=== PATIENT | female | born 1950 | race Caucasian/White ===

== ENCOUNTER 2018-05-10 16:58 | Emergency (ER) | payer BC ==
[~2018-05-10] VITALS: Ht 165.1 cm; Wt 85.2 kg
[~2018-05-10 16:58] MED LIST: AMB5 PO; BUPR75TA20 PO; [UNRECOGNIZED DRUG - CODE] PO
[2018-05-10 17:01] VITALS: TEMP 37.6; Ht 165.1 cm; Wt 85.2 kg
--- NOTE | 2018-05-10 17:29 | EMERGENCY ROOM VISIT NOTE ---
History Report prepared by Marcos: Wyatt Yanez Under the Supervision of: Dr. Peter Maravilla M.D. First contact with patient: 17:11 Chief Complaint: ABDOMINAL PAIN Stated Complaint: SEVERE STOMACH ACH, FEVER History of Present Illness The patient is a 67 year old female who presents to the Emergency Room with complaints of 6/10 epigastric/RUQ abdominal pain x3 days. The patient states today she saw her PCP Dr. Freitas for this pain and he was concerned about her gallbladder so he sent her here. The patient does note she developed a fever today. She does mention she has had nausea but denies vomiting/diarrhea. The patient states she has had increased urinary frequency and chills as well as malaise. The patient denies pain in her back. She does state she does have a history of bladder cancer which she had surgery and radiation done for this at [facility]. Pt denies LOC, headache,diaphoresis, visual changes, neck pain, chest pain, breathing difficulties, vomiting, melena, hematochezia, numbness, lymphadenopathy, rash, or other complaints. Source of History: patient Onset: x3 days Position: abdomen (RUQ) Symptom Intensity: moderate Quality: ache Timing: constant, worsening Review of Systems See HPI for pertinent positives and negatives. A total of ten systems were reviewed and were otherwise negative. Constitutional: + fever, + chills Respiratory: No cough Abdomen: + pain, + nausea, No vomiting, No diarrhea Genitourinary - Female: + urinary frequency Endocrine: + fatigue Integumentary: No rash Past Medical & Surgical Medical Problems: (1) History of bladder cancer Social History Smoking Status: Former Smoker Marital Status: Housing Status: lives with significant other Current/Historical Medications Scheduled Ciprofloxacin Hcl (Cipro), 500 MG PO BID Fish Oil ([place]-3), 1 CAP PO DAILY Zolpidem Tartrate (Zolpidem Tartrate), 10 MG PO HS Allergies Coded Allergies: Amoxicillin (Verified Allergy, Intermediate, Hives, 05/10/18) Penicillamine (Unverified Allergy, Mild, 10/24/09) Physical Exam Vital Signs Date Time Temp Pulse Resp B/P (MAP) Pulse Ox O2 Delivery O2 Flow Rate FiO2 05/10/18 19:02 74 21 116/63 93 Room Air 05/10/18 18:00 80 12 108/63 94 05/10/18 17:38 81 05/10/18 17:33 78 12 114/65 94 Room Air 05/10/18 17:01 37.6 91 20 113/73 95 Room Air Physical Exam GENERAL: Uncomfortable appearing. Awake, alert, well-appearing, in no distress HENT: Normocephalic, atraumatic. Oropharynx unremarkable. EYES: Normal conjunctiva. Sclera non-icteric. NECK: Supple. No nuchal rigidity. FROM. No masses. RESPIRATORY: Clear to auscultation. No wheezes. No rales. Normal respiratory effort. CARDIAC: Normal rate. Normal rhythm. No murmurs. No rubs. Extremities warm and well perfused. Pulses equal. No JVD. GI: Tenderness RUQ with palpation. Soft, non-distended. No rebound or guarding. No masses. RECTAL: Deferred. MUSCULOSKELETAL: Atraumatic. Chest examination reveals no tenderness. The back is symmetrical on inspection without obvious abnormality. There is no CVA tenderness to palpation. No joint edema. LOWER EXTREMITIES: Calves are equal size bilaterally and non-tender. No edema. No discoloration. NEURO: Normal sensorium. No sensory or motor deficits noted. SKIN: No rash or jaundice noted. Medical Decision & Procedures ER Provider Diagnostic Interpretation: ABD/PELVIS NO IV OR ORAL CONT CLINICAL HISTORY: 67 years-old Female presenting with RUQ abd pain and fever. TECHNIQUE: Multidetector CT of the abdomen and pelvis was performed without the use of intravenous contrast. IV contrast: None. A dose lowering technique was used consistent with the principles of ALARA (as low as reasonably achievable). COMPARISON: 11/07/2008. CT DOSE (mGy.cm): The estimated cumulative dose is 946.33 mGy.cm. FINDINGS: [employer] topogram: Unremarkable. Lung bases: Minimal basilar opacities, likely atelectasis. Normal heart size. No pericardial or pleural effusion. Liver: Normal morphology. Density consistent with hepatic steatosis. Parenchymal calcification may suggest prior granulomatous infection. Biliary: No gross biliary ductal dilatation allowing for noncontrast technique. Normal gallbladder. Pancreas: Normal noncontrast appearance. Spleen: Normal noncontrast appearance. Adrenal glands: Normal noncontrast appearance. Kidneys and ureters: Normal noncontrast appearance. No nephrolithiasis. No hydronephrosis. Normal ureters. Bladder: Normal noncontrast appearance. Pelvic organs: Normal noncontrast appearance. Bowel: Diverticulosis of the proximal to mid sigmoid colon as well as the descending colon. No significant colonic wall thickening or pericolonic inflammatory change. Few additional scattered diverticula in the colon. No bowel obstruction. The appendix is not visualized. No pneumatosis. Peritoneal cavity: No free fluid or intraperitoneal gas. Lymph nodes: No gross lymphadenopathy allowing for noncontrast technique. Vasculature: Atherosclerosis of the normal caliber abdominal aorta. Abdominal wall: Small fat-containing umbilical hernia. Musculoskeletal: Degenerative changes of the spine. IMPRESSION: 1. No acute intra-abdominal pathology allowing for noncontrast technique. 2. Diverticulosis without evidence of diverticulitis. GALLBLADDER-ABD LIMITED CLINICAL HISTORY: 67 years-old Female presenting with RUQ abd pain. TECHNIQUE: Real-time grayscale and limited color Doppler ultrasound imaging of the abdomen limited to the right upper quadrant was performed. COMPARISON: CT from 05/10/2018. FINDINGS: Pancreas: Visualized portions of the pancreatic head and body normal. Liver: Normal echogenicity and echotexture. The liver measures 14.4 cm in maximal sagittal dimension. No sonographic evidence of hepatic mass. Main portal vein patent with normal directional flow. Biliary: No intrahepatic biliary ductal dilatation. Common bile duct measures up to 3 mm in diameter. Gallbladder: Trace gallbladder sludge may be present. No evidence of gallstones, gallbladder wall thickening, gallbladder distention, or pericholecystic fluid or inflammatory change. Right kidney: Normal in appearance without evidence of hydronephrosis. Ascites: None. Other: None. IMPRESSION: Trace gallbladder sludge may be present. No cholelithiasis or biliary ductal dilatation. Electronically signed by: Deshaun Garner M.D. 05/10/2018 8:25 PM Dictated Date/Time: 05/10/2018 8:24 PM Laboratory Results 05/10/18 17:30 Red Blood Count 4.71, Mean Corpuscular Volume 87.0, Mean Corpuscular Hemoglobin 30.6, Mean Corpuscular Hemoglobin Concent 35.1, Mean Platelet Volume 9.4, Neutrophils (%) (Auto) 89.1, Lymphocytes (%) (Auto) 7.3, Monocytes (%) (Auto) 2.8, Eosinophils (%) (Auto) 0.0, Basophils (%) (Auto) 0.2, Neutrophils # (Auto) 4.75, Lymphocytes # (Auto) 0.39, Monocytes # (Auto) 0.15, Eosinophils # (Auto) 0.00, Basophils # (Auto) 0.01 05/10/18 17:30 Test 05/10/18 17:30 White Blood Count 5.33 K/uL (4.8-10.8) Red Blood Count 4.71 M/uL (4.2-5.4) Hemoglobin 14.4 g/dL (12.0-16.0) Hematocrit 41.0 % (37-47) Mean Corpuscular Volume 87.0 fL (80-100) Mean Corpuscular Hemoglobin 30.6 pg (25-34) Mean Corpuscular Hemoglobin Concent 35.1 g/dl (32-36) Platelet Count 103 K/uL (130-400) Mean Platelet Volume 9.4 fL (7.4-10.4) Neutrophils (%) (Auto) 89.1 % Lymphocytes (%) (Auto) 7.3 % Monocytes (%) (Auto) 2.8 % Eosinophils (%) (Auto) 0.0 % Basophils (%) (Auto) 0.2 % Neutrophils # (Auto) 4.75 K/uL (1.4-6.5) Lymphocytes # (Auto) 0.39 K/uL (1.2-3.4) Monocytes # (Auto) 0.15 K/uL (0.11-0.59) Eosinophils # (Auto) 0.00 K/uL (0-0.5) Basophils # (Auto) 0.01 K/uL (0-0.2) RDW Standard Deviation 42.9 fL (36.4-46.3) RDW Coefficient of Variation 13.4 % (11.5-14.5) Immature Granulocyte % (Auto) 0.6 % Immature Granulocyte # (Auto) 0.03 K/uL (0.00-0.02) Urine Color DK YELLOW Urine Appearance CLOUDY (CLEAR) Urine pH 5.5 (4.5-7.5) Urine Specific [place] 1.025 (1.000-1.030) Urine Protein 2+ (NEG) Urine Glucose (UA) NEG (NEG) Urine Ketones 1+ (NEG) Urine Occult Blood 2+ (NEG) Urine Nitrite NEG (NEG) Urine Bilirubin NEG (NEG) Urine Urobilinogen NEG (NEG) Urine Leukocyte Esterase SMALL (NEG) Urine WBC (Auto) 10-30 /hpf (0-5) Urine RBC (Auto) 5-10 /hpf (0-4) Urine Hyaline Casts (Auto) 5-10 /lpf (0-5) Urine Epithelial Cells (Auto) >30 /lpf (0-5) Urine Bacteria (Auto) 2+ (NEG) Urine Renal Epithelial Cells 0-5 /lpf (0-5) Urine Pathogenic Casts /lpf (0) Urine Mucus PRESENT (NONE PRSENT) Anion Gap 12.0 mmol/L (3-11) Est Creatinine Clear Calc Drug Dose 55.2 ml/min Estimated GFR () 61.9 Estimated GFR (Non- 53.5 BUN/Creatinine Ratio 11.2 (10-20) Calcium Level 8.8 mg/dl (8.5-10.1) Total Bilirubin 0.9 mg/dl (0.2-1) Direct Bilirubin mg/dl (0-0.2) Aspartate Amino Transf (AST/SGOT) 65 U/L (15-37) Alanine Aminotransferase (ALT/SGPT) 64 U/L (12-78) Alkaline Phosphatase 95 U/L (45-117) Total Protein 7.9 gm/dl (6.4-8.2) Albumin 3.5 gm/dl (3.4-5.0) Lipase 109 U/L (73-393) Chemistry Specimen Hemolysis Medications Administered Medications (Trade) Dose Ordered Sig/Iam Route Start Time Stop Time Status Last Admin Dose Admin Hydromorphone HCl (Dilaudid Inj) 0.5 mg Q15M PRN IV 05/10/18 18:00 05/24/18 17:59 05/10/18 17:57 0.5 MG Ondansetron HCl (Zofran Inj) 4 mg NOW STAT IV 05/10/18 17:46 05/10/18 17:48 DC 05/10/18 17:57 4 MG Sodium Chloride 1,000 ml @ 999 mls/hr Q1H1M STAT IV 05/10/18 17:46 05/10/18 18:46 DC 05/10/18 17:56 999 MLS/HR Ciprofloxacin/ Dextrose (Cipro / D5W) 400 mg NOW STAT IV 05/10/18 18:52 05/10/18 18:54 DC 05/10/18 19:07 400 MG Medical Decision Prior records/ancillary studies reviewed. Triage Nursing notes reviewed and agree them. Additional history obtained from her . The patient's history was concerning for abdominal pain. Differential diagnosis: Etiologies such as appendicitis, diverticulitis, PUD, biliary pathology, UTI, pancreatitis, obstruction, mesenteric ischemia, aortic pathology, infections, inflammatory bowel disease, renal colic, as well as others were entertained. Physical examination findings: As above. ER treatment provided: IV normal saline IV Zofran IV Dilaudid On reassessment the patient felt better. IV Cipro Diagnostics interpreted by me: The labs revealed an unremarkable CBC and chemistry panel. Urinalysis concerning for infection Imaging studies: CAT scan as above. Ultrasound as above The patient presented with right upper abdominal pain. Her urinalysis was very concerning for infection. She underwent CT imaging and there is no evidence of kidney stone or obstruction. No other emergent pathology noted. Because of the right upper quadrant pain and ultrasound was performed. This was negative for biliary pathology. She was given IV Cipro while waiting for ultrasound and did very well with this. A culture was sent. She is feeling significantly better after the above treatment. I discussed conservative management at home with oral Cipro. The patient will also be treated with a Zofran pack in case she has any additional nausea. She will use Tylenol and ibuprofen. She is pending travel next week so I asked for her to follow-up with her primary physician this week. If she worsens in any way she will be back. By the evaluation outlined above other emergent etiologies such as those listed in the differential, as well as others, were deemed relatively unlikely. The patient was educated about the findings as listed above. All questions were answered and the patient was pleased with the treatment. Return instructions were outlined and the patient was discharged in stable condition. The patient was referred to her PCP for follow-up for a recheck of the current condition. Medication Reconcilliation Current Medication List: was personally reviewed by me Blood Pressure Screening Patient's blood pressure: Normal blood pressure Impression Primary Impression: Right upper quadrant abdominal pain Additional Impressions: UTI (urinary tract infection) Pyelonephritis Scribe Attestation The scribe's documentation has been prepared under my direction and personally reviewed by me in its entirety. I confirm that the note above accurately reflects all work, treatment, procedures, and medical decision making performed by me. Departure Information Dispostion Home / Self-Care Prescriptions Ciprofloxacin Hcl (CIPRO) 500 Mg Tab 500 MG PO BID, #14 TAB Prov: Peter Maravilla MD 05/10/18 Referrals No Doctor, Assigned (PCP) Forms Call Back Authorization, HOME CARE DOCUMENTATION FORM, IMPORTANT VISIT INFORMATION Patient Instructions My [facility] Additional Instructions Ciprofloxacin(Cipro) 500mg: Take one pill twice daily for 3 days for your urine infection. All antibiotics can cause diarrhea. If this occurs and you feel worse or it does not resolve in 1-2 days follow up with your doctor or return to the Emergency Department as this could be signs of serious underlying problems. If you experience any pain in your tendons or any tendon injury return to the ER for re-evaluation. Any medication can cause an allergic reaction, stop the pills immediately and return to the ER for rash, hives, breathing difficulties, or swelling. Zofran 4 mg oral dissolving tablets: take one tablet and allow it to melt in your mouth every 4 hours as needed for nausea. Ibuprofen(Motrin, Advil) may be used for fever or pain. Use 600mg every six hours as needed. Take with food. Avoid using more than 2400mg in a 24 hour period. Do not use 2400mg per day for more than three consecutive days without physician direction. Prolonged inappropriate use can lead to stomach upset or ulcers. (AND/OR) Acetaminophen(Tylenol) may be used for fever or pain. Use 1000mg every six hours as needed. Avoid using more than 4000mg in a 24 hour period. Rest and drink plenty of fluids. Continue current medications. Return to the ER immediately for worsening or persistent abdominal pain, vomiting, fevers, back or flank pain, worsening of your condition, or as needed. Follow up with your primary physician within 2-3 days for a recheck of the current condition. Problem Qualifiers
[2018-05-10] MEDS ORDERED: ONDANSETRON INJ 2 MG/ML 2 ML VIAL IV STA (17:46)
[2018-05-10] MEDS ORDERED: SODIUM CHLORIDE 0.9% 1000ML 1,000 ML IV STA (17:46)
[2018-05-10 17:49] LABS: BASO % 0.2 %; BASO ABS # 0.01 K/uL (0-0.2); HEMOGLOBIN 14.4 g/dL (12.0-16.0); IG# 0.03 K/uL (0.00-0.02); LYMPH % 7.3 %; LYMPH ABS # 0.39 K/uL (1.2-3.4); MEAN CORPUSCULAR HEMOGLOBIN 30.6 pg (25-34); MEAN CORPUSCULAR HGB CONC 35.1 g/dl (32-36); MEAN PLATELET VOLUME 9.4 fL (7.4-10.4); MONO % 2.8 %; MONO ABS # 0.15 K/uL (0.11-0.59); NEUT % 89.1 %; NEUT ABS # 4.75 K/uL (1.4-6.5); PLATELET COUNT 103 K/uL (130-400); RED CELL DISTRIBUTION WIDTH CV 13.4 % (11.5-14.5); RED CELL DISTRIBUTION WIDTH SD 42.9 fL (36.4-46.3); WHITE BLOOD COUNT 5.33 K/uL (4.8-10.8)
[2018-05-10] MEDS ORDERED: ZOLP10TA6 PO (17:57)
[2018-05-10] MEDS ORDERED: OMEG10007 PO (17:57)
[2018-05-10] MEDS ORDERED: HYDROmorphone INJ 0.5 MG/0.5 ML SYR IV PRN (18:00)
[2018-05-10 18:32] LABS: ALBUMIN 3.5 gm/dl (3.4-5.0); CALCIUM 8.8 mg/dl (8.5-10.1); CREATININE 1.08 mg/dl (0.60-1.20); POTASSIUM 3.6 mmol/L (3.5-5.1); TOTAL PROTEIN 7.9 gm/dl (6.4-8.2)
--- NOTE | 2018-05-10 18:40 | DIAGNOSTIC IMAGING REPORT ---
ABD/PELVIS NO IV OR ORAL CONT CLINICAL HISTORY: 67 years-old Female presenting with RUQ abd pain and fever. TECHNIQUE: Multidetector CT of the abdomen and pelvis was performed without the use of intravenous contrast. IV contrast: None. A dose lowering technique was used consistent with the principles of ALARA (as low as reasonably achievable). COMPARISON: 11/07/2008. CT DOSE (mGy.cm): The estimated cumulative dose is 946.33 mGy.cm. FINDINGS: [employer] topogram: Unremarkable. Lung bases: Minimal basilar opacities, likely atelectasis. Normal heart size. No pericardial or pleural effusion. Liver: Normal morphology. Density consistent with hepatic steatosis. Parenchymal calcification may suggest prior granulomatous infection. Biliary: No gross biliary ductal dilatation allowing for noncontrast technique. Normal gallbladder. Pancreas: Normal noncontrast appearance. Spleen: Normal noncontrast appearance. Adrenal glands: Normal noncontrast appearance. Kidneys and ureters: Normal noncontrast appearance. No nephrolithiasis. No hydronephrosis. Normal ureters. Bladder: Normal noncontrast appearance. Pelvic organs: Normal noncontrast appearance. Bowel: Diverticulosis of the proximal to mid sigmoid colon as well as the descending colon. No significant colonic wall thickening or pericolonic inflammatory change. Few additional scattered diverticula in the colon. No bowel obstruction. The appendix is not visualized. No pneumatosis. Peritoneal cavity: No free fluid or intraperitoneal gas. Lymph nodes: No gross lymphadenopathy allowing for noncontrast technique. Vasculature: Atherosclerosis of the normal caliber abdominal aorta. Abdominal wall: Small fat-containing umbilical hernia. Musculoskeletal: Degenerative changes of the spine. IMPRESSION: 1. No acute intra-abdominal pathology allowing for noncontrast technique. 2. Diverticulosis without evidence of diverticulitis. Electronically signed by: Deshaun Garner M.D. 05/10/2018 6:39 PM Dictated Date/Time: 05/10/2018 6:30 PM
[2018-05-10] MEDS ORDERED: CIPROFLOXACIN 400MG / 200ML D5W IV STA (18:52)
--- NOTE | 2018-05-10 20:26 | DIAGNOSTIC IMAGING REPORT ---
GALLBLADDER-ABD LIMITED CLINICAL HISTORY: 67 years-old Female presenting with RUQ abd pain. TECHNIQUE: Real-time grayscale and limited color Doppler ultrasound imaging of the abdomen limited to the right upper quadrant was performed. COMPARISON: CT from 05/10/2018. FINDINGS: Pancreas: Visualized portions of the pancreatic head and body normal. Liver: Normal echogenicity and echotexture. The liver measures 14.4 cm in maximal sagittal dimension. No sonographic evidence of hepatic mass. Main portal vein patent with normal directional flow. Biliary: No intrahepatic biliary ductal dilatation. Common bile duct measures up to 3 mm in diameter. Gallbladder: Trace gallbladder sludge may be present. No evidence of gallstones, gallbladder wall thickening, gallbladder distention, or pericholecystic fluid or inflammatory change. Right kidney: Normal in appearance without evidence of hydronephrosis. Ascites: None. Other: None. IMPRESSION: Trace gallbladder sludge may be present. No cholelithiasis or biliary ductal dilatation. Electronically signed by: Deshaun Garner M.D. 05/10/2018 8:25 PM Dictated Date/Time: 05/10/2018 8:24 PM
[2018-05-10] MEDS ORDERED: CIPROFLOXACIN 500 MG TAB PO STA (20:31)
[2018-05-10] MEDS ORDERED: CIPR-255 PO (20:36)
[2018-05-10] MEDS ORDERED: EMPTY 8 DRAM VIAL ONE (20:41)
[2018-05-10] MEDS ORDERED: ONDANSETRON HOME PACK 4MG OD TAB PO ONE (20:45)
[2018-05-10 21:08] VITALS: BP 111/58; PULSE 78; O2SAT 94
== END 2018-05-10 21:08 | disposition home or self-care (01) ==
LOC: C.EDB 16:59
DX: R10.11 Right upper quadrant pain (principal); N39.0 Urinary tract infection, site not specified; N12 Tubulo-interstitial nephritis, not specified as acute or chronic; Z85.51 Personal history of malignant neoplasm of bladder; Z87.891 Personal history of nicotine dependence; Z79.899 Other long term (current) drug therapy; Z88.1 Allergy status to other antibiotic agents; Z88.0 Allergy status to penicillin

== ENCOUNTER 2022-06-15 12:43 | Inpatient (IN) ==
--- NOTE | 2022-06-15 15:07 | Ultrasound Report ---
ULTRASOUND LEFT LOWER EXTREMITY VENOUS CLINICAL HISTORY: Left leg swelling. COMPARISON STUDY: Left lower extremity venous ultrasound dated 11/14/2019 TECHNIQUE: Real-time, grayscale, and color Doppler sonography of the deep veins of the left lower ext remity was performed from the inguinal crease to the calf. Compression and augmentation were utilized . FINDINGS: There is extensive occlusive deep venous thrombosis seen throughout the left lower extreme. This extends to the common femoral artery to the calf vessels. There are foci of flow within the ant erior and posterior tibial veins. Superficial venous thrombus is seen within the greater saphenous ve in and profunda femoris vein. IMPRESSION: Extensive occlusive deep venous thrombosis throughout the left lower extremity as above. ACT 112: Negative or not required by law. Electronically signed by: Abdulaziz Albert M.D. 06/15/2022 3:06 PM
[2022-06-15] MEDS ORDERED: SODIUM CHLORIDE 0.9% 1000ML 1,000 ML IV ONE (16:11)
--- NOTE | 2022-06-15 16:11 | Emergency Department Note ---
Impression & Plan DVT (deep venous thrombosis), Ovarian cancer, Ileostomy present, Colovaginal fistula ED Provider Note NAME: CAROL LARSEN AGE: 71 SEX: F : 1950 ARRIVES VIA: Walk-In INFORMANT: Patient ED PROVIDER(S): Aristides Celestin DO CHIEF COMPLAINT: LLE pain HPI: Patient is a 71-year-old female who presents to the ER for left lower extremity pain and swelling. She was recently admitted and discharged after 40- day stay at [facility] following multiple abdominal surgeries for ovarian cancer which has spread. She was just discharged on Tuesday. She has been h aving pain in her left calf for the past 4 to 5 days. She admits that the dull aching constant pain. The leg is feeling heavier. Denies any headache or change in vision. No chest pain or shortness of breath. No nausea vomiting or diarrhea. She does have an ostomy now as well as a G-tube. ROS: See above HPI for pertinent positives & negatives. A total of 10 systems reviewed and were otherwise negative. PAST MEDICAL HISTORY:See Below PAST SURGICAL HISTORY:See Below FAMILY HISTORY:See Below SOCIAL HISTORY:See Below HOME MEDICATIONS:See Below ALLERGIES:See Below VITALS:See Below PHYSICAL EXAMINATION: GENERAL: Sitting up in bed, alert, ill appearing, disheveled EYE EXAM: normal conjunctiva. OROPHARYNX: mucous membranes are dry NECK: supple, no nuchal rigidity, no adenopathy, non-tender LUNGS: Clear to auscultation. Normal chest wall mechanics HEART: no murmurs, S1 normal and S2 normal ABDOMEN: abdomen soft, non-tender, normo-active bowel sounds, G-tube in place as well as ostomy and wound vac UPPER EXTREMITIES: upper extremities are grossly normal. LOWER EXTREMITIES: Left calf larger than right calf. DP and PT 2 out of 4. Gross station intact NEURO EXAM: Normal sensorium, cranial nerves II-XII grossly intact, normal speech, no gross weakness of arms, no gross weakness of legs. MEDICAL DECISION MAKING: Patient is a 71-year-old female who presents the ER for left leg pain. He was referred in by her primary care doctor. IV was established blood work was obtained. Labs show no significant leukocytosis with a white count of 7. Hemoglobin 8 consistent with previous. Platelets 192. INR unremarkable. BMP with hyponatremia 132. LFTs bilirubin and troponin was negative. Lipase unremarkable. COVID-negative. CT of the chest as well as abdomen pelvis shows no PEs and a questionable small abscess of 20 x 9 mm versus colovaginal fistula. This was discussed with her surgery team at [facility]. He recommended holding on antibiotics and case can be discussed with the primary surgeon tomorrow. Patient was initially given heparin drip and bolus as I was concerned that she may need surgery but they recommended that she could be held here overnight and follow up as an outpt with them. Discussed with Dr. Korey Means for further observation. Triage Nursing notes reviewed. Limited review of prior medical records performed Vital Signs: reviewed and remarkable for tachy Differential diagnosis: DVT, musculoskeletal, infection, joint effusion, trauma, lymphedema, idiopathic, CHF, as well as other pathologies. ER treatment provided: See below Diagnostics interpreted by me: ECG: Sinus rhythm rate 94 Left axis Right bundle branch block QTC 472 Cardiac Monitoring: An order was placed for continuous cardiac monitoring. The monitor shows a rate of 98 with sinus rhythm. Laboratory studies: As stated above and show below. Imaging studies: CT of the abdomen pelvis and chest as described above Venous Doppler shows extensive thrombosis in left lower extremity Consultation(s): Korey Means for further evaluation Discussed with [facility] Store Detective Jenna as described above Procedures: none Critical Care: None Past Med/Surg History Medical History Bladder cancer TREATED BY [facility] Blood clotting disorder ? 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) Insomnia Surgical History H/O hand surgery LEFT HAND MIDDLE FINGER GROWTH REMOVED (DONE MULTIPLE TIMES) History of colonoscopy History of cystoscopy BLADDER TUMORS REMOVED (MULTIPLE TIMES) HAS HAD NO PROBLEMS FOR 3 YEARS History of tonsillectomy History of tooth extraction Hx of bilateral breast reduction surgery Family History Other No significant family history Social History Smoking Status: Never smoker Second Hand Exposure: No; Hx Alcohol Use: Yes Alcohol type: wine Hx Substance Use: No Preferred Language: [place] Communication Ability: Effective Reconciler Required: No Beliefs That Will Affect Care: None Current Living Situation: Spouse Feels Safe at Home: Yes Assistive Devices: Glasses Allergies Allergies Allergy/AdvReac Type Severity Reaction Status Date / Time amoxicillin Allergy Unknown Hives Verified 06/15/22 15:55 Home Meds Home Medications Medication Instructions Recorded Confirmed omega [id number]-bfa-[id number]-fish oil 1,000 mg 1 cap PO DAILY 07/04/19 06/15/22 (120 mg-180 mg) capsule (Fish Oil) ergocalciferol (vitamin D2) 1,250 1,250 mcg PO 2XWK 06/13/22 06/15/22 mcg (50,000 unit) capsule (Vitamin D2) ibuprofen 800 mg tablet 800 mg PO UD PRN Pain 06/13/22 06/15/22 pantoprazole 40 mg tablet,delayed 40 mg PO DAILY 06/13/22 06/15/22 release prochlorperazine maleate 10 mg 10 mg PO Q6 PRN Nausea And Vomiting 06/13/22 06/15/22 tablet zolpidem 10 mg tablet 10 mg PO HS 10 mg 06/13/22 06/15/22 Results & Data (ED) Vital Signs Vital Signs - 24 hr 06/15/22 13:02 06/15/22 17:21 06/15/22 16:43 Temperature 36.9 C Temperature Source Oral Pulse Rate 100 H Pulse Rate [Apical] 90 Pulse Rate from SpO2 Sensor Respiratory Rate 20 16 Respiratory Effort / Characteristics Non-Labored Spontaneous Non-Labored Spontaneous Respiratory Depth Normal Normal Respiratory Pattern Regular Blood Pressure 125/73 Blood Pressure [Right Arm] 105/69 Blood Pressure Mean 90 Blood Pressure Mean [Right Arm] 81 Blood Pressure Position Sitting Pulse Oximetry 97 98 98 Oxygen Delivery Method Room Air Room Air Room Air Sepsis Recent Fever Within 48 Hours No Sepsis New/Unexplained Change in Mental Status No Sepsis Action Taken by Nursing No Action Required 06/15/22 16:27 06/15/22 16:30 06/15/22 16:40 Temperature Temperature Source Pulse Rate 95 H 92 H 92 H Pulse Rate [Apical] Pulse Rate from SpO2 Sensor Respiratory Rate 19 19 19 Respiratory Effort / Characteristics Respiratory Depth Respiratory Pattern Blood Pressure Blood Pressure [Right Arm] Blood Pressure Mean Blood Pressure Mean [Right Arm] Blood Pressure Position Pulse Oximetry Oxygen Delivery Method Sepsis Recent Fever Within 48 Hours Sepsis New/Unexplained Change in Mental Status Sepsis Action Taken by Nursing 06/15/22 16:46 06/15/22 16:46 06/15/22 16:50 Temperature Temperature Source Pulse Rate 92 H 90 Pulse Rate [Apical] Pulse Rate from SpO2 Sensor 89 Respiratory Rate 19 16 Respiratory Effort / Characteristics Respiratory Depth Respiratory Pattern Blood Pressure 105/69 Blood Pressure [Right Arm] Blood Pressure Mean 81 Blood Pressure Mean [Right Arm] Blood Pressure Position Pulse Oximetry 97 Oxygen Delivery Method Sepsis Recent Fever Within 48 Hours Sepsis New/Unexplained Change in Mental Status Sepsis Action Taken by Nursing 06/15/22 17:22 06/15/22 17:30 06/15/22 17:40 Temperature Temperature Source Pulse Rate 91 H 90 89 Pulse Rate [Apical] Pulse Rate from SpO2 Sensor Respiratory Rate 18 17 17 Respiratory Effort / Characteristics Respiratory Depth Respiratory Pattern Blood Pressure Blood Pressure [Right Arm] Blood Pressure Mean Blood Pressure Mean [Right Arm] Blood Pressure Position Pulse Oximetry Oxygen Delivery Method Sepsis Recent Fever Within 48 Hours Sepsis New/Unexplained Change in Mental Status Sepsis Action Taken by Nursing 06/15/22 17:50 06/15/22 18:00 06/15/22 18:00 Temperature Temperature Source Pulse Rate 90 87 Pulse Rate [Apical] Pulse Rate from SpO2 Sensor Respiratory Rate 19 19 Respiratory Effort / Characteristics Respiratory Depth Respiratory Pattern Blood Pressure 103/58 L Blood Pressure [Right Arm] Blood Pressure Mean 73 Blood Pressure Mean [Right Arm] Blood Pressure Position Pulse Oximetry Oxygen Delivery Method Sepsis Recent Fever Within 48 Hours Sepsis New/Unexplained Change in Mental Status Sepsis Action Taken by Nursing 06/15/22 18:10 06/15/22 18:20 06/15/22 18:30 Temperature Temperature Source Pulse Rate 88 92 H 86 Pulse Rate [Apical] Pulse Rate from SpO2 Sensor Respiratory Rate 19 20 23 Respiratory Effort / Characteristics Respiratory Depth Respiratory Pattern Blood Pressure Blood Pressure [Right Arm] Blood Pressure Mean Blood Pressure Mean [Right Arm] Blood Pressure Position Pulse Oximetry Oxygen Delivery Method Sepsis Recent Fever Within 48 Hours Sepsis New/Unexplained Change in Mental Status Sepsis Action Taken by Nursing 06/15/22 18:40 06/15/22 18:50 06/15/22 19:00 Temperature Temperature Source Pulse Rate 86 102 H Pulse Rate [Apical] Pulse Rate from SpO2 Sensor Respiratory Rate 22 21 Respiratory Effort / Characteristics Respiratory Depth Respiratory Pattern Blood Pressure 98/59 L Blood Pressure [Right Arm] Blood Pressure Mean 72 Blood Pressure Mean [Right Arm] Blood Pressure Position Pulse Oximetry Oxygen Delivery Method Sepsis Recent Fever Within 48 Hours Sepsis New/Unexplained Change in Mental Status Sepsis Action Taken by Nursing 06/15/22 19:00 06/15/22 19:10 06/15/22 19:20 Temperature Temperature Source Pulse Rate 99 H 104 H Pulse Rate [Apical] Pulse Rate from SpO2 Sensor Respiratory Rate 24 12 Respiratory Effort / Characteristics Respiratory Depth Respiratory Pattern Blood Pressure 107/59 L Blood Pressure [Right Arm] Blood Pressure Mean 75 Blood Pressure Mean [Right Arm] Blood Pressure Position Pulse Oximetry Oxygen Delivery Method Sepsis Recent Fever Within 48 Hours Sepsis New/Unexplained Change in Mental Status Sepsis Action Taken by Nursing 06/15/22 19:20 Temperature Temperature Source Pulse Rate 99 H Pulse Rate [Apical] Pulse Rate from SpO2 Sensor Respiratory Rate 23 Respiratory Effort / Characteristics Respiratory Depth Respiratory Pattern Blood Pressure Blood Pressure [Right Arm] Blood Pressure Mean Blood Pressure Mean [Right Arm] Blood Pressure Position Pulse Oximetry Oxygen Delivery Method Sepsis Recent Fever Within 48 Hours Sepsis New/Unexplained Change in Mental Status Sepsis Action Taken by Nursing Laboratory Data Result diagrams: 06/15/22 16:30 06/15/22 16:30 Lab Results 06/15/22 06/15/22 06/15/22 Range/Units 16:30 16:30 16:30 WBC 7.83 (4.8-10.8) K/ul RBC 2.67 L (3.93-5.22) M/uL Hgb 8.3 L (12.0-16.0) g/dl POC Hgb (12.0-16.0) g/dl Hct 25.3 L (34.1-44.9) % POC Hct (37-47) % MCV 94.8 (80.0-100.0) fL MCH 31.1 (25.0-34.0) pg MCHC 32.8 (32.0-36.0) g/dL RDW Std Deviation 57.1 H (36.4-46.3) fL RDW Coeff of Rolo 16.4 H (11.5-14.5) % Plt Count 192 (130-400) K/uL MPV 9.3 L (9.4-12.3) fL Immature Gran % (Auto) 0.5 % Neut % (Auto) 64.9 % Lymph % (Auto) 23.6 % [place] % (Auto) 9.8 % Eos % (Auto) 0.8 % Baso % (Auto) 0.4 % Neut # (Auto) 5.08 (1.4-6.5) K/uL Lymph # (Auto) 1.85 (1.2-3.4) K/uL [place] # (Auto) 0.77 (0.24-0.82) K/uL Eos # (Auto) 0.06 (0-0.50) K/uL Baso # (Auto) 0.03 (0-0.2) K/uL Immature Gran # (Auto) 0.04 H (0.00-0.02) K/uL PT (9.0-12.0) Seconds INR (0.9-1.1) APTT (21.0-31.0) Seconds PTT Ratio POC Sodium (135-144) mmol/L Sodium 132 L (136-145) mmol/L POC Potassium (3.3-5.0) mmol/L Potassium 3.6 (3.5-5.1) mmol/L POC Chloride (101-112) mmol/L Chloride 99 (98-107) mmol/L Carbon Dioxide 27 (21-32) mmol/L POC Total CO2 (24-31) mmol/L Anion Gap 6 (3-11) POC Anion Gap (16-25) mmol/L POC BUN (7-18) mg/dl BUN 19 (6-23) mg/dl Creatinine 0.58 L (0.6-1.2) mg/dl POC Creatinine (0.6-1.3) mg/dl Est Cr Clr Drug Dosing Not Reportable Est GFR ( Amer) 108.2 ml/min Est GFR (Non-Af Amer) 93.4 ml/min BUN/Creatinine Ratio 32.8 H (10-20) Glucose 93 (70-99(Fasting)) mg/dl POC Glucose (other) (70-99) mg/dl Calcium 8.5 (8.5-10.1) mg/dl POC Ioniz Calcium Annelise (1.12-1.32) mmol/l Total Bilirubin 0.7 (0.2-1.0) mg/dl AST 20 (13-39) U/L ALT 20 (7-52) U/L Alkaline Phosphatase 160 H (34-104) U/L Troponin I High Sens 4.4 D (0-14) pg/ml Total Protein 7.1 (6.0-8.3) gm/dl Albumin 3.1 L (3.4-5.0) gm/dl Globulin 4.0 (2.5-4.0) gm/dl Albumin/Globulin Ratio 0.8 L (0.9-2) Lipase 32 (11-82) U/L SARS-CoV-2, RNA, NAAT NEGATIVE (NEGATIVE) 06/15/22 06/15/22 Range/Units 16:30 16:38 WBC (4.8-10.8) K/ul RBC (3.93-5.22) M/uL Hgb (12.0-16.0) g/dl POC Hgb 8.2 L (12.0-16.0) g/dl Hct (34.1-44.9) % POC Hct 24 L (37-47) % MCV (80.0-100.0) fL MCH (25.0-34.0) pg MCHC (32.0-36.0) g/dL RDW Std Deviation (36.4-46.3) fL RDW Coeff of Rolo (11.5-14.5) % Plt Count (130-400) K/uL MPV (9.4-12.3) fL Immature Gran % (Auto) % Neut % (Auto) % Lymph % (Auto) % [place] % (Auto) % Eos % (Auto) % Baso % (Auto) % Neut # (Auto) (1.4-6.5) K/uL Lymph # (Auto) (1.2-3.4) K/uL [place] # (Auto) (0.24-0.82) K/uL Eos # (Auto) (0-0.50) K/uL Baso # (Auto) (0-0.2) K/uL Immature Gran # (Auto) (0.00-0.02) K/uL PT 11.5 (9.0-12.0) Seconds INR 1.1 (0.9-1.1) APTT 25.6 (21.0-31.0) Seconds PTT Ratio 0.9 POC Sodium 134 L (135-144) mmol/L Sodium (136-145) mmol/L POC Potassium 3.6 (3.3-5.0) mmol/L Potassium (3.5-5.1) mmol/L POC Chloride 99 L (101-112) mmol/L Chloride (98-107) mmol/L Carbon Dioxide (21-32) mmol/L POC Total CO2 24 (24-31) mmol/L Anion Gap (3-11) POC Anion Gap 15.0 L (16-25) mmol/L POC BUN 17 (7-18) mg/dl BUN (6-23) mg/dl Creatinine (0.6-1.2) mg/dl POC Creatinine 0.6 (0.6-1.3) mg/dl Est Cr Clr Drug Dosing Est GFR ( Amer) ml/min Est GFR (Non-Af Amer) ml/min BUN/Creatinine Ratio (10-20) Glucose (70-99(Fasting)) mg/dl POC Glucose (other) 101 H (70-99) mg/dl Calcium (8.5-10.1) mg/dl POC Ioniz Calcium Annelise 1.17 (1.12-1.32) mmol/l Total Bilirubin (0.2-1.0) mg/dl AST (13-39) U/L ALT (7-52) U/L Alkaline Phosphatase (34-104) U/L Troponin I High Sens (0-14) pg/ml Total Protein (6.0-8.3) gm/dl Albumin (3.4-5.0) gm/dl Globulin (2.5-4.0) gm/dl Albumin/Globulin Ratio (0.9-2) Lipase (11-82) U/L SARS-CoV-2, RNA, NAAT (NEGATIVE) Administered Medications Heparin Sodium/Dextrose (Heparin Sodium/Dextrose) 25,000 units in 500 mls @ 23 mls/hr IV .[id number] [facility]; Protocol Stop: 07/15/22 18:29 Last Titration: 06/15/22 20:49 Dose: 1,150 units/hr, 23 mls/hr Documented By: SB Co-signed By: BYRON Admin: 06/15/22 19:33 Dose: 1,150 units/hr, 23 mls/hr Documented By: APPLE Co-signed By: AW Discontinued Medications Heparin Sodium (Porcine) (Heparin Sod (Porcine) 1000 Unit/Ml) 1 units IV NOW ONE Stop: 06/15/22 18:25 Last Admin: 06/15/22 19:34 Dose: 5,000 units Documented By: APPLE Co-signed By: XANDER Sodium Chloride (Nss 1000ml) 1,000 mls @ 999 mls/hr IV .[id number] ONE Stop: 06/15/22 17:11 Last Infusion: 06/15/22 17:41 Dose: 0 mls/hr Documented By: Admin: 06/15/22 16:40 Dose: 999 mls/hr Documented By: GILSON Ioversol (Optiray 300 500ml) 117 ml IV ONCE ONE Stop: 06/15/22 17:16 Last Admin: 06/15/22 17:16 Dose: 117 ml Documented By: SHELIA Imaging Data Radiologist's Impression: Venous Doppler Study 06/15/22 13:05 ULTRASOUND LEFT LOWER EXTREMITY VENOUS CLINICAL HISTORY: Left leg swelling. COMPARISON STUDY: Left lower extremity venous ultrasound dated 11/14/2019 TECHNIQUE: Real-time, grayscale, and color Doppler sonography of the deep veins of the left lower extremity was performed from the inguinal crease to the calf. Compression and augmentation were utilized. FINDINGS: There is extensive occlusive deep venous thrombosis seen throughout the left lower extreme. This extends to the common femoral artery to the calf vessels. There are foci of flow within the anterior and posterior tibial veins. Superficial venous thrombus is seen within the greater saphenous vein and profunda femoris vein. IMPRESSION: Extensive occlusive deep venous thrombosis throughout the left lower extremity as above. ACT 112: Negative or not required by law. Electronically signed by: Abdulaziz Albert M.D. 06/15/2022 3:06 PM Chest CTA 06/15/22 15:51 CT angio chest PE protocol CLINICAL HISTORY: PE TECHNIQUE: Multidetector row helical CT of the chest was performed with angiographic protocol. Coronal and sagittal reformations were obtained. Coronal and sagittal MIPS were obtained from the axial data set and were submitted for review. Automated dose lowering techniques and/or adjustment according to patie nt size were utilized for this exam. Comparison: Comparison is made to CTA chest 05/09/2022 FINDINGS: Lungs and pleura: There is a small left pleural effusion with underlying atelectasis. Heart and pericardium: Heart size is normal. No pericardial effusion. Vessels: No evidence of pulmonary embolism. Mediastinum and yusuf: Unremarkable. Chest wall and lower neck: A right port catheter is seen. Abdomen: Calcified pericardial lymph nodes are again seen, unchanged. For findings below the diaphragm, please refer to CT of the abdomen dated the same. Bones: There are degenerative changes are seen. There is a bone hemangioma in the T12 vertebral body. IMPRESSION: 1. No evidence of pulmonary embolism. Previously noted lingular subsegmental emboli or not well seen. 2. Small left pleural effusion with underlying atelectasis. This represents an increase from the prior exam. 3. Partially calcified pericardial lymph nodes are again seen. ACT 112: Negative or not required by law. Electronically signed by: Jaxson Anderson M.D. 06/15/2022 5:47 PM Abdomen/Pelvis CT 06/15/22 16:04 CT abd pelvis IV con only CLINICAL HISTORY: recent surgery w/ extensive dvt lle. Metastatic ovarian cancer, status post surgery with ileostomy. TECHNIQUE: Helical axial images of the abdomen and pelvis were obtained and displayed. Automated dose lowering techniques and/or adjustment according to patient size were utilized for this exam. This exam was performed with intravenous contrast. CT DOSE: 673.42 mGy.cm COMPARISON: Comparison is made to CT abdomen pelvis 05/09/2022 FINDINGS: Lower chest: For findings above the diaphragm, please see CT chest performed same day. Liver: Unremarkable. No focal lesions are seen. Gallbladder and biliary tree: No calcified gallstones. Normal caliber wall. No intra- or extrahepatic biliary ductal dilation. Pancreas: Unremarkable, no focal lesions. Spleen: Unremarkable. Adrenals: Unremarkable. Kidneys and ureters: Subcentimeter hypodensities are too small to characterize. Bladder: Limited evaluation due to underdistention. There is surrounding fat stranding. Reproductive organs: Unremarkable. Bowel: Patient is status post large bowel resection. There is continuity of the right lower quadrant anastomosis site with a rim-enhancing fluid collection measuring 9 x 20 mm, which appears to extend also to the vaginal cuff. Ileostomy is seen. Satisfactory position of gastrostomy tube. Lymph nodes Retroperitoneal: Retroperitoneal lymph nodes measure up to 11 mm in diameter. These are similar in appearance to prior exam. Pelvic: Unremarkable. Mesenteric: Unremarkable. Peritoneum: Peritoneal stranding is seen and a small amount of free fluid is noted in the pelvis. Otherwise, the previously noted gas fluid collection in the pelvis has resolved. Vessels: There is a large filling defect in the left external iliac and femoral veins. Atherosclerotic disease is seen. Additionally, there is suggestion of a distended right lower quadrant pain with a filling defect which emerges with the IVC. Abdominal wall: Unremarkable. Bones: Degenerative changes in the visualized spine. IMPRESSION: 1. Deep venous thrombus in the left external iliac and femoral arteries. 2. Postsurgical changes are seen in the bowel. There is apparent continuity of the resection site with a rim-enhancing 9 x 20 mm fluid collection which demonstrates continuity with the vaginal cuff. This may represent an abscess and/or developing colovaginal fistula. 3. Wall thickening and fat stranding surrounding the bladder may be reactive or represent cystitis, correlation with urinalysis is recommended. 4. Previously noted large gas and fluid collection in the abdomen and pelvis has resolved. No evidence of perforation/anastomotic leak is now seen. ACT 112: Negative or not required by law. Electronically signed by: Jasxon Anderson M.D. 06/15/2022 5:39 PM Discharge Plan Visit Data Chief Complaint: Referred by Doctor Stated Complaint: DVT, sent from Dr. Mcelroy ED Provider: Aristides Celestin Discharge Problem: DVT (deep venous thrombosis), Ovarian cancer, Ileostomy present, Colovaginal fistula
[2022-06-15 16:46] LABS: Basophils # (auto) 0.03 K/uL (0-0.2); Basophils % (auto) 0.4 %; Eosinophils # (auto) 0.06 K/uL (0-0.50); Eosinophils % (auto) 0.8 %; Hematocrit (blood only) 25.3 % (34.1-44.9); Hemoglobin 8.3 g/dl (12.0-16.0); Immature Granulocytes # (auto) 0.04 K/uL (0.00-0.02); Immature Granulocytes % (auto) 0.5 %; Lymphocytes # (auto) 1.85 K/uL (1.2-3.4); Lymphocytes % (auto) 23.6 %; Mean Corpuscular Hemoglobin 31.1 pg (25.0-34.0); Mean Corpuscular Hgb Conc 32.8 g/dL (32.0-36.0); Mean Corpuscular Volume 94.8 fL (80.0-100.0); Mean Platelet Volume 9.3 fL (9.4-12.3); Monocytes # (auto) 0.77 K/uL (0.24-0.82); Monocytes % (auto) 9.8 %; Neutrophils # (auto) 5.08 K/uL (1.4-6.5); Neutrophils % (auto) 64.9 %; Platelet Count 192 K/uL (130-400); RDW Coefficient of Variation 16.4 % (11.5-14.5); RDW Standard Deviation 57.1 fL (36.4-46.3); Red Blood Count 2.67 M/uL (3.93-5.22); White Blood Count 7.83 K/ul (4.8-10.8)
[2022-06-15 16:57] LABS: INR 1.1 (0.9-1.1); Partial Thromboplastin Ratio 0.9; Partial Thromboplastin Time 25.6 Seconds (21.0-31.0); Prothrombin Time 11.5 Seconds (9.0-12.0)
[2022-06-15 17:00] LABS: iSTAT Creatinine 0.6 mg/dl (0.6-1.3); iSTAT Hemoglobin 8.2 g/dl (12.0-16.0); iSTAT Ionized Calcium 1.17 mmol/l (1.12-1.32); iSTAT Potassium 3.6 mmol/L (3.3-5.0)
[2022-06-15 17:11] LABS: Troponin I High Sensitivity 4.4 pg/ml (0-14)
[2022-06-15] MEDS ORDERED: OPTIRAY 300 500mL IV ONE (17:15)
[2022-06-15 17:16] LABS: Alanine Aminotransferase 20 U/L (7-52); Albumin Globulin Ratio 0.8 (0.9-2); Albumin Level 3.1 gm/dl (3.4-5.0); Alkaline Phosphatase 160 U/L (34-104); Anion Gap 6 (3-11); Aspartate Aminotransferase 20 U/L (13-39); BUN Creatinine Ratio 32.8 (10-20); Bilirubin,Total 0.7 mg/dl (0.2-1.0); Blood Urea Nitrogen 19 mg/dl (6-23); Calcium 8.5 mg/dl (8.5-10.1); Carbon Dioxide 27 mmol/L (21-32); Chloride 99 mmol/L (98-107); Est GFR (African American) 108.2 ml/min; Est GFR (Non-African American) 93.4 ml/min; Glucose 93 mg/dl (70-99(Fasting)); Lipase 32 U/L (11-82); Potassium 3.6 mmol/L (3.5-5.1); Sodium 132 mmol/L (136-145); Total Protein 7.1 gm/dl (6.0-8.3)
--- NOTE | 2022-06-15 17:41 | CT Scan Report ---
CT abd pelvis IV con only CLINICAL HISTORY: recent surgery w/ extensive dvt lle. Metastatic ovarian cancer, status post surgery with ileostomy. TECHNIQUE: Helical axial images of the abdomen and pelvis were obtained and displayed. Automated dose lowering techniques and/or adjustment according to patient size were utilized for this exam. This e xam was performed with intravenous contrast. CT DOSE: 673.42 mGy.cm COMPARISON: Comparison is made to CT abdomen pelvis 05/09/2022 FINDINGS: Lower chest: For findings above the diaphragm, please see CT chest performed same day. Liver: Unremarkable. No focal lesions are seen. Gallbladder and biliary tree: No calcified gallstones. Normal caliber wall. No intra- or extrahepatic biliary ductal dilation. Pancreas: Unremarkable, no focal lesions. Spleen: Unremarkable. Adrenals: Unremarkable. Kidneys and ureters: Subcentimeter hypodensities are too small to characterize. Bladder: Limited evaluation due to underdistention. There is surrounding fat stranding. Reproductive organs: Unremarkable. Bowel: Patient is status post large bowel resection. There is continuity of the right lower quadrant anastomosis site with a rim-enhancing fluid collection measuring 9 x 20 mm, which appears to extend a lso to the vaginal cuff. Ileostomy is seen. Satisfactory position of gastrostomy tube. Lymph nodes Retroperitoneal: Retroperitoneal lymph nodes measure up to 11 mm in diameter. These are similar in ap pearance to prior exam. Pelvic: Unremarkable. Mesenteric: Unremarkable. Peritoneum: Peritoneal stranding is seen and a small amount of free fluid is noted in the pelvis. Oth erwise, the previously noted gas fluid collection in the pelvis has resolved. Vessels: There is a large filling defect in the left external iliac and femoral veins. Atheroscleroti c disease is seen. Additionally, there is suggestion of a distended right lower quadrant pain with a filling defect which emerges with the IVC. Abdominal wall: Unremarkable. Bones: Degenerative changes in the visualized spine. IMPRESSION: 1. Deep venous thrombus in the left external iliac and femoral arteries. 2. Postsurgical changes are seen in the bowel. There is apparent continuity of the resection site wi th a rim-enhancing 9 x 20 mm fluid collection which demonstrates continuity with the vaginal cuff. Th is may represent an abscess and/or developing colovaginal fistula. 3. Wall thickening and fat stranding surrounding the bladder may be reactive or represent cystitis, correlation with urinalysis is recommended. 4. Previously noted large gas and fluid collection in the abdomen and pelvis has resolved. No eviden ce of perforation/anastomotic leak is now seen. ACT 112: Negative or not required by law. Electronically signed by: Jaxson Anderson M.D. 06/15/2022 5:39 PM
--- NOTE | 2022-06-15 17:49 | CT Scan Report ---
CT angio chest PE protocol CLINICAL HISTORY: PE TECHNIQUE: Multidetector row helical CT of the chest was performed with angiographic protocol. Chatman l and sagittal reformations were obtained. Coronal and sagittal MIPS were obtained from the axial yon a set and were submitted for review. Automated dose lowering techniques and/or adjustment according to patient size were utilized for this exam. Comparison: Comparison is made to CTA chest 05/09/2022 FINDINGS: Lungs and pleura: There is a small left pleural effusion with underlying atelectasis. Heart and pericardium: Heart size is normal. No pericardial effusion. Vessels: No evidence of pulmonary embolism. Mediastinum and yusuf: Unremarkable. Chest wall and lower neck: A right port catheter is seen. Abdomen: Calcified pericardial lymph nodes are again seen, unchanged. For findings below the diaphrag m, please refer to CT of the abdomen dated the same. Bones: There are degenerative changes are seen. There is a bone hemangioma in the T12 vertebral body. IMPRESSION: 1. No evidence of pulmonary embolism. Previously noted lingular subsegmental emboli or not well seen . 2. Small left pleural effusion with underlying atelectasis. This represents an increase from the sheila or exam. 3. Partially calcified pericardial lymph nodes are again seen. ACT 112: Negative or not required by law. Electronically signed by: Jaxson Anderson M.D. 06/15/2022 5:47 PM
[2022-06-15] MEDS ORDERED: Heparin IV Adult Wt-Based Standard WITH Bolus Protocol IV STA (18:09)
[2022-06-15] MEDS ORDERED: HEPARIN SOD (PORCINE) 1000 UNIT/ML IV ONE (18:24)
--- NOTE | 2022-06-15 18:32 | History & Physical Report ---
Date of Service June 15, 2022 Assessment & Plan (1) DVT (deep venous thrombosis): Plan: - Patient with LLE swelling and pain x 1 day. Was discharged from [facility] last week, was on Lovenox, last Lovenox injection was 7-8 days ago. - Multiple risk factors: cancer, recent surgery and prolonged hospital stay of 40 days, and apparent, unspecified clotting disorder. - There is a large filling defect in the left external iliac and femoral veins. Atherosclerotic disease is seen. Additionally, there is suggestion of a distended right lower quadrant pain with a filling defect which emerges with the IVC. - CTA: No evidence of pulmonary embolism. Previously noted lingular subsegmental emboli or not well seen. - Although first line treatment in this patient with cancer would normally be Lovenox, we will treat with heparin gtt w/ bolus for now given abscess vs colovaginal fistula seen near resection site on CT A/P due to possible intervention. Likely would require transfer to [facility] to be done under IR. - If no intervention is planned, can switch to Lovenox. (2) Colovaginal fistula: Plan: - CT A/P with rim-enhancing 9 x 20 mm fluid collection demonstrating continuity with the vaginal cuff representing possibly an abscess versus colovaginal fistula. - ED provider spoke with [facility] who feels patient is stable to be admitted here with IV antibiotics for now. - Vancomycin and Zosyn started in ED--renal function acceptable. BMP daily. - General surgery consulted. - NPO for now until it is determined whether this is an abscess vs fistula. (3) Ileostomy present: Plan: - No evidence of infection at site, without erythema or purulent drainage. Adequate output. - Bag switched on M-W-F. - Abdominal wound vac in place; wound care consulted for management. - G tube with 30 cc NS flushes daily ordered. (4) Ovarian cancer: Plan: - Metastatic, with multiple abdominal surgeries and a 40-day stay at [facility]. Currently with ileostomy, G-tube, PICC line. - Patient receives TPN 11 PM7 AM; pharmacy consulted to start. (5) Insomnia: Plan: - Continue zolpidem. Plan - Admit to med/tele. - Heparin gtt for VTE. - Full Code. History of Present Illness Chief Complaint: LLE swelling Primary Care Provider: Shahzad Mcelroy MD Erica Edmond is a 71-year-old female past medical history significant for metastatic ovarian cancer s/p debulking surgery, large bowel resection with ostomy in place and abdominal wound VAC in place, G tube and PICC line in place. She is presenting today at the referral of her doctor for left lower extremity pain and swelling. Patient was recently hospitalized for 40 days at [facility] for a 30 x 25 x 10 cm abscess. She was receiving Lovenox injections, was discharged from the facility last week and last Lovenox injection was about 7 or 8 days ago. Over the last day or so, she has noticed her left leg has become more swollen and painful than the right. Her PCP sent her to ED for further evaluation.-Previously stated, patient has not had any other symptoms fever chills, chest pain, palpitations, shortness of breath nausea, vomiting, or abdominal pain. Venous Doppler of the left lower extremity showed extensive occlusive DVT throughout the left lower extremity. Chest CTA does not show any evidence of pulmonary embolism, previously noted lingular subsegmental emboli are not seen CT A/P shows large filling defect in the left external iliac and femoral veins. CTAP shows a rim-enhancing 9 x 20 mm fluid collection demonstrating continuity with the vaginal cuff, representing an abscess or colovaginal fistula. There is also wall thickening and fat stranding surrounding the bladder, thought to be reactive or software sales representative of cystitis. Previously noted large abscess seen on CT from last month is no longer noted, there is no evidence of perforation or anastomotic leak. In ED, her vital signs are within normal limits and stable. Labs largely unremarkable her sodium is mildly low but her baseline per review of recent labs. Renal function is stable and adequate. Trop wnl. Allergies Allergy/AdvReac Type Severity Reaction Status Date / Time amoxicillin Allergy Unknown Hives Verified 06/15/22 15:55 Home Medications Medication Instructions Recorded Confirmed Type omega 9-tug-jrj-fish oil 1,000 mg 1 cap PO DAILY 07/04/19 06/15/22 History (120 mg-180 mg) capsule (Fish Oil) ergocalciferol (vitamin D2) 1,250 1,250 mcg PO 2XWK 06/13/22 06/15/22 History mcg (50,000 unit) capsule (Vitamin D2) ibuprofen 800 mg tablet 800 mg PO UD PRN Pain 06/13/22 06/15/22 History pantoprazole 40 mg tablet,delayed 40 mg PO DAILY 06/13/22 06/15/22 History release prochlorperazine maleate 10 mg 10 mg PO Q6 PRN Nausea And Vomiting 06/13/22 06/15/22 History tablet zolpidem 10 mg tablet 10 mg PO HS 10 mg 06/13/22 06/15/22 History Past Med/Surg History Medical History Bladder cancer TREATED BY [facility] Blood clotting disorder ? 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) Insomnia Surgical History H/O hand surgery LEFT HAND MIDDLE FINGER GROWTH REMOVED (DONE MULTIPLE TIMES) History of colonoscopy History of cystoscopy BLADDER TUMORS REMOVED (MULTIPLE TIMES) HAS HAD NO PROBLEMS FOR 3 YEARS History of tonsillectomy History of tooth extraction Hx of bilateral breast reduction surgery Family History Other No significant family history Social History Smoking Status: Former smoker Second Hand Exposure: No; Hx Alcohol Use: Yes Alcohol type: wine Hx Substance Use: No Preferred Language: Czech Communication Ability: Effective Tape Sewer Required: No Beliefs That Will Affect Care: None marital status: Current Living Situation: Spouse Feels Safe at Home: Yes Assistive Devices: Walker Review of Systems Review of Systems: Constitutional: No fever/chills, weakness, fatigue, myalgias, anorexia, night sweats Eyes: No diplopia, no worsening or blurred vision ENT: normal hearing, no trouble swallowing Respiratory: No cough, sputum, dyspnea at rest or on exertion Cardiovascular: No chest pain, tightness or palpitations Abdomen: No pain, nausea, vomiting, diarrhea or constipation : Denies dysuria, hematuria, increased urgency/frequency, urinary retention Musculoskeletal: LLE swelling and constant, dull pain x 1-2 days; no other extremity pain or swelling Neurologic: No weakness, numbness/tingling, or balance problems Psychiatric: No anxiety or depression Skin: No rash or itch Physical Exam Physical Exam: General: awake, alert, no apparent distress Head: Normocephalic, atraumatic ENT: PERRL, EOMI, no pharyngeal exudate, mucous membranes moist Chest: Clear to auscultation, on room air, no adventitious breath sounds Cardiac: Regular rate and rhythm, no murmur, no JVD, normal peripheral pulses, good capillary refill Abdominal: RLQ ostomy intact without erythema or drainage; wound vac in place without erythema or drainage; NABS x 4 quadrants, soft, nontender to palpation, no rebound, guarding or tenderness Extremities: LLE > RLE with LLE erythema and mild pain in calf Psych: Normal mood and affect Neuro: AAO x 3, strength intact bilaterally and rated 5/5, no motor deficits, speech is clear, no peripheral sensory deficits Skin: no rash or erythema Results & Data Results & Data ([facility]) Vital Signs (Past 12 Hours) Vital Signs Temp Pulse Pulse Resp BP BP Pulse Ox 06/15/22 16:43 90 16 105/69 98 06/15/22 17:21 98 06/15/22 13:02 36.9 C 100 H 20 125/73 97 O2 Del Method 06/15/22 16:43 Room Air 06/15/22 17:21 Room Air 06/15/22 13:02 Room Air Laboratory Results Abnormal lab results 06/15/22 06/15/22 06/15/22 Range/Units 16:30 16:30 16:38 RBC 2.67 L (3.93-5.22) M/uL Hgb 8.3 L (12.0-16.0) g/dl POC Hgb 8.2 L (12.0-16.0) g/dl Hct 25.3 L (34.1-44.9) % POC Hct 24 L (37-47) % RDW Std Deviation 57.1 H (36.4-46.3) fL RDW Coeff of Rolo 16.4 H (11.5-14.5) % MPV 9.3 L (9.4-12.3) fL Immature Gran # (Auto) 0.04 H (0.00-0.02) K/uL POC Sodium 134 L (135-144) mmol/L Sodium 132 L (136-145) mmol/L POC Chloride 99 L (101-112) mmol/L POC Anion Gap 15.0 L (16-25) mmol/L Creatinine 0.58 L (0.6-1.2) mg/dl BUN/Creatinine Ratio 32.8 H (10-20) POC Glucose (other) 101 H (70-99) mg/dl Alkaline Phosphatase 160 H (34-104) U/L Albumin 3.1 L (3.4-5.0) gm/dl Albumin/Globulin Ratio 0.8 L (0.9-2) Diagnostic Findings Venous Doppler Study 06/15/22 13:05 ULTRASOUND LEFT LOWER EXTREMITY VENOUS CLINICAL HISTORY: Left leg swelling. COMPARISON STUDY: Left lower extremity venous ultrasound dated 11/14/2019 TECHNIQUE: Real-time, grayscale, and color Doppler sonography of the deep veins of the left lower extremity was performed from the inguinal crease to the calf. Compression and augmentation were utilized. FINDINGS: There is extensive occlusive deep venous thrombosis seen throughout the left lower extreme. This extends to the common femoral artery to the calf vessels. There are foci of flow within the anterior and posterior tibial veins. Superficial venous thrombus is seen within the greater saphenous vein and profunda femoris vein. IMPRESSION: Extensive occlusive deep venous thrombosis throughout the left lower extremity as above. ACT 112: Negative or not required by law. Electronically signed by: Abdulaziz Albert M.D. 06/15/2022 3:06 PM Chest CTA 06/15/22 15:51 CT angio chest PE protocol CLINICAL HISTORY: PE TECHNIQUE: Multidetector row helical CT of the chest was performed with angiographic protocol. Coronal and sagittal reformations were obtained. Coronal and sagittal MIPS were obtained from the axial data set and were submitted for review. Automated dose lowering techniques and/or adjustment according to patient size were utilized for this exam. Comparison: Comparison is made to CTA chest 05/09/2022 FINDINGS: Lungs and pleura: There is a small left pleural effusion with underlying atelectasis. Heart and pericardium: Heart size is normal. No pericardial effusion. Vessels: No evidence of pulmonary embolism. Mediastinum and yusuf: Unremarkable. Chest wall and lower neck: A right port catheter is seen. Abdomen: Calcified pericardial lymph nodes are again seen, unchanged. For findings below the diaphragm, please refer to CT of the abdomen dated the same. Bones: There are degenerative changes are seen. There is a bone hemangioma in the T12 vertebral body. IMPRESSION: 1. No evidence of pulmonary embolism. Previously noted lingular subsegmental emboli or not well seen. 2. Small left pleural effusion with underlying atelectasis. This represents an increase from the prior exam. 3. Partially calcified pericardial lymph nodes are again seen. ACT 112: Negative or not required by law. Electronically signed by: Jaxson Anderson M.D. 06/15/2022 5:47 PM Abdomen/Pelvis CT 06/15/22 16:04 CT abd pelvis IV con only CLINICAL HISTORY: recent surgery w/ extensive dvt lle. Metastatic ovarian cancer, status post surgery with ileostomy. TECHNIQUE: Helical axial images of the abdomen and pelvis were obtained and displayed. Automated dose lowering techniques and/or adjustment according to patient size were utilized for this exam. This exam was performed with intravenous contrast. CT DOSE: 673.42 mGy.cm COMPARISON: Comparison is made to CT abdomen pelvis 05/09/2022 FINDINGS: Lower chest: For findings above the diaphragm, please see CT chest performed same day. Liver: Unremarkable. No focal lesions are seen. Gallbladder and biliary tree: No calcified gallstones. Normal caliber wall. No intra- or extrahepatic biliary ductal dilation. Pancreas: Unremarkable, no focal lesions. Spleen: Unremarkable. Adrenals: Unremarkable. Kidneys and ureters: Subcentimeter hypodensities are too small to characterize. Bladder: Limited evaluation due to underdistention. There is surrounding fat stranding. Reproductive organs: Unremarkable. Bowel: Patient is status post large bowel resection. There is continuity of the right lower quadrant anastomosis site with a rim-enhancing fluid collection measuring 9 x 20 mm, which appears to extend also to the vaginal cuff. Ileostomy is seen. Satisfactory position of gastrostomy tube. Lymph nodes Retroperitoneal: Retroperitoneal lymph nodes measure up to 11 mm in diameter. These are similar in appearance to prior exam. Pelvic: Unremarkable. Mesenteric: Unremarkable. Peritoneum: Peritoneal stranding is seen and a small amount of free fluid is noted in the pelvis. Otherwise, the previously noted gas fluid collection in the pelvis has resolved. Vessels: There is a large filling defect in the left external iliac and femoral veins. Atherosclerotic disease is seen. Additionally, there is suggestion of a distended right lower quadrant pain with a filling defect which emerges with the IVC. Abdominal wall: Unremarkable. Bones: Degenerative changes in the visualized spine. IMPRESSION: 1. Deep venous thrombus in the left external iliac and femoral arteries. 2. Postsurgical changes are seen in the bowel. There is apparent continuity of the resection site with a rim-enhancing 9 x 20 mm fluid collection which demonstrates continuity with the vaginal cuff. This may represent an abscess and/or developing colovaginal fistula. 3. Wall thickening and fat stranding surrounding the bladder may be reactive or represent cystitis, correlation with urinalysis is recommended. 4. Previously noted large gas and fluid collection in the abdomen and pelvis has resolved. No evidence of perforation/anastomotic leak is now seen. ACT 112: Negative or not required by law. Electronically signed by: Jaxson Anderson M.D. 06/15/2022 5:39 PM ECG Additional Comments: Normal sinus rhythm Left axis deviation Incomplete right bundle branch block Nonspecific T wave abnormality Abnormal ECG When compared with ECG of 2 20-APR-2022 07:35, Incomplete right bundle branch block is now Present Borderline criteria for Anterior infarct are no longer Present Borderline criteria for Anterolateral infarct are no longer Present. Code Status & VTE Plan Code Status Full Code. Supervising Physician Co-Signing Physician Notes Attending addendum: I have physically seen this patient, have supervised the VENITA's activities, and agree with the H&P unless as otherwise noted. Assessment and Plan: DVT left lower extremity- CTA no evidence of PE Heparin drip overnight as noted, until assessment of colovaginal fistula versus abscess completed, then would plan to switch back to Lovenox Colovaginal fistula versus abscess- Rim-enhancing 9 x 20 mm fluid collection as noted Vancomycin IV and Zosyn IV, continued antibiotics begun in the ED NPO Surgical consult Ovarian cancer- History of multiple abdominal surgeries Following with [facility] Coordinate care in the a.m. Remaining orders and notations as noted PG Care Time/CCT Total # of Minutes Spent Total Time Spent with Patient: Total time spent is greater than 50% in coordination of care (as documented) at patient's floor/unit and/or counseling patient: Coding Level of Care Code 27353 Initial Inpt Care Lvl 3 Diagnoses DVT (deep venous thrombosis) I82.409 Colovaginal fistula N82.4 Ileostomy present Z93.2 Ovarian cancer C56.9 Insomnia G47.00
[2022-06-15] MEDS ORDERED: PIPERACILLIN/TAZOBACTAM 3.375 GM in DEXTROSE 5% 100 ML IV ONE (19:22)
[2022-06-15] MEDS ORDERED: VANCOMYCIN CONSULT ACTIVE PRN ×2 (19:31→20:48)
[2022-06-15] MEDS ORDERED: VANCOMYCIN HCL 1,500 MG in SODIUM CHLORIDE 0.9% 500 ML IV ONE (19:31)
[2022-06-15] MEDS: HEPARIN SODIUM/DEXTROSE 25,000 UNITS/500 ML BAG IV SCH (19:33)
[2022-06-15] MEDS ORDERED: ACETAMINOPHEN 325 MG TAB PO PRN (20:48)
[2022-06-15] MEDS ORDERED: ONDANSETRON INJ 2 MG/ML 2 ML VIAL IV PRN (20:48)
[2022-06-15] MEDS ORDERED: VANCOMYCIN HCL 1,000 MG in SODIUM CHLORIDE 0.9% 500 ML IV SCH (20:48)
[2022-06-15] MEDS ORDERED: PROCHLORPERAZINE MALEATE 10 MG TAB PO PRN (20:48)
[2022-06-15] MEDS ORDERED: TPN/PPN CONSULT PHARMACY PRN (21:00)
[2022-06-15] MEDS ORDERED: D5W AND NSS 1,000 ML IV SCH (21:00)
--- NOTE | 2022-06-15 21:59 | Surgery Consultation ---
Date of Consultation June 15, 2022 Assessment & Plan (1) Colovaginal fistula: pt is a 71 year-old with ovary cancer with partial colectomy, ileostomy, she presents to Er with 2 days history swelling left leg, IMP: intra-abdominal abscess, colovaginal fistula, Plan, no emergent surgery indication now, conservative treatment, IV antibiotic, and treat DVT, repeat labs in morning, will F/U, pt agrees with the plan, i answered all questions, (2) Intra-abdominal abscess: see above History of Present Illness Reason for Consultation: intra-abdominal abscess, colovaginal fistula Requesting Physician: Korey means MD Attending Physician: Korey Means MD History of Present Illness Chief Complaint: LLE swelling Primary Care Provider: Shahzad Mcelroy MD Erica Edmond is a 71-year-old female past medical history significant for metas tatic ovarian cancer s/p debulking surgery, large bowel resection with ostomy in place and abdominal wound VAC in place, G tube and PICC line in place. She is presenting today at the referral of her doctor for left lower extremity pain and swelling. Patient was recently hospitalized for 40 days at [facility] for a 30 x 25 x 10 cm abscess. She was receiving Lovenox injections, was discharged from the facility last week and last Lovenox injection was about 7 or 8 days ago. Over the last day or so, she has noticed her left leg has become more swollen and painful than the right. Her PCP sent her to ED for further evaluation.-Previously stated, patient has not had any other symptoms fever chills, chest pain, palpitations, shortness of breath nausea, vomiting, or abdominal pain. Venous Doppler of the left lower extremity showed extensive occlusive DVT throughout the left lower extremity. Chest CTA does not show any evidence of pulmonary embolism, previously noted lingular subsegmental emboli are not seen CT A/P shows large filling defect in the left external iliac and femoral veins. CTAP shows a rim-enhancing 9 x 20 mm fluid collection demonstrating continuity with the vaginal cuff, representing an abscess or colovaginal fistula. There is also wall thickening and fat stranding surrounding the bladder, thought to be reactive or civil rights representative of cystitis. Previously noted large abscess seen on CT from last month is no longer noted, there is no evidence of perforation or anastomotic leak. In ED, her vital signs are within normal limits and stable. Labs largely unremarkable her sodium is mildly low but her baseline per review of recent labs. Renal function is stable and adequate. Trop wnl. I ( Florence Chauhan MD ) got a call for consult intra-abdominal abscess and c olovaginal fistula, I reviewed pt's H/P, labs, CT scan with pt, pt has no abdominal pain, Allergies Allergy/AdvReac Type Severity Reaction Status Date / Time amoxicillin Allergy Unknown Hives Verified 06/15/22 15:55 Home Medications Medication Instructions Recorded Confirmed Type omega 8-ncx-mxu-fish oil 1,000 mg 1 cap PO DAILY 07/04/19 History (120 mg-180 mg) capsule (Fish Oil) ergocalciferol (vitamin D2) 1,250 1,250 mcg PO 2XWK 06/13/22 History mcg (50,000 unit) capsule (Vitamin D2) ibuprofen 800 mg tablet 800 mg PO UD PRN Pain 06/13/22 06/15/22 Histo ry pantoprazole 40 mg tablet,delayed 40 mg PO DAILY 06/13/22 History release F prochlorperazine maleate 10 mg 10 mg PO Q6 PRN Nausea And Vomiting 06/13/22 06/15/22 History tablet zolpidem 10 mg tablet 10 mg PO HS 10 mg 06/13/22 06/15/22 History Past Med/Surg History Medical History Bladder cancer TREATED BY [facility] clotting disorder ? 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)Insomnia Surgical History H/O hand surgery LEFT HAND MIDDLE FINGER GROWTH REMOVED (DONE MULTIPLE TIMES)History of colonoscopy History of cystoscopy BLADDER TUMORS REMOVED (MULTIPLE TIMES) HAS HAD NO PROBLEMS FOR 3 YEARSHistory of tonsillectomy History of tooth extraction Hx of bilateral breast reduction surgery Family History Other No significant family history Social History Smoking Status: Never smoker Second Hand Exposure: No; Hx Alcohol Use: Yes Alcohol type: wine Hx Substance Use: No Preferred Language: Congolese Communication Ability: Effective Picker Machine Operator Required: No Beliefs That Will Affect Care: None Current Living Situation: Spouse Feels Safe at Home: Yes Assistive Devices: Glasses Review of Systems Review of Systems: Constitutional: No fever/chills, weakness, fatigue, myalgias, anorexia, night sweats Eyes: No diplopia, no worsening or blurred vision ENT: normal hearing, no trouble swallowing Respiratory: No cough, sputum, dyspnea at rest or on exertion Cardiovascular: No chest pain, tightness or palpitations Abdomen: No pain, nausea, vomiting, diarrhea or constipation : Denies dysuria, hematuria, increased urgency/frequency, urinary retention Musculoskeletal: LLE swelling and constant, dull pain x 1-2 days; no other extremity pain or swelling Neurologic: No weakness, numbness/tingling, or balance problems Psychiatric: No anxiety or depression Skin: No rash or itch Physical Exam Physical Exam: General: awake, alert, no apparent distress Head: Normocephalic, atraumatic ENT: PERRL, EOMI, no pharyngeal exudate, mucous membranes moist Chest: Clear to auscultation, on room air, no adventitious breath sounds Cardiac: Regular rate and rhythm, no murmur, no JVD, normal peripheral pulses, good capillary refill Abdominal: RLQ ostomy intact without erythema or drainage; wound vac in place without erythema or drainage; NABS x 4 quadrants, soft, nontender to palpation, no rebound, guarding or tenderness Extremities: LLE > RLE with LLE erythema and mild pain in calf Psych: Normal mood and affect Neuro: AAO x 3, strength intact bilaterally and rated 5/5, no motor deficits, s peech is clear, no peripheral sensory deficits Skin: no rash or erythema Results & Data Results & Data ([facility]) Vital Signs (Past 12 Hours) Vital Signs Temp Pulse Pulse Resp BP BP Pulse Ox 06/15/22 16:43 90 16 105/69 98 06/15/22 17:21 98 06/15/22 13:02 36.9 C 100 H 20 125/73 97 O2 Del Method 06/15/22 16:43 Room Air 06/15/22 17:21 Room Air 06/15/22 13:02 Room Air Laboratory Results Abnormal lab results 06/15/22 06/15/22 06/15/22 Range/Units 16:30 16:30 16:38 RBC 2.67 L (3.93-5.22) M/uL Hgb 8.3 L (12.0-16.0) g/dl POC Hgb 8.2 L (12.0-16.0) g/dl Hct 25.3 L B (34.1-44.9) % POC Hct 24 L (37-47) % RDW Std Deviation 57.1 H (36.4-46.3) fL RDW Coeff of Rolo 16.4 H (11.5-14.5) % MPV 9.3 L (9.4-12.3) fL Immature Gran # (Auto) 0.04 H (0.00-0.02) K/uL POC Sodium 134 L (135-144) mmol/L Sodium 132 L (136-145) mmol/L POC Chloride 99 L (101-112) mmol/L POC Anion Gap 15.0 L (16-25) mmol/L Creatinine 0.58 L (0.6-1.2) mg/dl BUN/Creatinine Ratio 32.8 H (10-20) POC Glucose (other) B 101 H (70-99) mg/dl Alkaline Phosphatase 160 H (34-104) U/L Albumin 3.1 L (3.4-5.0) gm/dl Albumin/Globulin Ratio 0.8 L (0.9-2) Diagnostic Findings Venous Doppler Study 06/15/22 13:05 ULTRASOUND LEFT LOWER EXTREMITY VENOUS CLINICAL HISTORY: Left leg swelling. COMPARISON STUDY: Left lower extremity venous ultrasound dated 11/14/2019 TECHNIQUE: Real-time, grayscale, and color Doppler sonography of the deep veins of the left lower extremity was performed from the inguinal crease to the calf. Compression and augmentation were utilized. FINDINGS: There is extensive occlusive deep venous thrombosis seen throughout the left lower extreme. This extends to the common femoral artery to the calf vessels. There are foci of flow within the anterior and posterior tibial veins. Superficial venous thrombus is seen within the greater saphenous vein and profunda femoris vein. IMPRESSION: Extensive occlusive deep venous thrombosis throughout the left lower extremity as above. ACT 112: Negative or not required by law. Electronically signed by: Abdulaziz Albert M.D. 06/15/2022 3:06 PM Chest CTA 06/15/22 15:51 CT angio chest PE protocol CLINICAL HISTORY: PE TECHNIQUE: Multidetector row helical CT of the chest was performed with angiographic protocol. Coronal and sagittal reformations were obtained. Coronal and sagittal MIPS were obtained from the axial data set and were submitted for review. Automated dose lowering techniques and/or adjustment according to patient size were utilized for this exam. Comparison: Comparison is made to CTA chest 05/09/2022 FINDINGS: Lungs and pleura: There is a small left pleural effusion with underlying atelectasis. Heart and pericardium: Heart size is normal. No pericardial effusion. Vessels: No evidence of pulmonary embolism. Mediastinum and yusuf: Unremarkable. Chest wall and lower neck: A right port catheter is seen. Abdomen: Calcified pericardial lymph nodes are again seen, unchanged. For findings below the diaphragm, please refer to CT of the abdomen dated the same. Bones: There are degenerative changes are seen. There is a bone hemangioma in the T12 vertebral body. IMPRESSION: 1. No evidence of pulmonary embolism. Previously noted lingular subsegmental emboli or not well seen. 2. Small left pleural effusion with underlying atelectasis. This represents an increase from the prior exam. 3. Partially calcified pericardial lymph nodes are again seen. Allergies Allergy/AdvReac Type Severity Reaction Status Date / Time amoxicillin Allergy Unknown Hives Verified 06/15/22 15:55 Home Medications Medication Instructions Recorded Confirmed Type omega 4-aic-wre-fish oil 1,000 mg 1 cap PO DAILY 07/04/19 06/15/22 History (120 mg-180 mg) capsule (Fish Oil) ergocalciferol (vitamin D2) 1,250 1,250 mcg PO 2XWK 06/13/22 06/15/22 History mcg (50,000 unit) capsule (Vitamin D2) ibuprofen 800 mg tablet 800 mg PO UD PRN Pain 06/13/22 06/15/22 History pantoprazole 40 mg tablet,delayed 40 mg PO DAILY 06/13/22 06/15/22 History release prochlorperazine maleate 10 mg 10 mg PO Q6 PRN Nausea And Vomiting 06/13/22 06/15/22 History tablet zolpidem 10 mg tablet 10 mg PO HS 10 mg 06/13/22 06/15/22 History Patient History Medical History Bladder cancer TREATED BY [facility] Blood clotting disorder ? 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) Insomnia Surgical History H/O hand surgery LEFT HAND MIDDLE FINGER GROWTH REMOVED (DONE MULTIPLE TIMES) History of colonoscopy History of cystoscopy BLADDER TUMORS REMOVED (MULTIPLE TIMES) HAS HAD NO PROBLEMS FOR 3 YEARS History of tonsillectomy History of tooth extraction Hx of bilateral breast reduction surgery Family History Other No significant family history Social History Smoking Status: Former smoker Second Hand Exposure: No; Hx Alcohol Use: Yes Alcohol type: wine Hx Substance Use: No Preferred Language: Congolese Communication Ability: Effective Picker Machine Operator Required: No Beliefs That Will Affect Care: None Current Living Situation: Spouse Feels Safe at Home: Yes Assistive Devices: Glasses Physical Exam Constitutional: WD/WN, vitals as above no distress Eyes: PERRL, conjunctivae normal, anicteric sclerae Neck: trachea midline, no thyromegaly Respiratory: normal respiratory effort, lungs clear to auscultation Cardiovascular: RRR, no murmur, no edema Gastrointestinal (Abdomen): WVC at middle line, ileostomy, working well, no tenderness at abdomen, no distend, BS+ Musculoskeletal: swelling on left upper and lower leg, mild tenderness, no redness, Neurologic: patellar DTR's 2+ bilat, sensation intact Psychiatric: A+Ox3, euthymic affect Results & Data ([facility]) Vital Signs (Past 12 Hours) Vital Signs Temp Pulse Pulse Pulse Resp BP BP 06/15/22 20:59 37.2 C 99 H 20 100/57 L 06/15/22 20:20 93 H 20 06/15/22 20:10 94 H 25 H 06/15/22 20:00 95 H 19 06/15/22 20:00 86/45 L 06/15/22 19:50 99 H 21 06/15/22 19:40 102 H 24 06/15/22 19:30 97 H 18 06/15/22 19:20 99 H 23 06/15/22 19:20 107/59 L 06/15/22 19:10 104 H 12 06/15/22 19:00 99 H 24 06/15/22 19:00 98/59 L 06/15/22 18:50 102 H 21 06/15/22 18:40 86 22 06/15/22 18:30 86 23 06/15/22 18:20 92 H 20 06/15/22 18:10 88 19 06/15/22 18:00 87 19 06/15/22 18:00 103/58 L 06/15/22 17:50 90 19 06/15/22 17:40 89 17 06/15/22 17:30 90 17 06/15/22 17:22 91 H 18 06/15/22 16:50 90 16 06/15/22 16:46 105/69 06/15/22 16:46 92 H 19 06/15/22 16:40 92 H 19 06/15/22 16:30 92 H 19 06/15/22 16:27 95 H 19 06/15/22 16:43 90 16 105/69 06/15/22 17:21 06/15/22 13:02 36.9 C 100 H 20 125/73 Pulse Ox O2 Del Method 06/15/22 20:59 96 Room Air 06/15/22 20:20 06/15/22 20:10 06/15/22 20:00 06/15/22 20:00 06/15/22 19:50 06/15/22 19:40 06/15/22 19:30 06/15/22 19:20 06/15/22 19:20 06/15/22 19:10 06/15/22 19:00 06/15/22 19:00 06/15/22 18:50 06/15/22 18:40 06/15/22 18:30 06/15/22 18:20 06/15/22 18:10 06/15/22 18:00 06/15/22 18:00 06/15/22 17:50 06/15/22 17:40 06/15/22 17:30 06/15/22 17:22 06/15/22 16:50 97 06/15/22 16:46 06/15/22 16:46 06/15/22 16:40 06/15/22 16:30 06/15/22 16:27 06/15/22 16:43 98 Room Air 06/15/22 17:21 98 Room Air 06/15/22 13:02 97 Room Air Laboratory Results Abnormal lab results 06/15/22 06/15/22 06/15/22 Range/Units 16:30 16:30 16:38 RBC 2.67 L (3.93-5.22) M/uL Hgb 8.3 L (12.0-16.0) g/dl POC Hgb 8.2 L (12.0-16.0) g/dl Hct 25.3 L (34.1-44.9) % POC Hct 24 L (37-47) % RDW Std Deviation 57.1 H (36.4-46.3) fL RDW Coeff of Rolo 16.4 H (11.5-14.5) % MPV 9.3 L (9.4-12.3) fL Immature Gran # (Auto) 0.04 H (0.00-0.02) K/uL POC Sodium 134 L (135-144) mmol/L Sodium 132 L (136-145) mmol/L POC Chloride 99 L (101-112) mmol/L POC Anion Gap 15.0 L (16-25) mmol/L Creatinine 0.58 L (0.6-1.2) mg/dl BUN/Creatinine Ratio 32.8 H (10-20) POC Glucose (other) 101 H (70-99) mg/dl Alkaline Phosphatase 160 H (34-104) U/L Albumin 3.1 L (3.4-5.0) gm/dl Albumin/Globulin Ratio 0.8 L (0.9-2) Diagnostic Findings CT abd pelvis IV con only CLINICAL HISTORY: recent surgery w/ extensive dvt lle. Metastatic ovarian cancer, status post surgery with ileostomy. TECHNIQUE: Helical axial images of the abdomen and pelvis were obtained and displayed. Automated dose lowering techniques and/or adjustment according to patient size were utilized for this exam. This exam was performed with intravenous contrast. CT DOSE: 673.42 mGy.cm COMPARISON: Comparison is made to CT abdomen pelvis 05/09/2022 FINDINGS: Lower chest: For findings above the diaphragm, please see CT chest performed same day. Liver: Unremarkable. No focal lesions are seen. Gallbladder and biliary tree: No calcified gallstones. Normal caliber wall. No intra- or extrahepatic biliary ductal dilation. Pancreas: Unremarkable, no focal lesions. Spleen: Unremarkable. Adrenals: Unremarkable. Kidneys and ureters: Subcentimeter hypodensities are too small to characterize. Bladder: Limited evaluation due to underdistention. There is surrounding fat stranding. Reproductive organs: Unremarkable. Bowel: Patient is status post large bowel resection. There is continuity of the right lower quadrant anastomosis site with a rim-enhancing fluid collection measuring 9 x 20 mm, which appears to extend also to the vaginal cuff. Ileostomy is seen. Satisfactory position of gastrostomy tube. Lymph nodes Retroperitoneal: Retroperitoneal lymph nodes measure up to 11 mm in diameter. These are similar in appearance to prior exam. Pelvic: Unremarkable. Mesenteric: Unremarkable. Peritoneum: Peritoneal stranding is seen and a small amount of free fluid is noted in the pelvis. Otherwise, the previously noted gas fluid collection in the pelvis has resolved. Vessels: There is a large filling defect in the left external iliac and femoral veins. Atherosclerotic disease is seen. Additionally, there is suggestion of a distended right lower quadrant pain with a filling defect which emerges with the IVC. Abdominal wall: Unremarkable. Bones: Degenerative changes in the visualized spine. IMPRESSION: 1. Deep venous thrombus in the left external iliac and femoral arteries. 2. Postsurgical changes are seen in the bowel. There is apparent continuity of the resection site with a rim-enhancing 9 x 20 mm fluid collection which demonstrates continuity with the vaginal cuff. This may represent an abscess and/or developing colovaginal fistula. 3. Wall thickening and fat stranding surrounding the bladder may be reactive or represent cystitis, correlation with urinalysis is recommended. 4. Previously noted large gas and fluid collection in the abdomen and pelvis has resolved. No evidence of perforation/anastomotic leak is now seen.
[2022-06-15] MEDS: ZOLPIDEM TARTRATE 10 MG TAB PO SCH (23:13)
[2022-06-16] MEDS: PIPERACILLIN/TAZOBACTAM 3.375 GM in DEXTROSE 5% 100 ML IV SCH ×3 (02:11→17:55)
[2022-06-16 03:05] LABS: Partial Thromboplastin Time 54.7 Seconds (21.0-31.0)
[2022-06-16 06:37] LABS: Basophils # (auto) 0.03 K/uL (0-0.2); Basophils % (auto) 0.5 %; Eosinophils # (auto) 0.09 K/uL (0-0.50); Eosinophils % (auto) 1.5 %; Hematocrit (blood only) 22.1 % (34.1-44.9); Hemoglobin 7.2 g/dl (12.0-16.0); Immature Granulocytes # (auto) 0.04 K/uL (0.00-0.02); Immature Granulocytes % (auto) 0.7 %; Lymphocytes # (auto) 1.04 K/uL (1.2-3.4); Lymphocytes % (auto) 17.2 %; Mean Corpuscular Hemoglobin 31.2 pg (25.0-34.0); Mean Corpuscular Hgb Conc 32.6 g/dL (32.0-36.0); Mean Corpuscular Volume 95.7 fL (80.0-100.0); Mean Platelet Volume 9.5 fL (9.4-12.3); Monocytes # (auto) 0.51 K/uL (0.24-0.82); Monocytes % (auto) 8.4 %; Neutrophils # (auto) 4.34 K/uL (1.4-6.5); Neutrophils % (auto) 71.7 %; Platelet Count 184 K/uL (130-400); RDW Coefficient of Variation 16.6 % (11.5-14.5); RDW Standard Deviation 58.6 fL (36.4-46.3); Red Blood Count 2.31 M/uL (3.93-5.22); White Blood Count 6.05 K/ul (4.8-10.8)
[2022-06-16 06:58] LABS: Partial Thromboplastin Ratio 1.8
[2022-06-16 07:14] LABS: Hypochromasia Present; Partial Thromboplastin Time 49.7 Seconds (21.0-31.0)
[2022-06-16] MEDS ORDERED: TPN/PPN CONSULT PHARMACY STA (07:21)
--- NOTE | 2022-06-16 07:40 | Pharmacy Report ---
Pharmacy PK ABX Note - Date of Service June 16, 2022 - Assessment and Plan Assessment 71 year old F receiving IV vancomycin and Zosyn for treatment of intra-abdominal infection (colovaginal fistula vs. abscess). Recent lengthy hospitalization at [facility]. No cultures pending. Renal function stable. Day # 1 of antimicrobial therapy. Plan Vancomycin * Loading dose: 1500 mg IV x 1 * Maintenance dose: 1000 mg IV every 12 hours * Regimen is predicted to achieve target AUC/SNEHA of 400-600 mg/L.hr * Random level 06/17 with AM labs Zosyn * 3.375gm IV q8h extended infusion (for CrCL >20mL/min) Pharmacy will continue to follow and will adjust dose/frequency as necessary. Thank you. Pharmacy has transitioned to AUC monitoring for vancomycin. AUC/SNEHA is the preferred PK/PD target and is associated with decreased risk of nephrotoxicity compared to traditional trough targets.
[2022-06-16 07:44] LABS: BUN Creatinine Ratio 18.5 (10-20); Bilirubin,Total 0.7 mg/dl (0.2-1.0); Calcium 7.9 mg/dl (8.5-10.1); Creatinine Clr Calc Pharmacy 81.9 ml/min; Est GFR (African American) 104.3 ml/min; Magnesium 1.7 mg/dl (1.7-2.4); Phosphorus 4.2 mg/dl (2.5-4.9); Potassium 3.6 mmol/L (3.5-5.1)
[2022-06-16] MEDS ORDERED: VANCOMYCIN HCL 1,000 MG in SODIUM CHLORIDE 0.9% 250 ML IV SCH (08:00)
[2022-06-16] MEDS: OMEGA-3 (PURIFIED FISH OIL) 1 GM CAP PO SCH (09:23)
[2022-06-16] MEDS: PANTOprazole 40 MG TAB PO SCH (09:23)
[2022-06-16] MEDS: metroNIDAZOLE 500 MG/100 ML BAG IV SCH ×2 (09:51→16:48)
--- NOTE | 2022-06-16 11:11 | Surgery Progress Note ---
Date of Service June 16, 2022 Assessment & Plan (1) Colovaginal fistula: Plan: pt is a 71 year-old with ovary cancer with partial colectomy, ileostomy, she presents to Er with 2 days history swelling left leg, IMP: intra-abdominal abscess, colovaginal fistula, Plan, no emergent surgery indication now, conservative treatment, IV antibiotic, and treat DVT, repeat labs in morning, will F/U, pt agrees with the plan, i answered all questions, 06/16/2022 11:10AM doing fine, no fever, no abdominal pain, continue treatment, (2) Intra-abdominal abscess: Plan: see above Admission and Anticipated Discharge Date Admission Date: June 15, 2022 Subjective F/U intra- abdominal abscess, and colovaginal fistula, pt is doing fine, no abdominal pain, no fever, Physical Exam Constitutional: WD/WN, vitals as above Eyes: PERRL, conjunctivae normal, anicteric sclerae Neck: trachea midline, no thyromegaly Respiratory: normal respiratory effort, lungs clear to auscultation Cardiovascular: RRR, no murmur, no edema Gastrointestinal (Abdomen): soft, NT, Nd, middle WVC, intact, ileostomy working well, Neurologic: patellar DTR's 2+ bilat, sensation intact Psychiatric: A+Ox3, euthymic affect Results & Data ([facility]) Vital Signs (Past 12 Hours) Vital Signs Temp Pulse Pulse Resp BP Pulse Ox O2 Del Method 06/16/22 07:10 37.6 C H 104 H 60 20 96/58 L 97 Room Air 06/16/22 04:00 37.2 C 96 H 18 97/63 L 95 Room Air Laboratory Results Abnormal lab results 06/15/22 06/15/22 06/15/22 Range/Units 16:30 16:30 16:38 RBC 2.67 L (3.93-5.22) M/uL Hgb 8.3 L (12.0-16.0) g/dl POC Hgb 8.2 L (12.0-16.0) g/dl Hct 25.3 L (34.1-44.9) % POC Hct 24 L (37-47) % RDW Std Deviation 57.1 H (36.4-46.3) fL RDW Coeff of Rolo 16.4 H (11.5-14.5) % MPV 9.3 L (9.4-12.3) fL Lymph # (Auto) (1.2-3.4) K/uL Immature Gran # (Auto) 0.04 H (0.00-0.02) K/uL APTT (21.0-31.0) Seconds POC Sodium 134 L (135-144) mmol/L Sodium 132 L (136-145) mmol/L POC Chloride 99 L (101-112) mmol/L POC Anion Gap 15.0 L (16-25) mmol/L Creatinine 0.58 L (0.6-1.2) mg/dl BUN/Creatinine Ratio 32.8 H (10-20) Glucose (70-99(Fasting)) mg/dl POC Glucose (other) 101 H (70-99) mg/dl Calcium (8.5-10.1) mg/dl Alkaline Phosphatase 160 H (34-104) U/L Albumin 3.1 L (3.4-5.0) gm/dl Albumin/Globulin Ratio 0.8 L (0.9-2) 06/16/22 06/16/22 06/16/22 Range/Units 01:58 05:30 05:30 RBC 2.31 L (3.93-5.22) M/uL Hgb 7.2 L (12.0-16.0) g/dl POC Hgb (12.0-16.0) g/dl Hct 22.1 L (34.1-44.9) % POC Hct (37-47) % RDW Std Deviation 58.6 H (36.4-46.3) fL RDW Coeff of Rolo 16.6 H (11.5-14.5) % MPV (9.4-12.3) fL Lymph # (Auto) 1.04 L (1.2-3.4) K/uL Immature Gran # (Auto) 0.04 H (0.00-0.02) K/uL APTT 54.7 H* 49.7 H* (21.0-31.0) Seconds POC Sodium (135-144) mmol/L Sodium (136-145) mmol/L POC Chloride (101-112) mmol/L POC Anion Gap (16-25) mmol/L Creatinine (0.6-1.2) mg/dl BUN/Creatinine Ratio (10-20) Glucose (70-99(Fasting)) mg/dl POC Glucose (other) (70-99) mg/dl Calcium (8.5-10.1) mg/dl Alkaline Phosphatase (34-104) U/L Albumin (3.4-5.0) gm/dl Albumin/Globulin Ratio (0.9-2) 06/16/22 Range/Units 05:30 RBC (3.93-5.22) M/uL Hgb (12.0-16.0) g/dl POC Hgb (12.0-16.0) g/dl Hct (34.1-44.9) % POC Hct (37-47) % RDW Std Deviation (36.4-46.3) fL RDW Coeff of Rolo (11.5-14.5) % MPV (9.4-12.3) fL Lymph # (Auto) (1.2-3.4) K/uL Immature Gran # (Auto) (0.00-0.02) K/uL APTT (21.0-31.0) Seconds POC Sodium (135-144) mmol/L Sodium 134 L (136-145) mmol/L POC Chloride (101-112) mmol/L POC Anion Gap (16-25) mmol/L Creatinine (0.6-1.2) mg/dl BUN/Creatinine Ratio (10-20) Glucose 117 H (70-99(Fasting)) mg/dl POC Glucose (other) (70-99) mg/dl Calcium 7.9 L (8.5-10.1) mg/dl Alkaline Phosphatase 130 H (34-104) U/L Albumin (3.4-5.0) gm/dl Albumin/Globulin Ratio (0.9-2)
[2022-06-16] MEDS ORDERED: DEXTROSE 10% 1,000 ML IV PRN (11:57)
--- NOTE | 2022-06-16 12:31 | Medical Student Progress Note ---
Date of Service June 16, 2022 Assessment & Plan (1) DVT (deep venous thrombosis): Plan Pt is a 71 yo with a pmh of ovarian cancer s/p debulking surgery at [facility] and ileostomy female who was admitted for LLE DVT. There was a concern for an intra abdominal abscess based on findings from a CT A/P. However, there were no signs of systemic infection or abdominal findings. Therefore, we have concluded that this CT A/P finding was composed of fluid, and stopped the IV abx and heparin and then started Lovenox. We want to watch the patient overnight to ensure that this is not an abscess. (1) DVT (deep venous thrombosis): Plan: - Patient with LLE swelling and pain x 1 day. Was discharged from [facility] last week, was on Lovenox, last Lovenox injection was 8-9 days ago. - Multiple risk factors: cancer, recent surgery and prolonged hospital stay of 40 days, and apparent, unspecified clotting disorder. - There is a large filling defect in the left external iliac and femoral veins. Atherosclerotic disease is seen. Additionally, there is suggestion of a diste nded right lower quadrant pain with a filling defect which emerges with the IVC. - CTA: No evidence of pulmonary embolism. Previously noted lingular subsegmental emboli or not well seen. - Start Lovenox 75mg BID subq; Stop Heparin (2) Colovaginal fistula: Plan: - History (05/09/2022) of b. fragilis in the blood - CT A/P with rim-enhancing 9 x 20 mm fluid collection demonstrating continuity with the vaginal cuff representing possibly an abscess versus colovaginal fistula - ED provider spoke with Peter Huang who feels patient is stable to be admitted here with IV antibiotics for now. - Vancomycin and Zosyn started in ED--renal function acceptable. BMP daily. - General surgery consult: They recommended conservative treatment - 06/16/22 Metronidazole was started - Discontinued IV abx (06/16) as the patient appeared well and had no positive findings for infection despite CT A/P findings. - Observe in the AM to ensure pts condition does not worsen (3) Ileostomy present: Plan: - No evidence of infection at site, without erythema or purulent drainage. Adequate output. - Bag switched on -W-F. - Abdominal wound vac in place; wound care consulted for management. - G tube with 30 cc NS flushes daily ordered. - Continue as above (4) Ovarian cancer: Plan: - Metastatic, with multiple abdominal surgeries and a 40-day stay at [facility]. Currently with ileostomy, G-tube, PICC line. - Patient receives TPN 11 PM7 AM; pharmacy consulted to start. - Follow up with Nutritionist/Onc at [facility] Jun 22. Dr. Lele Nassar. Pt has TPN during sleeping hours for supplemental nutrition, however, she is able to eat food during the day. Switched to Regular Diet. 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 Plan - F/E/N: Regular Diet - Admit to med/tele. - Lovenox for VTE. - Full Code. Admission and Anticipated Discharge Date Admission Date: June 15, 2022 Supervising Attestation I personally examined the patient and verified all shea points of history and exam, discussed case, and agree with decision making with A Elizabeth MS3 Patient overall feeling very well. Notes that she only came to the hospital because of leg pain and swelling. She has not had any abdominal pain. No fevers chills or sweats. Her bowels are working appropriately for her. She generally has absolutely no new/different/worse GI symptoms. Further she notes that her prolonged hospital stay at [facility] was extensively related to her abdominal abscess, which was operated on. She believes this is a resolving problem. Leg pain feels much better. Vitals noted, in general she is awake and alert pleasant no distress. HEENT normocephalic atraumatic mucous membranes moist. Breathing unlabored no accessory muscle use good effort. Abdomen is soft nondistended she has a wound VAC and multiple tubes but absolutely no tenderness fullness guarding rebound or rigidity in spite of fairly deep palpation. Skin shows no rashes pallor or icterus. Intra-abdominal fluid collectionshe has no fever or white count or abdominal pain, she did have leukocytosis and thrombocytosis fitting with inflammatory state whenever she was here over a month ago with the abscess and bacteremiashe and I both strongly suspect the CT findings are just a resolving seroma (certainly a fistula is also possible, but she shows no signs of active inf ection). For now we will hold antibiotics, serial exams, CBC in the morning. Will want to coordinate with [place] to ensure they are in the loop for the plan, but I strongly suspect this is all resolving findings from what was a massive process a month ago. DVTno PEdoing quite well on heparin driptransition to Lovenox and big per cake subcu every 12 starting tonight. If all goes well, hopefully home tomorrow. Subjective Pt feeling better, no pain in left leg. No rodríguez, fever, cp, sob, abdominal pain, pain with urination, leg pain, or redness Review of Systems Review of Systems: All systems reviewed & are unremarkable except as noted in HPI & below Physical Exam Physical Exam: GA: chair; well appearing Lungs: b/l clear to auscultation Cardio: S1, S2 present; RRR no MRG Abdominal: midline surgical wound covered no pain; ostomy not red; not TTP; no rebound Ext: Left leg increased diameter compared to right; not red, tender, or warm when compared to right Results & Data ([facility]) Vital Signs (Past 12 Hours) Vital Signs Temp Pulse Pulse Pulse Resp BP Pulse Ox 06/16/22 06:16 96 H 06/16/22 11:21 37.3 C 95 H 98 H 24 100/56 L 96 06/16/22 07:10 37.6 C H 104 H 60 20 96/58 L 97 06/16/22 04:00 37.2 C 96 H 18 97/63 L 95 O2 Del Method 06/16/22 06:16 06/16/22 11:21 Room Air 06/16/22 07:10 Room Air 06/16/22 04:00 Room Air
--- NOTE | 2022-06-16 14:49 | Pharmacy Report ---
Pharmacy PN Initial Consult - Date of Service June 16, 2022 - Scope Pharmacy has been consulted to manage parenteral nutrition orders and order appropriate labs. As part of the Nutrition Support Team guidelines, pharmacy will work in conjunction with dietary when determining the patients caloric needs. - Subjective The patient is a 71 year old F admitted on 06/15/22 19:22 for DVT, INTRABDOMINAL ABCESS VS COLO-VAGINAL FISTULA . Patient is to receive parenteral nutrition for bowel resection. Pertinent PMH: metastatic ovarian cancer with multiple abdominal surgeries, ileostomy, and PICC - Objective Height: 5 ft 5 in Weight: 75.6 kg Vascular Access:: PICC Intake & Output (Last 24Hrs): Intake & Output 06/14/22 06/15/22 06/16/22 06/17/22 06:59 06:59 06:59 06:59 Intake Total 1789.133 / 3.350 1623.000 / 1623.000 Output Total Balance 1789.133 / 3.350 1622.000 / 1622.000 Weight 75.6 kg 75.6 kg Laboratory Data (Last 24 Hrs):: 06/15/22 06/16/22 16:30 05:30 Sodium 132 L 134 L Potassium 3.6 3.6 Chloride 99 104 Carbon Dioxide 27 24 BUN 19 12 Creatinine 0.58 L 0.65 Glucose 93 117 H Calcium 8.5 7.9 L Phosphorus 4.2 Magnesium 1.7 Total Bilirubin 0.7 0.7 AST 20 16 ALT 20 17 Alkaline Phosphatase 160 H 130 H Albumin 3.1 L Triglycerides 137 Nutrition Assessment:: Please refer to the Notes section of the EMR for 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 - Plan For day 1 of PN administration, patient's home TPN to be utilized on hospital supplied pump over 12 hours (instead of usual 8hr to minimize rapid rate changes running off of home [place] pump) Macronutrients Amino acids 43 grams/day Dextrose 115 grams/day Lipids 22 grams/day Micronutrients Sodium chloride 97 mEq Sodium acetate 50 mEq Potassium phosphate 20 mMol Potassium acetate 20 mEq Magnesium sulfate 16 mEq Multivitamins 10 mL Trace Elements 1 mL Additional additives: Folic acid 1mg Total volume 1000 mL to be infused over 12 hrs will provide 787 kcal/day Final osmolarity [] mOsm/L (maximum for PPN is 900 mOsm/L) Labs to be ordered per PN order protocol Pharmacy will follow and adjust parenteral nutrition orders on a daily basis. Thank you.
[2022-06-16] MEDS: HEPARIN SODIUM/DEXTROSE 25,000 UNITS/500 ML BAG IV SCH (15:30)
[2022-06-16] MEDS ORDERED: CENTRAL PN IV SCH ×2 (16:00)
--- NOTE | 2022-06-16 18:42 | Billing Data ---
Date of Service June 16, 2022 Coding Level of Care Code 71007 Subseq Hosp Care Lvl 3
[2022-06-16] MEDS: ZOLPIDEM TARTRATE 10 MG TAB PO SCH (20:52)
[2022-06-16] MEDS: ENOXAPARIN 80 MG/0.8 ML SYR SQ SCH (20:53)
[2022-06-16] MEDS ORDERED: ENOXAPARIN 1 MG/KG SC SCH (21:00)
--- NOTE | 2022-06-16 22:26 | Electrocardiogram Report ---
Test Reason : Blood Pressure : / mmHG Vent. Rate : 094 BPM Atrial Rate : 094 BPM P-R Int : 168 ms QRS Dur : 092 ms QT Int : 378 ms P-R-T Axes : 076 -43 009 degrees QTc Int : 472 ms Poor data quality, interpretation may be adversely affected Normal sinus rhythm Left axis deviation Incomplete right bundle branch block Nonspecific T wave abnormality Abnormal ECG When compared with ECG of 10-MAY-2022 07:35, Incomplete right bundle branch block is now Present Confirmed by Brandon Coats ([id number]) on 06/16/2022 10:26:35 PM Referred By: Shahzad Mcelroy Confirmed By:Brandon Coats
[2022-06-17] MEDS ORDERED: [UNRECOGNIZED DRUG - REMARK] SCH ×2 (04:00)
[2022-06-17 07:14] LABS: Basophils # (auto) 0.02 K/uL (0-0.2); Basophils % (auto) 0.3 %; Eosinophils # (auto) 0.08 K/uL (0-0.50); Eosinophils % (auto) 1.1 %; Hematocrit (blood only) 22.1 % (34.1-44.9); Hemoglobin 7.2 g/dl (12.0-16.0); Immature Granulocytes # (auto) 0.05 K/uL (0.00-0.02); Immature Granulocytes % (auto) 0.7 %; Lymphocytes # (auto) 1.58 K/uL (1.2-3.4); Lymphocytes % (auto) 22.1 %; Mean Corpuscular Hemoglobin 30.9 pg (25.0-34.0); Mean Corpuscular Hgb Conc 32.6 g/dL (32.0-36.0); Mean Corpuscular Volume 94.8 fL (80.0-100.0); Mean Platelet Volume 9.6 fL (9.4-12.3); Monocytes # (auto) 0.59 K/uL (0.24-0.82); Monocytes % (auto) 8.3 %; Neutrophils # (auto) 4.82 K/uL (1.4-6.5); Neutrophils % (auto) 67.5 %; Platelet Count 225 K/uL (130-400); RDW Coefficient of Variation 15.9 % (11.5-14.5); RDW Standard Deviation 55.1 fL (36.4-46.3); Red Blood Count 2.33 M/uL (3.93-5.22); White Blood Count 7.14 K/ul (4.8-10.8)
[2022-06-17] MEDS ORDERED: VANCOMYCIN LEVEL ONE (07:30)
[2022-06-17] MEDS: ENOXAPARIN 80 MG/0.8 ML SYR SQ SCH (07:36)
[2022-06-17] MEDS: OMEGA-3 (PURIFIED FISH OIL) 1 GM CAP PO SCH (07:37)
[2022-06-17] MEDS: PANTOprazole 40 MG TAB PO SCH (07:37)
[2022-06-17 07:44] LABS: BUN Creatinine Ratio 17.6 (10-20); Calcium 7.9 mg/dl (8.5-10.1); Creatinine Clr Calc Pharmacy 73.2 ml/min; Est GFR (African American) 95.1 ml/min; Est GFR (Non-African American) 82.1 ml/min; Magnesium 2.1 mg/dl (1.7-2.4); Phosphorus 4.2 mg/dl (2.5-4.9); Potassium 3.4 mmol/L (3.5-5.1)
[2022-06-17 07:50] LABS: Polychromasia 1+
--- NOTE | 2022-06-17 09:00 | Surgery Progress Note ---
Date of Service June 17, 2022 Assessment & Plan (1) Colovaginal fistula: Plan: pt is a 71 year-old with ovary cancer with partial colectomy, ileostomy, she presents to [facility] with 2 days history swelling left leg, IMP: intra-abdominal abscess, colovaginal fistula, Plan, no emergent surgery indication now, conservative treatment, IV antibiotic, and treat DVT, repeat labs in morning, will F/U, pt agrees with the plan, i answered all questions, 06/16/2022 11:10AM doing fine, no fever, no abdominal pain, continue treatment, 06/17/2022 9:01AM doing fine, no fever, no abdominal pain, pt can be discharged home today, Pt agrees with discharge, I answered all questions, PO cipro+ flagyl 5 days, F/U me 2 weeks, , Thanks, sign off today, (2) Intra-abdominal abscess: Plan: see above Admission and Anticipated Discharge Date Admission Date: June 15, 2022 Supervising Physician Co-Signing Physician Notes Attending addendum: I have physically seen this patient, have supervised the VENITA's activities, and agree with the H&P unless as otherwise noted. Assessment and Plan: DVT left lower extremity- CTA no evidence of PE Heparin drip overnight as noted, until assessment of colovaginal fistula versus abscess completed, then would plan to switch back to Lovenox Colovaginal fistula versus abscess- Rim-enhancing 9 x 20 mm fluid collection as noted Vancomycin IV and Zosyn IV, continued antibiotics begun in the ED NPO Surgical consult Ovarian cancer- History of multiple abdominal surgeries Following with [facility] Coordinate care in the a.m. Remaining orders and notations as noted Subjective Pt feeling better, no pain in left leg. No rodríguez, fever, cp, sob, abdominal pain, pain with urination, leg pain, or redness 06/17/2022 8:57AM Dr. Chauhan F/U intra abdominal abscess and colovaginal fistula, pt is doing fine, no abdominal pain, no fever, Physical Exam Constitutional: WD/WN, vitals as above Eyes: PERRL, conjunctivae normal, anicteric sclerae Neck: trachea midline, no thyromegaly Respiratory: normal respiratory effort, lungs clear to auscultation Cardiovascular: RRR, no murmur, no edema Gastrointestinal (Abdomen): soft, WVC at middle line, ileostomy working well, NT, ND BS +, Neurologic: patellar DTR's 2+ bilat, sensation intact Psychiatric: A+Ox3, euthymic affect Results & Data ([facility]) Vital Signs (Past 12 Hours) Vital Signs Temp Pulse Pulse Pulse Resp BP Pulse Ox 06/17/22 07:28 122 H 06/17/22 07:12 06/17/22 06:29 37.3 C 105 H 18 95/57 L 93 06/17/22 03:39 37.1 C 109 H 18 99/56 L 93 06/16/22 23:14 37.6 C H 113 H 16 94/55 L 93 06/16/22 22:11 110 H 06/16/22 21:49 O2 Del Method 06/17/22 07:28 06/17/22 07:12 Room Air 06/17/22 06:29 Room Air 06/17/22 03:39 Room Air 06/16/22 23:14 Room Air 06/16/22 22:11 06/16/22 21:49 Room Air Laboratory Results Abnormal lab results 06/16/22 06/16/22 06/17/22 Range/Units 15:12 23:58 05:59 RBC (3.93-5.22) M/uL Hgb (12.0-16.0) g/dl Hct (34.1-44.9) % RDW Std Deviation (36.4-46.3) fL RDW Coeff of Rolo (11.5-14.5) % Immature Gran # (Auto) (0.00-0.02) K/uL Sodium (136-145) mmol/L Potassium (3.5-5.1) mmol/L POC Glucose 110 H 126 H 114 H (70-99) mg/dl Calcium (8.5-10.1) mg/dl 06/17/22 06/17/22 Range/Units 06:00 06:00 RBC 2.33 L (3.93-5.22) M/uL Hgb 7.2 L (12.0-16.0) g/dl Hct 22.1 L (34.1-44.9) % RDW Std Deviation 55.1 H (36.4-46.3) fL RDW Coeff of Rolo 15.9 H (11.5-14.5) % Immature Gran # (Auto) 0.05 H (0.00-0.02) K/uL Sodium 134 L (136-145) mmol/L Potassium 3.4 L (3.5-5.1) mmol/L POC Glucose (70-99) mg/dl Calcium 7.9 L (8.5-10.1) mg/dl
--- NOTE | 2022-06-17 16:21 | Discharge Summary ---
Discharge Summary Date of Service June 17, 2022 Notes For Next Care Provider Medication Changes From Visit . Admission HPI Per Admitting Provider Erica Edmond is a 71-year-old female past medical history significant for metastatic ovarian cancer s/p debulking surgery, large bowel resection with ostomy in place and abdominal wound VAC in place, G tube and PICC line in place. She is presenting today at the referral of her doctor for left lower extremity pain and swelling. Patient was recently hospitalized for 40 days at [facility] for a 30 x 25 x 10 cm abscess. She was receiving Lovenox injections, was discharged from the facility last week and last Lovenox injection was about 7 or 8 days ago. Over the last day or so, she has noticed her left leg has become more swollen and painful than the right. Her PCP sent her to ED for further evaluation.-Previously stated, patient has not had any other symptoms fever chills, chest pain, palpitations, shortness of breath nausea, vomiting, or abdominal pain. Venous Doppler of the left lower extremity showed extensive occlusive DVT throughout the left lower extremity. Chest CTA does not show any evidence of pulmonary embolism, previously noted lingular subsegmental emboli are not seen CT A/P shows large filling defect in the left external iliac and femoral veins. CTAP shows a rim-enhancing 9 x 20 mm fluid collection demonstrating continuity with the vaginal cuff, representing an abscess or colovaginal fistula. There is also wall thickening and fat stranding surrounding the bladder, thought to be reactive or associate financial representative of cystitis. Previously noted large abscess seen on CT from last month is no longer noted, there is no evidence of perforation or anastomotic leak. In ED, her vital signs are within normal limits and stable. Labs largely unremarkable her sodium is mildly low but her baseline per review of recent labs. Renal function is stable and adequate. Trop wnl. Admission Exam Per Admitting Provider General: awake, alert, no apparent distress Head: Normocephalic, atraumatic ENT: PERRL, EOMI, no pharyngeal exudate, mucous membranes moist Chest: Clear to auscultation, on room air, no adventitious breath sounds Cardiac: Regular rate and rhythm, no murmur, no JVD, normal peripheral pulses, good capillary refill Abdominal: RLQ ostomy intact without erythema or drainage; wound vac in place without erythema or drainage; NABS x 4 quadrants, soft, nontender to palpation, no rebound, guarding or tenderness Extremities: LLE > RLE with LLE erythema and mild pain in calf Psych: Normal mood and affect Neuro: AAO x 3, strength intact bilaterally and rated 5/5, no motor deficits, speech is clear, no peripheral sensory deficits Skin: no rash or erythema Principal Dx & Hospital Course #1 = Principal Diagnosis (1) DVT (deep venous thrombosis): Pt is a 71 yo with a pmh of ovarian cancer s/p debulking surgery at [facility] and ileostomy female who was admitted for LLE DVT and concern for intra- abdominal abscess who is now being discharged. (1) DVT (deep venous thrombosis): - Patient presented with LLE swelling and pain x 1 day. Was discharged from [facility] last week. - Multiple risk factors: cancer, recent surgery and prolonged hospital stay of 40 days, and apparent, unspecified clotting disorder. - Large filling defect in the left external iliac and femoral veins. Atherosclerotic disease is seen. Additionally, there is suggestion of a distended right lower quadrant pain with a filling defect which emerges with the IVC. Pt started on heparin. - CTA: No evidence of pulmonary embolism. Previously noted lingular subsegmental emboli or not well seen. - Started Lovenox 80mg BID subq; Stopped Heparin (06/16/2022) - Recommend follow up with primary care doctor (Dr. Mcelroy) to reevaluate reducing vs discontinuing Lovenox given pt's hypercoagulable state vs risk of DVT. (2) Colovaginal fistula: - History (05/09/2022) of b. fragilis in the blood - CT A/P with rim-enhancing 9 x 20 mm fluid collection demonstrating continuity with the vaginal cuff representing possibly an abscess versus colovaginal fistula - ED provider spoke with Peter Huang who feels patient is stable to be admitted here with IV antibiotics for now. - Vancomycin and Zosyn started in ED--renal function acceptable. BMP daily. - General surgery consult: They recommended conservative treatment - 06/16/22 Metronidazole was started - Discontinued IV abx (06/16) as the patient appeared well and had no positive findings for infection. Based on prior CTs with the current CT suggests this is likely seroma. [facility] confirmed there was no bacteremia upon discharge from their hospital. - Observed in the AM to ensure pts condition does not worsen; Discharged 06/17/2022 (3) Ileostomy present: - No evidence of infection at site, without erythema or purulent drainage. Adequate output. - Bag switched on --. - Abdominal wound vac in place; wound care consulted for management. - G tube with 30 cc NS flushes daily ordered. - Continue home regimen (4) Ovarian cancer: - Metastatic, with multiple abdominal surgeries and a 40-day stay at [facility]. Currently with ileostomy, G-tube, PICC line. - Patient receives TPN 11 PM7 AM; pharmacy consulted to start. - Follow up with [facility]/Onc at [facility] Jun 22. Dr. Lele Nassar. Pt has TPN during sleeping hours for supplemental nutrition, however, she is able to eat food during the day. Switched to Regular Diet. 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 Discharge Exam GA: well appearing Lungs: b/l clear to auscultation Cardio: S1, S2 present; RRR no MRG Abdominal: midline surgical wound covered no pain; ostomy not red; no TTP; no rebound Ext: Left leg increased diameter compared to right; no pain to palpation not red, tender, or warm when compared to right Updated Medication List Medication Instructions Recorded Confirmed Type omega 3-[id number]-[id number]-fish oil 1,000 mg 1 cap PO DAILY 07/04/19 06/15/22 History (120 mg-180 mg) capsule (Fish Oil) ergocalciferol (vitamin D2) 1,250 1,250 mcg PO 2XWK 06/13/22 06/15/22 History mcg (50,000 unit) capsule (Vitamin D2) ibuprofen 800 mg tablet 800 mg PO UD PRN Pain 06/13/22 06/15/22 History pantoprazole 40 mg tablet,delayed 40 mg PO DAILY 06/13/22 06/15/22 History release prochlorperazine maleate 10 mg 10 mg PO Q6 PRN Nausea And Vomiting 06/13/22 06/15/22 History tablet zolpidem 10 mg tablet 10 mg PO HS 10 mg 06/13/22 06/15/22 History enoxaparin 80 mg/0.8 mL 80 mg (0.8 mL) subcut Q12H 1 month 06/17/22 Rx subcutaneous syringe (Lovenox) #48 mL Hospital Stay Data Consultations 06/15/22 20:48 Consult General Surgery Routine Diagnostic Imagining Performed 06/15/22 13:05 US venous doppler LE LT Stat 06/15/22 15:51 CT angio chest PE protocol Stat 06/15/22 16:04 CT Abd and Pelvis [CT abd pelvis IV con only] Stat Discharge Instructions Given to Patient (Per Discharging Provider) Dear Erica, You were sent to the hospital from your primary care physician with a complaint of acute left lower extremity pain and swelling. Your legs were scanned via ultrasound that showed you had a clot in your left leg veins, a condition known as deep vein thrombosis or DVT. You were then admitted to the hospital for further management and evaluation. We ordered additional images to ensure that you did not have any other clots. These, however, showed clots diffusely throughout your left lower extremity and abdomen. Your lungs were also scanned but that was negative for blood clot there, a condition known as a pulmonary embolism or PE. We started you on IV heparin, then switched to subcutaneous heparin shots, otherwise known as Lovenox, and your condition subsequently improved. We now feel that you are ready to be safely discharged home. The scans of your abdomen also showed a collection of fluid that was initially thought to be the start of an intra-abdominal abscess. Consequently, we started you on empiric or broad antibiotic coverage to treat the presumed infection. However, after comparing previous abdominal scans, consulting with our general surgeon, as well as your oncologist from [facility], Dr. Nassar, it was determined that this fluid collection most likely represented an improving, noninfectious fluid collection, or a seroma. We stopped your antibiotics and monitored you for the next 24 hours. You tolerated this quite well without fever or other signs of continuing infection. Therefore, we are satisfied with this diagnosis and feel that you can be safely discharged home without further antibiotic therapy. However, as we discussed with you earlier, you should be on the look out for concerning symptoms such as a new fever (temperature greater than 101.4), or worsening abdominal pain. If you experience the symptoms, or other signs of infection, do not hesitate to come back to the hospital. We made the following additions to your medication list. Continue to take all other medications as before, unless otherwise instructed by your primary care physician or oncologist. * We started you on an injectable drug called Lovenox. Please inject Lovenox 80 mg subcutaneously every 12 hours, unless otherwise adjusted or stopped by your oncologist or primary care physician. Follow-up appointments * You have an appointment with your oncologist, Dr. Poe, on June 22, 2022. * You should schedule an appointment with your primary care physician, within 3 to 14 days of your discharge. Please make all of your appointments as scheduled. It is important that you see your doctors for follow-up care. If you are unable to make your scheduled appointment, please call your doctor's office to let them know and reschedule if possible. It has been our pleasure to care for you here at [facility]. We wish you all the best in your continued recovery. If you have any questions or concerns about your stay here, please call us at [phone]. Total Time Total Time Spent Total Time Spent (In Minutes): . Supervising Physician Co-Signing Physician Notes I personally examined the patient and verified all shea points of history and exam, discussed case, and agree with decision making with [facility] MS3 feels really good. bowels moving at her normal. walking around. no weak or lightheaded. leg still swollen but no real pain. doing well w lovenox. set up for [facility] in a few days; resident physician (dr dumont) d/w dr poe who agreed w current plan (per dr dumont they discussed the case in depth and dr poe agreed unlikely to be current infection, ok for home off abx) Vitals noted, in general she is awake and alert pleasant no distress. HEENT normocephalic atraumatic mucous membranes moist. Breathing unlabored no accessory muscle use good effort. Abdomen is soft nondistended she has a wound VAC and multiple tubes but absolutely no tenderness fullness guarding rebound or rigidity in spite of fairly deep palpation. Skin shows no rashes pallor or icterus. LLE edematous but nontender. slow but steady gait. Intra-abdominal fluid collectionshe has no fever or white count or abdominal pain, she did have leukocytosis and thrombocytosis fitting with inflammatory state whenever she was here over a month ago with the abscess and bacteremiashe and I both strongly suspect the CT findings are just a resolving seroma (certainly a fistula is also possible, but she shows no signs of active infection). Off antibiotics since yesterday, and continues to look well, labs reassuring. In relationship to her blood pressureshe notes that she does tend to run low, and is totally asymptomatic with her predominantly 90/60 range pressures, which she notes is not very different from her normal. Discussed the consideration for home with p.o. antibiotics versus assuming this is a seroma given her lack of fever white count etc.she agreed that she would prefer to not be on antibiotics at this time given that she does not believe there is an infection going on either. Has follow-up early next week at [place]. Obviously should come to the ER [facility] with fever or abdominal pain. DVTno PElovenox 1mg/kg q12 ongoing. stable for home
--- NOTE | 2022-06-17 17:43 | Billing Data ---
Date of Service June 17, 2022 Coding Level of Care Code D/C DAY MANAGEMENT <30 MINS
== END 2022-06-17 17:19 | disposition home health service (06) | DRG 299 ==
LOC: ED 12:43 → SUATTDRO 19:22 → 2W 19:22

== ENCOUNTER 2025-05-10 13:53 | Inpatient (IN) ==
--- NOTE | 2025-05-10 14:46 | Emergency Department Note ---
Impression & Plan Bilateral edema of lower extremity, Cellulitis, Ovarian cancer, Failure of outpatient treatment ED Provider Note ED Provider Note NAME: CAROL Krueger BLOOD AGE:74 SEX: Female : 1950 ARRIVES VIA: private vehicle INFORMANT: Patient ED PROVIDER(s): Bryanna Rios DO CHIEF COMPLAINT: referred by cancer care center and wound care clinic HPI: This is a 74-year-old female who presents to the emergency department after being instructed to come here at the cancer care center as well as the wound care clinic family also called. Patient has had ongoing issues with lower extremity swelling over the last several weeks. Her diuretics were changed and there was some consideration that it could be a side effect of one of her newly hemotherapy drugs. Patient is still being treated for ovarian cancer and has had a total of 12 cycles of chemotherapy and her report. She follows with Dr. Leach for oncology. She did recently have an outpatient echo with Dr. Pedroza who felt her cardiac function was improved compared to prior. Patient does take Eliquis daily due to a prior history of a DVT. Patient states she also had an outpatient ultrasound recently that was negative. She states she was started on cephalexin on Tuesday however feels that the patchy areas of redness are worsening and she is now having wheezing with certain areas also. She states the swelling extends all the way up to her hips but does not come onto her abdomen or back. She states her last chemo was on Tuesday. PAST MEDICAL HISTORY:See Below PAST SURGICAL HISTORY:See Below FAMILY HISTORY:See Below SOCIAL HISTORY:See Below HOME MEDICATIONS:See Below ALLERGIES:See Below VITALS:See Below PHYSICAL EXAMINATION: GENERAL: alert, unwell appearing, cachetic appearing, no distress, non-toxic EYE EXAM: normal conjunctiva, PERRL and EOM's grossly intact OROPHARYNX: no exudate, no erythema, lips, buccal mucosa, and tongue normal and mucous membranes are moist NECK: supple, no nuchal rigidity, no adenopathy, non-tender LUNGS: Clear to auscultation. Normal chest wall mechanics, no w/r/r HEART: no murmurs, S1 normal and S2 normal ABDOMEN: abdomen soft, non-tender, normo-active bowel sounds, no masses, no rebound or guarding. Ileostomy present. BACK: Back is symmetrical on inspection and there is no deformity, no midline tenderness, no CVA tenderness. SKIN: no rashes, petechiae, orbruising UPPER EXTREMITIES: upper extremities are grossly normal. FROM, nml pulses b/l. LOWER EXTREMITIES: 3+ b/l pitting edema. FROM, nml pulses b/l. Patchy areas of erythema noted b/l LE, worse on the left than the right, no obvious weeping/discharge NEURO EXAM: Normal sensorium, cranial nerves II-XII grossly intact, normal speech, no facial droop,nogross weakness of arms, no gross weakness of legs. Gross sensation intact. No ataxia. Vital Signs: reviewed and remarkable Differential Diagnosis: cellulitis, abscess, MRSA infection, DVT, necrotizing fasciitis, dermatitis, drug eruption, as well as others were entertained. MEDICAL DECISION MAKING: This is a 74-year-old female with past history of ovarian cancer, still receiving active treatment who presents after being referred here by the cancer care center and by the wound care clinic due to concern for increased erythema and edema of bilateral lower extremities. Patient was afebrile and hemodynamically stable. Patient's blood pressure did appear borderline however patient is very petite. After discussion at bedside labs including blood cultures were drawn and sent, IV established, patient was monitored on telemetry. Patient was covered with IV antibiotics after discussion with ED pharmacist, December. I did reach out to on-call heme-onc, Dr. Rivera, who was eventually able to come and evaluate the patient at bedside in the emergency department. Patient in agreement with plan as discussed by Dr. Rivera. Will admit the patient due to failed outpatient treatment and difficulty finding appropriate oral medications due to patient's GI history. Dr. Rivera also feels symptoms may be in part related to her current cancer treatment. Case discussed with the hospitalist team for additional evaluation and management. Consultation(s): 1834: Patient seen in the Er by Dr. Rivera, dorita/onc. 1934: Discussed with JENNIFER Miller hospitalist team. ER Treatment Provided: See below Diagnostics Interpreted By Me: -Cardiac Monitoring: An order was placed for continuous cardiac monitoring. The monitor shows a rate of 66 with normal sinus rhythm. -Laboratory studies: As stated above and show below. Triage Nursing Note Reviewed Prior/Outside Records Reviewed -prior heme-onc note reviewed Past Med/Surg History Problem List (Updated 05/11/25 @ 00:05 by Bryanna Rios DO) Failure of outpatient treatment (Acute) Chemotherapy adverse reaction Metastatic neoplastic disease Adult failure to thrive Cellulitis (Acute) Bilateral edema of lower extremity (Acute) Malnutrition Decubitus ulcer of sacral region, stage 1 Peripheral edema Cardiomyopathy Exertional dyspnea Sinusitis Urinary incontinence Sinusitis Pain Anemia Malignant pleural effusion Metastatic adenocarcinoma Ileostomy care (Chronic) Dehydration Otitis externa Chest pain Peritonitis (acute) generalized Cholecystitis Small bowel obstruction Diarrhea Ileocolic anastomotic leak Weakness acquired in intensive care unit Left anterior accessory atrioventricular conduction Colostomy in place History of compression fracture of vertebral column (~09/10/22) Closed wedge compression fracture of L1 vertebra, Hypomagnesemia (Acute) Ovarian cancer (Chronic) Pulmonary embolism Sleep disorder 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) Surgical History H/O abdominal surgery Hx of bilateral breast reduction surgery H/O hand surgery LEFT HAND MIDDLE FINGER GROWTH REMOVED (DONE MULTIPLE TIMES) History of colonoscopy History of cystoscopy BLADDER TUMORS REMOVED (MULTIPLE TIMES) HAS HAD NO PROBLEMS FOR 3 YEARS History of tooth extraction History of tonsillectomy Family History Father Cholangitis Mother Dementia Osteoporosis Obesity Brother Dyslipidemia Social History Smoking Status: Never smoker Tobacco Type: Cigarettes Age Started Using Tobacco: 22; Age Quit Using Tobacco: 27; packs per day: 0.5; Second Hand Exposure: No; Do You Dip or Chew Tobacco: No; Hx Alcohol Use: Yes Alcohol type: wine Alcohol Intake Frequency: Monthly or Less Hx Substance Use: No Preferred Language: Tanzanian Communication Ability: Effective Visual Impairment: No Limitations Hearing Ability: Normal 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 Beliefs That Will Affect Care: None marital status: Current Living Situation: Spouse current occupational status: retired How many Children do You have: 2 Other Information That Helps Us Care for You: No Feels Safe at Home: Yes Safety Concerns: Feels Safe At This Time Childhood Exposure to Second-Hand Smoke: Yes Diet: other Diet Comment: TPN via PICC, PEG tube (not currently in use) caffeine: Yes Dental Care, Regularly: Yes Physical Activity Frequency: 3-4 Times per Week Seatbelt Use: always Sunscreen Use: Yes Do you think of yourself as: straight/heterosexual Gender Identity: Female Assistive Devices: None Allergies Allergies Allergy/AdvReac Type Severity Reaction Status Date / Time No Known Allergies Allergy Verified 05/10/25 16:47 Home Meds Home Medications Medication Instructions Recorded Confirmed nystatin 100,000 unit/gram topical 1 applic topical BID 08/07/24 05/10/25 powder (Klayesta) cholestyramine 4 gram oral powder 4 g PO DAILY PRN Acne 03/05/25 05/10/25 mirvetuximab soravtansine-gynx 5 0 mg IV Q21D 03/27/25 05/10/25 mg/mL intravenous solution (Elahere) loratadine 10 mg tablet (Claritin) 10 mg PO DAILY 04/11/25 05/10/25 prednisolone sodium phosphate 1 % 1 drp ophthalmic (eye) 6XD 04/11/25 05/10/25 eye drops Levomefolate/ Vit B12/ Vit B6/ Vit 1 tab PO DAILY 05/10/25 05/10/25 B2 6/1/50/5 apixaban 2.5 mg tablet (Eliquis) 2.5 mg PO BID 05/10/25 05/10/25 bumetanide 1 mg tablet 1 mg PO DAILY 05/10/25 05/10/25 cephalexin 500 mg capsule 500 mg PO QID 05/10/25 05/10/25 loperamide 2 mg capsule 2 mg PO HS 05/10/25 05/10/25 loperamide 2 mg tablet 4 mg PO QAM 05/10/25 05/10/25 olanzapine 2.5 mg tablet 2.5 mg PO DIRECTED 05/10/25 05/10/25 Previous Rx's Medication Instructions Recorded pantoprazole 40 mg tablet,delayed 40 mg PO DAILY #90 tabs 08/03/24 release ondansetron HCl 4 mg tablet 4 mg PO Q6H PRN nausea and 09/13/24 vomiting #30 tabs tramadol 50 mg tablet 50 mg PO Q8H PRN pain #30 tabs 09/13/24 nystatin-triamcinolone 100,000 1 applic topical BID #60 grams 10/15/24 unit/g-0.1 % topical cream ergocalciferol (vitamin D2) 1,250 1,250 mcg PO 2XWK #20 caps 12/31/24 mcg (50,000 unit) capsule (Vitamin D2) mupirocin 2 % topical ointment 1 applic topical BID #15 grams 04/11/25 spironolactone 25 mg tablet 25 mg PO DAILY #30 tabs 04/11/25 diphenoxylate-atropine 2.5 1 tab PO TID #270 tabs 04/16/25 mg-0.025 mg tablet (Lomotil) Results & Data (ED) Vital Signs Vital Signs - 24 hr 05/10/25 13:55 05/10/25 13:58 05/10/25 15:06 Temperature 36.2 C L Temperature Source Temporal Artery Scan Pulse Rate 68 57 L Pulse Rate [Apical] 63 Pulse Rate from SpO2 Sensor 57 L Respiratory Rate 18 18 15 Respiratory Effort / Characteristics Non-Labored Spontaneous Respiratory Depth Normal Respiratory Pattern Regular Blood Pressure 95/66 L Blood Pressure [Left Arm] 100/67 Blood Pressure Mean 75 Blood Pressure Mean [Left Arm] 78 Pulse Oximetry 100 100 100 Oxygen Delivery Method Room Air Room Air Sepsis Recent Fever Within 48 Hours No Sepsis New/Unexplained Change in Mental Status N/A Sepsis Action Taken by Nursing No Action Required 05/10/25 15:25 05/10/25 15:30 05/10/25 16:00 Temperature Temperature Source Pulse Rate 58 L 52 L 54 L Pulse Rate [Apical] Pulse Rate from SpO2 Sensor 54 L Respiratory Rate 19 16 Respiratory Effort / Characteristics Respiratory Depth Respiratory Pattern Blood Pressure 96/64 L 103/66 Blood Pressure [Left Arm] Blood Pressure Mean 74 78 Blood Pressure Mean [Left Arm] Pulse Oximetry 100 99 Oxygen Delivery Method Room Air Room Air Sepsis Recent Fever Within 48 Hours Sepsis New/Unexplained Change in Mental Status Sepsis Action Taken by Nursing 05/10/25 17:00 05/10/25 17:30 05/10/25 18:00 Temperature Temperature Source Pulse Rate 61 57 L 56 L Pulse Rate [Apical] Pulse Rate from SpO2 Sensor Respiratory Rate 14 14 12 Respiratory Effort / Characteristics Respiratory Depth Respiratory Pattern Blood Pressure 103/68 95/64 L 98/58 L Blood Pressure [Left Arm] Blood Pressure Mean 76 76 75 Blood Pressure Mean [Left Arm] Pulse Oximetry 98 100 99 Oxygen Delivery Method Room Air Room Air Room Air Sepsis Recent Fever Within 48 Hours Sepsis New/Unexplained Change in Mental Status Sepsis Action Taken by Nursing 05/10/25 18:30 05/10/25 19:00 05/10/25 19:06 Temperature Temperature Source Pulse Rate 62 66 58 L Pulse Rate [Apical] Pulse Rate from SpO2 Sensor Respiratory Rate 14 13 Respiratory Effort / Characteristics Respiratory Depth Respiratory Pattern Blood Pressure 108/67 107/57 L Blood Pressure [Left Arm] Blood Pressure Mean 73 73 Blood Pressure Mean [Left Arm] Pulse Oximetry 100 Oxygen Delivery Method Room Air Sepsis Recent Fever Within 48 Hours Sepsis New/Unexplained Change in Mental Status Sepsis Action Taken by Nursing Laboratory Data 05/10/25 Unknown 05/10/25 Unknown Lab Results 05/10/25 Range/Units 15:29 B-Natriuretic Peptide 146 H (0-100) pg/ml Administered Medications Apixaban (Apixaban 2.5 Mg Tab) 2.5 mg PO BID [facility] Stop: 06/09/25 22:25 Last Admin: 05/10/25 23:00 Dose: 2.5 mg Documented By: SUZY Diphenoxylate HCl/Atropine (Diphenoxylate/Atropine 2.5/0.025mg Tab) 1 tab PO TID [facility] Stop: 06/09/25 22:25 Last Admin: 05/10/25 22:59 Dose: 1 tab Documented By: SUZY Metronidazole (Flagyl) 500 mg in 100 mls @ 100 mls/hr IV Q8H [facility]; Protocol Stop: 05/18/25 00:00 Last Admin: 05/10/25 23:13 Dose: 100 mls/hr Documented By: SUZY Loperamide HCl (Loperamide Hcl 2 Mg Cap) 2 mg PO HS [facility] Stop: 06/09/25 22:25 Last Admin: 05/10/25 22:59 Dose: 2 mg Documented By: SUZY Mupirocin (Mupirocin 2% Oint 22 Gm Tube) 1 appln TOP BID [facility] Stop: 06/09/25 22:25 Last Admin: 05/10/25 23:00 Dose: 1 appln Documented By: SUZY Nystatin (Nystatin Powder 15gm Btl) 1 appln EXT BID [facility] Stop: 06/09/25 22:25 Last Admin: 05/10/25 22:44 Dose: Not Given Documented By: KSMateusz Nystatin/Triamcinolone Acetonide (Nystatin/Triamcin Cr 15 Gm Tube) 1 appln EXT BID LUCY Stop: 06/09/25 22:25 Last Admin: 05/10/25 22:45 Dose: Not Given Documented By: KSMateusz Prednisolone Sodium Phosphate (Prednisolone Sod Phos 1% 10 Ml Btl) 1 drops OP 6XD LUCY Stop: 06/09/25 22:25 Last Admin: 05/10/25 22:44 Dose: Not Given Documented By: SUZY Discontinued Medications Sodium Chloride (Nss) 500 mls @ 999 mls/hr IV .Q31M ONE Stop: 05/10/25 16:28 Last Infusion: 05/10/25 17:56 Dose: Infused Documented By: Admin: 05/10/25 16:07 Dose: 999 mls/hr Documented By: ANDREW Cefepime HCl (Maxipime 2000mg) 2,000 mg in 20 mls @ 5 mls/min IV NOW STA; Protocol Stop: 05/10/25 16:06 Last Admin: 05/10/25 16:14 Dose: 5 mls/min Documented By: ANDREW Metronidazole (Flagyl) 500 mg in 100 mls @ 100 mls/hr IV NOW STA; Protocol Stop: 05/10/25 17:02 Last Infusion: 05/10/25 17:27 Dose: Infused Documented By: Admin: 05/10/25 16:19 Dose: 100 mls/hr Documented By: ANDREW Sodium Chloride (Nss) 500 mls @ 999 mls/hr IV .Q31M ONE Stop: 05/10/25 18:02 Last Infusion: 05/10/25 20:09 Dose: Infused Documented By: Admin: 05/10/25 18:03 Dose: 999 mls/hr Documented By: DIEGO Lactated Ringer's (Lr) 1,000 mls @ 80 mls/hr IV .[id number] LUCY Stop: 05/10/25 23:53 Last Admin: 05/10/25 23:00 Dose: 80 mls/hr Documented By: [facility] [place] Discharge Plan Visit Data Chief Complaint: Infection, Wound Stated Complaint: INFECTION CELLULITIS IN LEGS ED Provider: Bryanna Rios Discharge Problem: Bilateral edema of lower extremity, Cellulitis, Ovarian cancer, Failure of outpatient treatment Patient Disposition: Admitted As Inpatient Condition: Fair Discharge Instructions Interventions: ED Discharge Assessment Last Done: 05/10/25 22:01
[2025-05-10 14:56] LABS: Hematocrit (blood only) 26.7 % (37.0-47.0); Hemoglobin 8.8 g/dl (12.0-16.0); Immature Granulocytes # (auto) 0.01 K/uL (0.01-0.20); Immature Granulocytes % (auto) 0.3 %; Mean Corpuscular Hemoglobin 36.7 pg (25.0-34.0); Mean Corpuscular Volume 111.3 fL (80.0-100.0); Platelet Count 77 K/uL (130-400); RDW Standard Deviation 80.4 fL (36.4-46.3); Red Blood Count 2.40 M/uL (4.20-5.40); White Blood Count 3.98 K/ul (4.8-10.8)
[2025-05-10 15:15] LABS: Alanine Aminotransferase 26.0 U/L (7-52); Albumin Globulin Ratio 0.8 (0.9-2); Alkaline Phosphatase 226.0 U/L (34-104); Anion Gap 4.0 (3-11); Bilirubin,Total 2.0 mg/dl (0.2-1.0); Blood Urea Nitrogen 27.0 mg/dl (6-23); Calcium 8.7 mg/dl (8.6-10.3); Carbon Dioxide 33.0 mmol/L (21-32); Chloride 99.0 mmol/L (98-107); Creatinine Clr Calc Pharmacy 21.9 ml/min; Globulin 3.7 gm/dl (2.5-4.0); Glucose 94.0 mg/dl (70-99(Fasting)); Lipase 19.0 U/L (11-82); Magnesium 1.8 mg/dl (1.7-2.4); Potassium 3.8 mmol/L (3.5-5.1); Sodium 136.0 mmol/L (136-145); Total Protein 6.8 gm/dl (6.0-8.3)
[2025-05-10 15:18] LABS: Anisocytosis Present; Macrocytosis Present; Toxic Granulation 1+
[2025-05-10 15:28] LABS: INR 1.1 (0.9-1.1); Prothrombin Time 11.7 Seconds (9.0-12.0)
[2025-05-10] MEDS: SODIUM CHLORIDE 0.9% 500 ML IV ONE ×2 (16:07→18:03)
[2025-05-10] MEDS: CEFEPIME 2000MG 2,000 MG/20 ML SYR IV STA (16:14)
[2025-05-10] MEDS: metroNIDAZOLE 500 MG/100 ML BAG IV STA (16:19)
--- NOTE | 2025-05-10 19:36 | Oncology Consultation ---
Date of Consultation May 10, 2025 Assessment & Plan (1) Adult failure to thrive: (2) Metastatic neoplastic disease: (3) Chemotherapy adverse reaction: (4) Ileostomy care: (5) Anemia: (6) Bilateral edema of lower extremity: (7) Cellulitis: Plan 74 year old female with history of advanced metastatic high- grade serous carcinoma, consistent with tubal/ovarian/peritoneal origin Patient currently receiving receiving Mirvetuximab soravtansine-gynx (Elahere) - first dose was March 27, 2025, second dose was April 17, 2025 and most recently on 05/07/2025. At that time, she was seen in the infusion clinic at [facility] on 05/07/2025 by Tasha Christianson PA-C. She was directed to the ER by the NOODLE PRESS OPERATOR in the clinic to receive IV antibiotics and also by her wound care team. adverse event related to neoplastic therapy cellulitis adult failure to thrive macrocytic anemia renal insufficiency hyperbilirubinemia renal insufficiency PLAN: * Pt has a Castellon's pouch and colostomy pouch - she has adult failure to thrive * The patient was given oral antibiotics in the [facility] on 05/07/2025 - but due to the fact that she doesn't always absorb her intake of food and medicine, the bioavailability of the medication was likely decreased. * Therefore, I recommended to the ER for the patient to be admitted to continue on IV antibiotics. * She received a dose of flagyl and cefepime IV in the ER * Zapien cultures - patient has had blood cultures drawn in the ER. I recommend UA and urine culture. * Pt may be having adverse effects of the anti-neoplastic therapy. I would recommend dose delay * Recommend to obtain imaging studies while she is hospitalized - CT chest abd and pelvis * Recommend consideration for TPN while she is hospitalized as well. * anemia work up - replete as necessary * patient needs ileostomy care - there appears to be a leak - which is also why I recommend imaging studies. * ECOG 3 Thank you for allowing us to participate in the care of this patient. History of Present Illness Reason for Consultation: 74 year old female with history of advanced metastatic high- grade serous carcinoma, consistent with tubal/ovarian/peritoneal origin, involving f ibrovascular and adipose tissue. Requesting Physician: Dr. Rios Attending Physician: Dr. Pheasant History of Present Illness 74 year old female with history of advanced metastatic high- grade serous carcinoma, consistent with tubal/ovarian/peritoneal origin, involving fibrovascular and adipose tissue. She most recently has been receiving Mirvetuximab soravtansine-gynx (Elahere) - first dose was March 27, 2025, second dose was April 17, 2025 and most recently 05/07/2025. At that time, she was seen in the infusion clinic at [facility] on 05/07/2025 by Tasha Christianson PA-C. At that time, the patient was noted to have bilateral lower extremity swelling with redness, weeping with new skin breakdown and purulence. The patient was placed on oral cephalexin and sent home. She called wound care clinic and was directed to the ER. She also spoke with our NOODLE PRESS OPERATOR, Annalee and the patient was directed to the ER for further evaluation. Since in the ER, she had blood cultures and received IV Flagyl and cefepime. Recent Doppler lower extremities in April 03, 2025 bilaterally were negative. She is taking steroids in the eyes to prevent corneal toxicity which is a known side effect of the Mirvetuximab. The patient has a Castellon's pouch and left lower quadrant ostomy. Since her last CT scans in February 26, 2025, she is noted to have mild wall thickening and inflammation at the Castellon's pouch. Allergies Allergy/AdvReac Type Severity Reaction Status Date / Time No Known Allergies Allergy Verified 05/10/25 16:47 Home Medications Medication Instructions Recorded Confirmed Type pantoprazole 40 mg tablet,delayed 40 mg PO DAILY #90 tabs 08/03/24 05/10/25 Rx release nystatin 100,000 unit/gram topical 1 applic topical BID 08/07/24 05/10/25 History powder (Klayesta) ondansetron HCl 4 mg tablet 4 mg PO Q6H PRN nausea and 09/13/24 05/10/25 Rx vomiting #30 tabs tramadol 50 mg tablet 50 mg PO Q8H PRN pain #30 tabs 09/13/24 05/10/25 Rx nystatin-triamcinolone 100,000 1 applic topical BID #60 grams 10/15/24 05/10/25 Rx unit/g-0.1 % topical cream ergocalciferol (vitamin D2) 1,250 1,250 mcg PO 2XWK #20 caps 12/31/24 05/10/25 Rx mcg (50,000 unit) capsule (Vitamin D2) cholestyramine 4 gram oral powder 4 g PO DAILY PRN Acne 03/05/25 05/10/25 History mirvetuximab soravtansine-gynx 5 0 mg IV Q21D 03/27/25 05/10/25 History mg/mL intravenous solution (Elahere) loratadine 10 mg tablet (Claritin) 10 mg PO DAILY 04/11/25 05/10/25 History mupirocin 2 % topical ointment 1 applic topical BID #15 grams 04/11/25 05/10/25 Rx prednisolone sodium phosphate 1 % 1 drp ophthalmic (eye) 6XD 04/11/25 05/10/25 History eye drops spironolactone 25 mg tablet 25 mg PO DAILY #30 tabs 04/11/25 05/10/25 Rx diphenoxylate-atropine 2.5 1 tab PO TID #270 tabs 04/16/25 05/10/25 Rx mg-0.025 mg tablet (Lomotil) Levomefolate/ Vit B12/ Vit B6/ Vit 1 tab PO DAILY 05/10/25 05/10/25 History B2 6///5 apixaban 2.5 mg tablet (Eliquis) 2.5 mg PO BID 05/10/25 05/10/25 History bumetanide 1 mg tablet 1 mg PO DAILY 05/10/25 05/10/25 History cephalexin 500 mg capsule 500 mg PO QID 05/10/25 05/10/25 History loperamide 2 mg capsule 2 mg PO HS 05/10/25 05/10/25 History loperamide 2 mg tablet 4 mg PO QAM 05/10/25 05/10/25 History olanzapine 2.5 mg tablet 2.5 mg PO DIRECTED 05/10/25 05/10/25 History Patient History Medical History Ileostomy present Elevated homocysteine Non-healing surgical wound Colovaginal fistula Bladder cancer Blood clotting disorder Insomnia Deep vein thrombosis Surgical History H/O abdominal surgery Hx of bilateral breast reduction surgery H/O hand surgery History of colonoscopy History of cystoscopy History of tooth extraction History of tonsillectomy Family History Father Cholangitis Mother Dementia Osteoporosis Obesity Brother Dyslipidemia Social History Smoking Status: Never smoker Tobacco Type: Cigarettes Age Started Using Tobacco: 22; Age Quit Using Tobacco: 27; packs per day: 0.5; Second Hand Exposure: No; Do You Dip or Chew Tobacco: No; Hx Alcohol Use: Yes Alcohol type: beer Alcohol Intake Frequency: Monthly or Less Hx Substance Use: No Preferred Language: Latvian Communication Ability: Effective Visual Impairment: No Limitations Hearing Ability: Normal Risk Manager Required: No Beliefs That Will Affect Care: None marital status: Current Living Situation: Spouse current occupational status: retired How many Children do You have: 2 Feels Safe at Home: Yes Childhood Exposure to Second-Hand Smoke: Yes Diet: other Diet Comment: TPN via PICC, PEG tube (not currently in use) caffeine: Yes Dental Care, Regularly: Yes Physical Activity Frequency: 3-4 Times per Week Seatbelt Use: always Sunscreen Use: Yes Do you think of yourself as: straight/heterosexual Gender Identity: Female Assistive Devices: None Review of Systems Review of Systems: Constitutional: cachectic appearing, No Fever, No Chills, No Night Sweats, she does haveFatigue, No Malaise ENT/Mouth: No Hearing Changes, No Ear Pain, No Nasal Congestion, No Sinus Pain, No Hoarseness, No sore throat, No Rhinorrhea, No Swallowing Difficulty Eyes: No Eye Pain, No Swelling, No Redness, No Foreign Body, No Discharge, No Vision Changes Cardiovascular: No Chest Pain, No SOB, No PND, No Dyspnea on Exertion, No Orthopnea, No Claudication, No Edema, No Palpitations Respiratory: No Cough, No Sputum, No Wheezing, No Smoke Exposure, No Dyspnea Gastrointestinal: No Nausea, No Vomiting, No Diarrhea, No Constipation, mild abdominal Pain, No Heartburn, No Anorexia, No Dysphagia, No Hematochezia, No Melena, No Flatulence, No Jaundice Genitourinary: No Dysmenorrhea, No DUB, No Dyspareunia, No Dysuria, No Urinary Frequency, No Hematuria, No Urinary Incontinence, No Urgency, No Flank Pain, No Urinary Flow Changes, No Hesitancy Musculoskeletal: No Arthralgias, No Myalgias, No Joint Swelling, No Joint Stiffness, No Back Pain, No Neck Pain, No Injury History Skin: bilateral erythematous Skin Lesions on her legs with swelling, No Pruritis, No Hair Changes, No Breast/Skin Changes, No Nipple Discharge Neuro: No Weakness, No Numbness, No Paresthesias, No Loss of Consciousness, No Syncope, No Dizziness, No Headache, No Coordination Changes, No Recent Falls Psych: No Anxiety/Panic, No Depression, No Insomnia, No Personality Changes, No Delusions, No Rumination, No SI/HI/AH/VH, No Social Issues, No Memory Changes, No Violence/Abuse Hx., No Eating Concerns Heme/Lymph: No Bruising, No Bleeding, No Transfusions History, No Lymphadenopathy Endocrine: No Polyuria, No Polydipsia, No Temperature Intolerance Physical Exam Physical Exam: VITALS: Reviewed. WEIGHT/BMI reviewed. GEN: cachectic, NAD. PSYCH: Good Judgment. AOx3. Normal memory, mood, and affect. HEENT -Head: NC/AT; -Eyes: PERRL, EOMI. No discharge or redn ess; -Ears: External ears are normal. Normal TMs. -Nose: Normal nares. -Mouth and throat: MMM. Normal gums, muc shahzad, palate,. Good dentition. NECK: Supple, with no masses. CV: RRR, no m/r/g. LUNGS: CTAB, no w/r/c. ABD: Castellon's pouch, full , Soft, mild tenderness/ND, NBS, she has palpable masses or organomegaly. : N/A SKIN: Warm, well perfused. bilateral erythematous skin lesions and swelling and mild desquamation of the skin of her legs bilaterally, weeping, purulent and +2 edema bilaterally MSK: No deformities, Normal gait. EXT: No clubbing, cyanosis, or edema. NEURO: Ambulating with limitations. Normal muscle strength and tone. No focal deficits. Results & Data Vital Signs (Past 12 Hours) Vital Signs Temp Pulse Pulse Resp BP BP Pulse Ox 05/10/25 19:06 58 L 13 107/57 L 05/10/25 19:00 66 05/10/25 18:30 62 14 108/67 100 05/10/25 18:00 56 L 12 98/58 L 99 05/10/25 17:30 57 L 14 95/64 L 100 05/10/25 17:00 61 14 103/68 98 05/10/25 16:00 54 L 16 103/66 99 05/10/25 15:30 52 L 19 96/64 L 100 05/10/25 15:25 58 L 05/10/25 15:06 57 L 15 100 05/10/25 13:58 36.2 C L 68 18 95/66 L 100 05/10/25 13:55 63 18 100/67 100 O2 Del Method 05/10/25 19:06 05/10/25 19:00 05/10/25 18:30 Room Air 05/10/25 18:00 Room Air 05/10/25 17:30 Room Air 05/10/25 17:00 Room Air 05/10/25 16:00 Room Air 05/10/25 15:30 Room Air 05/10/25 15:25 05/10/25 15:06 Room Air 05/10/25 13:58 Room Air 05/10/25 13:55 Laboratory Results 05/10/25 15:15 Aerobic Blood Culture - Pending Blood Anaerobic Blood Culture - Pending 05/10/25 Unknown Aerobic Blood Culture - Pending Blood Anaerobic Blood Culture - Pending 05/10/25 05/10/25 Unknown 15:29 WBC 3.98 L RBC 2.40 L Hgb 8.8 L Hct 26.7 L MCV 111.3 H MCH 36.7 H MCHC 33.0 RDW Std Deviation 80.4 H RDW Coeff of Rolo 19.5 H Plt Count 77 L MPV 10.7 Immature Gran % (Auto) 0.3 Neut % (Auto) 79.1 Lymph % (Auto) 10.8 Wright % (Auto) 8.3 Eos % (Auto) 1.0 Baso % (Auto) 0.5 Neut # (Auto) 3.15 Lymph # (Auto) 0.43 L Wright # (Auto) 0.33 Eos # (Auto) 0.04 Baso # (Auto) 0.02 Immature Gran # (Auto) 0.01 Toxic Granulation 1+ Anisocytosis Present Macrocytosis Present PT 11.7 INR 1.1 Sodium 136 Potassium 3.8 Chloride 99 Carbon Dioxide 33 H Anion Gap 4 BUN 27 H Creatinine 1.95 H Est Cr Clr Drug Dosing 21.9 eGFR 26.69 BUN/Creatinine Ratio 13.8 Glucose 94 Lactate 1.4 Calcium 8.7 Magnesium 1.8 Total Bilirubin 2.0 H AST 53 H ALT 26 Alkaline Phosphatase 226 H B-Natriuretic Peptide 146 H Total Protein 6.8 Albumin 3.1 L Globulin 3.7 Albumin/Globulin Ratio 0.8 L Lipase 19 Procalcitonin 0.33 Diagnostic Findings [facility] [place], [place] Myocardial Perfusion Study Signed Patient: CAROL LARSEN cc: Rommel Pedroza MD~ DICTATED BY: Rommel Pedroza MD Date of Service March 20, 2025 Myocardial Perfusion Study Blk Myocardial Perfusion Study Report [place] Act 112: Negative ONE DAY NUCLEAR MEDICINE LEXISCAN TECHNETIUM 99M MYOCARDIAL PERFUSION SCAN Indication: Cardiomyopathy. Baseline ECG: Normal sinus rhythm, with LAFB and nonspecific ST abnormality. Ventricular rate 70. Stress ECG: No Lexiscan induced ST changes. No arrhythmias. HR thomas from 70 to 107 representing 72% MPHR. Peak BP 95/62 with Lexiscan blood pressure dropped into the 70s (asymptomatic) before returning to systolics of 80s. No Lexiscan induced symptoms. Technique: For the stress portion of the study 31.8 mCi of Technetium 99m Cardiolite IV was injected at 0915 on 03/20/2025. 30 minutes following the injection, imaging of the heart was performed in multiple projections. For the rest portion of the study, 10.1 mCi of Technetium 99m Cardiolite was injected IV at 0740. One hour following the injection, imaging of the heart was performed in the same projections. Findings: Rotating raw images were reviewed in detail. Potential sources of attenuation include gut/liver uptake impacting the inferior imaging border of the heart. Questionable extracardiac uptake in mediastinum. Short axis, vertical long axis and horizontal long axis images were reviewed in detail. No visual TID. Mild, moderate size mid to apical inferior mostly fixed perfusion defect (SDS <3). Small LV cavity. EDV 60 ml. Calculated EF 55%. Abnormal septal motion but no other regional wall motion abnormalities. SUMMARY: 1. Negative myocardial perfusion study for significant Lexiscan induced ischemia. 2. Mild mostly fixed inferior perfusion defect with normal wall motion likely artifact in the setting of gut/liver uptake impacting imaging border. Less likely single-vessel infarct with minimal jens-infarct ischemia. 3. Small LV cavity with normal function. LVEF 55% with abnormal septal motion. 4. Non-diagnostic stress ECG due to inability to reach target HR with Lexiscan. Medications Administered IV Flagyl IV Cefepime
--- NOTE | 2025-05-10 20:15 | History & Physical Report ---
Date of Service May 10, 2025 Assessment & Plan (1) Metastatic neoplastic disease: (2) Cellulitis: (3) Bilateral edema of lower extremity: (4) Dyslipidemia: Plan 74yo female with history of metastatic malignancy ovarian origin presenting with progressive bilateral LE edema, redness. Symptoms began in mid-March after patient was started on Mirvetuximab for management of her ovarian cancer. #Bilateral LE edema - patient has had a bilateral LE doppler NEGATIVE for acute DVT. Echo with mildly reduced systolic function. Possible medication reaction? LE edema is not a very common side effect of Mirvetuximab after review of medication prescribing guide. -Admit to medical -Check CT chest/abdomen/pelvis - ?compression, bulky LAD or other causing bilateral LE edema -Elevated extremities -Continue home diuretics - Bumex and Spironolactone -If no improvement would consider possible vascular imaging - consideration to vascular thrombus contributing to edema - although patient is on Apixaban anticoagulation which makes this less likely #Cellulitis - patient afebrile, HD stable. Non-toxic in appearance -Follow cultures sent from ER -Continue antibiotics - Cefepime and Flagyl -Monitor for improvement in redness #Malignancy - patient initially diagnosed in 2021 - she had a diaphragm/peritoneal resection with resection of the right transverse and sigmoid colon with ileocolic and colorectal anastomosis. S/p chemotherapy with carboplatin paclitaxel. Recently started on Mirvetuximab. 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 Patient was seen by her PCP for this complaint. She had bilateral lower extremity venous Doppler performed on 04/03/2025 which was negative for DVT. She also had an echocardiogram on 05/09/2025 which revealed normal LV size and wall thickness. Mildly reduced systolic ejection fraction of 45 to 50%. Patient was started on Keflex 2 days ago for worsening redness of her bilateral lower extremities. She has had some drainage of clear-yellow fluid from her legs bilaterally and has had some redness as well. She denies fevers, chills, chest pain, cough, shortness of breath, abdominal pain, nausea, vomiting, diarrhea. Patient follows with Dr. Leach - Oncology. In the ER she is afebrile, hemodynamically stable ER course: Cefepime Flagyl Normal saline Allergies Allergy/AdvReac Type Severity Reaction Status Date / Time No Known Allergies Allergy Verified 05/10/25 16:47 Home Medications Medication Instructions Recorded Confirmed Type pantoprazole 40 mg tablet,delayed 40 mg PO DAILY #90 tabs 08/03/24 05/10/25 Rx release nystatin 100,000 unit/gram topical 1 applic topical BID 08/07/24 05/10/25 History powder (Klayesta) ondansetron HCl 4 mg tablet 4 mg PO Q6H PRN nausea and 09/13/24 05/10/25 Rx vomiting #30 tabs tramadol 50 mg tablet 50 mg PO Q8H PRN pain #30 tabs 09/13/24 05/10/25 Rx nystatin-triamcinolone 100,000 1 applic topical BID #60 grams 10/15/24 05/10/25 Rx unit/g-0.1 % topical cream ergocalciferol (vitamin D2) 1,250 1,250 mcg PO 2XWK #20 caps 12/31/24 05/10/25 Rx mcg (50,000 unit) capsule (Vitamin D2) cholestyramine 4 gram oral powder 4 g PO DAILY PRN Acne 03/05/25 05/10/25 History mirvetuximab soravtansine-gynx 5 0 mg IV Q21D 03/27/25 05/10/25 History mg/mL intravenous solution (Elahere) loratadine 10 mg tablet (Claritin) 10 mg PO DAILY 04/11/25 05/10/25 History mupirocin 2 % topical ointment 1 applic topical BID #15 grams 04/11/25 05/10/25 Rx prednisolone sodium phosphate 1 % 1 drp ophthalmic (eye) 6XD 04/11/25 05/10/25 History eye drops spironolactone 25 mg tablet 25 mg PO DAILY #30 tabs 04/11/25 05/10/25 Rx diphenoxylate-atropine 2.5 1 tab PO TID #270 tabs 04/16/25 05/10/25 Rx mg-0.025 mg tablet (Lomotil) Levomefolate/ Vit B12/ Vit B6/ Vit 1 tab PO DAILY 05/10/25 05/10/25 History B2 6//50/5 apixaban 2.5 mg tablet (Eliquis) 2.5 mg PO BID 05/10/25 05/10/25 History bumetanide 1 mg tablet 1 mg PO DAILY 05/10/25 05/10/25 History cephalexin 500 mg capsule 500 mg PO QID 05/10/25 05/10/25 History loperamide 2 mg capsule 2 mg PO HS 05/10/25 05/10/25 History loperamide 2 mg tablet 4 mg PO QAM 05/10/25 05/10/25 History olanzapine 2.5 mg tablet 2.5 mg PO DIRECTED 05/10/25 05/10/25 History Past Med/Surg History Problem List (Updated 05/11/25 @ 00:05 by Bryanna Rios DO) Failure of outpatient treatment (Acute) Chemotherapy adverse reaction Metastatic neoplastic disease Adult failure to thrive Cellulitis (Acute) Bilateral edema of lower extremity (Acute) Malnutrition Decubitus ulcer of sacral region, stage 1 Peripheral edema Cardiomyopathy Exertional dyspnea Sinusitis Urinary incontinence Sinusitis Pain Anemia Malignant pleural effusion Metastatic adenocarcinoma Ileostomy care (Chronic) Dehydration Otitis externa Chest pain Peritonitis (acute) generalized Cholecystitis Small bowel obstruction Diarrhea Ileocolic anastomotic leak Weakness acquired in intensive care unit Left anterior accessory atrioventricular conduction Colostomy in place History of compression fracture of vertebral column (~09/10/22) Closed wedge compression fracture of L1 vertebra, Hypomagnesemia (Acute) Ovarian cancer (Chronic) Pulmonary embolism Sleep disorder 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) Surgical History H/O abdominal surgery Hx of bilateral breast reduction surgery H/O hand surgery LEFT HAND MIDDLE FINGER GROWTH REMOVED (DONE MULTIPLE TIMES) History of colonoscopy History of cystoscopy BLADDER TUMORS REMOVED (MULTIPLE TIMES) HAS HAD NO PROBLEMS FOR 3 YEARS History of tooth extraction History of tonsillectomy Family History Father Cholangitis Mother Dementia Osteoporosis Obesity Brother Dyslipidemia Social History Smoking Status: Never smoker Tobacco Type: Cigarettes Age Started Using Tobacco: 22; Age Quit Using Tobacco: 27; packs per day: 0.5; Second Hand Exposure: No; Do You Dip or Chew Tobacco: No; Hx Alcohol Use: Yes Alcohol type: wine Alcohol Intake Frequency: Monthly or Less Hx Substance Use: No Preferred Language: Macedonian Communication Ability: Effective Visual Impairment: No Limitations Hearing Ability: Normal Tuber Machine Operator Required: No Beliefs That Will Affect Care: None marital status: Current Living Situation: Spouse current occupational status: retired How many Children do You have: 2 Other Information That Helps Us Care for You: No Feels Safe at Home: Yes Safety Concerns: Feels Safe At This Time Childhood Exposure to Second-Hand Smoke: Yes Diet: other Diet Comment: TPN via PICC, PEG tube (not currently in use) caffeine: Yes Dental Care, Regularly: Yes Physical Activity Frequency: 3-4 Times per Week Seatbelt Use: always Sunscreen Use: Yes Do you think of yourself as: straight/heterosexual Gender Identity: Female Assistive Devices: None Review of Systems Review of Systems: All systems reviewed & are unremarkable except as noted in HPI & below Physical Exam Physical Exam: General: patient resting comfortably, NAD, Frail and cachectic, awake alert and oriented x 4 Skin: round, erythematous lesion on left anterior chest wall, several scattered bruises, some redness of bilateral lower extremities with some serous drainage from the legs HEENT: NC/AT, PERRL, EOMI, anicteric sclera, conjunctiva without injection, external ear normal to inspection and nontender, nares patent, dry mucus membranes, dentition intact, no oropharyngeal lesions, neck supple, trachea midline, no LAD, no thyromegaly, no JVD Heart: +S1/S2, regular, no m/r/g, port in right anterior chest wall, no erythema/drainage or tenderness to palpation Lungs: equal air entry bilaterally, no rales/rhonchi/wheezes Abd: +BS, soft, NT/ND, no masses/organomegaly/ascites, colostomy in place Ext: warm, 2+ pulses in UE/LE bilaterally, 3+ edema of bilateral lower extremities scattered areas of redness Neuro: nonfocal, patient AA&O x 4, speech intact, no facial droop, moving all extremities on command with equal strength 5/5 Results & Data Results & Data Vital Signs (Past 12 Hours) Vital Signs Temp Pulse Pulse Resp BP BP Pulse Ox 05/10/25 19:06 58 L 13 107/57 L 05/10/25 19:00 66 05/10/25 18:30 62 14 108/67 100 05/10/25 18:00 56 L 12 98/58 L 99 05/10/25 17:30 57 L 14 95/64 L 100 05/10/25 17:00 61 14 103/68 98 05/10/25 16:00 54 L 16 103/66 99 05/10/25 15:30 52 L 19 96/64 L 100 05/10/25 15:25 58 L 05/10/25 15:06 57 L 15 100 05/10/25 13:58 36.2 C L 68 18 95/66 L 100 05/10/25 13:55 63 18 100/67 100 O2 Del Method 05/10/25 19:06 05/10/25 19:00 05/10/25 18:30 Room Air 05/10/25 18:00 Room Air 05/10/25 17:30 Room Air 05/10/25 17:00 Room Air 05/10/25 16:00 Room Air 05/10/25 15:30 Room Air 05/10/25 15:25 05/10/25 15:06 Room Air 05/10/25 13:58 Room Air 05/10/25 13:55 Laboratory Results Laboratory Results WBC 3.98 K/ul (4.8-10.8) L 05/10/25 Unknown RBC 2.40 M/uL (4.20-5.40) L 05/10/25 Unknown Hgb 8.8 g/dl (12.0-16.0) L 05/10/25 Unknown Hct 26.7 % (37.0-47.0) L 05/10/25 Unknown MCV 111.3 fL (80.0-100.0) H 05/10/25 Unknown MCH 36.7 pg (25.0-34.0) H 05/10/25 Unknown MCHC 33.0 g/dL (32.0-36.0) 05/10/25 Unknown RDW Std Deviation 80.4 fL (36.4-46.3) H 05/10/25 Unknown RDW Coeff of Rolo 19.5 % (11.5-14.5) H 05/10/25 Unknown Plt Count 77 K/uL (130-400) L 05/10/25 Unknown MPV 10.7 fL (9.4-12.4) 05/10/25 Unknown Immature Gran % (Auto) 0.3 % 05/10/25 Unknown Neut % (Auto) 79.1 % 05/10/25 Unknown Lymph % (Auto) 10.8 % 05/10/25 Unknown [place] % (Auto) 8.3 % 05/10/25 Unknown Eos % (Auto) 1.0 % 05/10/25 Unknown Baso % (Auto) 0.5 % 05/10/25 Unknown Neut # (Auto) 3.15 K/uL (1.40-6.50) 05/10/25 Unknown Lymph # (Auto) 0.43 K/uL (1.20-3.40) L 05/10/25 Unknown [place] # (Auto) 0.33 K/uL (0.11-0.59) 05/10/25 Unknown Eos # (Auto) 0.04 K/uL (0.00-0.50) 05/10/25 Unknown Baso # (Auto) 0.02 K/uL (0.00-0.20) 05/10/25 Unknown Immature Gran # (Auto) 0.01 K/uL (0.01-0.20) 05/10/25 Unknown Toxic Granulation 1+ 05/10/25 Unknown Anisocytosis Present 05/10/25 Unknown Macrocytosis Present 05/10/25 Unknown PT 11.7 Seconds (9.0-12.0) 05/10/25 Unknown INR 1.1 (0.9-1.1) 05/10/25 Unknown Sodium 136 mmol/L (136-145) 05/10/25 Unknown Potassium 3.8 mmol/L (3.5-5.1) 05/10/25 Unknown Chloride 99 mmol/L (98-107) 05/10/25 Unknown Carbon Dioxide 33 mmol/L (21-32) H 05/10/25 Unknown Anion Gap 4 (3-11) 05/10/25 Unknown BUN 27 mg/dl (6-23) H 05/10/25 Unknown Creatinine 1.95 mg/dl (0.6-1.2) H 05/10/25 Unknown Est Cr Clr Drug Dosing 21.9 ml/min 05/10/25 Unknown eGFR 26.69 05/10/25 Unknown BUN/Creatinine Ratio 13.8 (10-20) 05/10/25 Unknown Glucose 94 mg/dl (70-99(Fasting)) 05/10/25 Unknown Lactate 1.4 mmol/L (0.4-2.0) 05/10/25 Unknown Calcium 8.7 mg/dl (8.6-10.3) 05/10/25 Unknown Magnesium 1.8 mg/dl (1.7-2.4) 05/10/25 Unknown Total Bilirubin 2.0 mg/dl (0.2-1.0) H 05/10/25 Unknown AST 53 U/L (13-39) H 05/10/25 Unknown ALT 26 U/L (7-52) 05/10/25 Unknown Alkaline Phosphatase 226 U/L (34-104) H 05/10/25 Unknown B-Natriuretic Peptide 146 pg/ml (0-100) H 05/10/25 15:29 Total Protein 6.8 gm/dl (6.0-8.3) 05/10/25 Unknown Albumin 3.1 gm/dl (3.4-5.0) L 05/10/25 Unknown Globulin 3.7 gm/dl (2.5-4.0) 05/10/25 Unknown Albumin/Globulin Ratio 0.8 (0.9-2) L 05/10/25 Unknown Lipase 19 U/L (11-82) 05/10/25 Unknown Procalcitonin 0.33 ng/ml (0-0.5) 05/10/25 Unknown Code Status & VTE Plan VTE Prophylaxis Plan VTE Prophylaxis will be ordered: Yes PG Care Time/CCT Total # of Minutes Spent Total Time Spent with Patient: Total time spent is greater than 50% in coordination of care (as documented) at patient's floor/unit and/or counseling patient: Coding Level of Care Code 40758 INT INP/OBS CARE 3/75MIN Diagnoses Metastatic neoplastic disease C79.9 Cellulitis L03.90 Bilateral edema of lower extremity R60.0 Dyslipidemia E78.5
[2025-05-10] MEDS ORDERED: OLANZAPINE 2.5 MG TAB PO SCH (22:26)
[2025-05-10] MEDS: NYSTATIN POWDER 15GM BTL EXT SCH (22:44)
[2025-05-10] MEDS: NYSTATIN/TRIAMCIN CR 15 GM TUBE EXT SCH (22:45)
[2025-05-10] MEDS: LOPERAMIDE HCL 2 MG CAP PO SCH (22:59)
[2025-05-10] MEDS: DIPHENOXYLATE/ATROPINE 2.5/0.025MG TAB PO SCH (22:59)
[2025-05-10] MEDS: LACTATED RINGER'S 1,000 ML IV SCH (23:00)
[2025-05-10] MEDS: MUPIROCIN 2% OINT 22 GM TUBE TOP SCH (23:00)
[2025-05-10] MEDS: APIXABAN 2.5 MG TAB PO SCH (23:00)
[2025-05-10] MEDS: metroNIDAZOLE 500 MG/100 ML BAG IV SCH (23:13)
[2025-05-11] MEDS: ACETAMINOPHEN 325 MG TAB PO PRN (04:00)
[2025-05-11] MEDS: CEFEPIME 1000MG 1,000 MG/10 ML SYR IV SCH (04:02)
[2025-05-11 06:34] LABS: Hematocrit (blood only) 24.4 % (37.0-47.0); Hemoglobin 8.2 g/dl (12.0-16.0); Immature Granulocytes # (auto) 0.01 K/uL (0.01-0.20); Immature Granulocytes % (auto) 0.3 %; Mean Corpuscular Hemoglobin 37.1 pg (25.0-34.0); Mean Corpuscular Volume 110.4 fL (80.0-100.0); Platelet Count 64 K/uL (130-400); RDW Standard Deviation 73.9 fL (36.4-46.3); Red Blood Count 2.21 M/uL (4.20-5.40); White Blood Count 3.50 K/ul (4.8-10.8)
[2025-05-11 07:02] LABS: Anion Gap 5.0 (3-11); Blood Urea Nitrogen 28.0 mg/dl (6-23); Calcium 8.4 mg/dl (8.6-10.3); Carbon Dioxide 31.0 mmol/L (21-32); Chloride 104.0 mmol/L (98-107); Creatinine Clr Calc Pharmacy 24.6 ml/min; Glucose 76.0 mg/dl (70-99(Fasting)); Potassium 4.1 mmol/L (3.5-5.1); Sodium 140.0 mmol/L (136-145)
[2025-05-11 07:33] LABS: Macrocytosis Present
[2025-05-11] MEDS: BUMETANIDE 1 MG TAB PO SCH (08:01)
[2025-05-11] MEDS: LORATADINE 10 MG TAB PO SCH (08:01)
[2025-05-11] MEDS: SPIRONOLACTONE 25 MG TAB PO SCH (08:01)
--- NOTE | 2025-05-11 09:25 | Hospitalist Progress Note ---
Date of Service May 11, 2025 Assessment & Plan (1) Metastatic neoplastic disease: (2) Cellulitis: (3) Bilateral edema of lower extremity: (4) Dyslipidemia: Plan 74yo female with history of metastatic malignancy ovarian origin presenting with progressive bilateral LE edema, redness. Symptoms began in mid-March after patient was started on Mirvetuximab for management of her ovarian cancer. #Bilateral LE edema - patient has had a bilateral LE doppler NEGATIVE for acute DVT. Echo with mildly reduced systolic function. Possible medication reaction? LE edema is not a very common side effect of Mirvetuximab after review of medication prescribing guide. -Admit to medical -Check CT chest/abdomen/pelvis without evidence of compression of LE veins with bulky lymphadenopathy or malignancy -Elevated extremities -Continue home diuretics - Bumex and Spironolactone -LE edema improving with antibiotics regimen #Cellulitis - patient afebrile, HD stable. Non-toxic in appearance -Follow cultures sent from ER -Continue antibiotics - Cefepime and Flagyl -Monitor for improvement in redness #Malignancy - patient initially diagnosed in 2021 - she had a diaphragm/peritoneal resection with resection of the right transverse and sigmoid colon with ileocolic and colorectal anastomosis. This was reversed and now has permanent ileostomy. S/p chemotherapy with carboplatin paclitaxel. Recently started on Mirvetuximab. -Appreciate Oncology recs , there is concern for nutritional absorption. will request Dietary eval for need for TPN -Continue Tramadol PRN pain -Continue Lomotil and Imodium TID diarrhea -Continue Apixaban 2.5mg po BID for history of VTE #GERD -Continue Protonix 40mg po daily 05/11: pt's and their son Abdulaziz are at bedside Admission and Anticipated Discharge Date Admission Date: May 10, 2025 Subjective No acute events overnight Currently she states that her legs are improving, swelling is getting better. Review of Systems Review of Systems: Comprehensive ROS completed and is otherwise negative. Physical Exam Physical Exam: Gen: cachectic, chronically ill appearing, no acute distress, lying in bed comfortable HEENT: NC/AT, bitemporal wasting, MMM Lungs: nonlabored breathing, diminished breath sounds at the right base CVS: s1s2nl, RRR Abd: nl bowel sounds, soft, NT / ND, ileostomy present : no sellers Ext: b/l LE redness and edema (improving) Neuro: AAOx3 Psych: pleasant, calm, cooperative Results & Data Results & Data Vital Signs (Past 12 Hours) Vital Signs Temp Pulse Pulse Resp BP Pulse Ox O2 Del Method 05/11/25 08:28 37.1 C 78 15 93/53 L 96 Room Air 05/10/25 22:05 36.5 C 62 16 96/60 L 97 Room Air PG Care Time/CCT Total # of Minutes Spent Total Time Spent with Patient: Total time spent is greater than 50% in coordination of care (as documented) at patient's floor/unit and/or counseling patient: Coding Level of Care Code 45112 SUB INP/OBS CARE 2/35MIN Diagnoses Metastatic neoplastic disease C79.9 Cellulitis L03.90 Bilateral edema of lower extremity R60.0 Dyslipidemia E78.5
--- NOTE | 2025-05-11 09:42 | CT Scan Report ---
CT SCAN OF THE CHEST, ABDOMEN, AND PELVIS WITHOUT IV CONTRAST CLINICAL HISTORY: Lower extremity edema. Metastatic ovarian cancer. COMPARISON STUDY: Prior CT scans of the chest, abdomen, and pelvis most recently dated 02/26/2025 TECHNIQUE: Unenhanced CT scan of the chest, abdomen, and pelvis was performed from the thoracic inlet to the proximal femora. Images are reviewed in the axial, sagittal, and coronal planes. IV contrast was not administered as per the referring clinician. Note that the examinations are significantly sub optimal without oral and IV contrast. A dose lowering technique was utilized adhering to the princip les of ALA. CT DOSE: 516.57 mGy.cm FINDINGS: CHEST: Thyroid: Imaged portions of the thyroid gland are normal in size and attenuation. Thoracic aorta: There is mild atherosclerotic calcification of the thoracic aorta, which is normal in caliber and demonstrates standard (variant arch anatomy. Heart: A left PICC line is in place. The tip terminates in the right atrium. A right internal jugular central venous infusion port is unchanged in position. The heart is mildly enlarged and without jens cardial effusion. There is coronary artery atherosclerosis. There is degenerative attenuation of the cardiac blood pool as compared to the myocardium suggesting anemia. The main pulmonary arteries are d ilated suggesting pulmonary artery hypertension. Lungs and pleural spaces: There are small pleural effusions with dependent atelectasis. No airspace c onsolidation is seen typical for pneumonia. The trachea and central airways are clear. Tiny calcified granulomas are incidentally noted. Lower neck: There are calcified left supraclavicular lymph nodes which are consistent with metastatic disease. The largest node is seen on image #33 and measures 2.2 x 1.5 cm. Mediastinum: Calcified lymph nodes are seen at the hiatus. No mediastinal lymphadenopathy is seen. Ceci: Not well assessed without IV contrast. Axillae: There is no axillary lymphadenopathy. Bony thorax: The skeletal structures are osteopenic. Degenerative change and mild kyphoscoliosis is n oted in the thoracic spine. There is a large hemangioma in the body of T11. No lytic or blastic lesi ons are identified. Soft tissues: The patient is cachectic. ABDOMEN AND PELVIS: Liver: The unenhanced liver is normal in size, contour, and attenuation. There is no intrahepatic donald iary ductal dilatation. Small low-attenuation hepatic lesions were better assessed on the prior contr ast-enhanced examination. There are calcific lesions scalloping the anterior hepatic capsule on image #67. Gallbladder: There are calcific gallstones with no CT evidence of acute cholecystitis. Spleen: Normal in size and attenuation. Capsular calcifications are similar to previous. Pancreas: The unenhanced pancreas is mildly atrophic and grossly unremarkable. Adrenal glands: The left adrenal gland is grossly unremarkable but not well visualized. A large metas tasis is again seen in the expected location of the right adrenal gland. Kidneys: The right kidney is displaced inferiorly by a right upper quadrant lesion. The unenhanced ki dneys demonstrate mild cortical atrophy and are without hydronephrosis. No renal calculi are identifi ed. A 12 mm cyst is noted on the right. There are at least 2 subcentimeter hyperdense left renal cyst s. Abdominal vasculature: The abdominal aorta is normal in course and caliber noting mild to moderate at herosclerotic calcification. Bowel: There is postsurgical change subtotal colectomy with left lower quadrant ileostomy and Castellon n pouch formation. Wall thickening is noted in the rectal stump. No bowel obstruction is seen. Wall t hickening suggested within small bowel loops in the pelvis. Peritoneum: No intraperitoneal free air is identified. There is diffuse mesenteric edema and a small volume of abdominopelvic ascites. A large complex cystic metastasis is again seen in the right upper abdomen/retroperitoneum below the diaphragm in the expected location of the right adrenal gland. This measures approximately 17 x 12 x 10 cm and displaces the adjacent viscera. Lymphadenopathy: There are calcified metastatic right cardiophrenic, retroperitoneal, iliac chain, an d mesenteric lymph nodes. A community service representative aortocaval node on image #123 measures 1.5 x 1.2 cm, and t he left external iliac chain node on image #235 measures 2.2 x 1.1 cm. Pelvic viscera: The bladder is decompressed and appears thick walled. The uterus is surgically absent . No adnexal lesion is clearly seen. Skeletal structures: The skeletal structures are osteopenic. There is a mild chronic compression defo rmity of L1. There is mild lumbosacral spondylosis and scoliosis. No lytic or blastic lesions are see n. Soft tissues: There is anasarca of the body wall. CAT scan is noted. IMPRESSION: 1. Significantly suboptimal examinations without oral and IV contrast. 2. Cardiomegaly and small pleural effusions. 3. There is anasarca of the body wall, diffuse mesenteric edema, and a small volume of abdominopelvic ascites. 4. Calcified metastatic lymphadenopathy in the left supraclavicular region as well as within the abdo men and pelvis is similar to previous. 5. A large complex cystic metastasis in the right upper abdomen/adrenal gland is again noted. This rodríguez s modestly increased in size from the 02/26/2025 examination. 6. Metastatic implants along the anterior hepatic capsule are similar to previous. Subtle hepatic les ions were better assessed on the prior contrast-enhanced study. 7. Again seen is postsurgical change from subtotal colectomy with left lower quadrant ileostomy and H artmann pouch formation. Wall thickening of the rectal stump is nonspecific and similar to previous. 8. The bladder is decompressed and appears thick-walled. Correlate with clinical findings and urinaly sis. 9. There is nonspecific wall thickening suggested involving small bowel loops in the pelvis. This cou ld be related to fluid overload/hypoproteinemia. Correlate clinically for evidence of a nonspecific e nteritis. 10. Cholelithiasis. 11. Additional findings as above. ACT 112: Negative or not required by law. Electronically signed by: Abdulaziz Albert M.D. 05/11/2025 9:40 AM
[2025-05-11] MEDS: TPN/PPN CONSULT PHARMACY STA (11:33)
[2025-05-11] MEDS: CEREFOLIN PO SCH (11:41)
[2025-05-11] MEDS: LOPERAMIDE HCL 2 MG CAP PO SCH (13:10)
[2025-05-12 07:01] LABS: Hematocrit (blood only) 22.3 % (37.0-47.0); Hemoglobin 7.5 g/dl (12.0-16.0); Mean Corpuscular Hemoglobin 36.9 pg (25.0-34.0); Mean Corpuscular Volume 109.9 fL (80.0-100.0); Platelet Count 57 K/uL (130-400); RDW Standard Deviation 76.6 fL (36.4-46.3); Red Blood Count 2.03 M/uL (4.20-5.40); White Blood Count 3.68 K/ul (4.8-10.8)
[2025-05-12 07:26] LABS: Anion Gap 5.0 (3-11); Blood Urea Nitrogen 32.0 mg/dl (6-23); Calcium 8.4 mg/dl (8.6-10.3); Carbon Dioxide 32.0 mmol/L (21-32); Chloride 99.0 mmol/L (98-107); Creatinine Clr Calc Pharmacy 24.0 ml/min; Glucose 78.0 mg/dl (70-99(Fasting)); Magnesium 1.5 mg/dl (1.7-2.4); Potassium 4.1 mmol/L (3.5-5.1); Sodium 136.0 mmol/L (136-145)
[2025-05-12] MEDS: ALBUMIN 25% 25 GM/100 ML VIAL IV SCH (09:53)
--- NOTE | 2025-05-12 10:30 | Hospitalist Progress Note ---
Date of Service May 12, 2025 Assessment & Plan (1) Metastatic neoplastic disease: (2) Cellulitis: (3) Bilateral edema of lower extremity: (4) Dyslipidemia: Plan 74 yo female with history of metastatic malignancy ovarian origin presenting with progressive bilateral LE edema, redness. Symptoms began in mid-March after patient was started on Mirvetuximab for management of her ovarian cancer. #Bilateral LE edema - patient has had a bilateral LE doppler NEGATIVE for acute DVT. Echo with mildly reduced systolic function (EF: 45-50%). Possible medication reaction? LE edema is not a very common side effect of Mirvetuximab after review of medication prescribing guide. - CT chest/abdomen/pelvis without evidence of compression of LE veins with bulky lymphadenopathy or malignancy -Elevated extremities -Continue home diuretics - Bumex and Spironolactone, will give 2 doses of 25g of 25%albumin -LE edema improving with antibiotics regimen #Cellulitis - patient afebrile, HD stable. Non-toxic in appearance -Follow cultures sent from ER -Continue antibiotics - Cefepime and Flagyl (05/11 - 05/18) -Monitor for improvement in redness #Malignancy - patient initially diagnosed in 2021 - she had a di aphragm/peritoneal resection with resection of the right transverse and sigmoid colon with ileocolic and colorectal anastomosis. This was reversed and now has permanent ileostomy. S/p chemotherapy with carboplatin paclitaxel. Recently started on Mirvetuximab. -Appreciate Oncology recs , there is concern for nutritional absorption -Dietary evaluated patient and is recommending discontinuing nightly 1L fluid infusion at home and change to 1-2x / week at cancer center and remove PICC. Pt and family agreeable. In the meantime, goal is to increase protein intake to increase intravascular oncotic pressure. 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 Her BP was borderline this morning (SBP in the high 90s). She states she feels good. We discussed discontinuing home nightly IV fluids and removing PICC line. Pt and are very ecstatic about this. They are in agreement for IV fluids 1-2x per week at [facility]. She does have a port. Review of Systems Review of Systems: Comprehensive ROS completed and is otherwise negative. Physical Exam Physical Exam: Gen: cachectic, chronically ill appearing, no acute distress, lying in bed comfortable HEENT: NC/AT, bitemporal wasting, MMM Lungs: nonlabored breathing, diminished breath sounds at the right base CVS: s1s2nl, RRR Abd: nl bowel sounds, soft, NT / ND, ileostomy present : no sellers Ext: b/l LE redness and edema (continuing to improve) Neuro: AAOx3 Psych: pleasant, calm, cooperative Results & Data Results & Data Vital Signs (Past 12 Hours) Vital Signs Temp Pulse Resp BP Pulse Ox O2 Del Method 05/12/25 07:02 36.5 C 71 17 95/54 L 95 Room Air 05/11/25 23:06 36.7 C 71 16 90/54 L 95 Room Air PG Care Time/CCT Total # of Minutes Spent Total Time Spent with Patient: Total time spent is greater than 50% in coordination of care (as documented) at patient's floor/unit and/or counseling patient: Coding Level of Care Code 58987 SUB INP/OBS CARE 2/35MIN Diagnoses Metastatic neoplastic disease C79.9 Cellulitis L03.90 Bilateral edema of lower extremity R60.0 Dyslipidemia E78.5
--- NOTE | 2025-05-12 11:14 | Hematology/Oncology Prog Note ---
Date of Service May 12, 2025 Assessment & Plan (1) Adult failure to thrive: (2) Metastatic neoplastic disease: (3) Chemotherapy adverse reaction: (4) Ileostomy care: (5) Anemia: (6) Bilateral edema of lower extremity: (7) Cellulitis: Plan 74 year old female with history of advanced metastatic high- grade serous carcinoma, consistent with tubal/ovarian/peritoneal origin Patient currently receiving receiving Mirvetuximab soravtansine-gynx (Elahere) - first dose was March 27, 2025, second dose was April 17, 2025 and most recently on 05/07/2025. At that time, she was seen in the infusion clinic at [facility] on 05/07/2025 by Tasha Christianson PA-C. She was directed to the ER by the HIGH REACH OPERATOR in the clinic to receive IV antibiotics and also by her wound care team. adverse event related to neoplastic therapy cellulitis adult failure to thrive macrocytic anemia renal insufficiency hyperbilirubinemia renal insufficiency PLAN: * Pt has a Castellon's pouch and colostomy pouch - she has adult failure to thrive. She is receiving albumin at this time. I urged her to make a virtual appt with her staff development educator/onc at [facility] who placed the pouch and to review the recent non contrast CT scans c/a/p which were done during this hospitalization * We discussed the findings of the images - there is modest progression of disease since February 26, 2025. * continue on IV antibiotics. better bioavailability this way. * Zapien cultures - follow results. * Pt may be having adverse effects of the anti-neoplastic therapy. I would recommend dose delay and or modification if at all possible. * Pt to follow up with Dr. Leach and then will decide about removal of PICC line. * anemia work up - replete as necessary. Transfuse 1 unit PRBC now. consider IV iron in future. * ileostomy care * ECOG 2 Thank you for allowing us to participate in the care of this patient. Patient and amenable with plan. Admission and Anticipated Discharge Date Admission Date: May 10, 2025 Subjective No acute events overnight. No new complaints. She states she feels good. She is able to ambulate without difficulty. The swelling and redness in her legs has decreased. She and her wouldl like to speak with Dr. Leach before removing PICC line. They are in agreement for IV fluids 1-2x per week at cancer center. She does have a port. Clean at the site. Review of Systems Review of Systems: Constitutional: No Weight Change, No Fever, No Chills, No Night Sweats, No Fatigue, No Malaise ENT/Mouth: No Hearing Changes, No Ear Pain, No Nasal Congestion, No Sinus Pain, No Hoarseness, No sore throat, No Rhinorrhea, No Swallowing Difficulty Eyes: No Eye Pain, No Swelling, No Redness, No Foreign Body, No Discharge, No Vision Changes Cardiovascular: No Chest Pain, No SOB, No PND, No Dyspnea on Exertion, No Orthopnea, No Claudication, No Edema, No Palpitations Respiratory: No Cough, No Sputum, No Wheezing, No Smoke Exposure, No Dyspnea Gastrointestinal: No Nausea, No Vomiting, No Diarrhea, No Constipation, No Pain, No Heartburn, No Anorexia, No Dysphagia, No Hematochezia, No Melena, No Flatulence, No Jaundice Genitourinary: No Dysmenorrhea, No DUB, No Dyspareunia, No Dysuria, No Urinary Frequency, No Hematuria, No Urinary Incontinence, No Urgency, No Flank Pain, No Urinary Flow Changes, No Hesitancy Musculoskeletal: No Arthralgias, No Myalgias, No Joint Swelling, No Joint Stiffness, No Back Pain, No Neck Pain, No Injury History Skin: No Skin Lesions, No Pruritis, No Hair Changes, No Breast/Skin Changes, No Nipple Discharge Neuro: No Weakness, No Numbness, No Paresthesias, No Loss of Consciousness, No Syncope, No Dizziness, No Headache, No Coordination Changes, No Recent Falls Psych: No Anxiety/Panic, No Depression, No Insomnia, No Personality Changes, No Delusions, No Rumination, No SI/HI/AH/VH, No Social Issues, No Memory Changes, No Violence/Abuse Hx., No Eating Concerns Heme/Lymph: No Bruising, No Bleeding, No Transfusions History, No Lymphadenopathy Endocrine: No Polyuria, No Polydipsia, No Temperature Intolerance Physical Exam Physical Exam: VITALS: Reviewed. WEIGHT/BMI reviewed. GEN: Healthy appearing, well-developed, NAD. PSYCH: Good Judgment. AOx3. Normal memory, mood, and affect. HEENT -Head: NC/AT; -Eyes: PERRL, EOMI. No discharge or redn ess; -Ears: External ears are normal. Normal TMs. -Nose: Normal nares. -Mouth and throat: MMM. Normal gums, muc shahzad, palate,. Good dentition. NECK: Supple, with no masses. CV: RRR, no m/r/g. LUNGS: CTAB, no w/r/c. ABD: Soft, NT/ND, NBS, no masses or organomegaly. : N/A SKIN: Warm, well perfused. No skin rashes or abnormal lesions. MSK: No deformities, Normal gait. EXT: No clubbing, cyanosis, reduced erythema and edema. NEURO: Ambulating with no limitations. Normal muscle strength and tone. No focal deficits. Results & Data Vital Signs (Past 12 Hours) Vital Signs Temp Pulse Resp BP Pulse Ox O2 Del Method 05/12/25 07:02 36.5 C 71 17 95/54 L 95 Room Air Laboratory Results Laboratory Results - last 24 hr 05/12/25 06:35 WBC 3.68 L RBC 2.03 L Hgb 7.5 L Hct 22.3 L MCV 109.9 H MCH 36.9 H MCHC 33.6 RDW Std Deviation 76.6 H RDW Coeff of Rolo 18.8 H Plt Count 57 L MPV 10.2 Sodium 136 Potassium 4.1 Chloride 99 Carbon Dioxide 32 Anion Gap 5 BUN 32 H Creatinine 1.80 H Est Cr Clr Drug Dosing 24.0 eGFR 29.38 BUN/Creatinine Ratio 17.8 Glucose 78 Calcium 8.4 L Phosphorus 3.0 Magnesium 1.5 L PG Care Time/CCT Total # of Minutes Spent Total Time Spent with Patient: Total time spent is greater than 50% in coordination of care (as documented) at patient's floor/unit and/or counseling patient: Coding Level of Care Code 18573 SUB INP/OBS CARE 3/50MIN Diagnoses Adult failure to thrive R62.7 Metastatic neoplastic disease C79.9 Chemotherapy adverse reaction [id number] Ileostomy care Z43.2 Anemia D64.9 Bilateral edema of lower extremity R60.0 Cellulitis L03.90
[2025-05-12] MEDS ORDERED: SODIUM CHLORIDE 0.9% 100 ML IV PRN (11:15)
[2025-05-12 12:22] LABS: Iron 218 mcg/dl (35-150); Total Iron Binding Cap Calc 241 mcg/dl (250-450); Transferrin 172 mg/dl (200-360); Transferrin (FE) Percent Satur 90 % (15-50)
[2025-05-12] MEDS: PSYLLIUM HUSK 4GM PACKET PO SCH (18:01)
[2025-05-12 19:04] LABS: INR 1.2 (0.9-1.1); Partial Thromboplastin Time 29 Seconds (21-31); Prothrombin Time 12.5 Seconds (9.0-12.0)
[2025-05-12] MEDS: ARTIFICIAL TEARS OP OINT 3.5 GM TUBE OPB SCH (21:15)
[2025-05-13 08:39] LABS: Hematocrit (blood only) 27.9 % (37.0-47.0); Hemoglobin 9.3 g/dl (12.0-16.0); Immature Granulocytes # (auto) 0.01 K/uL (0.01-0.20); Immature Granulocytes % (auto) 0.2 %; Mean Corpuscular Hemoglobin 34.8 pg (25.0-34.0); Mean Corpuscular Volume 104.5 fL (80.0-100.0); Platelet Count 54 K/uL (130-400); RDW Standard Deviation 89.1 fL (36.4-46.3); Red Blood Count 2.67 M/uL (4.20-5.40); White Blood Count 4.88 K/ul (4.8-10.8)
[2025-05-13 08:57] LABS: Anion Gap 6.0 (3-11); Blood Urea Nitrogen 32.0 mg/dl (6-23); Calcium 9.3 mg/dl (8.6-10.3); Carbon Dioxide 33.0 mmol/L (21-32); Chloride 99.0 mmol/L (98-107); Creatinine Clr Calc Pharmacy 21.3 ml/min; Glucose 133.0 mg/dl (70-99(Fasting)); Magnesium 1.5 mg/dl (1.7-2.4); Potassium 4.0 mmol/L (3.5-5.1); Sodium 138.0 mmol/L (136-145)
[2025-05-13 11:34] LABS: Anisocytosis Present; Macrocytosis Present
--- NOTE | 2025-05-13 14:21 | Hematology/Oncology Prog Note ---
Date of Service May 13, 2025 Assessment & Plan (1) Adult failure to thrive: (2) Metastatic neoplastic disease: (3) Chemotherapy adverse reaction: (4) Ileostomy care: (5) Anemia: (6) Bilateral edema of lower extremity: (7) Cellulitis: (8) Subconjunctival hemorrhage: Plan 74 year old female with history of advanced metastatic high- grade serous carcinoma, consistent with tubal/ovarian/peritoneal origin Patient currently receiving receiving Mirvetuximab soravtansine-gynx (Elahere) - first dose was March 27, 2025, second dose was April 17, 2025 and most recently on 05/07/2025. At that time, she was seen in the infusion clinic at [facility] on 05/07/2025 by Tasha Christianson PA-C. She was directed to the ER by the [facility] in the clinic to receive IV antibiotics and also by her wound care team. adverse event related to neoplastic therapy cellulitis adult failure to thrive macrocytic anemia renal insufficiency hyperbilirubinemia renal insufficiency Right eye subconjunctival hemorrhage PLAN: * Pt has a Castellon's pouch and colostomy pouch - she has adult failure to thrive. She is receiving albumin at this time. I urged her to make a virtual appt with her colloid mill operator/onc at [facility] who placed the pouch and to review the recent non contrast CT scans c/a/p which were done during this hospitalization * We discussed the findings of the images - there is modest progression of disease since February 26, 2025. * continue on IV antibiotics. better bioavailability this way. * She received 1 unit of packed red blood cells yesterday successfully. Her hemoglobin has come up nicely to 9.5. * Subconjunctival hemorrhage-patient to follow-up with ophthalmology when she is discharge. * Patient continues with the steroid drops to the eyes and the eye wetting drops. * Zapien cultures - follow results. * Pt may be having adverse effects of the anti-neoplastic therapy. I would recommend dose delay and or modification if at all possible. * Pt to follow up with Dr. Leach and then will decide about removal of PICC line. * ileostomy care * ECOG 2 Thank you for allowing us to participate in the care of this patient. Patient and amenable with plan. Admission and Anticipated Discharge Date Admission Date: May 10, 2025 Subjective Yesterday, in her right eye, she developed what appears to be Subconjunctival hemorrhage in the right eye. She received her unit of blood without difficulty. Otherwise offers No new complaints. She states she feels good. She is able to ambulate without difficulty. The swelling and redness in her legs has decreased. She and her wouldl like to speak with Dr. Leach before removing PICC line. They are in agreement for IV fluids 1-2x per week at [facility]. She does have a port. Clean at the site. Review of Systems Review of Systems: Constitutional: No Weight Change, No Fever, No Chills, No Night Sweats, No Fatigue, No Malaise ENT/Mouth: No Hearing Changes, No Ear Pain, No Nasal Congestion, No Sinus Pain, No Hoarseness, No sore throat, No Rhinorrhea, No Swallowing Difficulty Eyes: No Eye Pain, No Swelling, No Redness, No Foreign Body, No Discharge, No Vision Changes Cardiovascular: No Chest Pain, No SOB, No PND, No Dyspnea on Exertion, No Orthopnea, No Claudication, No Edema, No Palpitations Respiratory: No Cough, No Sputum, No Wheezing, No Smoke Exposure, No Dyspnea Gastrointestinal: No Nausea, No Vomiting, No Diarrhea, No Constipation, No Pain, No Heartburn, No Anorexia, No Dysphagia, No Hematochezia, No Melena, No Flatulence, No Jaundice Genitourinary: No Dysmenorrhea, No DUB, No Dyspareunia, No Dysuria, No Urinary Frequency, No Hematuria, No Urinary Incontinence, No Urgency, No Flank Pain, No Urinary Flow Changes, No Hesitancy Musculoskeletal: No Arthralgias, No Myalgias, No Joint Swelling, No Joint Stiffness, No Back Pain, No Neck Pain, No Injury History Skin: No Skin Lesions, No Pruritis, No Hair Changes, No Breast/Skin Changes, No Nipple Discharge Neuro: No Weakness, No Numbness, No Paresthesias, No Loss of Consciousness, No Syncope, No Dizziness, No Headache, No Coordination Changes, No Recent Falls Psych: No Anxiety/Panic, No Depression, No Insomnia, No Personality Changes, No Delusions, No Rumination, No SI/HI/AH/VH, No Social Issues, No Memory Changes, No Violence/Abuse Hx., No Eating Concerns Heme/Lymph: No Bruising, No Bleeding, No Transfusions History, No Lymphadenopathy Endocrine: No Polyuria, No Polydipsia, No Temperature Intolerance Physical Exam Physical Exam: VITALS: Reviewed. WEIGHT/BMI reviewed. GEN: Healthy appearing, well-developed, NAD. PSYCH: Good Judgment. AOx3. Normal memory, mood, and affect. HEENT -Head: NC/AT; -Eyes: PERRL, EOMI. No discharge or redn ess; -Ears: External ears are normal. Normal TMs. -Nose: Normal nares. -Mouth and throat: MMM. Normal gums, muc shahzad, palate,. Good dentition. NECK: Supple, with no masses. CV: RRR, no m/r/g. LUNGS: CTAB, no w/r/c. ABD: Soft, NT/ND, NBS, no masses or organomegaly. : N/A SKIN: Warm, well perfused. No skin rashes or abnormal lesions. MSK: No deformities, Normal gait. EXT: No clubbing, cyanosis, or edema. NEURO: Ambulating with no limitations. Normal muscle strength and tone. No focal deficits. Results & Data Vital Signs (Past 12 Hours) Vital Signs Temp Pulse Resp BP Pulse Ox O2 Del Method 05/13/25 13:16 36.6 C 70 18 92/54 L 99 Room Air 05/13/25 07:44 36.6 C 57 L 18 103/54 L 97 Room Air Laboratory Results Laboratory Results - last 24 hr 05/12/25 05/12/25 05/13/25 11:30 18:17 08:26 WBC 4.88 RBC 2.67 L Hgb 9.3 L Hct 27.9 L MCV 104.5 H MCH 34.8 H MCHC 33.3 RDW Std Deviation 89.1 H RDW Coeff of Rolo 23.8 H Plt Count 54 L MPV 10.5 Immature Gran % (Auto) 0.2 Neut % (Auto) 82.4 Lymph % (Auto) 7.0 Rutherford % (Auto) 8.6 Eos % (Auto) 1.4 Baso % (Auto) 0.4 Neut # (Auto) 4.02 Lymph # (Auto) 0.34 L Rutherford # (Auto) 0.42 Eos # (Auto) 0.07 Baso # (Auto) 0.02 Immature Gran # (Auto) 0.01 Anisocytosis Present Macrocytosis Present PT 12.5 H INR 1.2 H APTT 29 PTT Ratio 1.1 Sodium 138 Potassium 4.0 Chloride 99 Carbon Dioxide 33 H Anion Gap 6 BUN 32 H Creatinine 2.03 H Est Cr Clr Drug Dosing 21.3 eGFR 25.43 BUN/Creatinine Ratio 15.8 Glucose 133 H Calcium 9.3 Phosphorus 2.6 Magnesium 1.5 L Crossmatch See Detail Diagnostic Findings Abdomen/Pelvis CT 05/10/25 23:01 CT SCAN OF THE CHEST, ABDOMEN, AND PELVIS WITHOUT IV CONTRAST CLINICAL HISTORY: Lower extremity edema. Metastatic ovarian cancer. COMPARISON STUDY: Prior CT scans of the chest, abdomen, and pelvis most recently dated 02/26/2025 TECHNIQUE: Unenhanced CT scan of the chest, abdomen, and pelvis was performed from the thoracic inlet to the proximal femora. Images are reviewed in the axial, sagittal, and coronal planes. IV contrast was not administered as per the referring clinician. Note that the examinations are significantly suboptimal without oral and IV contrast. A dose lowering technique was utilized adhering to the principles of ALARA. CT DOSE: 516.57 mGy.cm FINDINGS: CHEST: Thyroid: Imaged portions of the thyroid gland are normal in size and attenuation. Thoracic aorta: There is mild atherosclerotic calcification of the thoracic aorta, which is normal in caliber and demonstrates standard (variant arch anatomy. Heart: A left PICC line is in place. The tip terminates in the right atrium. A right internal jugular central venous infusion port is unchanged in position. The heart is mildly enlarged and without pericardial effusion. There is coronary artery atherosclerosis. There is degenerative attenuation of the cardiac blood pool as compared to the myocardium suggesting anemia. The main pulmonary arteries are dilated suggesting pulmonary artery hypertension. Lungs and pleural spaces: There are small pleural effusions with dependent atelectasis. No airspace consolidation is seen typical for pneumonia. The t rachea and central airways are clear. Tiny calcified granulomas are incidentally noted. Lower neck: There are calcified left supraclavicular lymph nodes which are consistent with metastatic disease. The largest node is seen on image #33 and measures 2.2 x 1.5 cm. Mediastinum: Calcified lymph nodes are seen at the hiatus. No mediastinal lymphadenopathy is seen. Ceci: Not well assessed without IV contrast. Axillae: There is no axillary lymphadenopathy. Bony thorax: The skeletal structures are osteopenic. Degenerative change and mild kyphoscoliosis is noted in the thoracic spine. There is a large hemangioma in the body of T11. No lytic or blastic lesions are identified. Soft tissues: The patient is cachectic. ABDOMEN AND PELVIS: Liver: The unenhanced liver is normal in size, contour, and attenuation. There is no intrahepatic biliary ductal dilatation. Small low-attenuation hepatic lesions were better assessed on the prior contrast-enhanced examination. There are calcific lesions scalloping the anterior hepatic capsule on image #67. Gallbladder: There are calcific gallstones with no CT evidence of acute cholecystitis. Spleen: Normal in size and attenuation. Capsular calcifications are similar to previous. Pancreas: The unenhanced pancreas is mildly atrophic and grossly unremarkable. Adrenal glands: The left adrenal gland is grossly unremarkable but not well visualized. A large metastasis is again seen in the expected location of the right adrenal gland. Kidneys: The right kidney is displaced inferiorly by a right upper quadrant lesion. The unenhanced kidneys demonstrate mild cortical atrophy and are without hydronephrosis. No renal calculi are identified. A 12 mm cyst is noted on the right. There are at least 2 subcentimeter hyperdense left renal cysts. Abdominal vasculature: The abdominal aorta is normal in course and caliber noting mild to moderate atherosclerotic calcification. Bowel: There is postsurgical change subtotal colectomy with left lower quadrant ileostomy and Markus pouch formation. Wall thickening is noted in the rectal stump. No bowel obstruction is seen. Wall thickening suggested within small bowel loops in the pelvis. Peritoneum: No intraperitoneal free air is identified. There is diffuse mesenteric edema and a small volume of abdominopelvic ascites. A large complex cystic metastasis is again seen in the right upper abdomen/retroperitoneum below the diaphragm in the expected location of the right adrenal gland. This measures approximately 17 x 12 x 10 cm and displaces the adjacent viscera. Lymphadenopathy: There are calcified metastatic right cardiophrenic, retroperitoneal, iliac chain, and mesenteric lymph nodes. A housing management representative aortocaval node on image #123 measures 1.5 x 1.2 cm, and the left external iliac chain node on image #235 measures 2.2 x 1.1 cm. Pelvic viscera: The bladder is decompressed and appears thick walled. The uterus is surgically absent. No adnexal lesion is clearly seen. Skeletal structures: The skeletal structures are osteopenic. There is a mild chronic compression deformity of L1. There is mild lumbosacral spondylosis and scoliosis. No lytic or blastic lesions are seen. Soft tissues: There is anasarca of the body wall. CAT scan is noted. IMPRESSION: 1. Significantly suboptimal examinations without oral and IV contrast. 2. Cardiomegaly and small pleural effusions. 3. There is anasarca of the body wall, diffuse mesenteric edema, and a small volume of abdominopelvic ascites. 4. Calcified metastatic lymphadenopathy in the left supraclavicular region as well as within the abdomen and pelvis is similar to previous. 5. A large complex cystic metastasis in the right upper abdomen/adrenal gland is again noted. This has modestly increased in size from the 02/26/2025 examination. 6. Metastatic implants along the anterior hepatic capsule are similar to previous. Subtle hepatic lesions were better assessed on the prior contrast- enhanced study. 7. Again seen is postsurgical change from subtotal colectomy with left lower quadrant ileostomy and Markus pouch formation. Wall thickening of the rectal stump is nonspecific and similar to previous. 8. The bladder is decompressed and appears thick-walled. Correlate with clinical findings and urinalysis. 9. There is nonspecific wall thickening suggested involving small bowel loops in the pelvis. This could be related to fluid overload/hypoproteinemia. Correlate clinically for evidence of a nonspecific enteritis. 10. Cholelithiasis. 11. Additional findings as above. ACT 112: Negative or not required by law. Electronically signed by: Abdulaziz Albert M.D. 05/11/2025 9:[address] 05/10/25 23:01 CT SCAN OF THE CHEST, ABDOMEN, AND PELVIS WITHOUT IV CONTRAST CLINICAL HISTORY: Lower extremity edema. Metastatic ovarian cancer. COMPARISON STUDY: Prior CT scans of the chest, abdomen, and pelvis most recently dated 02/26/2025 TECHNIQUE: Unenhanced CT scan of the chest, abdomen, and pelvis was performed from the thoracic inlet to the proximal femora. Images are reviewed in the axial, sagittal, and coronal planes. IV contrast was not administered as per the referring clinician. Note that the examinations are significantly suboptimal without oral and IV contrast. A dose lowering technique was utilized adhering to the principles of ALARA. CT DOSE: 516.57 mGy.cm FINDINGS: CHEST: Thyroid: Imaged portions of the thyroid gland are normal in size and attenuation. Thoracic aorta: There is mild atherosclerotic calcification of the thoracic aorta, which is normal in caliber and demonstrates standard (variant arch anatomy. Heart: A left PICC line is in place. The tip terminates in the right atrium. A right internal jugular central venous infusion port is unchanged in position. The heart is mildly enlarged and without pericardial effusion. There is coronary artery atherosclerosis. There is degenerative attenuation of the cardiac blood pool as compared to the myocardium suggesting anemia. The main pulmonary arteries are dilated suggesting pulmonary artery hypertension. Lungs and pleural spaces: There are small pleural effusions with dependent atelectasis. No airspace consolidation is seen typical for pneumonia. The trachea and central airways are clear. Tiny calcified granulomas are incidentally noted. Lower neck: There are calcified left supraclavicular lymph nodes which are consistent with metastatic disease. The largest node is seen on image #33 and measures 2.2 x 1.5 cm. Mediastinum: Calcified lymph nodes are seen at the hiatus. No mediastinal lymphadenopathy is seen. Ceci: Not well assessed without IV contrast. Axillae: There is no axillary lymphadenopathy. Bony thorax: The skeletal structures are osteopenic. Degenerative change and mild kyphoscoliosis is noted in the thoracic spine. There is a large hemangioma in the body of T11. No lytic or blastic lesions are identified. Soft tissues: The patient is cachectic. ABDOMEN AND PELVIS: Liver: The unenhanced liver is normal in size, contour, and attenuation. There is no intrahepatic biliary ductal dilatation. Small low-attenuation hepatic lesions were better assessed on the prior contrast-enhanced examination. There are calcific lesions scalloping the anterior hepatic capsule on image #67. Gallbladder: There are calcific gallstones with no CT evidence of acute cholecystitis. Spleen: Normal in size and attenuation. Capsular calcifications are similar to previous. Pancreas: The unenhanced pancreas is mildly atrophic and grossly unremarkable. Adrenal glands: The left adrenal gland is grossly unremarkable but not well visualized. A large metastasis is again seen in the expected location of the right adrenal gland. Kidneys: The right kidney is displaced inferiorly by a right upper quadrant lesion. The unenhanced kidneys demonstrate mild cortical atrophy and are without hydronephrosis. No renal calculi are identified. A 12 mm cyst is noted on the right. There are at least 2 subcentimeter hyperdense left renal cysts. Abdominal vasculature: The abdominal aorta is normal in course and caliber noting mild to moderate atherosclerotic calcification. Bowel: There is postsurgical change subtotal colectomy with left lower quadrant ileostomy and Markus pouch formation. Wall thickening is noted in the rectal stump. No bowel obstruction is seen. Wall thickening suggested within small bowel loops in the pelvis. Peritoneum: No intraperitoneal free air is identified. There is diffuse mesenteric edema and a small volume of abdominopelvic ascites. A large complex cystic metastasis is again seen in the right upper abdomen/retroperitoneum below the diaphragm in the expected location of the right adrenal gland. This measures approximately 17 x 12 x 10 cm and displaces the adjacent viscera. Lymphadenopathy: There are calcified metastatic right cardiophrenic, retroperitoneal, iliac chain, and mesenteric lymph nodes. A housing management representative aortocaval node on image #123 measures 1.5 x 1.2 cm, and the left external iliac chain node on image #235 measures 2.2 x 1.1 cm. Pelvic viscera: The bladder is decompressed and appears thick walled. The uterus is surgically absent. No adnexal lesion is clearly seen. Skeletal structures: The skeletal structures are osteopenic. There is a mild chronic compression deformity of L1. There is mild lumbosacral spondylosis and scoliosis. No lytic or blastic lesions are seen. Soft tissues: There is anasarca of the body wall. CAT scan is noted. IMPRESSION: 1. Significantly suboptimal examinations without oral and IV contrast. 2. Cardiomegaly and small pleural effusions. 3. There is anasarca of the body wall, diffuse mesenteric edema, and a small volume of abdominopelvic ascites. 4. Calcified metastatic lymphadenopathy in the left supraclavicular region as well as within the abdomen and pelvis is similar to previous. 5. A large complex cystic metastasis in the right upper abdomen/adrenal gland is again noted. This has modestly increased in size from the 02/26/2025 examination. 6. Metastatic implants along the anterior hepatic capsule are similar to previous. Subtle hepatic lesions were better assessed on the prior contrast- enhanced study. 7. Again seen is postsurgical change from subtotal colectomy with left lower quadrant ileostomy and Markus pouch formation. Wall thickening of the rectal stump is nonspecific and similar to previous. 8. The bladder is decompressed and appears thick-walled. Correlate with clinical findings and urinalysis. 9. There is nonspecific wall thickening suggested involving small bowel loops in the pelvis. This could be related to fluid overload/hypoproteinemia. Correlate clinically for evidence of a nonspecific enteritis. 10. Cholelithiasis. 11. Additional findings as above. ACT 112: Negative or not required by law. Electronically signed by: Abdulaziz Albert M.D. 05/11/2025 9:40 AM PG Care Time/CCT Total # of Minutes Spent Total Time Spent with Patient: Total time spent is greater than 50% in coordination of care (as documented) at patient's floor/unit and/or counseling patient: Coding Level of Care Code 72025 SUB INP/OBS CARE 3/50MIN Diagnoses Adult failure to thrive R62.7 Metastatic neoplastic disease C79.9 Chemotherapy adverse reaction T45.1X5A Ileostomy care Z43.2 Anemia D64.9 Bilateral edema of lower extremity R60.0 Cellulitis L03.90 Subconjunctival hemorrhage H11.30
--- NOTE | 2025-05-13 17:35 | Hospitalist Progress Note ---
Date of Service May 13, 2025 Assessment & Plan (1) Metastatic neoplastic disease: (2) Cellulitis: (3) Bilateral edema of lower extremity: (4) Dyslipidemia: Plan 74 yo female with history of metastatic malignancy ovarian origin presenting with progressive bilateral LE edema, redness. Symptoms began in mid-March after patient was started on Mirvetuximab for management of her ovarian cancer. #Bilateral LE edema - patient has had a bilateral LE doppler NEGATIVE for acute DVT. Echo with mildly reduced systolic function (EF: 45-50%). Possible medication reaction? LE edema is not a very common side effect of Mirvetuximab after review of medication prescribing guide. - CT chest/abdomen/pelvis without evidence of compression of LE veins with bulky lymphadenopathy or malignancy -Elevated extremities -Continue home diuretics - Bumex and Spironolactone, will give 2 doses of 25g of 25%albumin -LE edema improving with antibiotics regimen #Cellulitis - patient afebrile, HD stable. Non-toxic in appearance -Follow cultures sent from ER -Continue antibiotics - Cefepime and Flagyl (05/11 - 05/13), switched to cefazolin (05/13 - 05/18) -Monitor for improvement in redness #Right conjunctival hemorrhage- - occurred on 05/12, much stable and improved today - cont artificial tears and ointment - cont steroid eye drop as prescribed by ophtho to prevent chemo related corneal toxicity #Malignancy - patient initially diagnosed in 2021 - she had a diaphragm/peritoneal resection with resection of the right transverse and sigmoid colon with ileocolic and colorectal anastomosis. This was reversed and now has permanent ileostomy. S/p chemotherapy with carboplatin paclitaxel. Recently started on Mirvetuximab. s/p 3 cycles. imaging showing some progress. pt has PET scheduled for 05/30. Pt states, treatment plan is curative, but will need to discuss with primary oncologist -Appreciate Oncology recs , there is concern for nutritional absorption -Dietary evaluated patient and is recommending discontinuing nightly 1L fluid infusion at home and change to 1-2x / week at cancer center and remove PICC. Pt and family agreeable. In the meantime, goal is to increase protein intake to increase intravascular oncotic pressure. 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 #Failure to thrive #Cancer related cachexia #High output ileostomy - pt able to tolerate oral intake, however due to hypermetabolic state of malignancy, pt has wasting of adipose and muscle tissue - dietary on board - added psyllium husk to help bulk up stool - if Cr rises, will give 1L plasma-lyte #Anemia /Thrombocytopenia - Hgb and plt slightly trending down - s/p 1 unit PRBC - no active bleeding noted, cont to monitor at this time #GERD -Continue Protonix 40mg po daily #DVT ppx: pt already on apixaban for hx of VTE 05/11: pt's and their son Abdulaziz are at bedside 05/12: pt's at bedside 05/13: pt's at bedside Admission and Anticipated Discharge Date Admission Date: May 10, 2025 Subjective No acute events overnight Currently noted a small area of bleeding around the ostomy site No other complaints Review of Systems Review of Systems: Comprehensive ROS completed and is otherwise negative. Physical Exam Physical Exam: Gen: cachectic, chronically ill appearing, no acute distress, lying in bed comfortable HEENT: NC/AT, bitemporal wasting, MMM, right conjunctival hemorrhage (stable / improved) Lungs: nonlabored breathing, diminished breath sounds at the right base CVS: s1s2nl, RRR Abd: nl bowel sounds, soft, NT / ND, ileostomy present : no sellers Ext: b/l LE redness and edema (continuing to improve) Neuro: AAOx3 Psych: pleasant, positive outlook, calm, cooperative Results & Data Results & Data Vital Signs (Past 12 Hours) Vital Signs Temp Pulse Resp BP Pulse Ox O2 Del Method 05/13/25 13:16 36.6 C 70 18 92/54 L 99 Room Air 05/13/25 07:44 36.6 C 57 L 18 103/54 L 97 Room Air PG Care Time/CCT Total # of Minutes Spent Total Time Spent with Patient: Total time spent is greater than 50% in coordination of care (as documented) at patient's floor/unit and/or counseling patient: Coding Level of Care Code 04239 SUB INP/OBS CARE 2/35MIN Diagnoses Metastatic neoplastic disease C79.9 Cellulitis L03.90 Bilateral edema of lower extremity R60.0 Dyslipidemia E78.5
[2025-05-13] MEDS: ONDANSETRON INJ 2 MG/ML 2 ML VIAL IV PRN (23:59)
[2025-05-14 06:27] LABS: Hematocrit (blood only) 25.7 % (37.0-47.0); Hemoglobin 8.7 g/dl (12.0-16.0); Immature Granulocytes # (auto) 0.02 K/uL (0.01-0.20); Immature Granulocytes % (auto) 0.4 %; Mean Corpuscular Hemoglobin 35.2 pg (25.0-34.0); Mean Corpuscular Volume 104.0 fL (80.0-100.0); Platelet Count 51 K/uL (130-400); RDW Standard Deviation 85.6 fL (36.4-46.3); Red Blood Count 2.47 M/uL (4.20-5.40); White Blood Count 5.18 K/ul (4.8-10.8)
[2025-05-14 06:50] LABS: Anisocytosis Present; Polychromasia 1+
[2025-05-14 07:01] LABS: Anion Gap 5.0 (3-11); Blood Urea Nitrogen 33.0 mg/dl (6-23); Calcium 9.0 mg/dl (8.6-10.3); Carbon Dioxide 34.0 mmol/L (21-32); Chloride 97.0 mmol/L (98-107); Creatinine Clr Calc Pharmacy 20.4 ml/min; Glucose 78.0 mg/dl (70-99(Fasting)); Magnesium 1.4 mg/dl (1.7-2.4); Potassium 4.0 mmol/L (3.5-5.1); Sodium 136.0 mmol/L (136-145)
[2025-05-14] MEDS: PLASMA-LYTE A 500 ML IV ONE (08:50)
[2025-05-14] MEDS: PLASMA-LYTE A 1,000 ML IV SCH (08:50)
[2025-05-14] MEDS: LOPERAMIDE HCL 2 MG CAP PO SCH (08:54)
[2025-05-14] MEDS: PSYLLIUM HUSK 4GM PACKET PO SCH (08:57)
--- NOTE | 2025-05-14 10:12 | Hospitalist Progress Note ---
Date of Service May 14, 2025 Assessment & Plan (1) Metastatic neoplastic disease: (2) Cellulitis: (3) Bilateral edema of lower extremity: (4) Dyslipidemia: Plan 74 yo female with history of metastatic malignancy ovarian origin presenting with progressive bilateral LE edema, redness. Symptoms began in mid-March after patient was started on Mirvetuximab for management of her ovarian cancer. #Bilateral LE edema - patient has had a bilateral LE doppler NEGATIVE for acute DVT. Echo with mildly reduced systolic function (EF: 45-50%). Possible medication reaction? LE edema is not a very common side effect of Mirvetuximab after review of medication prescribing guide. - CT chest/abdomen/pelvis without evidence of compression of LE veins with bulky lymphadenopathy or malignancy - Elevate extremities - s/p 1 doses of 25g of 25%albumin - hold home diuretics - Bumex and Spironolactone for now - LE edema improved initially but now staying stable #Cellulitis - patient afebrile, HD stable. Non-toxic in appearance - Follow cultures sent from ER - Continue antibiotics - Cefepime and Flagyl (05/11 - 05/13), switched to cefazolin, if remains stable, discharge on liquid cephalexin 500mg po q8h (for CrCl 15-30) to complete course on 05/18 - erythema resolved #Right conjunctival hemorrhage- - occurred on 05/12, much stable and improved today - cont artificial tears and ointment - cont steroid eye drop as prescribed by ophtho to prevent chemo related corneal toxicity #Malignancy - patient initially diagnosed in 2021 - she had a diaphragm/peritoneal resection with resection of the right transverse and sigmoid colon with ileocolic and colorectal anastomosis. This was reversed and now has permanent ileostomy. S/p chemotherapy with carboplatin paclitaxel. Recently started on Mirvetuximab. s/p 3 cycles. imaging showing some progress. pt has PET scheduled for 05/30. Pt states, treatment plan is curative, but will need to discuss with primary oncologist -Appreciate Oncology recs , there is concern for nutritional absorption -Dietary evaluated patient and is recommending discontinuing nightly 1L fluid infusion at home and change to 1-2x / week at cancer center and remove PICC. Pt and family agreeable. In the meantime, goal is to increase protein intake to increase intravascular oncotic pressure. 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 Ok to trial 1-2x IV fluids at cancer center, however, pt will likely need intermittent IV fluids at home as well #Anemia /Thrombocytopenia - Hgb and plt slightly trending down - s/p 1 unit PRBC - no active bleeding noted, cont to monitor at this time #GERD -Continue Protonix 40mg po daily #DVT ppx: pt already on apixaban for hx of VTE #Disposition: hoping that renal function will improve over the next 24 - 48 hrs, with plan to discharge 05/15 - 05/16. 05/11: pt's and their son Abdulaziz are at bedside 05/12: pt's at bedside 05/13: pt's at bedside 05/14: pt's at bedside Admission and Anticipated Discharge Date Admission Date: May 10, 2025 Subjective No acute events overnight Pt and family anxious to return home Overall no new complaints, states she is continuing to feel better Review of Systems Review of Systems: Comprehensive ROS completed and is otherwise negative. Physical Exam Physical Exam: Gen: cachectic, chronically ill appearing, no acute distress, lying in bed comfortable HEENT: NC/AT, bitemporal wasting, MMM, right conjunctival hemorrhage (stable / improved) Lungs: nonlabored breathing, diminished breath sounds at the right base CVS: s1s2nl, RRR Abd: nl bowel sounds, soft, NT / ND, ileostomy present : no sellers Ext: b/l LE redness (resolved) and edema (continuing to improve / stable) Neuro: AAOx3 Psych: pleasant, positive outlook, calm, cooperative Results & Data Results & Data Vital Signs (Past 12 Hours) Vital Signs Temp Pulse Resp BP Pulse Ox O2 Del Method 05/14/25 08:10 36.3 C L 90 15 85/60 L 96 Room Air PG Care Time/CCT Total # of Minutes Spent Total Time Spent with Patient: Total time spent is greater than 50% in coordination of care (as documented) at patient's floor/unit and/or counseling patient: Coding Level of Care Code 75003 SUB INP/OBS CARE 3/50MIN Diagnoses Metastatic neoplastic disease C79.9 Cellulitis L03.90 Bilateral edema of lower extremity R60.0 Dyslipidemia E78.5
[2025-05-14] MEDS: MAGNESIUM SULFATE / D5W 1 GM/100 ML BAG IV SCH (13:13)
[2025-05-14 15:40] VITALS: RESP 16
--- NOTE | 2025-05-14 16:40 | Oncology Consultation ---
Date of Consultation May 14, 2025 History of Present Illness Attending Physician: Tricia Beck MD Allergies Allergy/AdvReac Type Severity Reaction Status Date / Time No Known Allergies Allergy Verified 05/10/25 16:47 Home Medications Medication Instructions Recorded Confirmed Type pantoprazole 40 mg tablet,delayed 40 mg PO DAILY #90 tabs 08/03/24 05/10/25 Rx release nystatin 100,000 unit/gram topical 1 applic topical BID 08/07/24 05/10/25 History powder (Klayesta) ondansetron HCl 4 mg tablet 4 mg PO Q6H PRN nausea and 09/13/24 05/10/25 Rx vomiting #30 tabs tramadol 50 mg tablet 50 mg PO Q8H PRN pain #30 tabs 09/13/24 05/10/25 Rx nystatin-triamcinolone 100,000 1 applic topical BID #60 grams 10/15/24 05/10/25 Rx unit/g-0.1 % topical cream ergocalciferol (vitamin D2) 1,250 1,250 mcg PO 2XWK #20 caps 12/31/24 05/10/25 Rx mcg (50,000 unit) capsule (Vitamin D2) cholestyramine 4 gram oral powder 4 g PO DAILY PRN Acne 03/05/25 05/10/25 History mirvetuximab soravtansine-gynx 5 0 mg IV Q21D 03/27/25 05/10/25 History mg/mL intravenous solution (Elahere) loratadine 10 mg tablet (Claritin) 10 mg PO DAILY 04/11/25 05/10/25 History mupirocin 2 % topical ointment 1 applic topical BID #15 grams 04/11/25 05/10/25 Rx prednisolone sodium phosphate 1 % 1 drp ophthalmic (eye) 6XD 04/11/25 05/10/25 History eye drops spironolactone 25 mg tablet 25 mg PO DAILY #30 tabs 04/11/25 05/10/25 Rx diphenoxylate-atropine 2.5 1 tab PO TID #270 tabs 04/16/25 05/10/25 Rx mg-0.025 mg tablet (Lomotil) Levomefolate/ Vit B12/ Vit B6/ Vit 1 tab PO DAILY 05/10/25 05/10/25 History B2 6/1/50/5 apixaban 2.5 mg tablet (Eliquis) 2.5 mg PO BID 05/10/25 05/10/25 History bumetanide 1 mg tablet 1 mg PO DAILY 05/10/25 05/10/25 History cephalexin 500 mg capsule 500 mg PO QID 05/10/25 05/10/25 History loperamide 2 mg capsule 2 mg PO HS 05/10/25 05/10/25 History loperamide 2 mg tablet 4 mg PO QAM 05/10/25 05/10/25 History olanzapine 2.5 mg tablet 2.5 mg PO DIRECTED 05/10/25 05/10/25 History Patient History Medical History Ileostomy present Elevated homocysteine Non-healing surgical wound Colovaginal fistula Bladder cancer TREATED BY [facility] Blood clotting disorder ? 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) Surgical History H/O abdominal surgery Hx of bilateral breast reduction surgery H/O hand surgery LEFT HAND MIDDLE FINGER GROWTH REMOVED (DONE MULTIPLE TIMES) History of colonoscopy History of cystoscopy BLADDER TUMORS REMOVED (MULTIPLE TIMES) HAS HAD NO PROBLEMS FOR 3 YEARS History of tooth extraction History of tonsillectomy Family History Father Cholangitis Mother Dementia Osteoporosis Obesity Brother Dyslipidemia Social History Smoking Status: Never smoker Tobacco Type: Cigarettes Age Started Using Tobacco: 22; Age Quit Using Tobacco: 27; packs per day: 0.5; Second Hand Exposure: No; Do You Dip or Chew Tobacco: No; Hx Alcohol Use: Yes Alcohol type: wine Alcohol Intake Frequency: Monthly or Less Hx Substance Use: No Preferred Language: Irish Communication Ability: Effective Visual Impairment: No Limitations Hearing Ability: Normal Starch Crab Required: No Beliefs That Will Affect Care: None marital status: Current Living Situation: Spouse current occupational status: retired How many Children do You have: 2 Other Information That Helps Us Care for You: No Feels Safe at Home: Yes Safety Concerns: Feels Safe At This Time Childhood Exposure to Second-Hand Smoke: Yes Diet: other Diet Comment: TPN via PICC, PEG tube (not currently in use) caffeine: Yes Dental Care, Regularly: Yes Physical Activity Frequency: 3-4 Times per Week Seatbelt Use: always Sunscreen Use: Yes Do you think of yourself as: straight/heterosexual Gender Identity: Female Assistive Devices: Walker and Other Results & Data Vital Signs (Past 12 Hours) Vital Signs Temp Pulse Resp BP Pulse Ox O2 Del Method 05/14/25 15:39 36.7 C 72 16 81/49 L 97 Room Air 05/14/25 08:10 36.3 C L 90 15 85/60 L 96 Room Air
--- NOTE | 2025-05-15 07:24 | Hospitalist Progress Note ---
Date of Service May 15, 2025 Assessment & Plan Admission and Anticipated Discharge Date Admission Date: May 10, 2025 Results & Data Results & Data Vital Signs (Past 12 Hours) Vital Signs Temp Pulse Resp BP Pulse Ox O2 Del Method 05/14/25 21:48 36.4 C L 75 16 91/56 L 97 Room Air PG Care Time/CCT Total # of Minutes Spent Total Time Spent with Patient: Total time spent is greater than 50% in coordination of care (as documented) at patient's floor/unit and/or counseling patient: Coding
[2025-05-15 07:56] LABS: Hematocrit (blood only) 27.7 % (37.0-47.0); Hemoglobin 9.2 g/dl (12.0-16.0); Mean Corpuscular Hemoglobin 34.7 pg (25.0-34.0); Mean Corpuscular Volume 104.5 fL (80.0-100.0); Platelet Count 52 K/uL (130-400); RDW Standard Deviation 85.4 fL (36.4-46.3); Red Blood Count 2.65 M/uL (4.20-5.40); White Blood Count 5.11 K/ul (4.8-10.8)
[2025-05-15 08:12] LABS: Anion Gap 7.0 (3-11); Blood Urea Nitrogen 32.0 mg/dl (6-23); Calcium 8.8 mg/dl (8.6-10.3); Carbon Dioxide 34.0 mmol/L (21-32); Chloride 94.0 mmol/L (98-107); Creatinine Clr Calc Pharmacy 21.0 ml/min; Glucose 80.0 mg/dl (70-99(Fasting)); Magnesium 2.4 mg/dl (1.7-2.4); Potassium 3.9 mmol/L (3.5-5.1); Sodium 135.0 mmol/L (136-145)
[2025-05-15 15:15] VITALS: BP 94/57; PULSE 69; TEMP 97.7; O2SAT 97
--- NOTE | 2025-05-16 08:58 | Discharge Summary ---
Discharge Summary Date of Service May 16, 2025 Principal Dx & Hospital Course #1 = Principal Diagnosis (1) Chemotherapy adverse reaction: (2) Bilateral edema of lower extremity: (3) Cellulitis: (4) Antineoplastic chemotherapy induced pancytopenia: (5) Metastatic neoplastic disease: (6) Moderate malnutrition: (7) Subconjunctival hemorrhage: Plan In summary this is a 74-year-old female who presented to [facility] with progressive bilateral lower extremity edema with associated left lower extremity cellulitis suspected to be consequential of a chemotherapy adverse reaction with recent initiation of mirvetuximab. with regard to the bilateral lower extremity edema this is likely multifactorial including an adverse reaction to mirvetuximab in addition to recent initiation of regular lymphatic drainage massage precipitating altered hemodynamic and lymphatic flow; this has improved with both pharmacologic and nonpharmacologic interventions during her hospitalization, would not recommend continuation of pharmacologic interventions in the outpatient setting but rather continued use of lymphatic drainage and pump techniques as instructed, compression stockings/SCDs, regular ambulation, elevation of the lower extremities when seated or supine With respect to your associated cellulitis of the left lower extremity, this improved with appropriate antibiotic coverage; given the concern of appropriate gastrointestinal absorption given your high output ileostomy, we will continue with intravenous cefazolin 1000 mg IV twice daily through 05/18 during your hospitalization you developed a spontaneous right conjunctival hemorrhage, your Eliquis was held briefly though this was resumed at the time of discharge given the risk/benefit of continued anticoagulation given your risk factors for VTE and the stable nature of your nonvision threatening hemorrhage Admission HPI Per Admitting Provider Erica Edmond is a pleasant 74-year-old female with history 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 Patient was seen by her PCP for this complaint. She had bilateral lower extremity venous Doppler performed on 04/03/2025 which was negative for DVT. She also had an echocardiogram on 05/09/2025 which revealed normal LV size and wall thickness. Mildly reduced systolic ejection fraction of 45 to 50%. Patient was started on Keflex 2 days ago for worsening redness of her bilateral lower extremities. She has had some drainage of clear-yellow fluid from her legs bilaterally and has had some redness as well. She denies fevers, chills, chest pain, cough, shortness of breath, abdominal pain, nausea, vomiting, diarrhea. Patient follows with Dr. Leach - Oncology. In the ER she is afebrile, hemodynamically stable ER course: Cefepime Flagyl Normal saline Discharge Exam General: Cachectic appearing adult female in no acute distress Vital Signs: reviewed HEENT: right nasal subconjunctival hemorrhage without extension into the anterior chamber; pupils equally round reactive to light; extraocular motions intact without associated nystagmus; tacky mucous membranes Pulmonary: symmetric chest wall excursion; clear to auscultation bilaterally Cardiovascular: regular rate and rhythm without murmurs, rubs, or gallops; S1 and S2 normal; bilateral radial and posterior tibial pulse 2+ with 2+ pitting bilateral lower extremity edema distal of the mid leg without associated weeping or epithelial defect Gastrointestinal: ostomy sites appear well Neurologic: CN II-XII grossly intact; no discernible focal weakness nor paresthesias Skin: previously documented cellulitic changes of the left lateral leg have resolved Discharge Plan Discharge Items Patient Disposition: Home - Home Health Services Reason For Visit: BILATERAL LE EDEMA, ?CELLULITIS Condition on Discharge: Fair Activity: Resume your previous activity Non-emergency contact: Primary Care Provider and Oncologist Call non-emergency contact if: you have any medication questions, your symptoms worsen and you have a fever Diet: Regular Fluids: 1800ml (7 cups) Pending Studies at Discharge: No Medications and DC Order Prescriptions: New Psyllium Husk [Metamucil] 4 g PO TID Qty: 1 0RF cefazolin 1 gram recon soln 1 g IV Q12H Qty: 25 0RF Continued pantoprazole 40 mg tablet,delayed release (DR/EC) 40 mg PO DAILY Qty: 90 3RF ergocalciferol (vitamin D2) [Vitamin D2] 1,250 mcg (50,000 unit) capsule 1,250 mcg PO 2XWK Qty: 20 5RF Rx Instructions: Mon/Fri diphenoxylate-atropine [Lomotil] 2.5-0.025 mg tablet 1 tab PO TID Qty: 270 1RF Elahere 5 mg/mL solution 0 mg IV Q21D Patient Comments: Just took 3rd cycle on Wednesday - due for 4th cycle in 3 weeks. 05/10/25 loratadine [Claritin] 10 mg tablet 10 mg PO DAILY prednisolone sodium phosphate 1 % drops 1 drp ophthalmic (eye) 6XD spironolactone 25 mg tablet 25 mg PO DAILY Qty: 30 2RF mupirocin 2 % ointment 1 applic topical BID Qty: 15 1RF bumetanide 1 mg tablet 1 mg PO DAILY ondansetron HCl 4 mg tablet 4 mg PO Q6H PRN (Reason: nausea and vomiting) Qty: 30 5RF tramadol 50 mg tablet 50 mg PO Q8H PRN (Reason: pain) Qty: 30 5RF nystatin-triamcinolone 100,000-0.1 unit/g-% cream 1 applic topical BID Qty: 60 5RF cholestyramine 4 gram powder 4 g PO DAILY PRN (Reason: Acne) Rx Instructions: administer w/meal; avoid other meds within 1hr before or 4-6hr after dose nystatin [Klayesta] 100,000 unit/gram powder 1 applic TOPICAL BID olanzapine 2.5 mg tablet 2.5 mg PO DIRECTED Rx Instructions: TAKE 1 TABLET BY MOUTH DAILY AT BEDTIME. TAKE FOR 4 DAYS STARTING DAY 1 OF CHEMOTHERAPY FOR NAUSEA Eliquis 2.5 mg tablet 2.5 mg PO BID loperamide 2 mg tablet 4 mg PO QAM Levomefolate/ Vit B12/ Vit B6/ Vit B2 02/17/50/5 1 tab PO DAILY Rx Instructions: 1 tablet orally daily; Discontinued cephalexin 500 mg capsule 500 mg PO QID Rx Instructions: Start Date 05/08/25 x7 day supply loperamide 2 mg capsule 2 mg PO HS Discharge Orders: Discharge Order (Routine); Ordered 05/15/25 Ordered By: Jaxson Choudhary Admission Data Admit Date/Time: 05/10/25 20:11 Attending Provider: Jaxson Choudhary Admit Provider: Keren Connell Primary Care Provider: Shahzad Mcelroy Other Providers: Rafa Rivera; Dimitry Leach Other Interventions: Discharge Summary Assessment (RN) Last Done: 05/15/25 16:14 Hospital Stay Data Consultations 05/10/25 15:59 Consult Physician Stat 05/10/25 19:35 ED Decision to Admit Stat Diagnostic Imagining Performed 05/10/25 23:01 CT abd pelvis wo con Routine CT chest diagnostic wo con Routine Pending Results Patient Have Any Pending Studies at Discharge: No Discharge Instructions Given to Patient (Per Discharging Provider) You were admitted to [facility] for Bilateral lower extremity swelling of sudden onset most likely consequential of new chemotherapeutic administration. In addition you were found to have a left lower extremity cellulitis, likely exacerbated due to the previous condition. With regard to your left lower extremity cellulitis, you will be continued on cefazolin 1000 mg IV twice daily through 05/18. This will complete a total 10- day course of antibiotics. With regard to your lower extremity edema, this is likely consequential of multiple contributing factors including recent new chemotherapeutic administration, lymphatic drainage massage, chronic venous insufficiency. Would recommend against pharmacologic interventions to reduce these moving forward given the adverse effects that can occur with this medications and instead pursuing nonpharmacologic interventions as we had discussed. Thank you for choosing [facility] as your healthcare provider. Total Time Total Time Spent Total Time Spent (In Minutes): 75 Coding Level of Care Code 32879 INP/OBS DISCH >30 MIN Diagnoses Chemotherapy adverse reaction T45.1X5A Bilateral edema of lower extremity R60.0 Cellulitis L03.90 Antineoplastic chemotherapy induced pancytopenia D61.810; T45.1X5A Metastatic neoplastic disease C79.9 Moderate malnutrition E44.0 Subconjunctival hemorrhage H11.30
== END 2025-05-15 16:42 | disposition home health service (06) | DRG 602 ==
LOC: ED 13:53 → 3W 20:11 → SUATTDRO 20:11 → 3W 22:01

== ENCOUNTER 2025-07-18 13:06 | Inpatient (IN) ==
--- NOTE | 2025-07-18 14:08 | Emergency Department Note ---
Impression & Plan Sepsis, Ovarian cancer, Edema, peripheral, Pneumonia ED Provider Note NAME: CAROL LARSEN AGE: 74 SEX: F : 1950 ARRIVES VIA: Walk-In INFORMANT: Patient, the patient's ED PROVIDER(S): Marty Acosta DO CHIEF COMPLAINT: Edema HPI: The patient is a 74-year-old female who presented to the emergency department for lower extremity edema. The patient has a history of cancer. She has a history of an ostomy. She did receive doxorubicin in the past. She also has a history of cardiomyopathy. She presented to the emergency department because her primary oncologist told her to. The patient denies having any chest pain. She does complain of some shortness of breath. She denies having any back pain or abdominal pain. ROS: See above HPI for pertinent positives & negatives. A total of 10 systems reviewed and were otherwise negative. PAST MEDICAL HISTORY: See Below PAST SURGICAL HISTORY: See Below FAMILY HISTORY: See Below SOCIAL HISTORY: See Below HOME MEDICATIONS: See Below ALLERGIES: See Below VITALS: See Below PHYSICAL EXAMINATION: GENERAL: Patient is awake alert in no acute distress patient is resting comfortably and showing no signs of anxiety EYES: The conjunctivae are clear. The pupils are round and reactive. EARS, NOSE, MOUTH AND THROAT: The nose is without any evidence of any deformity. NECK: The neck is nontender and supple. JVD was noted. RESPIRATORY: Diminished breath sounds are noted at the right base. There is no tachypnea or conversational dyspnea. CARDIOVASCULAR: Regular rate and rhythm noted there no murmurs rubs or gallops normal S1 normal S2. GASTROINTESTINAL: The abdomen is soft. Abdomen is nontender. MUSCULOSKELETAL/EXTREMITIES: There is no evidence of gross deformity full range of motion is noted in the hips and shoulders. SKIN: Bilateral lower extremity edema was noted. Skin was warm and dry. NEUROLOGIC: Patient is awake alert and oriented x3 MEDICAL DECISION MAKING: The patient is a 74-year-old female who presented to the emergency department for shortness of breath. The patient has a history of chronic lower extremity swelling. She does take Bumex for this. The patient states that she has had some shortness of breath and increasing swelling. She was told to come the emergency department by her primary oncologist. The patient was treated with IV fluids in the emergency department. She was hypotensive. The patient was found to have questionable pneumonia on chest x-ray. For this reason she was treated with IV antibiotics. Lactate was elevated. I discussed the patient's laboratory and radiographic studies with her and her . I also discussed her condition with the on-call [facility] hospitalist. They have agreed to evaluate the patient in the emergency department for further management and disposition. The patient was somewhat improved on reevaluation. Triage Nursing notes reviewed. Prior medical records reviewed Vital Signs: reviewed and remarkable for hypotension. Differential diagnosis: Reactive airway disease, pneumonia, pneumothorax, COPD, CHF, infections, cardiac ischemia, pulmonary embolism, musculoskeletal, gastrointestinal, as well as other pathologies. ER treatment provided: See below Diagnostics interpreted by me: ECG: EKG was obtained in the emergency department. My interpretation is normal sinus rhythm at 73 bpm. For R wave progression was noted. Low voltage was noted throughout. This was compared to a tracing from August 07, 2024. No changes were noted. Cardiac Monitoring: An order was placed for continuous cardiac monitoring. The monitor shows a rate of 82 bpm with sinus rhythm. Laboratory studies: As stated above and show below. Imaging studies: See below. Radiographic imaging was reviewed by myself Consultation(s): I discussed this case with Dr. Talavera who is on-call for the [facility] hospice group. ED COURSE: Procedures: none Critical Care: I have personally spent greater than 45 minutes of critical care time in the direct management of this patient. This includes bedside care, interpretation of diagnostic studies, and testing, discussion with consultants, patient, and family members, and other required patient management activities. This 45 minutes is in excess of all separately billable procedures. Past Med/Surg History Problem List (Updated 07/18/25 @ 16:44 by Marty Acosta DO) Pneumonia (Acute) Edema, peripheral (Acute) Sepsis (Acute) Fluid overload Lymphedema Failure of outpatient treatment (Acute) Antineoplastic chemotherapy induced pancytopenia Moderate malnutrition Subconjunctival hemorrhage Chemotherapy adverse reaction Metastatic neoplastic disease Cellulitis (Acute) Bilateral edema of lower extremity (Acute) Decubitus ulcer of sacral region, stage 1 Peripheral edema Cardiomyopathy Exertional dyspnea Sinusitis Urinary incontinence Sinusitis Pain Anemia Malignant pleural effusion Metastatic adenocarcinoma Ileostomy care (Chronic) Dehydration Otitis externa Chest pain Peritonitis (acute) generalized Cholecystitis Small bowel obstruction Diarrhea Ileocolic anastomotic leak Weakness acquired in intensive care unit Left anterior accessory atrioventricular conduction Colostomy in place History of compression fracture of vertebral column (~09/10/22) Closed wedge compression fracture of L1 vertebra, Hypomagnesemia (Acute) Ovarian cancer (Chronic) Pulmonary embolism Sleep disorder 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 Blood clotting disorder ? 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) Surgical History H/O abdominal surgery Hx of bilateral breast reduction surgery H/O hand surgery LEFT HAND MIDDLE FINGER GROWTH REMOVED (DONE MULTIPLE TIMES) History of colonoscopy History of cystoscopy BLADDER TUMORS REMOVED (MULTIPLE TIMES) HAS HAD NO PROBLEMS FOR 3 YEARS History of tooth extraction History of tonsillectomy Family History Father Cholangitis Mother Dementia Osteoporosis Obesity Brother Dyslipidemia Social History Smoking Status: Former smoker Tobacco Type: Cigarettes Age Started Using Tobacco: 22; Age Quit Using Tobacco: 27; packs per day: 0.5; Second Hand Exposure: No; Do You Dip or Chew Tobacco: No; Hx Alcohol Use: Yes Alcohol type: wine Alcohol Intake Frequency: Monthly or Less Hx Substance Use: No Preferred Language: Slovenian Communication Ability: Effective Visual Impairment: No Limitations Hearing Ability: Normal Handcrew Foreman Required: No Beliefs That Will Affect Care: None marital status: Current Living Situation: Spouse current occupational status: retired How many Children do You have: 2 Feels Safe at Home: Yes Childhood Exposure to Second-Hand Smoke: Yes Diet: other Diet Comment: TPN via PICC, PEG tube (not currently in use) caffeine: Yes Dental Care, Regularly: Yes Physical Activity Frequency: 3-4 Times per Week Seatbelt Use: always Sunscreen Use: Yes Do you think of yourself as: straight/heterosexual Gender Identity: Female Assistive Devices: Walker and Other Allergies Allergies Allergy/AdvReac Type Severity Reaction Status Date / Time No Known Allergies Allergy Verified 07/18/25 15:46 Home Meds Home Medications Medication Instructions Recorded Confirmed nystatin 100,000 unit/gram topical 1 applic topical BID 08/07/24 07/18/25 powder (Klayesta) cholestyramine 4 gram oral powder 4 g PO DAILY PRN Acne 03/05/25 07/18/25 mirvetuximab soravtansine-gynx 5 0 mg IV Q21D 03/27/25 07/18/25 mg/mL intravenous solution (Elahere) loratadine 10 mg tablet (Claritin) 10 mg PO DAILY 04/11/25 07/18/25 prednisolone sodium phosphate 1 % 1 drp ophthalmic (eye) 6XD 04/11/25 07/18/25 eye drops Levomefolate/ Vit B12/ Vit B6/ Vit 1 tab PO DAILY 05/10/25 07/18/25 B2 6//5 apixaban 2.5 mg tablet (Eliquis) 2.5 mg PO BID 05/10/25 07/18/25 bumetanide 1 mg tablet 1 mg PO DAILY 05/10/25 07/18/25 olanzapine 2.5 mg tablet 2.5 mg PO DIRECTED 05/10/25 07/18/25 psyllium husk 0.4 gram capsule 0.4 g PO TID 07/18/25 07/18/25 (Metamucil) Previous Rx's Medication Instructions Recorded ondansetron HCl 4 mg tablet 4 mg PO Q6H PRN nausea and 09/13/24 vomiting #30 tabs tramadol 50 mg tablet 50 mg PO Q8H PRN pain #30 tabs 09/13/24 nystatin-triamcinolone 100,000 1 applic topical BID #60 grams 10/15/24 unit/g-0.1 % topical cream mupirocin 2 % topical ointment 1 applic topical BID #15 grams 04/11/25 diphenoxylate-atropine 2.5 1 tab PO TID #270 tabs 04/16/25 mg-0.025 mg tablet (Lomotil) bumetanide 0.5 mg tablet 0.5 mg PO DAILY #30 tabs 05/21/25 ergocalciferol (vitamin D2) 1,250 1,250 mcg PO 2XWK #20 caps 05/22/25 mcg (50,000 unit) capsule (Vitamin D2) loperamide 2 mg tablet 4 mg (2 x 2 mg) PO QAM #60 tabs 06/20/25 pantoprazole 40 mg tablet,delayed 40 mg PO DAILY #90 tabs 06/25/25 release spironolactone 25 mg tablet 25 mg PO DAILY #90 tabs 07/02/25 Results & Data (ED) Vital Signs Vital Signs - 24 hr 07/18/25 13:16 07/18/25 16:07 07/18/25 16:07 Temperature 36.3 C L Temperature Source Temporal Artery Scan Pulse Rate 97 H 69 Pulse Rhythm Regular Respiratory Rate 14 Blood Pressure 76/54 L Blood Pressure Mean 61 Pulse Oximetry 95 97 93 Oxygen Delivery Method Room Air Room Air Room Air Sepsis New/Unexplained Change in Mental Status No Sepsis Action Taken by Nursing No Action Required 07/18/25 16:10 Temperature Temperature Source Pulse Rate 70 Pulse Rhythm Respiratory Rate Blood Pressure Blood Pressure Mean Pulse Oximetry Oxygen Delivery Method Sepsis New/Unexplained Change in Mental Status Sepsis Action Taken by Intermediate Medications Current Medication List: was personally reviewed by me Laboratory Data Attestation: I reviewed the patient's lab results. 07/18/25 14:17 07/18/25 14:17 Lab Results 07/18/25 07/18/25 Range/Units 14:17 14:33 WBC 6.74 (4.8-10.8) K/ul RBC 2.43 L (4.20-5.40) M/uL Hgb 8.7 L (12.0-16.0) g/dl Hct 25.4 L (37.0-47.0) % MCV 104.5 H (80.0-100.0) fL MCH 35.8 H (25.0-34.0) pg MCHC 34.3 (32.0-36.0) g/dL RDW Std Deviation 88.0 H (36.4-46.3) fL RDW Coeff of Rolo 23.3 H (11.5-14.5) % Plt Count 49 L (130-400) K/uL MPV 11.2 (9.4-12.4) fL Immature Gran % (Auto) 0.6 % Neut % (Auto) 83.2 % Lymph % (Auto) 10.2 % Reeves % (Auto) 5.9 % Eos % (Auto) 0.0 % Baso % (Auto) 0.1 % Neut # (Auto) 5.60 (1.40-6.50) K/uL Lymph # (Auto) 0.69 L (1.20-3.40) K/uL Reeves # (Auto) 0.40 (0.11-0.59) K/uL Eos # (Auto) 0.00 (0.00-0.50) K/uL Baso # (Auto) 0.01 (0.00-0.20) K/uL Immature Gran # (Auto) 0.04 (0.01-0.20) K/uL Anisocytosis Present PT 12.4 H (9.0-12.0) Seconds INR 1.2 H (0.9-1.1) APTT 31 (21-31) Seconds PTT Ratio 1.1 VBG pH 7.38 (7.36-7.41) VBG pCO2 34 L (38-50) mmHg VBG pO2 49 mmHg VBG HCO3 20 mmol/L VBG O2 Saturation 80.7 % VBG Base Excess -4.2 mEq/L Sodium 132 L (136-145) mmol/L Potassium 3.9 (3.5-5.1) mmol/L Chloride 101 (98-107) mmol/L Carbon Dioxide 23 (21-32) mmol/L Anion Gap 8 (3-11) BUN 51 H (6-23) mg/dl Creatinine 3.17 H (0.6-1.2) mg/dl Est Cr Clr Drug Dosing Not Reportable eGFR 14.90 BUN/Creatinine Ratio 16.1 (10-20) Glucose 120 H (70-99(Fasting)) mg/dl Lactate 3.6 H* (0.4-2.0) mmol/L Calcium 8.6 (8.6-10.3) mg/dl Magnesium 1.8 (1.7-2.4) mg/dl Total Bilirubin 2.7 H (0.2-1.0) mg/dl Direct Bilirubin 1.4 H (0-0.2) mg/dl AST 87 H (13-39) U/L ALT 34 (7-52) U/L Alkaline Phosphatase 321 H (34-104) U/L Troponin I High Sens 37.5 H (0-14) pg/ml Total Protein 6.2 (6.0-8.3) gm/dl Albumin 2.4 L (3.4-5.0) gm/dl Globulin 3.8 (2.5-4.0) gm/dl Albumin/Globulin Ratio 0.6 L (0.9-2) Procalcitonin 0.92 H (0-0.5) ng/ml Administered Medications Discontinued Medications Cefepime HCl (Cefepime 2,000 Mg/20 Ml Iv Push) Confirm Administered Dose 2,000 mg IV .STK-MED ONE Stop: 07/18/25 15:48 Last Admin: 07/18/25 16:01 Dose: Not Given Documented By: IOANA Sodium Chloride (Nss) 1,000 mls @ 999 mls/hr IV .Q1H1M ONE Stop: 07/18/25 16:01 Last Admin: 07/18/25 15:45 Dose: 999 mls/hr Documented By: IOANA Ceftriaxone Sodium (Rocephin) 2,000 mg in 50 mls @ 100 mls/hr IV NOW STA Stop: 07/18/25 15:30 Last Admin: 07/18/25 15:45 Dose: 100 mls/hr Documented By: IOANA Albumin Human (Albumin 25%) 12.5 gm in 50 mls @ 50 mls/hr IV ONE ONE Stop: 07/18/25 16:28 Last Admin: 07/18/25 15:44 Dose: 50 mls/hr Documented By: IOANA Imaging Data Attestation: I personally reviewed and interpreted this imaging study as follows: My Impression: 1 view chest x-ray was obtained in the emergency department. My interpretation is pleural effusion at the right base, final report below. Radiologist's Impression: Chest X-Ray 07/18/25 13:48 XR chest 1V portable CLINICAL HISTORY: Sepsis COMPARISON STUDY: 06/19/2025 FINDINGS: Stable right chest port and left PICC line. Heart size and pulmonary vasculature are normal. There is increased stranding opacity at the right lung base with partial obscuration of the right hemidiaphragm. There is blunting of the costophrenic angles. No pneumothorax. IMPRESSION: 1. Possible small bilateral pleural effusions. 2. Pneumonia versus atelectasis right lung base. ACT 112: Negative or not required by law. Electronically signed by: Lester Domínguez M.D. 07/18/2025 2:42 PM Discharge Plan Visit Data Chief Complaint: Shortness of Breath/Dyspnea Stated Complaint: ONCOLOGIST, SOB, EDEMA, GAINED 20LBS ED Provider: Marty Acosta Discharge Problem: Sepsis, Ovarian cancer, Edema, peripheral, Pneumonia Patient Disposition: Being Evaluated by Hospitalist Condition: Fair Forms Stand Alone Forms: [facility] Prescriptions Prescriptions: No Action diphenoxylate-atropine [Lomotil] 2.5-0.025 mg tablet 1 tab PO TID Qty: 270 1RF ergocalciferol (vitamin D2) [Vitamin D2] 1,250 mcg (50,000 unit) capsule 1,250 mcg PO 2XWK Qty: 20 5RF Rx Instructions: Mon/Fri loperamide 2 mg tablet 4 mg PO QAM Qty: 60 0RF pantoprazole 40 mg tablet,delayed release (DR/EC) 40 mg PO DAILY Qty: 90 3RF spironolactone 25 mg tablet 25 mg PO DAILY Qty: 90 3RF Elahere 5 mg/mL solution 0 mg IV Q21D Patient Comments: Just took 3rd cycle on Tuesday - due for 4th cycle in 3 weeks. 05/10/25 loratadine [Claritin] 10 mg tablet 10 mg PO DAILY prednisolone sodium phosphate 1 % drops 1 drp ophthalmic (eye) 6XD mupirocin 2 % ointment 1 applic topical BID Qty: 15 1RF bumetanide 1 mg tablet 1 mg PO DAILY bumetanide 0.5 mg tablet 0.5 mg PO DAILY Qty: 30 2RF ondansetron HCl 4 mg tablet 4 mg PO Q6H PRN (Reason: nausea and vomiting) Qty: 30 5RF tramadol 50 mg tablet 50 mg PO Q8H PRN (Reason: pain) Qty: 30 5RF nystatin-triamcinolone 100,000-0.1 unit/g-% cream 1 applic topical BID Qty: 60 5RF cholestyramine 4 gram powder 4 g PO DAILY PRN (Reason: Acne) Rx Instructions: administer w/meal; avoid other meds within 1hr before or 4-6hr after dose nystatin [Klayesta] 100,000 unit/gram powder 1 applic TOPICAL BID olanzapine 2.5 mg tablet 2.5 mg PO DIRECTED Rx Instructions: TAKE 1 TABLET BY MOUTH DAILY AT BEDTIME. TAKE FOR 4 DAYS STARTING DAY 1 OF CHEMOTHERAPY FOR NAUSEA Eliquis 2.5 mg tablet 2.5 mg PO BID Levomefolate/ Vit B12/ Vit B6/ Vit B2 02/17/50/5 1 tab PO DAILY Rx Instructions: 1 tablet orally daily; psyllium husk [Metamucil] 0.4 gram Capsule 0.4 g PO TID Referrals Referrals: Shahzad Mcelroy MD [Primary Care Provider] -
[2025-07-18 14:33] LABS: Hematocrit (blood only) 25.4 % (37.0-47.0); Hemoglobin 8.7 g/dl (12.0-16.0); Immature Granulocytes # (auto) 0.04 K/uL (0.01-0.20); Immature Granulocytes % (auto) 0.6 %; Mean Corpuscular Hemoglobin 35.8 pg (25.0-34.0); Mean Corpuscular Volume 104.5 fL (80.0-100.0); Platelet Count 49 K/uL (130-400); RDW Standard Deviation 88.0 fL (36.4-46.3); Red Blood Count 2.43 M/uL (4.20-5.40); White Blood Count 6.74 K/ul (4.8-10.8)
[2025-07-18 14:42] LABS: Base Excess VBG -4.2 mEq/L; HCO3 VBG 20 mmol/L; Oxygen Saturation VBG 80.7 %; PCO2 VBG 34 mmHg (38-50); PO2 VBG 49 mmHg; pH VBG 7.38 (7.36-7.41)
--- NOTE | 2025-07-18 14:44 | XRay Report ---
XR chest 1V portable CLINICAL HISTORY: Sepsis COMPARISON STUDY: 06/19/2025 FINDINGS: Stable right chest port and left PICC line. Heart size and pulmonary vasculature are normal . There is increased stranding opacity at the right lung base with partial obscuration of the right h emidiaphragm. There is blunting of the costophrenic angles. No pneumothorax. IMPRESSION: 1. Possible small bilateral pleural effusions. 2. Pneumonia versus atelectasis right lung base. ACT 112: Negative or not required by law. Electronically signed by: Lester Domínguez M.D. 07/18/2025 2:42 PM
[2025-07-18 14:55] LABS: Alanine Aminotransferase 34 U/L (7-52); Albumin Globulin Ratio 0.6 (0.9-2); Albumin Level 2.4 gm/dl (3.4-5.0); Alkaline Phosphatase 321 U/L (34-104); Anion Gap 8 (3-11); Bilirubin,Total 2.7 mg/dl (0.2-1.0); Blood Urea Nitrogen 51 mg/dl (6-23); Calcium 8.6 mg/dl (8.6-10.3); Carbon Dioxide 23 mmol/L (21-32); Chloride 101 mmol/L (98-107); Globulin 3.8 gm/dl (2.5-4.0); Glucose 120 mg/dl (70-99(Fasting)); Magnesium 1.8 mg/dl (1.7-2.4); Potassium 3.9 mmol/L (3.5-5.1); Sodium 132 mmol/L (136-145); Total Protein 6.2 gm/dl (6.0-8.3)
[2025-07-18 15:14] LABS: Anisocytosis Present
[2025-07-18 15:29] LABS: INR 1.2 (0.9-1.1); Partial Thromboplastin Time 31 Seconds (21-31); Prothrombin Time 12.4 Seconds (9.0-12.0)
[2025-07-18] MEDS: ALBUMIN 25% 12.5 GM/50 ML VIAL IV ONE (15:44)
[2025-07-18] MEDS: cefTRIAXone SODIUM 2,000 MG/50 ML BAG IV STA (15:45)
[2025-07-18] MEDS: SODIUM CHLORIDE 0.9% 1,000 ML IV ONE (15:45)
[2025-07-18] MEDS: CEFEPIME 2,000 MG/20 ML IV PUSH IV ONE (16:01)
[2025-07-18] MEDS ORDERED: POLYETHYLENE (MIRALAX) 17 GM PACK PO PRN (16:21)
[2025-07-18] MEDS ORDERED: MELATONIN 3 MG TAB PO PRN (16:21)
--- NOTE | 2025-07-18 17:01 | History & Physical Report ---
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 metastatic ovarian since 2021, s/p extensive surgery; PE on eliquis, lymphedema, failure to thrive, prior hx of adrenal hemorrhage, malignant pleural effusion, decubitus ulcer, failure to thrive, she was started on new chemo regime and developed severe leg edema, and was on diuretics and aldactone, in april, she presented here for cellulitis and dc with IV cefazolin, since 1-2 weeks ago, she was having shortness of breath, worsening leg edema, and came to our hospital for eval, she was found to has hypotension with BP of 76, lactic acid of 3.5, and s/ fluid with saline and IV albumin, cefepime was started to covered for PNA and cellulitis. she was persistent hypotensive and ICU was notified 1. undifferentiated shock. 2. cellulitis, diffuse leg edema 3. shortness of breath 4. hx of recurrent ovarian cancer diagnosed since 2021 5. hx of PE o eliquis 2.5m 6. GERD 7. hx of ostomy 8. decubitus ulcer 9. hx of bladder cancer s/p surgery in 2012 10. prior hx of adrenal hemorrhage overall plan her primary problem is hypotension, cellulitis, and shortness of breath IV fluid, cefepime, levaphad for pressure support c/w eliquis for PE prevention once her BP is stable, when CT scan to r/o intrabadominal bleeding, abscess or PNA f/u on cortisol level to r/o adrenal insufficiency wound care eval for decubitus ulcer 1. undifferentiate shock hpotension with BP of 76/54 either septic versus hypovolemic, keeping cardiogenic shock in differential IV albumin, cefepime, f/u on blood culture trend lactate f/u on echo, ruling out adrenal insufficiency family stated her normal BP of 90-95 and she received IV flluid 1 liter via her port daily 2. lower extremity cellulitis, diffuse leg edema , cefepime IV daily hold off of diuretics given her septic picture duplex US, to r/o DVT 3. shortness of breath her CXR is cleared, I will empirically coverage her with PE given her active cancer, immobility she's on eliquis at baseline. switching to lovenox while here 4. hx of recurrent ovarian cancer diagnosed since 2021 she's has extensive surgery in 2021 and she was on carboplatin, liposomal doxorubicin from Sep 2024--January 2025 those were held given declining cardiac function 5. hx of ostomy she was imodium 2g BID, lomotil TID (diphenoxylate-atropine 2.5-0.025)TID she's on choleystramine 4g power BID (avoid med within 1 hours before or 4-6 hours after) 6. pain control, she's on tramadol 50mg PRN 7. lymphedema, suspect related to hold aldactone give soft BP she's on bumex at home in the past, cardiology dont not believe the edema is related to heart failure 8. GERD, protonix daily 9. chemotherapy induced nausea vomitihg, she's on olanzapine 2.5mg qHS 10. anal lesion, she's on topical mupirocin ointment (2) Cellulitis: History of Present Illness Chief Complaint: hypotension with BP of 76/54 lactate > 3.0 shortness of breath worsening leg edema Primary Care Provider: Shahzad Mcelroy MD Erica Edmond is a 74 yo woman with PMH of recurrent ovarian cancer( diagnosed since 2021 s/p multiple surgery) , PE on eliquis, bladder cancer s/p surgery in 2012 and intravesicular chem, decubitus ulcer of sacral region, malignant pleural effusion, hx of adrenal metastatic lesion, colovaginal fistula, pleural effusion. she's has ileostomy and on lomotil and imodium,. which reduced GI volume produce daily. 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 calcified iplant and omental caking. she went to [facility] for several weeks of chemotherapy and s/p surgical debulking on 04/26/2022, has multiple complication and was hospitalized at [facility] for more than 100 days. she's started developed edema after Elahere and did not improved with lasix, that result in cellulitis and admitted to hospital and [place] home on IV cefazolin since several weeks ago, she's been having shortness of breath, difficulty breathing, in addition, she was provided with bumex and aldactone for her 3+ leg edema. her normal BP is between 90-95 on 07/18, she's continue to has shortness of breath, difficulty breathing, and 3+ leg edema she was found to has BP of 75 and lactic acidosis > 3.0, s/p IV fluid, IV albumin, cefepime, on interview, she's denied chest pain, abdominal pain, fever, chill, no flank pain she was AAox3 she will be admitted for undifferentiated shock, cellulitis, she's has hx of PE,, her shortness of breath and leg edema, warrant a DVT and PE evaluation Allergies Allergy/AdvReac Type Severity Reaction Status Date / Time No Known Allergies Allergy Verified 07/18/25 15:46 Home Medications Medication Instructions Recorded Confirmed Type nystatin 100,000 unit/gram topical 1 applic topical BID 08/07/24 07/18/25 History powder (Klayesta) ondansetron HCl 4 mg tablet 4 mg PO Q6H PRN nausea and 09/13/24 07/18/25 Rx vomiting #30 tabs tramadol 50 mg tablet 50 mg PO Q8H PRN pain #30 tabs 09/13/24 07/18/25 Rx nystatin-triamcinolone 100,000 1 applic topical BID #60 grams 10/15/24 07/18/25 Rx unit/g-0.1 % topical cream cholestyramine 4 gram oral powder 4 g PO DAILY PRN Acne 03/05/25 07/18/25 History mirvetuximab soravtansine-gynx 5 0 mg IV Q21D 03/27/25 07/18/25 History mg/mL intravenous solution (Elahere) loratadine 10 mg tablet (Claritin) 10 mg PO DAILY 04/11/25 07/18/25 History mupirocin 2 % topical ointment 1 applic topical BID #15 grams 04/11/25 07/18/25 Rx prednisolone sodium phosphate 1 % 1 drp ophthalmic (eye) 6XD 04/11/25 07/18/25 History eye drops diphenoxylate-atropine 2.5 1 tab PO TID #270 tabs 04/16/25 07/18/25 Rx mg-0.025 mg tablet (Lomotil) Levomefolate/ Vit B12/ Vit B6/ Vit 1 tab PO DAILY 05/10/25 07/18/25 History B2 6//5 apixaban 2.5 mg tablet (Eliquis) 2.5 mg PO BID 05/10/25 07/18/25 History bumetanide 1 mg tablet 1 mg PO DAILY 05/10/25 07/18/25 History olanzapine 2.5 mg tablet 2.5 mg PO DIRECTED 05/10/25 07/18/25 History bumetanide 0.5 mg tablet 0.5 mg PO DAILY #30 tabs 05/21/25 07/18/25 Rx ergocalciferol (vitamin D2) 1,250 1,250 mcg PO 2XWK #20 caps 05/22/25 07/18/25 Rx mcg (50,000 unit) capsule (Vitamin D2) loperamide 2 mg tablet 4 mg (2 x 2 mg) PO QAM #60 tabs 06/20/25 07/18/25 Rx pantoprazole 40 mg tablet,delayed 40 mg PO DAILY #90 tabs 06/25/25 07/18/25 Rx release spironolactone 25 mg tablet 25 mg PO DAILY #90 tabs 07/02/25 07/18/25 Rx psyllium husk 0.4 gram capsule 0.4 g PO TID 07/18/25 07/18/25 History (Metamucil) Past Med/Surg History Problem List (Updated 07/18/25 @ 16:45 by Tushar Talavera DO) Septic shock Pneumonia (Acute) Edema, peripheral (Acute) Sepsis (Acute) Fluid overload Lymphedema Failure of outpatient treatment (Acute) Antineoplastic chemotherapy induced pancytopenia Moderate malnutrition Subconjunctival hemorrhage Chemotherapy adverse reaction Metastatic neoplastic disease Cellulitis (Acute) Bilateral edema of lower extremity (Acute) Decubitus ulcer of sacral region, stage 1 Peripheral edema Cardiomyopathy Exertional dyspnea Sinusitis Urinary incontinence Sinusitis Pain Anemia Malignant pleural effusion Metastatic adenocarcinoma Ileostomy care (Chronic) Dehydration Otitis externa Chest pain Peritonitis (acute) generalized Cholecystitis Small bowel obstruction Diarrhea Ileocolic anastomotic leak Weakness acquired in intensive care unit Left anterior accessory atrioventricular conduction Colostomy in place History of compression fracture of vertebral column (~09/10/22) Closed wedge compression fracture of L1 vertebra, Hypomagnesemia (Acute) Ovarian cancer (Chronic) Pulmonary embolism Sleep disorder 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) Surgical History H/O abdominal surgery Hx of bilateral breast reduction surgery H/O hand surgery LEFT HAND MIDDLE FINGER GROWTH REMOVED (DONE MULTIPLE TIMES) History of colonoscopy History of cystoscopy BLADDER TUMORS REMOVED (MULTIPLE TIMES) HAS HAD NO PROBLEMS FOR 3 YEARS History of tooth extraction History of tonsillectomy Family History Father Cholangitis Mother Dementia Osteoporosis Obesity Brother Dyslipidemia Social History Smoking Status: Former smoker Tobacco Type: Cigarettes Age Started Using Tobacco: 22; Age Quit Using Tobacco: 27; packs per day: 0.5; Second Hand Exposure: No; Do You Dip or Chew Tobacco: No; Hx Alcohol Use: Yes Alcohol type: wine Alcohol Intake Frequency: Monthly or Less Hx Substance Use: No Preferred Language: Wallisian Communication Ability: Effective Visual Impairment: No Limitations Hearing Ability: Normal [employer] Required: No Beliefs That Will Affect Care: None marital status: Current Living Situation: Spouse current occupational status: retired How many Children do You have: 2 Feels Safe at Home: Yes Childhood Exposure to Second-Hand Smoke: Yes Diet: other Diet Comment: TPN via PICC, PEG tube (not currently in use) caffeine: Yes Dental Care, Regularly: Yes Physical Activity Frequency: 3-4 Times per Week Seatbelt Use: always Sunscreen Use: Yes Do you think of yourself as: straight/heterosexual Gender Identity: Female Assistive Devices: Walker and Other Review of Systems Review of Systems: Constitutional: no fever; no chill ENT/Mouth: + for hearing loss Cardiovascular: no chest pain; no palpitation; + for orthopnea lung: + for shortness of breath; no wheezing; no hemoptysis; + for hx of PE; + for hx of malignant pleural effusion Gastrointestinal: no nausea, no vomiting; + for ostomy; no abdominal pain Genitourinary: no hematuria; + for hx of bladder cancer; no flank pain; + for hx of adrenal hemorrhage Musculoskeletal: + for hx of decubits ulcer Skin: No Skin Lesions, No Pruritis, No Hair Changes, No Breast/Skin Changes, No Nipple Discharge Neuro: no confusion Heme/Lymph: + for hx of ovarian cancer s/p extensive surgeries; + for hx of bladder cancer Endocrine: no hx of diabetes Physical Exam Physical Exam: VITALS: Reviewed. WEIGHT/BMI reviewed. GEN: chronically ill, diffuse muscle wasting; thin appearing HEENT -Head: NC/AT; -Mouth and throat: MMM. Normal gums, muc shahzad, palate,. Good dentition. NECK: no JVD CV: RRR, no m/r/g. + for chemoport LUNGS: CTAB, no w/r/c. decrease breath sound; no wheezing ABD: Soft, NT/ND, NBS, + for ostomy; soft to touch : no CVA tenderness MSK: No deformities, Normal gait. EXT: diffuse muscle wasting NEURO:AAox3 Results & Data Results & Data Vital Signs (Past 12 Hours) Vital Signs Temp Pulse Resp BP Pulse Ox O2 Del Method 07/18/25 16:10 70 07/18/25 16:07 69 93 Room Air 07/18/25 16:07 97 Room Air 07/18/25 13:16 36.3 C L 97 H 14 76/54 L 95 Room Air Laboratory Results Laboratory Results - last 72 hr 07/18/25 07/18/25 14:17 14:33 WBC 6.74 RBC 2.43 L Hgb 8.7 L Hct 25.4 L MCV 104.5 H MCH 35.8 H MCHC 34.3 RDW Std Deviation 88.0 H RDW Coeff of Rolo 23.3 H Plt Count 49 L MPV 11.2 Immature Gran % (Auto) 0.6 Neut % (Auto) 83.2 Lymph % (Auto) 10.2 [place] % (Auto) 5.9 Eos % (Auto) 0.0 Baso % (Auto) 0.1 Neut # (Auto) 5.60 Lymph # (Auto) 0.69 L [place] # (Auto) 0.40 Eos # (Auto) 0.00 Baso # (Auto) 0.01 Immature Gran # (Auto) 0.04 Anisocytosis Present PT 12.4 H INR 1.2 H APTT 31 PTT Ratio 1.1 VBG pH 7.38 VBG pCO2 34 L VBG pO2 49 VBG HCO3 20 VBG O2 Saturation 80.7 VBG Base Excess -4.2 Sodium 132 L Potassium 3.9 Chloride 101 Carbon Dioxide 23 Anion Gap 8 BUN 51 H Creatinine 3.17 H Est Cr Clr Drug Dosing Not Reportable eGFR 14.90 BUN/Creatinine Ratio 16.1 Glucose 120 H Lactate 3.6 H* Calcium 8.6 Magnesium 1.8 Total Bilirubin 2.7 H Direct Bilirubin 1.4 H AST 87 H ALT 34 Alkaline Phosphatase 321 H Troponin I High Sens 37.5 H Total Protein 6.2 Albumin 2.4 L Globulin 3.8 Albumin/Globulin Ratio 0.6 L Procalcitonin 0.92 H Diagnostic Findings Chest X-Ray 07/18/25 13:48 XR chest 1V portable CLINICAL HISTORY: Sepsis COMPARISON STUDY: 06/19/2025 FINDINGS: Stable right chest port and left PICC line. Heart size and pulmonary vasculature are normal. There is increased stranding opacity at the right lung base with partial obscuration of the right hemidiaphragm. There is blunting of the costophrenic angles. No pneumothorax. IMPRESSION: 1. Possible small bilateral pleural effusions. 2. Pneumonia versus atelectasis right lung base. ACT 112: Negative or not required by law. Electronically signed by: Lester Domínguez M.D. 07/18/2025 2:42 PM Medications Administered Current Inpatient Medications Acetaminophen (Acetaminophen 325 Mg Tab) 650 mg PO Q4H PRN PRN Reason: pain/fever Stop: 08/17/25 16:20 Cefepime HCl (Maxipime 2000mg) 2,000 mg in 20 mls @ 5 mls/min IV Q8H [facility]; Protocol Stop: 07/23/25 15:44 Melatonin (Melatonin 3 Mg Tab) 3 mg PO HS PRN PRN Reason: Insomnia Stop: 08/17/25 16:20 Ondansetron HCl (Ondansetron Inj 2 Mg/Ml 2 Ml Vial) 4 mg IV Q6H PRN PRN Reason: Nausea Stop: 08/17/25 16:20 Polyethylene Glycol (Polyethylene (Miralax) 17 Gm Pack) 17 gm PO DAILY PRN PRN Reason: Constipation Stop: 08/17/25 16:20 Code Status & VTE Plan VTE Prophylaxis Plan VTE Prophylaxis will be ordered: Yes PG Care Time/CCT Total # of Minutes Spent Total Time Spent with Patient: Total time spent is greater than 50% in coordination of care (as documented) at patient's floor/unit and/or counseling patient: Coding Level of Care Code 30265 INT INP/OBS CARE 40MIN Diagnoses Septic shock A41.9; R65.21 Cellulitis L03.90 Time Spent (min) 40
[2025-07-18] MEDS: SODIUM CHLORIDE 0.9% 500 ML IV ONE (17:25)
[2025-07-18] MEDS ORDERED: CHOLESTYRAMINE LIGHT 4 GM PKT PO PRN (18:17)
[2025-07-18] MEDS: CEFEPIME 1000MG 1,000 MG/10 ML SYR IV SCH (18:25)
[2025-07-18] MEDS: APIXABAN 2.5 MG TAB PO SCH (20:23)
[2025-07-18] MEDS: OLANZAPINE 2.5 MG TAB PO SCH (20:23)
[2025-07-18] MEDS: PSYLLIUM HUSK 4GM PACKET PO SCH (20:24)
[2025-07-18] MEDS: NYSTATIN POWDER 15GM BTL EXT SCH (20:24)
[2025-07-18] MEDS: NYSTATIN/TRIAMCIN CR 15 GM TUBE EXT SCH (20:25)
[2025-07-18] MEDS: MUPIROCIN 2% OINT 22 GM TUBE TOP SCH (20:25)
[2025-07-18] MEDS: DIPHENOXYLATE/ATROPINE 2.5/0.025MG TAB PO SCH (20:28)
[2025-07-18 20:33] LABS: Appearance Urine Clear (Clear); Bacteria Urine Automated None Seen (None Seen); Epithelial Cell Urine Auto 0-2 /hpf (0-2); Glucose Urine UA Negative (Negative); RBC Urine Automated 0-2 /hpf (0-2); WBC Urine Automated 0-5 /hpf (0-5)
--- NOTE | 2025-07-18 20:53 | Critical Care Consultation ---
Date of Consultation July 18, 2025 Assessment & Plan (1) Hypotension: (2) Edema, peripheral: (3) Lymphedema: (4) Moderate malnutrition: (5) Metastatic neoplastic disease: Plan Reason Critically Ill: 1. Hypotension with malperfusion 2. Lactic acidosis, improving 3. CKDIIIb 4. Pancytopenia 5. RLL atelectasis, rule out pneumonia 6. Hyperbilirubinemia, chronic 7. Failure to thrive Neuro - CAM ICU: Negative RASS GOAL 0 APAP 3g limit PRN pain/fever Cardiac - SBP goal > 90, MAP goal > 60 with history of chronic hypotension Can consider low dose midodrine as I do not believe she is septic at this time Continue Eliquis BLE doppler for completeness Elevate legs above heart. 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 recommendations Diet: Regular SUP: Home PPI Bowel regimen: As ordered, liquid output at baseline RENAL/LYTES - Daily BMP Replete electrolytes as indicated Bladder scan and straight cath PRN, patient prefers to avoid sellers which I believe is reasonable at this time Maintain net even to net negative ENDO - AM cortisol BG 140-180 per SCCM guidelines ISS if needed while inpatient HEME - Pancytopenia, HGB and PLT near baseline Monitor for bleeding Continue Eliquis 2.5mg BID Home vitamin supplementation ID - Placed on cefepime by primary team I see no skin breakage or signs of cellulitis Consider de-escalating or stopping antibiotics tomorrow. If concern for CAP could start macrolide for atypical coverage Patient does not have cough or sputum production Will order respiratory BioFire for completeness LINES/TUBES/DRAINS - PIV x1 LUE PICC Ostomy DVT PROPHYLAXIS - Eliquis DISPOSITION - ICU overnight CODE STATUS - FULL I have personally spent 42 minutes of critical care time in the direct management of this patient. This is a life/limb threatening event. This includes time spent evaluating patient, direct bedside care, chart review, placing orders, interpretation of diagnostic studies, discussion with consultants, patient, and family members, as well as other required patient management activities. This time is exclusive of all separately billable procedures, and teaching time and separate from and in addition to any other critical care service time. Thank you for allowing us to participate in the care of this patient. Please refer to my attending physician's documentation for any further recommendations. Supervising Physician Co-Signing Physician Notes I, William Camara MD, reviewed the physical exam, assessment, plan, and management as documented by the Advanced Care Provider Tasia Vick PA-C for this patient encounter. I discussed the case with them, confirmed the findings, and I concur with the proposed plan of care. I was available for consultation throughout the encounter and provided guidance as needed. History of Present Illness Reason for Consultation: Hypotension Requesting Physician: Sadaf Attending Physician: Tushar Talavera DO History of Present Illness Mrs. Erica Edmond is a very pleasant 74YOF with a history of ovarian cancer (2021) s/p surgical resection and chemotherapy, PE on Eliquis, failure to thrive, pancytopenia, malnutrition, lymphedema as a side effect of chemotherapy, adrenal hemorrhage, malignant pleural effusion, and bladder cancer (2012) who presented to [facility] from home due to a few days of worsening lower extremity edema and shortness of breath. Patient was noted to be hypotensive in the ED with a lactic acidosis. Cr slightly above new baseline at 3.17. Procalcitonin elevated but limited utility in CKD. Troponin mildly elevated, downtrending. CXR again reveals RLL atelectasis and small amount of pleural fluid. Unable to r/o pneumonia. She received 1L NSS and 12.5g of 25% albumin. Cefepime given for empiric coverage. She was admitted to ICU for continuation of care. Patient seen in ICU 102. She is AAOx3. Son and at bedside. Hemodynamically stable off vasopressors, saturating well on room air. Patient overall feels well. She notes exertional dyspnea x a few days which resolves at rest. 20lbs weight gain over past week with worsening BLE edema. Last chemotherapy treatment was 07/17/2025 which she tolerated well. notes that Erica is prescribed Bumex for fluid removal and 1L IVF through her PICC nightly for hydration. Patient's appetite is good and she has been eating and drinking well. Ostomy OP not out of the ordinary. Denies fevers/chills, cough, dizziness, headache, prodromal symptoms, ill contacts, abdominal pain, n/v/d, numbness/paresthesias. Allergies Allergy/AdvReac Type Severity Reaction Status Date / Time No Known Allergies Allergy Verified 07/18/25 15:46 Home Medications Medication Instructions Recorded Confirmed Type nystatin 100,000 unit/gram topical 1 applic topical BID 08/07/24 07/18/25 History powder (Klayesta) ondansetron HCl 4 mg tablet 4 mg PO Q6H PRN nausea and 09/13/24 07/18/25 Rx vomiting #30 tabs tramadol 50 mg tablet 50 mg PO Q8H PRN pain #30 tabs 09/13/24 07/18/25 Rx nystatin-triamcinolone 100,000 1 applic topical BID #60 grams 10/15/24 07/18/25 Rx unit/g-0.1 % topical cream cholestyramine 4 gram oral powder 4 g PO DAILY PRN Acne 03/05/25 07/18/25 History mirvetuximab soravtansine-gynx 5 0 mg IV Q21D 03/27/25 07/18/25 History mg/mL intravenous solution (Elahere) loratadine 10 mg tablet (Claritin) 10 mg PO DAILY 04/11/25 07/18/25 History mupirocin 2 % topical ointment 1 applic topical BID #15 grams 04/11/25 07/18/25 Rx prednisolone sodium phosphate 1 % 1 drp ophthalmic (eye) 6XD 04/11/25 07/18/25 History eye drops diphenoxylate-atropine 2.5 1 tab PO TID #270 tabs 04/16/25 07/18/25 Rx mg-0.025 mg tablet (Lomotil) Levomefolate/ Vit B12/ Vit B6/ Vit 1 tab PO DAILY 05/10/25 07/18/25 History B2 6// apixaban 2.5 mg tablet (Eliquis) 2.5 mg PO BID 05/10/25 07/18/25 History bumetanide 1 mg tablet 1 mg PO DAILY 05/10/25 07/18/25 History olanzapine 2.5 mg tablet 2.5 mg PO DIRECTED 05/10/25 07/18/25 History bumetanide 0.5 mg tablet 0.5 mg PO DAILY #30 tabs 05/21/25 07/18/25 Rx ergocalciferol (vitamin D2) 1,250 1,250 mcg PO 2XWK #20 caps 05/22/25 07/18/25 Rx mcg (50,000 unit) capsule (Vitamin D2) loperamide 2 mg tablet 4 mg (2 x 2 mg) PO QAM #60 tabs 06/20/25 07/18/25 Rx pantoprazole 40 mg tablet,delayed 40 mg PO DAILY #90 tabs 06/25/25 07/18/25 Rx release spironolactone 25 mg tablet 25 mg PO DAILY #90 tabs 07/02/25 07/18/25 Rx psyllium husk 0.4 gram capsule 0.4 g PO TID 07/18/25 07/18/25 History (Metamucil) Patient History Medical History Ileostomy present Elevated homocysteine Non-healing surgical wound Colovaginal fistula Bladder cancer TREATED BY [facility] Blood clotting disorder ? 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) Surgical History H/O abdominal surgery Hx of bilateral breast reduction surgery H/O hand surgery LEFT HAND MIDDLE FINGER GROWTH REMOVED (DONE MULTIPLE TIMES) History of colonoscopy History of cystoscopy BLADDER TUMORS REMOVED (MULTIPLE TIMES) HAS HAD NO PROBLEMS FOR 3 YEARS History of tooth extraction History of tonsillectomy Family History Father Cholangitis Mother Dementia Osteoporosis Obesity Brother Dyslipidemia Social History Smoking Status: Never smoker Tobacco Type: Cigarettes Age Started Using Tobacco: 22; Age Quit Using Tobacco: 27; packs per day: 0.5; Second Hand Exposure: No; Do You Dip or Chew Tobacco: No; Hx Alcohol Use: No Hx Substance Use: No Preferred Language: Indonesian Communication Ability: Effective Visual Impairment: No Limitations Hearing Ability: Normal 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 Beliefs That Will Affect Care: None marital status: Current Living Situation: Spouse current occupational status: retired How many Children do You have: 2 Feels Safe at Home: Yes Childhood Exposure to Second-Hand Smoke: Yes Diet: other Diet Comment: TPN via PICC, PEG tube (not currently in use) caffeine: Yes Dental Care, Regularly: Yes Physical Activity Frequency: 3-4 Times per Week Seatbelt Use: always Sunscreen Use: Yes Do you think of yourself as: straight/heterosexual Gender Identity: Female Assistive Devices: Walker Review of Systems Review of Systems: All systems reviewed & are unremarkable except as noted in Subjective Physical Exam Constitutional: + frail appearing, cooperative and + mal nourished; no acute distress and no altered mental status Eyes: + anicteric sclerae and PERRL ENMT: external ear and nose normal, oropharynx normal Neck: trachea midline, no thyromegaly Respiratory: normal respiratory effort, lungs clear to auscultation Cardiovascular: RRR, no murmur, no edema Gastrointestinal (Abdomen): normal bowel sounds, soft, nontender, no hepatosplenomegaly Ostomy site is C/D/I without surrounding erythema. Colon is pink and healthy appearing. Output is without blood. Musculoskeletal: no cyanosis or clubbing, extremities motor strength 5/5 BLE edema 5+ pitting to sacral region. No pain noted. Warm and well-perfused Skin: no rashes, warm and dry No skin breakage or signs of cellulitis Neurologic: PERRL, EOMI, accommodation nl, no face palsy, no dysarthria Psychiatric: A+Ox3, euthymic affect Genitourinary: normal external appearance Results & Data Results & Data Vital Signs (Past 12 Hours) Vital Signs Temp Pulse Pulse Resp BP BP Pulse Ox 07/18/25 19:42 71 18 07/18/25 19:41 95/55 L 07/18/25 19:30 73 17 07/18/25 19:12 79 18 07/18/25 19:01 85/56 L 07/18/25 18:12 36.3 C L 64 22 99/48 L 96 07/18/25 17:03 64 18 84/60 L 94 07/18/25 16:10 70 07/18/25 16:07 69 93 07/18/25 16:07 97 07/18/25 15:00 68 18 84/62 L 98 07/18/25 14:00 72 17 81/54 L 96 07/18/25 13:16 36.3 C L 97 H 14 76/54 L 95 O2 Del Method 07/18/25 19:42 07/18/25 19:41 07/18/25 19:30 07/18/25 19:12 Room Air 07/18/25 19:01 07/18/25 18:12 Room Air 07/18/25 17:03 Room Air 07/18/25 16:10 07/18/25 16:07 Room Air 07/18/25 16:07 Room Air 07/18/25 15:00 Room Air 07/18/25 14:00 Room Air 07/18/25 13:16 Room Air Laboratory Results Reviewed Diagnostic Findings Reviewed Medications Administered See MAR Coding Level of Care Code 42963 IN/OBS CONSULT LVL 2,35M Diagnoses Hypotension I95.9 Edema, peripheral R60.0 Lymphedema I89.0 Moderate malnutrition E44.0 Metastatic neoplastic disease C79.9 Time Spent (min) 42
[2025-07-18] MEDS: LOPERAMIDE HCL 2 MG CAP PO SCH (21:26)
[2025-07-18] MEDS: MIDODRINE HCL 2.5 MG TAB PO SCH (22:14)
[2025-07-18 22:49] LABS: Chlamydia pneumoniae PCR Not Detected (NotDetected); Coronavirus 229E PCR Not Detected (NotDetected); Coronavirus CoV-2 (COVID19)PCR Not Detected (NotDetected); Coronavirus HKU1 PCR Not Detected (NotDetected); Coronavirus NL63 PCR Not Detected (NotDetected); Coronavirus OC43PCR Not Detected (NotDetected); Human Metapneumovirus PCR Not Detected (NotDetected); Parainfluenza Virus 1 PCR Not Detected (NotDetected); Parainfluenza Virus 2 PCR Not Detected (NotDetected); Parainfluenza Virus 3 PCR Not Detected (NotDetected); Parainfluenza Virus 4 PCR Not Detected (NotDetected); Respiratory Syncytial VirusPCR Not Detected (NotDetected); Rhinovirus/Enterovirus PCR Not Detected (NotDetected)
[2025-07-18] MEDS ORDERED: STAT IV Infusion **Titration per Protocol STA (23:35)
[2025-07-18] MEDS: NOREPINEPHRINE/D5W 4 MG/250 ML PLCT IV SCH (23:48)
--- NOTE | 2025-07-19 00:27 | Ultrasound Report ---
Exam(s): US VENOUS BILATERAL LOWER EXTREMITIES EXAM: US Duplex Bilateral Lower Extremities Veins CLINICAL HISTORY: Reason for exam: Rule out DVT. OTHER: TECHNIQUE: Real-time duplex ultrasound scan of the bilateral lower extremity veins integrating B-mode two-dimensional vascular structure, Doppler spectral analysis, color flow Doppler imaging and compression. COMPARISON: No relevant prior studies available. FINDINGS: Right deep veins: No DVT in the right common femoral, femoral, proximal deep femoral or popliteal veins. The veins demonstrate normal color flow, are normally compressible, with normal phasic flow and/or augmentation response. Right superficial veins: No thrombus in the visualized right great saphenous vein. Left deep veins: No DVT in the left common femoral, femoral, proximal deep femoral or popliteal veins. The veins demonstrate normal color flow, are normally compressible, with normal phasic flow and/or augmentation response. Left superficial veins: No thrombus in the visualized left great saphenous vein. Soft tissues: Edema. IMPRESSION: No evidence of acute DVT. Electronically signed by: Jose Carlos Vallejo M.D. 07/19/25 00:26 AM
[2025-07-19 05:20] LABS: Hematocrit (blood only) 22.6 % (37.0-47.0); Hemoglobin 7.7 g/dl (12.0-16.0); Mean Corpuscular Hemoglobin 35.5 pg (25.0-34.0); Mean Corpuscular Volume 104.1 fL (80.0-100.0); Platelet Count 38 K/uL (130-400); RDW Standard Deviation 88.7 fL (36.4-46.3); Red Blood Count 2.17 M/uL (4.20-5.40); White Blood Count 6.03 K/ul (4.8-10.8)
[2025-07-19 05:38] LABS: Alanine Aminotransferase 31.0 U/L (7-52); Albumin Globulin Ratio 0.7 (0.9-2); Albumin Level 2.3 gm/dl (3.4-5.0); Alkaline Phosphatase 270.0 U/L (34-104); Anion Gap 7.0 (3-11); Bilirubin,Total 2.4 mg/dl (0.2-1.0); Blood Urea Nitrogen 49.0 mg/dl (6-23); Calcium 8.3 mg/dl (8.6-10.3); Carbon Dioxide 23.0 mmol/L (21-32); Chloride 103.0 mmol/L (98-107); Creatinine Clr Calc Pharmacy 13.5 ml/min; Globulin 3.3 gm/dl (2.5-4.0); Glucose 93.0 mg/dl (70-99(Fasting)); Magnesium 1.7 mg/dl (1.7-2.4); Potassium 3.9 mmol/L (3.5-5.1); Sodium 133.0 mmol/L (136-145); Total Protein 5.6 gm/dl (6.0-8.3)
[2025-07-19] MEDS: MAGNESIUM SULFATE / D5W 1 GM/100 ML BAG IV SCH (05:50)
[2025-07-19] MEDS: LOPERAMIDE HCL 2 MG CAP PO SCH (08:05)
[2025-07-19] MEDS: VITAMIN B COMPLEX TAB PO SCH (08:06)
[2025-07-19] MEDS: LORATADINE 10 MG TAB PO SCH (08:06)
[2025-07-19] MEDS: ERGOCALCIFEROL 1250 MCG (50,000 UNITS) CAP PO SCH (08:06)
[2025-07-19 08:31] LABS: Iron 172 mcg/dl (35-150); Total Iron Binding Cap Calc 192 mcg/dl (250-450); Transferrin 137 mg/dl (200-360); Transferrin (FE) Percent Satur 90 % (15-50)
[2025-07-19 08:57] LABS: Folate (Folic Acid),Ser orPlas > 22.30 ng/ml (>5.38)
[2025-07-19] MEDS ORDERED: THIAMINE HCL 100 MG in SYRINGE 9 ML IV SCH (09:00)
--- NOTE | 2025-07-19 09:02 | XCELERA ---
[id number]
[2025-07-19] MEDS ORDERED: SODIUM CHLORIDE 0.9% 100 ML IV PRN (09:50)
[2025-07-19] MEDS: BUMETANIDE 0.5 MG in SYRINGE 0 ML IV ONE (10:16)
[2025-07-19] MEDS: THIAMINE HCL 200 MG in SODIUM CHLORIDE 0.9% 50 ML IV SCH (10:16)
[2025-07-19] MEDS: AZITHROMYCIN 500 MG/255 ML D5W BAG IV SCH (10:45)
--- NOTE | 2025-07-19 10:57 | Electrocardiogram Report ---
Test Reason : Blood Pressure : */* mmHG Vent. Rate : 73 BPM Atrial Rate : 73 BPM P-R Int : 158 ms QRS Dur : 88 ms QT Int : 408 ms P-R-T Axes : 72 -67 57 degrees QTcB Int : 449 ms Normal sinus rhythm Low voltage QRS Left anterior fascicular block Cannot rule out Inferior infarct (masked by fascicular block?) , age undetermined Possible Anterolateral infarct (cited on or before 07-Aug-2024) Abnormal ECG When compared with ECG of 07-Aug-2024 12:33, QRS voltage has decreased Nonspecific T wave abnormality, worse in Lateral leads QT has shortened Confirmed by Rommel Knott ([id number] on 07/19/2025 10:56:40 AM Referred By: REFERRED SELF Confirmed By: Rommel Knott
[2025-07-19] MEDS: cefTRIAXone SODIUM 2,000 MG/50 ML BAG IV SCH (11:49)
--- NOTE | 2025-07-19 12:07 | Palliative Care Consultation ---
Date of Consultation July 19, 2025 Assessment & Plan (1) Weakness generalized: (2) Advanced care planning/counseling discussion: I had a 60 min face to face at bedside with pt, and son/Abdulaziz. They are very aware of her IVC compression issues and shared that on the advice of their oncologist, they reached out to their [facility] team and their Oncologist is discussing her case with specialists incl surg onc and vascular. He is going to call with reccs/plan - if she needed transfer to [place] she is agreeable. Because she had a strong performance status prior to this BLE edema related issues, they all, for now, want to stay on this course, pursue all available treatment. The oncologist advised them the current IVC issue was likely fixable and he did not feel they would have a lot of problems. shared they are also followed by/close friends of Dr Lai Pedroza/[facility] Mateusz sommer. I shared my worry that the IVC compression in the setting on hypotension issues/on a pressor/declined performance status could mean that surgery is a lot riskier and they need to speak as a family about what better means to them/what could be best vs worst vs most likely scenarios etc. They were all understanding of this and patient said she will think/reflect on this for a day and plan to speak as a family tomorrow, hopefully hearing back from oncologist at some point today. There is another son who lives in [place]. Abdulaziz lives locally, about 5 min away from pt and . They told me they "have been asking for palliative medicine for months, we've had it since and have a very good experience." She was followed by Dr Coronado from [facility] at [place]. 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 She is very well known in her field and holds several national and international honors/distinctions. (3) Palliative care by specialist: Introduced Palliative Medicine and explained our role in patient's care. Patient and/or family were receptive to palliative services for goals of care discussions. Reviewed we are different from hospice, a home health nurse visiting service. They are very familiar with Palliative medicine from their time at [place] where they were followed by Dr Coronado and her palliative med team! Plan As above Thank you for allowing us to participate in the ongoing care of this patient. Please page with any additional concerns. Maria Elena Jacques DNP Director, Palliative Medicine History of Present Illness Reason for Consultation: Symptom mgt/GOC Attending Physician: Tushar Talavera DO History of Present Illness Erica is a 74yo female with ovarian ca and IVC compression - admitted with signif BLE edema, hypotension with soft BP's ranging 80/50's while on a pressor She is followed by Dr Leach in our cancer clinic as well as at [facility] where her cancer was initially treated. She is seen bedside together with her and son/Abdulaziz. They have another son who resides in [place]. She admits to weakness/malaise and fatigue She denies acute pain Rare dyspnea, no chest pain or pressure Appetite stable Prior to admission, she was walking about 1/2 to 3/4 miles per day She is IADLs except for ostomy care which assists with and also provides med administration and [facility] Last Oncology Notes (copied from [facility]): PET/CT HISTORY: History of ovarian and bladder cancer. Last chemotherapy was 05/30/2025. Pleural fluid from the right hemithorax showed metastatic adenocarcinoma. 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 Non-contrast CT imaging was performed over the same range without breath-hold for attenuation correction of PET images and anatomic correlation, but not for primary interpretation as it is not of standard diagnostic quality. COMPARISON: PET CT 08/23/2024, CT chest, abdomen and pelvis 05/11/2025 FINDINGS: HEAD AND NECK: Calcified left supraclavicular lymph nodes redemonstrated measuring up to 1.9 x 1.3 cm, stable from 05/11/2025 with SUV max measuring up to 2.7. CHEST: Right IJ Svnozo-t-Lapu catheter and left-sided PICC are in place. Trace pericardial effusion. Mild cardiomegaly. Unchanged pleural thickening of the right hemithorax with small pleural effusions, mildly decreased in size from prior. No new or enlarging pulmonary nodules. Right basilar atelectasis/scarring again noted. No pneumothorax. 1.2 cm focus of mildly increased pleural-based tracer uptake noted within the right lung base, image 121 with SUV max of 2.8. This likely represents a small residual metastatic pleural implant. Calcified lymphatic metastasis within the right cardiophrenic distribution again seen. ABDOMEN/PELVIS: Ill-defined 3 cm metastatic implants along the anterior hepatic capsule redemonstrated, SUV max of 4.3. No definite hypermetabolic liver lesions are seen on today's study. A large complex partially cystic metastatic lesion is again noted within the right upper quadrant abdomen/retroperitoneum next to the location of the right adrenal gland. This most recently measured 17 x 12 x 10 cm on 05/11/2025 and demonstrates central hypermetabolic components measuring up to 10 cm with SUV max measuring up to 15. Calcified metastasis within the retroperitoneum and mesentery again noted. These lymph nodes demonstrate no significant hypermetabolic activity. An index 1.6 x 1.2 cm retroperitoneal lymph node on image 161 is unchanged. Surgically absent uterus. Postoperative changes of prior subtotal colectomy with left lower quadrant ileostomy. No bowel obstruction or bowel wall thickening. No pneumoperitoneum is seen. Diffuse mesenteric edema with small amount of ascites and diffuse anasarca redemonstrated. Cholelithiasis. MUSCULOSKELETAL: Chronic thoracolumbar compression deformities. There is no FDG-avid or destructive bone lesion. IMPRESSION: 1. Stable exam compared to the CT chest, abdomen and pelvis studies from 05/11/2025. 2. Anasarca with mesenteric edema and small volume of abdominopelvic ascites redemonstrated. 3. Stable size of the large hypermetabolic metastatic mass in the right retroperitoneum. 4. Stable calcified metastatic lymphadenopathy within the left supraclavicular distribution, right cardiophrenic angle, retroperitoneum and mesentery. 5. Small pleural effusions with chronic pleural thickening at the right lung base. Probable small residual slightly hypermetabolic metastatic pleural implant within the right basilar hemithorax. 6. Slightly hypermetabolic metastatic capsular implant of the liver. ACT 112: Negative or not required by law. Electronically signed by: Kiran Abarca M.D. 05/30/2025 12:01 PM Nurse Note Patient Name:Erica Edmond :1950 Provider:Dimitry Leach DOS:07/18/2025 TIME: 1100 Message: Pt's , Sal, called in to report that pt has gained 20lbs since 06/19/25. She has known lymphedema, which is worsening. Pt received treatment at this office yesterday. Sal reports that starting last night pt has been having significant difficulty breathing. Pt's PT came today and verbalized concern and encouraged him to call in. Dr. Leach consulted - who said that at the last office visit he showed pt and Sal her most recent scans, which reveal pt's tumor is pressing on her IVC, which is causing the fluid ret ention. At that time, Dr. Leach recommended surgical evaluation at [facility], where pt is already established with other providers. Given pt's worsening dyspnea/SOB, he recommends pt present to the [facility] ED now, and request transfer to [place]. RN relayed this information to Sal, and then to pt. They both verbalized understanding and agreement with plan and will go to the ED. RN called and spoke with [facility] ED division operations manager Nicole and gave report on pt, that ED Provider can reach out to Dr. Leach as needed, and of Dr. Leach's recommendation for transfer to [place]. Yesy Mann RN,Nurse Electronically signed by Yesy Mann RN 07/18/2025 11:32 AM EDT First RN Check Patient Name:Erica Edmond Patient :1950 Ordering Provider:Ordered By Non CCP (Medical Oncology)Dimitry Date of Service:07/17/2025 Patient Height:164 cm Patient Weight:60.7 kg Today's BSA calculated by RN: 60.7kg - AIBW-57.64 Dose calculated and within 10% of ordered dose for drug(s): Calculated dose of 231mg Elahere. Ordered dose 205mg. Md decreased dose from 6mg/kg to 4mg/kg due to thrombocytopenia. B/L LE edema noted, weight gain noted. md not increasing dose for weight gain. Keep dose at 205mg. Annalee Bates RN,Nurse Electronically signed by Annalee Bates RN 07/17/2025 02:11 PM EDT DATE OF VISIT 07/02/2025 REASON FOR VISIT Ovarian cancer FOLR1 positive INTERIM HISTORY 07/02/2025 The patienthas more pain in her shoulder and abdomen. The pain has beenmore progressive over the last few weeks. She is alsoretaining more fluidin her legs. 05/29/2025: The patient is a little bit more short of breath today. Herbreathing is worsened. Reports no bleeding or bruising. Reports no fever chills or night sweats. No cough, vomiting. 05/22/2025: Recently discharged from hospital,where she was admitted for heart failure and bilateral lower extremity swelling. Now feeling much better. She is on Bumex 0.5 mg daily. No other symptoms. No fever or chills. No night sweats. No nausea or vomiting. 04/30/2025: The patient is back in the clinic for a follow-up,at this pointshe is havinga lot of swelling in the bilateral lower extremities. She sleeps less at night howeverno difficulty in swallowing. No paroxysmal nocturnal dyspnea. 04/17/2025: Currently doing well. No fever or chills. No bleeding or bruising. Swelling in legs is decreasing. 04/03/2025: She received her first dose of Mirvetuximabafter which she noticed bilateral lower extremityswelling. At that pointthe patient was started on Lasix however she continues to have bilateral lower extremity swelling. No pain. She has a history of blood clots. No fever or chills. 03/13/2025: Currently feeling very well after blood transfusions. No fever or chills. No nausea or vomiting. Appetite is good and the patient is not losing any weight. 02/13/2025: The patient is increasingly fatigued, short of breath, she getsshort of breath whenever shesits up from a laying down position. She is also very tired. She has been giving her self IV fluidshowevershe is not able toeat much. 01/15/2025: Currently feeling well. Her appetite is good and she is not losing weight. Losing a little bit weight. No fever or chills. No burning sensation while she urinates. 12/18/2024: Ms. Zaidi is currently doing very well,she is overall feeling well. She reports no shortness of breath or chest pain. Appetite is good, she is not losing weight. No bleeding or bruising. No nausea vomiting. 11/20/2024: Currently the patient is doing very well. Her appetite is good and she is not losing weight. No fever or chills. No nausea or vomiting. No diarrhea. The ileostomy output has decreased significantly. She has swelling in the left lower extremity. She gets cold sores occasionally. She has gained weight at this time. 10/23/2024: Erica is back in the clinic for a follow-up visit, she has lost considerable amount of weightsince her last visit with me. No more hemorrhages. She is on Eliquis long-term for blood thinner. She does feel tired and fatigued. No numbness and tingling in her hands. No nausea or vomiting. No fever chills or night sweats. 09/25/2024: Since her last appointment with me,the patient hadright flank pain, [facility] to [facility],underwentan embolizationof theinferior right adrenal arteryon 09/08/2024. Since then she has recovered,she had a CT of theabdomen pelviswith and without contrast on09/08/2024 which revealedright adrenal hemorrhagewith active arterial extravasation,diffuse hepatic metastatic di sease, cholelithiasis with pericholecystic fluid. HISTORY OF PRESENT ILLNESS 01/15/2022:Imaging: Calcified omental cake and peritoneal implants, consistent with carcinomatosis. Intraperitoneal retroperitoneal adenopathy in the abdomen. Source of metastatic disease not apparentbut considerations include ovarian malignancy and primary peritoneal carcinomatosis. Small calcified nodes identified above the diaphragm and pericardiac region. Consider complete CT chest for imaging. Diverticulosis 01/28/2022 pathology: Diagnosis 1.Peritoneumbiopsy:Metastatic high-grade serous carcinoma, consistent with tubal/ovarian/peritoneal origin, involving fibrovascular and adipose tissue 02/18/2022-3antineoplastic therapy Carboplatinpaclitaxel every 21 days for gynecological malignancies 04/26/2022: Surgery,diaphragm/peritoneal resection,MILO/BSO, resection of right transverseand sigmoid colon with ileocolic and colorectal anastomosis. Optimal tumor resection with no residual tumorgreater than 1 cm located atgreater curvature of stomach, plaque along posterior right diaphragm and descending colon. Intraoperative finding, extensive omental cake with invasion ofanterior abdominal wall, tumor involving the terminal ileum, cecum, appendix, right colon, transverse colon, sigmoid colon. Gross tumor bilateral tubes and ovaries and pelvic peritoneum. Ileocolic and colorectal anastomosis 04/26/2022 to 05/12/2022;pathology 1.Falciform ligament excision mesothelial lined fibroadipose tissue focally involved by high-grade serous carcinoma 2hernia sac.Mesothelial lined fibroadipose tissue involved by high-grade serous carcinoma 3.Peritoneum, right diaphragm:Mesothelial lined fibroadipose tissue extensively involved by high-grade serous carcinoma 4.Right colon, transverse colon and omentum. Omentum involved by high-grade serous carcinoma in a background of extensive fibrosis, patchy chronic inflammation andpsammomatous calcification. Colonic serosa involved by high- grade serous carcinoma2 pericolic lymph nodes are negative for carcinomauterus cervix, bilateral fallopian tubes, ovaries, terminal ileum, appendix, sigmoid colon, pelvic peritoneum, high-grade serous carcinoma involving bilateral fallopian tubessurface and ovaries, myometrium and uterine serosa and sigmoid colon from serosa to the mucosa. Proximal resection margin is negative for carcinoma. Distal resection margin is involved by carcinoma. Appendix acute serositis and small foci of psammomatous calcifications, negative for carcinoma. Cervix negative for carcinoma. Predominantly denuded squamous mucosa and chronic cervicitis. 2 pericolonic lymph nodes are positive for metastatic carcinoma. Stomach, lesser curvature fibroadipose tissue involved by high-grade serous carcinoma. Colonic donut, colonic submucosa is focally involved by high- grade serous carcinoma. Acute serositis, adhesions,psammomatous calcifications 08/06/2022 imaging: CT of the chest abdomen pelvis 1.Stable postsurgical changes from hysterectomy and bilateral salpingo- oophorectomies, small bowel resection and colectomy with right lower quadrantileostomy 2.No intra-abdominal or pelvic fluid collections 3.Stable to minimally increasing mediastinal and retroperitoneal adenopathy 09/08/2022imaging: CT of the chest abdomen pelvis 1.No evidence for new disease in the chest 2.Stable left supraclavicular and retroperitoneal adenopathy 3.You have focally dilated segment of bowel nearright lower quadrant anastomosis with focal pneumatosis which is nonspecific 4.Periumbilical region inflammation with heterogeneous tissue and gas bubbles 5.Chronically occluded left common iliac vein 12/21/2022 imaging: CT chest abdomen pelvis 1.Stable left supraclavicular and retroperitoneal lymphadenopathy 2.No new sites of disease identified in the chest abdomen or pelvis 12/21/2022 to 10/12/2023for antineoplastictherapy: Letrozole maintenance 01/30/2023 imagingCT of the chest abdomen pelvis: Stable mild left supraclavicular and retroperitoneal lymphadenopathy when compared with prior CT 05/10/[address] chest abdomen pelvis; 1.Retroperitoneal/retrocrural and left axillary lymphadenopathyoverall mildly increased 2.New borderline enlarged right common iliac nodes 3.Stable postsurgical changes of hysterectomy, oophorectomy, subtotal colectomy withright lower quadrant ileostomy 4.Decompressed bladder with bladder wall thickening and perivesical stranding, nonspecific. While finding may be related to prior radiation therapy, cystitis may appear similarly. Correlation with urinalysis as clinically indicated 10/12/2023 surgery, debulking: Negative for tumor, size of largest metastatic deposit, 6.6 cm 08/23/2024 imaging, PET CT scan: Overall progressive disease within the neck chest abdomen and pelvis Disease includes left supraclavicular adenopathy, right basilar pleural metastasis with moderate malignant right pleural effusion and progressive omental/peritoneal and amanda disease throughout the abdomen and pelvis along with new hepatic metastasis Large and small bowel anastomosis is redemonstrated without obstruction Right sided pleural catheter in place with small right pneumothorax Recommendations from [place]: Carboplatin 5 AUC plus Doxil 30 mg/m every [address] angiogram chest, 09/20/2024: IMPRESSION: 1. No evidence of pulmonary embolus or acute aortic injury. 2. Loculated right and trace left pleural effusion with a chest tube noted. 3. Partially calcified supraclavicular lymphadenopathy is seen compatible with amanda spread of disease. CT abdomen pelvis, 12 09/20/2024 IMPRESSION: 1. No evidence of active extravasation or other acute vascular abnormality is seen. The adrenal metastatic lesion is hypervascular. 2. Subacute hematoma in the right perinephric space, similar in appearance to prior exam 3. Redemonstration of extensive metastatic disease including hepatic, right adrenal, and numerous amanda metastases. Baseline echocardiogram,09/05/2024: Left ventricular ejection [id number] to 60% Normal LV size and wall thickness Normal RV size and function No significantvalvular pathology Normal estimatedPA pressure Echocardiogram,12/21/2024: Left ventricular systolic function is mildly reduced Left ventricular ejection fraction, 40 to 45% There is mild global hypokinesis of the left ventricle Right ventricle isnormal in size and function CT chest abdomen pelvis, 12/03/2024: IMPRESSION: 1. Interval resolving right sided pleural effusion noted causing subsegmental atelectasis of underlying lung parenchyma. No evidence of left sided pleural effusion seen on current scan. 2. Redemonstration of partially calcified left supraclavicular lymphadenopathy appears unchanged as compared to prior scan. IMPRESSION: 1. Redemonstration of extensive metastatic disease including hepatic, right adrenal, and numerous amanda metastases. 2. Interval regression in the size of the hepatic and visualized supradiaphragmatic deposits as compared to prior study. 3. Interval increase in size of right adrenal lesion. 4. Interval stable lymphatic metastatic disease process in abdomen and pelvis. 5. Interval regression in the retroperitoneal fluid and peritoneal edematous changes as compared to prior study. 6. Evidence of colostomy on left side of abdomen. 7. Other chronic findings as described above. 8. Degenerative changes in the lumbar spine. Treatment: Carboplatin, liposomal doxorubicin,every 28 days cycle 1 day 1:09/25/2024 Carboplatin, liposomal doxorubicin, cycle 2-day 1:10/23/2024 Carboplatin, liposomal doxorubicin, cycle 3- day 1: 11/20/2024. Carboplatin, liposomal doxorubicin,Avastin, cycle 4-day 1:12/18/2024 Carboplatin, liposomal doxorubicin, avastin, cycle 5 day 1: 01/15/2025 Carboplatin, cycle 6-day 1:02/13/2025 Carboplatin and liposomal doxorubicinheld because of generally dec liningperformance status and cardiac function Current treatment: Mirvetuximab C1 D1: 03/27/2025 Mirvetuximab C2 D1: 04/17/2025 Mg rituximab, cycle 3-day Mirvetuximab, cycle 4-day 07/07/2025 PAST MEDICAL HISTORY Problems:Metastatic adenocarcinoma, Antineoplastic chemotherapy induced anemia, Bladder cancer, Blood clotting disorder, Colovaginal fistula, Deep venous thrombosis (disorder), Dehydration (disorder), Dyslipidemia, Intra-abdominal abscess, Non-healing surgical wound (finding), Ovarian cancer, Ovarian cancer, Ovarian cancer, Pleural effusion (disorder), Swelling and Swelling * Radiotherapy:None * Hospitalizations:None * Screenings:None * Immunizations:Covid-19 vaccine (Native) (2023); Flu vaccine - Adult (2023) PAST SURGICAL HISTORY H/O abdominal surgery Hx of bilateral breast reduction surgery H/O hand surgery LEFT HAND MIDDLE FINGER GROWTH REMOVED (DONE MULTIPLE TIMES) History of colonoscopy History of cystoscopy BLADDER TUMORS REMOVED (MULTIPLE TIMES) HAS HAD NO PROBLEMS FOR 3 YEARS History of tooth extraction History of tonsillectomy Surgeries:Procedure: Tonsillectomy; Procedure: Abdominal Surgery SOCIAL HISTORYSmoking Tobacco : Former smoker; Smokeless Tobacco : none found; Vaping : none found FAMILY HISTORY ALLERGIES No known medication allergies HOME MEDICATIONS * Cholestyramine 4 gram powder MIX 4 GRAMS ORALLY 2 TIMES PER DAY. ADMINISTER W/MEAL AVOID OTHER MEDS WITHIN 1HR BEFORE OR 4-6HR AFTER DOSE. * Eliquis (Apixaban) 2.5 mg tablet TAKE 1 TABLET BY MOUTH TWICE A DAY * Prednisolone Ophthalmic Drops 1 % 1 % drops 1 drop into the eye(s) As Directed. Instill 6 times daily starting day prior to mirvetuximab until day 4, then 4 times daily on days 5-8. * Prochlorperazine Oral 10 mg tablet 1 tablet orally every 6 hours as needed for nausea and vomiting. * Imodium A-D (Loperamide Oral) 2 mg capsule BID * Pantoprazole (Sodium) Oral Delayed Release 40 mg tablet,delayed release (DR/EC) 1 tablet,delayed release (DR/EC) PO Daily * Mupirocin Topical Ointment 2 % 2 % ointment * Calcium Carbonate Oral 260 mg calcium (648 mg) tablet 500 mg orally 2 times per day. * Eliquis (Apixaban Oral) 2.5 mg tablet 1 tablets,dose pack orally 2 times per day. * Oxycodone Oral 5 mg tablet 1 tablet orally every 4 to 6 hours as needed for pain. * Cephalexin Oral 500 mg capsule BID * Lomotil (Diphenoxylate-Atropine Oral 2.5 mg-0.025 mg) TID * Spironolactone Oral 25 mg tablet * Vitamin B Complex Oral Tablet Daily * Mupirocin Topical Ointment 2 % * Ondansetron Oral 4 mg tablet prn * Tramadol Oral 50 mg tablet prn * Vitamin D (Cholecalciferol Oral) 1,250 mcg (50,000 unit) tablet 1 tablet PO 2x Weekly * Cholestyramine Oral 4 gram powder 4 gram orally 2 times per day. administer w/meal; avoid other meds within 1hr before or 4-6hr after dose. * Bumetanide Oral 0.5 mg tablet * Claritin (Loratadine Oral) * Nystatin Topical Cream 100,000 unit/gram * Furosemide Oral 20 mg tablet 1 tablet orally daily as needed for edema. * Olanzapine 2.5 mg tablet TAKE 1 TABLET BY MOUTH DAILY AT BEDTIME. TAKE FOR 4 DAYS STARTING DAY 1 OF CHEMOTHERAPY FOR NAUSEA * Olanzapine Oral 2.5 mg tablet 2.5 mg orally every day at bedtime. Take for 4 days starting Day 1 of chemotherapy for nausea. REVIEW OF SYSTEMS Constitutional: Negative for weight loss, night sweats, or fever Eyes: Negative for event change of vision ENT: Negative for epistaxis, nasal discharge, sore throat, or deafness Cardiovascular: Negative for anginal type chest pain, palpitations, dizziness, diaphoresis Respiratory: Negative for new shortness of breath, hemoptysis, or purulent cough Gastroinestinal: Negative for diarrhea, hematemesis, melena, nausea, vomiting, or dyspepsia Integumentary (skin): Negative for rash, jaundice or discoloration Genitourinary: Negative for urinary frequency, hematuria, or dysuria Neurological: Negative for weakness, seizure activity, headache, or dizziness Lymphatic/Hematologic: Negative for petechiae, bleeding or new adenopathy Musculoskeletal: Negative for new joint or back pain Allergic/Immunologic: Negative for unusual rash or pruritis PHYSICAL EXAM Vital Signs:Blood pressure: 84/56, Pulse: 66, Temperature: 36.4 C, Respirations: 16, O2 sat: 97%, Pain Scale: 7, Height: 164 cm, Weight: 55.5 kg, BSA: 1.59, BMI: 20.64 kg/m2 ECOG Performance Status: Pain Ratin Fatigue: None. Constitutional: Vitals are stable. Eyes: Eyes are ANNA EOMI without conjunctival erythema or icterus. ENT: External examination was negative for masses. Neck: Negative for masses or palpable thyromegaly. Respiratory: Lung sounds were generally clear bilaterally. Cardiovascular: Heart was RRR without significant murmur, gallops, or rubs. Gastrointestinal: No palpable hepatic or splenomegaly. The abdomen was soft with normal bowel sounds. Lymphatic system: There was no palpable peripheral lymphadenopathy. Musculoskeletal System: The musculoskeletal system concordant with age. Skin: The skin was negative for jaundice. LABORATORY STUDIES Lab Results 07/01/2025 06/24/2025 06/19/2025 06/17/2025 06/10/2025 06/03/2025 CBC WBC, cells/uL 4.80 4.72 (L) 3.32 (L) 3.62 (L) 3.99 (L) 4.52 (L) RBC x 10^6/uL 2.40 (L) 2.86 (L) 2.02 (L) 2.15 (L) 2.19 (L) 2.50 (L) HGB g/dL 8.0 (L) 9.5 (L) 7.4 (L) 7.9 (L) 7.7 (L) 8.8 (L) HCT % 24.4 (L) 28.8 (L) 22.7 (L) 23.8 (L) 23.8 (L) 27.4 (L) MCV, corrected fL 101.7 (H) 100.7 (H) 112.4 (H) 110.7 (H) 108.7 (H) 109.6 ( H) MCH pg 33.3 33.2 36.6 (H) 36.7 (H) 35.2 (H) 35.2 (H) MCH, g/dL 32.8 33.0 32.6 33.2 32.4 32.1 PLT x 10^3/uL 39 (L) 41 (L) 65 (L) 64 (L) 49 (L) 59 (L) Jeremiah % 80.7 82.1 76.9 76.9 80.7 81.7 LY % 8.8 7.2 11.1 11.6 10.3 7.3 MO % 8.5 8.9 10.5 9.7 7.0 9.1 EO % 1.0 0.6 0.9 0.6 1.0 1.5 IG % 0.8 0.8 0.3 0.6 0.5 0.2 JEREMIAH #, cells/uL 3.87 3.87 2.55 2.79 3.22 3.69 LY #, cells/uL 0.42 (L) 0.34 (L) 0.37 (L) 0.42 (L) 0.41 (L) 0.33 (L) BA % 0.2 0.4 0.3 0.6 0.5 0.2 MO #, cells/uL 0.41 0.42 0.35 0.35 0.28 0.41 EO #, cells/uL 0.05 0.03 0.03 0.02 0.04 0.07 BA #, cells/uL 0.01 0.02 0.01 0.02 0.02 0.01 Manual Differential Granulocytes, immature, x 10^3/uL (M) x 10^3/uL 0.04 0.04 0.01 0.02 0.02 0.01 Anisocytosis (size) Present Present Present Present Present Present Polychromasia (M) 1+ 1+ 1+ 1+ Ovalocyte 1+ Basophilic stippling, qual 1+ Coags Chemistries Glucose, plasma mg/dL 104 (H) 127 (H) 95 136 (H) BUN mg/dL 44 (H) 48 (H) 39 (H) 47 (H) Creatinine mg/dL 3.11 (H) 2.80 (H) 3.06 (H) 2.55 (H) BUN/Creatinine ratio 14.1 17.1 12.7 18.4 Sodium mmol/L 134 (L) 133 (L) 133 (L) 140 Potassium mmol/L 3.7 3.8 3.8 3.8 Chloride mmol/L 95 (L) 91 (L) 93 (L) 100 CO2 mmol/L 30 34 (H) 31 29 Anion gap 9 8 9 11 Calcium mg/dL 8.5 (L) 9.0 8.9 9.4 Albumin g/dL 2.8 (L) 2.8 (L) 3.1 (L) A/G ratio 0.9 0.8 (L) 0.8 (L) 0.8 (L) Bilirubin, total mg/dL 3.0 (H) 4.4 (H) 2.8 (H) 2.8 (H) Globulin, g/L 3.2 3.7 3.7 4.1 (H) Alkaline phosphatase U/L 264 (H) 254 (H) 281 (H) 257 (H) AST/SGOT U/L 81 (H) 82 (H) 68 (H) 80 (H) ALT/SGPT U/L 35 36 32 29 Total protein, serum g/dL 6.0 6.5 6.8 7.4 Magnesium, mg/dL 1.8 1.7 1.8 1.8 Anemia Labs Urine Glucose (ua), qual Negative RBC (ua) 0-2 Hyaline casts, /lpf 11-20 (H) Lab - Other PMV Bld 11.5 10.9 11.3 11.2 10.9 11.0 Est GFR 19.35 Macrocytes Bld Ql Present Present Present Appearance Ur Clear Bacteria Ur Ql Auto None Seen Bilirub Ur Ql Negative Blood Urine Negative Color Ur Dark Yellow Epi Cells #/area UrnS Auto 0-2 Ketones Ur Ql Strip.auto Negative Leukocyte esterase Ur Ql Strip.auto Negative Nitrite Ur Ql Strip Negative pH Ur 7.0 Prot Ur Ql 2+ (H) Sp Gr Ur 1.013 Urobilinogen Ur Ql Negative WBC #/area UrnS HPF 0-5 RDW RBC-Rto 86.0 23.5 (H) 87.4 23.9 (H) 91.1 21.6 (H) 90.7 21.6 (H) 83.3 21.2 (H) 86.5 21.3 (H) Albumin Level 3.3 (L) GFR/BSA.pred SerPl-ArVRat 15.24 17.29 15.54 ASSESSMENT AND PLAN Stage IV ovarian cancer History of DVT PICC line for IV hydration and nutrition support Mediport in place FOLR1 positive; based on Nex[employer] ration gene sequencing in September ; will try mirvetuximab soravtansine-gynx Orders placed in [facility]. For chemotherapy induced anemia requiring blood transfusion have started the patient on Retacrit HoldAvastin and liposomal doxorubicindue to poor kidney function, potentially worsening cardiac function Repeat echocardiogram reviewed, EF of30 to 35% She has a lesion on the right adrenal however that is because of the recent adrenal hemorrhage Weight loss: Noticed decreased output from the stoma. Previous history of DVT/PE:Continue Eliquis indefinite Given thesignificant bilateral lower extremity edema,I will switch the diuretic to Bumexand recommend compression stockings. I will also get anotherechocardiogramto monitor her ejection fraction given the previously sustainedcardiac injury secondary todoxorubicin. Because of bilateral lower extremities have held her Procrit Continuing mirvetuximab Get a restaging CT of the chest abdomen pelvis with a full body bone scan Ordered oxycodone for pain Follow-up next weekbefore the next cycle ofmirvetuximab. Dimitry Leach MD Copy To:Shahzad Mcelroy MD (Referring) Allergies Allergy/AdvReac Type Severity Reaction Status Date / Time No Known Allergies Allergy Verified 07/18/25 15:46 Home Medications Medication Instructions Recorded Confirmed Type nystatin 100,000 unit/gram topical 1 applic topical BID 08/07/24 07/18/25 Hi story powder (Klayesta) ondansetron HCl 4 mg tablet 4 mg PO Q6H PRN nausea and 09/13/24 07/18/25 Rx vomiting #30 tabs tramadol 50 mg tablet 50 mg PO Q8H PRN pain #30 tabs 09/13/24 07/18/25 Rx nystatin-triamcinolone 100,000 1 applic topical BID #60 grams 10/15/24 07/18/25 Rx unit/g-0.1 % topical cream cholestyramine 4 gram oral powder 4 g PO DAILY PRN Acne 03/05/25 07/18/25 H istory mirvetuximab soravtansine-gynx 5 0 mg IV Q21D 03/27/25 07/18/25 History mg/mL intravenous solution (Elahere) loratadine 10 mg tablet (Claritin) 10 mg PO DAILY 04/11/25 07/18/25 History mupirocin 2 % topical ointment 1 applic topical BID #15 grams 04/11/25 07/18/25 Rx prednisolone sodium phosphate 1 % 1 drp ophthalmic (eye) 6XD 04/11/25 07/18/25 History eye drops diphenoxylate-atropine 2.5 1 tab PO TID #270 tabs 04/16/25 07/18/25 Rx mg-0.025 mg tablet (Lomotil) Levomefolate/ Vit B12/ Vit B6/ Vit 1 tab PO DAILY 05/10/25 07/18/25 History B2 / apixaban 2.5 mg tablet (Eliquis) 2.5 mg PO BID 05/10/25 07/18/25 History bumetanide 1 mg tablet 1 mg PO DAILY 05/10/25 07/18/25 History olanzapine 2.5 mg tablet 2.5 mg PO DIRECTED 05/10/25 07/18/25 History bumetanide 0.5 mg tablet 0.5 mg PO DAILY #30 tabs 05/21/25 07/18/25 Rx ergocalciferol (vitamin D2) 1,250 1,250 mcg PO 2XWK #20 caps 05/22/25 07/18/25 Rx mcg (50,000 unit) capsule (Vitamin D2) loperamide 2 mg tablet 4 mg (2 x 2 mg) PO QAM #60 tabs 06/20/25 07/18/25 Rx pantoprazole 40 mg tablet,delayed 40 mg PO DAILY #90 tabs 06/25/25 07/18/25 Rx release spironolactone 25 mg tablet 25 mg PO DAILY #90 tabs 07/02/25 07/18/25 Rx psyllium husk 0.4 gram capsule 0.4 g PO TID 07/18/25 07/18/25 History (Metamucil) Patient History Medical History Ileostomy present Elevated homocysteine Non-healing surgical wound Colovaginal fistula Bladder cancer TREATED BY [facility] Blood clotting disorder ? 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) Surgical History H/O abdominal surgery Hx of bilateral breast reduction surgery H/O hand surgery LEFT HAND MIDDLE FINGER GROWTH REMOVED (DONE MULTIPLE TIMES) History of colonoscopy History of cystoscopy BLADDER TUMORS REMOVED (MULTIPLE TIMES) HAS HAD NO PROBLEMS FOR 3 YEARS History of tooth extraction History of tonsillectomy Family History Father Cholangitis Mother Dementia Osteoporosis Obesity Brother Dyslipidemia Social History Smoking Status: Never smoker Tobacco Type: Cigarettes Age Started Using Tobacco: 22; Age Quit Using Tobacco: 27; packs per day: 0.5; Second Hand Exposure: No; Do You Dip or Chew Tobacco: No; Hx Alcohol Use: No Hx Substance Use: No Preferred Language: Romansh Communication Ability: Effective Visual Impairment: No Limitations Hearing Ability: Normal Wedding Transportation Driver Required: No Beliefs That Will Affect Care: None marital status: Current Living Situation: Spouse current occupational status: retired How many Children do You have: 2 Feels Safe at Home: Yes Childhood Exposure to Second-Hand Smoke: Yes Diet: other Diet Comment: TPN via PICC, PEG tube (not currently in use) caffeine: Yes Dental Care, Regularly: Yes Physical Activity Frequency: 3-4 Times per Week Seatbelt Use: always Sunscreen Use: Yes Do you think of yourself as: straight/heterosexual Gender Identity: Female Assistive Devices: Walker Review of Systems Review of Systems: All systems reviewed & are unremarkable except as noted in Subjective Physical Exam Constitutional: + ill appearing, + thin, + frail appeari ng, cooperative, comfortable and + underweight Eyes: PERRL, conjunctivae normal, anicteric sclerae ENMT: hearing intact MM dry dentition intact Neck: no audible stridor Respiratory: normal effort no use of accessory muscles Cardiovascular: hypotensive on monitor RRR Gastrointestinal (Abdomen): +ostomy Musculoskeletal: +3 pitting edema to upper thighs Skin: pale, warm Neurologic: AAOx3 Results & Data Vital Signs (Past 12 Hours) Vital Signs Pulse Resp BP Pulse Ox Pulse Ox O2 Del Method O2 Del Method 07/19/25 11:19 85 19 96/61 L 96 07/19/25 11:00 78 19 83/52 L 96 07/19/25 10:03 79 20 83/55 L 97 07/19/25 09:57 72 13 89/65 L 91 07/19/25 09:27 77 16 94/57 L 97 07/19/25 09:06 74 18 90/54 L 95 07/19/25 08:27 73 17 96/59 L 97 07/19/25 08:09 83 24 100/60 97 07/19/25 08:00 97 Room Air 07/19/25 08:00 Room Air 07/19/25 07:48 91 H 16 89/70 L 87 L 07/19/25 07:45 86 23 90 07/19/25 07:33 88 13 103/62 95 07/19/25 07:18 74 15 96/59 L 98 07/19/25 05:06 25 H 07/19/25 05:02 90/49 L 07/19/25 05:00 88/42 L 07/19/25 04:54 67 31 H 07/19/25 04:51 72 19 07/19/25 04:48 83/48 L 07/19/25 04:45 72 21 07/19/25 04:39 66 12 99 07/19/25 04:30 81/48 L 07/19/25 04:21 70 19 99 07/19/25 04:15 87/44 L 07/19/25 04:00 89/51 L 07/19/25 03:57 68 19 99 07/19/25 03:45 101/58 L 07/19/25 03:45 101/58 L 07/19/25 03:45 101/58 L 07/19/25 03:42 72 15 99 07/19/25 03:33 19 87 L 07/19/25 03:30 101/61 07/19/25 03:15 95/60 L 07/19/25 03:00 94/59 L 07/19/25 02:54 77 16 99 07/19/25 02:51 74 15 99 07/19/25 02:48 79 14 98 07/19/25 02:45 91/55 L 07/19/25 02:39 74 15 99 07/19/25 02:30 90/57 L 07/19/25 02:27 72 15 99 07/19/25 02:15 90/70 L 07/19/25 02:13 74 07/19/25 02:12 72 17 100 07/19/25 02:00 72 14 100 07/19/25 02:00 94/64 L 07/19/25 01:57 72 14 100 07/19/25 01:30 74 14 98 07/19/25 01:30 89/59 L 07/19/25 01:15 95/63 L 07/19/25 01:09 84 16 100 07/19/25 01:00 101/64 07/19/25 00:57 79 24 100 07/19/25 00:45 98/62 L 07/19/25 00:42 89 24 100 Laboratory Results 07/19/25 07/19/25 07/19/25 Range/Units 11:20 11:04 07:50 WBC (4.8-10.8) K/ul RBC (4.20-5.40) M/uL Hgb (12.0-16.0) g/dl Hct (37.0-47.0) % MCV (80.0-100.0) fL MCH (25.0-34.0) pg MCHC (32.0-36.0) g/dL RDW Std Deviation (36.4-46.3) fL RDW Coeff of Rolo (11.5-14.5) % Plt Count (130-400) K/uL MPV (9.4-12.4) fL Immature Gran % (Auto) % Neut % (Auto) % Lymph % (Auto) % Curry % (Auto) % Eos % (Auto) % Baso % (Auto) % Neut # (Auto) (1.40-6.50) K/uL Lymph # (Auto) (1.20-3.40) K/uL Curry # (Auto) (0.11-0.59) K/uL Eos # (Auto) (0.00-0.50) K/uL Baso # (Auto) (0.00-0.20) K/uL Immature Gran # (Auto) (0.01-0.20) K/uL Anisocytosis PT (9.0-12.0) Seconds INR (0.9-1.1) APTT (21-31) Seconds PTT Ratio VBG pH (7.36-7.41) VBG pCO2 (38-50) mmHg VBG pO2 mmHg VBG HCO3 mmol/L VBG O2 Saturation % VBG Base Excess mEq/L Sodium (136-145) mmol/L Potassium (3.5-5.1) mmol/L Chloride (98-107) mmol/L Carbon Dioxide (21-32) mmol/L Anion Gap (3-11) BUN (6-23) mg/dl Creatinine (0.6-1.2) mg/dl Est Cr Clr Drug Dosing eGFR BUN/Creatinine Ratio (10-20) Glucose (70-99(Fasting)) mg/dl POC Glucose 150 H (70-99) mg/dl Lactate 2.9 H* (0.4-2.0) mmol/L Calcium (8.6-10.3) mg/dl Ionized Calcium 1.18 (1.12-1.32) mmol/L Phosphorus (2.5-4.9) mg/dl Magnesium (1.7-2.4) mg/dl Iron 172 H (35-150) mcg/dl TIBC 192 L (250-450) mcg/dl Transferrin 137 L (200-360) mg/dl Transferrin % Sat 90 H (15-50) % Total Bilirubin (0.2-1.0) mg/dl Direct Bilirubin (0-0.2) mg/dl AST (13-39) U/L ALT (7-52) U/L Alkaline Phosphatase (34-104) U/L Troponin I High Sens (0-14) pg/ml B-Natriuretic Peptide 148 H (0-100) pg/ml Total Protein (6.0-8.3) gm/dl Albumin (3.4-5.0) gm/dl Globulin (2.5-4.0) gm/dl Albumin/Globulin Ratio (0.9-2) Vitamin B12 1149 H (180-914) pg/ml 25-OH Vitamin D Total > 120.0 H (30-100) ng/ml Folate (>5.38) ng/ml Procalcitonin (0-0.5) ng/ml Cortisol AM Sample (6.2-22.6) mcg/dl Urine Color Urine Appearance (Clear) Urine pH (4.5-7.5) Ur Specific Orr (1.000-1.030) Urine Protein (Negative) Urine Glucose (UA) (Negative) Urine Ketones (Negative) Urine Blood (Negative) Urine Nitrite (Negative) Urine Bilirubin (Negative) Urine Urobilinogen (Negative) Ur Leukocyte Esterase (Negative) Urine WBC (Auto) (0-5) /hpf Urine RBC (Auto) (0-2) /hpf U Hyaline Cast (Auto) (0-2) /lpf U Epithel Cells (Auto) (0-2) /hpf Urine Bacteria (Auto) (None Seen) Hyaline Casts (None Presnt) /lpf Urine Comment Nasal Screen MRSA (PCR) (Negative) Adenovirus (PCR) (NotDetected) B. pertussis DNA (PCR) (NotDetected) B.parapertussis DNA PCR (NotDetected) C. pneumoniae DNA (PCR) (NotDetected) Coronavirus OC43 (PCR) (NotDetected) Coronavirus HKU1 (PCR) (NotDetected) Coronavirus 229E (PCR) (NotDetected) SARS-CoV-2 (PCR) (NotDetected) Coronavirus NL63 (PCR) (NotDetected) Human Metapneumovir PCR (NotDetected) Influenza Type A (PCR) (NotDetected) Influenza Type B (PCR) (NotDetected) Urine Legionella Ag Pending M. pneumoniae (PCR) (NotDetected) Parainfluenza 1 (PCR) (NotDetected) Parainfluenza 2 (PCR) (NotDetected) Parainfluenza 3 (PCR) (NotDetected) Parainfluenza 4 (PCR) (NotDetected) RSV (PCR) (NotDetected) Entero/Rhino (PCR) (NotDetected) Blood Type Pending Antibody Screen Pending Crossmatch See Detail 07/19/25 07/19/25 07/19/25 Range/Units 07:34 07:33 04:41 WBC 6.03 (4.8-10.8) K/ul RBC 2.17 L (4.20-5.40) M/uL Hgb 7.7 L (12.0-16.0) g/dl Hct 22.6 L (37.0-47.0) % MCV 104.1 H (80.0-100.0) fL MCH 35.5 H (25.0-34.0) pg MCHC 34.1 (32.0-36.0) g/dL RDW Std Deviation 88.7 H (36.4-46.3) fL RDW Coeff of Rolo 23.4 H (11.5-14.5) % Plt Count 38 L (130-400) K/uL MPV 11.2 (9.4-12.4) fL Immature Gran % (Auto) % Neut % (Auto) % Lymph % (Auto) % Curry % (Auto) % Eos % (Auto) % Baso % (Auto) % Neut # (Auto) (1.40-6.50) K/uL Lymph # (Auto) (1.20-3.40) K/uL Curry # (Auto) (0.11-0.59) K/uL Eos # (Auto) (0.00-0.50) K/uL Baso # (Auto) (0.00-0.20) K/uL Immature Gran # (Auto) (0.01-0.20) K/uL Anisocytosis PT (9.0-12.0) Seconds INR (0.9-1.1) APTT (21-31) Seconds PTT Ratio VBG pH (7.36-7.41) VBG pCO2 (38-50) mmHg VBG pO2 mmHg VBG HCO3 mmol/L VBG O2 Saturation % VBG Base Excess mEq/L Sodium 133 L (136-145) mmol/L Potassium 3.9 (3.5-5.1) mmol/L Chloride 103 (98-107) mmol/L Carbon Dioxide 23 (21-32) mmol/L Anion Gap 7 (3-11) BUN 49 H (6-23) mg/dl Creatinine 3.20 H (0.6-1.2) mg/dl Est Cr Clr Drug Dosing 13.5 eGFR 14.73 BUN/Creatinine Ratio 15.3 (10-20) Glucose 93 (70-99(Fasting)) mg/dl POC Glucose 81 (70-99) mg/dl Lactate (0.4-2.0) mmol/L Calcium 8.3 L (8.6-10.3) mg/dl Ionized Calcium (1.12-1.32) mmol/L Phosphorus 4.1 (2.5-4.9) mg/dl Magnesium 1.7 (1.7-2.4) mg/dl Iron (35-150) mcg/dl TIBC (250-450) mcg/dl Transferrin (200-360) mg/dl Transferrin % Sat (15-50) % Total Bilirubin 2.4 H (0.2-1.0) mg/dl Direct Bilirubin (0-0.2) mg/dl AST 78 H (13-39) U/L ALT 31 (7-52) U/L Alkaline Phosphatase 270 H (34-104) U/L Troponin I High Sens (0-14) pg/ml B-Natriuretic Peptide (0-100) pg/ml Total Protein 5.6 L (6.0-8.3) gm/dl Albumin 2.3 L (3.4-5.0) gm/dl Globulin 3.3 (2.5-4.0) gm/dl Albumin/Globulin Ratio 0.7 L (0.9-2) Vitamin B12 (180-914) pg/ml 25-OH Vitamin D Total (30-100) ng/ml Folate > 22.30 (>5.38) ng/ml Procalcitonin (0-0.5) ng/ml Cortisol AM Sample 24.70 H (6.2-22.6) mcg/dl Urine Color Urine Appearance (Clear) Urine pH (4.5-7.5) Ur Specific Orr (1.000-1.030) Urine Protein (Negative) Urine Glucose (UA) (Negative) Urine Ketones (Negative) Urine Blood (Negative) Urine Nitrite (Negative) Urine Bilirubin (Negative) Urine Urobilinogen (Negative) Ur Leukocyte Esterase (Negative) Urine WBC (Auto) (0-5) /hpf Urine RBC (Auto) (0-2) /hpf U Hyaline Cast (Auto) (0-2) /lpf U Epithel Cells (Auto) (0-2) /hpf Urine Bacteria (Auto) (None Seen) Hyaline Casts (None Presnt) /lpf Urine Comment Nasal Screen MRSA (PCR) (Negative) Adenovirus (PCR) (NotDetected) B. pertussis DNA (PCR) (NotDetected) B.parapertussis DNA PCR (NotDetected) C. pneumoniae DNA (PCR) (NotDetected) Coronavirus OC43 (PCR) (NotDetected) Coronavirus HKU1 (PCR) (NotDetected) Coronavirus 229E (PCR) (NotDetected) SARS-CoV-2 (PCR) (NotDetected) Coronavirus NL63 (PCR) (NotDetected) Human Metapneumovir PCR (NotDetected) Influenza Type A (PCR) (NotDetected) Influenza Type B (PCR) (NotDetected) Urine Legionella Ag M. pneumoniae (PCR) (NotDetected) Parainfluenza 1 (PCR) (NotDetected) Parainfluenza 2 (PCR) (NotDetected) Parainfluenza 3 (PCR) (NotDetected) Parainfluenza 4 (PCR) (NotDetected) RSV (PCR) (NotDetected) Entero/Rhino (PCR) (NotDetected) Blood Type Antibody Screen Crossmatch 07/18/25 07/18/25 07/18/25 Range/Units Unknown 21:12 20:22 WBC (4.8-10.8) K/ul RBC (4.20-5.40) M/uL Hgb (12.0-16.0) g/dl Hct (37.0-47.0) % MCV (80.0-100.0) fL MCH (25.0-34.0) pg MCHC (32.0-36.0) g/dL RDW Std Deviation (36.4-46.3) fL RDW Coeff of Rolo (11.5-14.5) % Plt Count (130-400) K/uL MPV (9.4-12.4) fL Immature Gran % (Auto) % Neut % (Auto) % Lymph % (Auto) % Curry % (Auto) % Eos % (Auto) % Baso % (Auto) % Neut # (Auto) (1.40-6.50) K/uL Lymph # (Auto) (1.20-3.40) K/uL Curry # (Auto) (0.11-0.59) K/uL Eos # (Auto) (0.00-0.50) K/uL Baso # (Auto) (0.00-0.20) K/uL Immature Gran # (Auto) (0.01-0.20) K/uL Anisocytosis PT (9.0-12.0) Seconds INR (0.9-1.1) APTT (21-31) Seconds PTT Ratio VBG pH (7.36-7.41) VBG pCO2 (38-50) mmHg VBG pO2 mmHg VBG HCO3 mmol/L VBG O2 Saturation % VBG Base Excess mEq/L Sodium (136-145) mmol/L Potassium (3.5-5.1) mmol/L Chloride (98-107) mmol/L Carbon Dioxide (21-32) mmol/L Anion Gap (3-11) BUN (6-23) mg/dl Creatinine (0.6-1.2) mg/dl Est Cr Clr Drug Dosing eGFR BUN/Creatinine Ratio (10-20) Glucose (70-99(Fasting)) mg/dl POC Glucose 97 (70-99) mg/dl Lactate 2.9 H* (0.4-2.0) mmol/L Calcium (8.6-10.3) mg/dl Ionized Calcium (1.12-1.32) mmol/L Phosphorus (2.5-4.9) mg/dl Magnesium (1.7-2.4) mg/dl Iron (35-150) mcg/dl TIBC (250-450) mcg/dl Transferrin (200-360) mg/dl Transferrin % Sat (15-50) % Total Bilirubin (0.2-1.0) mg/dl Direct Bilirubin (0-0.2) mg/dl AST (13-39) U/L ALT (7-52) U/L Alkaline Phosphatase (34-104) U/L Troponin I High Sens (0-14) pg/ml B-Natriuretic Peptide (0-100) pg/ml Total Protein (6.0-8.3) gm/dl Albumin (3.4-5.0) gm/dl Globulin (2.5-4.0) gm/dl Albumin/Globulin Ratio (0.9-2) Vitamin B12 (180-914) pg/ml 25-OH Vitamin D Total (30-100) ng/ml Folate (>5.38) ng/ml Procalcitonin (0-0.5) ng/ml Cortisol AM Sample (6.2-22.6) mcg/dl Urine Color Yellow Urine Appearance Clear (Clear) Urine pH 5.5 (4.5-7.5) Ur Specific Orr 1.009 (1.000-1.030) Urine Protein Trace H (Negative) Urine Glucose (UA) Negative (Negative) Urine Ketones Negative (Negative) Urine Blood Negative (Negative) Urine Nitrite Negative (Negative) Urine Bilirubin Negative (Negative) Urine Urobilinogen Negative (Negative) Ur Leukocyte Esterase Negative (Negative) Urine WBC (Auto) 0-5 (0-5) /hpf Urine RBC (Auto) 0-2 (0-2) /hpf U Hyaline Cast (Auto) 6-10 H (0-2) /lpf U Epithel Cells (Auto) 0-2 (0-2) /hpf Urine Bacteria (Auto) None Seen (None Seen) Hyaline Casts Present A (None Presnt) /lpf Urine Comment Nasal Screen MRSA (PCR) Negative (Negative) Adenovirus (PCR) Not Detected (NotDetected) B. pertussis DNA (PCR) Not Detected (NotDetected) B.parapertussis DNA PCR Not Detected (NotDetected) C. pneumoniae DNA (PCR) Not Detected (NotDetected) Coronavirus OC43 (PCR) Not Detected (NotDetected) Coronavirus HKU1 (PCR) Not Detected (NotDetected) Coronavirus 229E (PCR) Not Detected (NotDetected) SARS-CoV-2 (PCR) Not Detected (NotDetected) Coronavirus NL63 (PCR) Not Detected (NotDetected) Human Metapneumovir PCR Not Detected (NotDetected) Influenza Type A (PCR) Not Detected (NotDetected) Influenza Type B (PCR) Not Detected (NotDetected) Urine Legionella Ag M. pneumoniae (PCR) Not Detected (NotDetected) Parainfluenza 1 (PCR) Not Detected (NotDetected) Parainfluenza 2 (PCR) Not Detected (NotDetected) Parainfluenza 3 (PCR) Not Detected (NotDetected) Parainfluenza 4 (PCR) Not Detected (NotDetected) RSV (PCR) Not Detected (NotDetected) Entero/Rhino (PCR) Not Detected (NotDetected) Blood Type Antibody Screen Crossmatch 07/18/25 07/18/25 07/18/25 Range/Units 16:36 14:33 14:17 WBC 6.74 (4.8-10.8) K/ul RBC 2.43 L (4.20-5.40) M/uL Hgb 8.7 L (12.0-16.0) g/dl Hct 25.4 L (37.0-47.0) % MCV 104.5 H (80.0-100.0) fL MCH 35.8 H (25.0-34.0) pg MCHC 34.3 (32.0-36.0) g/dL RDW Std Deviation 88.0 H (36.4-46.3) fL RDW Coeff of Rolo 23.3 H (11.5-14.5) % Plt Count 49 L (130-400) K/uL MPV 11.2 (9.4-12.4) fL Immature Gran % (Auto) 0.6 % Neut % (Auto) 83.2 % Lymph % (Auto) 10.2 % Curry % (Auto) 5.9 % Eos % (Auto) 0.0 % Baso % (Auto) 0.1 % Neut # (Auto) 5.60 (1.40-6.50) K/uL Lymph # (Auto) 0.69 L (1.20-3.40) K/uL Curry # (Auto) 0.40 (0.11-0.59) K/uL Eos # (Auto) 0.00 (0.00-0.50) K/uL Baso # (Auto) 0.01 (0.00-0.20) K/uL Immature Gran # (Auto) 0.04 (0.01-0.20) K/uL Anisocytosis Present PT 12.4 H (9.0-12.0) Seconds INR 1.2 H (0.9-1.1) APTT 31 (21-31) Seconds PTT Ratio 1.1 VBG pH 7.38 (7.36-7.41) VBG pCO2 34 L (38-50) mmHg VBG pO2 49 mmHg VBG HCO3 20 mmol/L VBG O2 Saturation 80.7 % VBG Base Excess -4.2 mEq/L Sodium 132 L (136-145) mmol/L Potassium 3.9 (3.5-5.1) mmol/L Chloride 101 (98-107) mmol/L Carbon Dioxide 23 (21-32) mmol/L Anion Gap 8 (3-11) BUN 51 H (6-23) mg/dl Creatinine 3.17 H (0.6-1.2) mg/dl Est Cr Clr Drug Dosing Not Reportable eGFR 14.90 BUN/Creatinine Ratio 16.1 (10-20) Glucose 120 H (70-99(Fasting)) mg/dl POC Glucose (70-99) mg/dl Lactate 2.8 H* 3.6 H* (0.4-2.0) mmol/L Calcium 8.6 (8.6-10.3) mg/dl Ionized Calcium (1.12-1.32) mmol/L Phosphorus (2.5-4.9) mg/dl Magnesium 1.8 (1.7-2.4) mg/dl Iron (35-150) mcg/dl TIBC (250-450) mcg/dl Transferrin (200-360) mg/dl Transferrin % Sat (15-50) % Total Bilirubin 2.7 H (0.2-1.0) mg/dl Direct Bilirubin 1.4 H (0-0.2) mg/dl AST 87 H (13-39) U/L ALT 34 (7-52) U/L Alkaline Phosphatase 321 H (34-104) U/L Troponin I High Sens 32.6 H 37.5 H (0-14) pg/ml B-Natriuretic Peptide (0-100) pg/ml Total Protein 6.2 (6.0-8.3) gm/dl Albumin 2.4 L (3.4-5.0) gm/dl Globulin 3.8 (2.5-4.0) gm/dl Albumin/Globulin Ratio 0.6 L (0.9-2) Vitamin B12 (180-914) pg/ml 25-OH Vitamin D Total (30-100) ng/ml Folate (>5.38) ng/ml Procalcitonin 0.92 H (0-0.5) ng/ml Cortisol AM Sample (6.2-22.6) mcg/dl Urine Color Urine Appearance (Clear) Urine pH (4.5-7.5) Ur Specific Orr (1.000-1.030) Urine Protein (Negative) Urine Glucose (UA) (Negative) Urine Ketones (Negative) Urine Blood (Negative) Urine Nitrite (Negative) Urine Bilirubin (Negative) Urine Urobilinogen (Negative) Ur Leukocyte Esterase (Negative) Urine WBC (Auto) (0-5) /hpf Urine RBC (Auto) (0-2) /hpf U Hyaline Cast (Auto) (0-2) /lpf U Epithel Cells (Auto) (0-2) /hpf Urine Bacteria (Auto) (None Seen) Hyaline Casts (None Presnt) /lpf Urine Comment Nasal Screen MRSA (PCR) (Negative) Adenovirus (PCR) (NotDetected) B. pertussis DNA (PCR) (NotDetected) B.parapertussis DNA PCR (NotDetected) C. pneumoniae DNA (PCR) (NotDetected) Coronavirus OC43 (PCR) (NotDetected) Coronavirus HKU1 (PCR) (NotDetected) Coronavirus 229E (PCR) (NotDetected) SARS-CoV-2 (PCR) (NotDetected) Coronavirus NL63 (PCR) (NotDetected) Human Metapneumovir PCR (NotDetected) Influenza Type A (PCR) (NotDetected) Influenza Type B (PCR) (NotDetected) Urine Legionella Ag M. pneumoniae (PCR) (NotDetected) Parainfluenza 1 (PCR) (NotDetected) Parainfluenza 2 (PCR) (NotDetected) Parainfluenza 3 (PCR) (NotDetected) Parainfluenza 4 (PCR) (NotDetected) RSV (PCR) (NotDetected) Entero/Rhino (PCR) (NotDetected) Blood Type Antibody Screen Crossmatch Diagnostic Findings Chest X-Ray 07/18/25 13:48 XR chest 1V portable CLINICAL HISTORY: Sepsis COMPARISON STUDY: 06/19/2025 FINDINGS: Stable right chest port and left PICC line. Heart size and pulmonary vasculature are normal. There is increased stranding opacity at the right lung base with partial obscuration of the right hemidiaphragm. There is blunting of the costophrenic angles. No pneumothorax. IMPRESSION: 1. Possible small bilateral pleural effusions. 2. Pneumonia versus atelectasis right lung base. ACT 112: Negative or not required by law. Electronically signed by: Lester Domínguez M.D. 07/18/2025 2:42 PM Venous Doppler Study 07/18/25 20:51 Exam(s): US VENOUS BILATERAL LOWER EXTREMITIES EXAM: US Duplex Bilateral Lower Extremities Veins CLINICAL HISTORY: Reason for exam: Rule out DVT. OTHER: TECHNIQUE: Real-time duplex ultrasound scan of the bilateral lower extremity veins integrating B-mode two-dimensional vascular structure, Doppler spectral analysis, color flow Doppler imaging and compression. COMPARISON: No relevant prior studies available. FINDINGS: Right deep veins: No DVT in the right common femoral, femoral, proximal deep femoral or popliteal veins. The veins demonstrate normal color flow, are normally compressible, with normal phasic flow and/or augmentation response. Right superficial veins: No thrombus in the visualized right great saphenous vein. Left deep veins: No DVT in the left common femoral, femoral, proximal deep femoral or popliteal veins. The veins demonstrate normal color flow, are normally compressible, with normal phasic flow and/or augmentation response. Left superficial veins: No thrombus in the visualized left great saphenous vein. Soft tissues: Edema. IMPRESSION: No evidence of acute DVT. Electronically signed by: Jose Carlos Vallejo M.D. 07/19/25 00:26 AM Chest X-Ray 07/18/25 13:48 XR chest 1V portable CLINICAL HISTORY: Sepsis COMPARISON STUDY: 06/19/2025 FINDINGS: Stable right chest port and left PICC line. Heart size and pulmonary vasculature are normal. There is increased stranding opacity at the right lung base with partial obscuration of the right hemidiaphragm. There is blunting of the costophrenic angles. No pneumothorax. IMPRESSION: 1. Possible small bilateral pleural effusions. 2. Pneumonia versus atelectasis right lung base. ACT 112: Negative or not required by law. Electronically signed by: Lester Domínguez M.D. 07/18/2025 2:42 PM Venous Doppler Study 07/18/25 20:51 Exam(s): US VENOUS BILATERAL LOWER EXTREMITIES EXAM: US Duplex Bilateral Lower Extremities Veins CLINICAL HISTORY: Reason for exam: Rule out DVT. OTHER: TECHNIQUE: Real-time duplex ultrasound scan of the bilateral lower extremity veins integrating B-mode two-dimensional vascular structure, Doppler spectral analysis, color flow Doppler imaging and compression. COMPARISON: No relevant prior studies available. FINDINGS: Right deep veins: No DVT in the right common femoral, femoral, proximal deep femoral or popliteal veins. The veins demonstrate normal color flow, are normally compressible, with normal phasic flow and/or augmentation response. Right superficial veins: No thrombus in the visualized right great saphenous vein. Left deep veins: No DVT in the left common femoral, femoral, proximal deep femoral or popliteal veins. The veins demonstrate normal color flow, are normally compressible, with normal phasic flow and/or augmentation response. Left superficial veins: No thrombus in the visualized left great saphenous vein. Soft tissues: Edema. IMPRESSION: No evidence of acute DVT. Electronically signed by: Jose Carlos Vallejo M.D. 07/19/25 00:26 AM PG Care Time/CCT Total # of Minutes Spent Total Time Spent with Patient: Total time spent is greater than 50% in coordination of care (as documented) at patient's floor/unit and/or counseling patient: I spent 120 minutes overall addressing this case: 15 min in medical data review/discussion with referring pr ovider(s) and/or preparation for the visit 10 min in direct interaction with the patient/exam 60 min in Advance Care Planning/Goals of Care discussions as detailed above in note (must be >16min) 15 min in subsequent review and synthesis of assessment and plan 20 min communicating with other providers regarding the patient's case: nursing,primary team Advanced Care Planning 49671 Advanced Care Planning Additional 30 [place] [address] IN/OBS CONSULT LVL 4,60M (25 - SIGNIFICANT, SEPARATELY IDENTIFIABLE ) Patient Type New Medical Decision Making High Complexity Diagnoses Weakness generalized R53.1 Advanced care planning/counseling discussion Z71.89 Palliative care by specialist Z51.5 Additional Codes Advanced Care Planning - 42281 Advanced Care Planning Additional 30 Min: 16026 Advanced Care Planning Additional 30 Min ([id number]) Comment [id number], [id number]
--- NOTE | 2025-07-19 12:35 | Hospitalist Progress Note ---
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 metastatic ovarian since 2021, s/p extensive surgery; PE on eliquis, lymphedema, failure to thrive, prior hx of adrenal hemorrhage, malignant pleural effusion, decubitus ulcer, failure to thrive, she was started on new chemo regime and developed severe leg edema, and was on diuretics and aldactone, in april, she presented here for cellulitis and dc with IV cefazolin, since 1-2 weeks ago, she was having shortness of breath, worsening leg edema, and came to our hospital for eval, she was found to has hypotension with BP of 76, lactic acid of 3.5, and s/ fluid with saline and IV albumin, cefepime was started to covered for PNA and cellulitis. she was persistent hypotensive and ICU was notified 1. undifferentiated shock. 2. cellulitis, diffuse leg edema 3. shortness of breath 4. hx of recurrent ovarian cancer diagnosed since 2021 5. hx of PE o eliquis 2.5m 6. GERD 7. hx of ostomy 8. decubitus ulcer 9. hx of bladder cancer s/p surgery in 2012 10. prior hx of adrenal hemorrhage overall plan continue levaphad today; until lactate normalized c/w cefepime antibiotics, f/u blood culture hold off on bumex today son and updated at bedside, requested patient to be full code CT scan today to r/o source of infection. 1. undifferentiate shock admission BP in the 70s, currently on levophad with BP of 95 (closed to baseline) either septic versus hypovolemic, keeping cardiogenic shock in differential f/u on echo IV albumin, cefepime, f/u on blood culture trend lactate f/u on echo, ruling out adrenal insufficiency 2. lower extremity cellulitis, diffuse leg edema , cefepime IV daily lactate this elevated, continue to hold bumex today duplex negative for DVT 3. shortness of breath her CXR is cleared, I will empirically coverage her with PE given her active cancer, immobility she's on eliquis at baseline. 4. hx of recurrent ovarian cancer diagnosed since 2021 she's has extensive surgery in 2021 and she was on carboplatin, liposomal doxorubicin from Sep 2024--January 2025 those were held given declining cardiac function 5. hx of ostomy she was imodium 2g BID, lomotil TID (diphenoxylate-atropine 2.5-0.025)TID she's on choleystramine 4g power BID (avoid med within 1 hours before or 4-6 hours after) 6. pain control, she's on tramadol 50mg PRN 7. lymphedema, suspect related to hold aldactone give soft BP holding her home bumex given ongoing lactic acidosis she's on bumex at home, in the past, cardiology do not believe the edema is related to heart failure 8. GERD, protonix daily 9. chemotherapy induced nausea vomiting, she's on olanzapine 2.5mg qHS 10. anal lesion, she's on topical mupirocin ointment (2) Cellulitis: Admission and Anticipated Discharge Date Admission Date: July 18, 2025 Subjective she's still has levaphad, on cefepime and BP is near her baseline of 96 I will hold bumex today in addition, continue to trend lactate level she's has an anal lesion and topical regime. and son at bedside, requested for full code recurrent ovarian cancer, for her leg swelling, suspect she need compression stocking Physical Exam Physical Exam: VITALS: Reviewed. WEIGHT/BMI reviewed. GEN: chronically ill appearing HEENT -Head: NC/AT; CV: RRR, no m/r/g. LUNGS: CTAB, no w/r/c. ABD: Soft, NT/ND, NBS, no masses or organomegaly. + for ostomy bag SKIN: pitting edema; no discharge MSK: 3+ edema. NEURO AAox3 Results & Data Results & Data Vital Signs (Past 12 Hours) Vital Signs Pulse Resp BP Pulse Ox Pulse Ox O2 Del Method O2 Del Method 07/19/25 11:19 85 19 96/61 L 96 07/19/25 11:00 78 19 83/52 L 96 07/19/25 10:03 79 20 83/55 L 97 07/19/25 09:57 72 13 89/65 L 91 07/19/25 09:27 77 16 94/57 L 97 07/19/25 09:06 74 18 90/54 L 95 07/19/25 08:27 73 17 96/59 L 97 07/19/25 08:09 83 24 100/60 97 07/19/25 08:00 97 Room Air 07/19/25 08:00 Room Air 07/19/25 07:48 91 H 16 89/70 L 87 L 07/19/25 07:45 86 23 90 07/19/25 07:33 88 13 103/62 95 07/19/25 07:18 74 15 96/59 L 98 07/19/25 05:06 25 H 07/19/25 05:02 90/49 L 07/19/25 05:00 88/42 L 07/19/25 04:54 67 31 H 07/19/25 04:51 72 19 07/19/25 04:48 83/48 L 07/19/25 04:45 72 21 07/19/25 04:39 66 12 99 07/19/25 04:30 81/48 L 07/19/25 04:21 70 19 99 07/19/25 04:15 87/44 L 07/19/25 04:00 89/51 L 07/19/25 03:57 68 19 99 07/19/25 03:45 101/58 L 07/19/25 03:45 101/58 L 07/19/25 03:45 101/58 L 07/19/25 03:42 72 15 99 07/19/25 03:33 19 87 L 07/19/25 03:30 101/61 07/19/25 03:15 95/60 L 07/19/25 03:00 94/59 L 07/19/25 02:54 77 16 99 07/19/25 02:51 74 15 99 07/19/25 02:48 79 14 98 07/19/25 02:45 91/55 L 07/19/25 02:39 74 15 99 07/19/25 02:30 90/57 L 07/19/25 02:27 72 15 99 07/19/25 02:15 90/70 L 07/19/25 02:13 74 07/19/25 02:12 72 17 100 07/19/25 02:00 72 14 100 07/19/25 02:00 94/64 L 07/19/25 01:57 72 14 100 07/19/25 01:30 74 14 98 07/19/25 01:30 89/59 L 07/19/25 01:15 95/63 L 07/19/25 01:09 84 16 100 07/19/25 01:00 101/64 07/19/25 00:57 79 24 100 07/19/25 00:45 98/62 L 07/19/25 00:42 89 24 100 Diagnostic Findings Laboratory Results - last 72 hr 07/18/25 07/18/25 07/18/25 14:17 14:33 16:36 WBC 6.74 RBC 2.43 L Hgb 8.7 L Hct 25.4 L MCV 104.5 H MCH 35.8 H MCHC 34.3 RDW Std Deviation 88.0 H RDW Coeff of Rolo 23.3 H Plt Count 49 L MPV 11.2 Immature Gran % (Auto) 0.6 Neut % (Auto) 83.2 Lymph % (Auto) 10.2 Sutton % (Auto) 5.9 Eos % (Auto) 0.0 Baso % (Auto) 0.1 Neut # (Auto) 5.60 Lymph # (Auto) 0.69 L Sutton # (Auto) 0.40 Eos # (Auto) 0.00 Baso # (Auto) 0.01 Immature Gran # (Auto) 0.04 Anisocytosis Present PT 12.4 H INR 1.2 H APTT 31 PTT Ratio 1.1 VBG pH 7.38 VBG pCO2 34 L VBG pO2 49 VBG HCO3 20 VBG O2 Saturation 80.7 VBG Base Excess -4.2 Sodium 132 L Potassium 3.9 Chloride 101 Carbon Dioxide 23 Anion Gap 8 BUN 51 H Creatinine 3.17 H Est Cr Clr Drug Dosing Not Reportable eGFR 14.90 BUN/Creatinine Ratio 16.1 Glucose 120 H POC Glucose Lactate 3.6 H* 2.8 H* Calcium 8.6 Ionized Calcium Phosphorus Magnesium 1.8 Iron TIBC Transferrin Transferrin % Sat Total Bilirubin 2.7 H Direct Bilirubin 1.4 H AST 87 H ALT 34 Alkaline Phosphatase 321 H Troponin I High Sens 37.5 H 32.6 H B-Natriuretic Peptide Total Protein 6.2 Albumin 2.4 L Globulin 3.8 Albumin/Globulin Ratio 0.6 L Vitamin B12 25-OH Vitamin D Total Folate Procalcitonin 0.92 H Cortisol AM Sample Urine Color Urine Appearance Urine pH Ur Specific [place] Urine Protein Urine Glucose (UA) Urine Ketones Urine Blood Urine Nitrite Urine Bilirubin Urine Urobilinogen Ur Leukocyte Esterase Urine WBC (Auto) Urine RBC (Auto) U Hyaline Cast (Auto) U Epithel Cells (Auto) Urine Bacteria (Auto) Hyaline Casts Urine Comment Nasal Screen MRSA (PCR) Adenovirus (PCR) B. pertussis DNA (PCR) B.parapertussis DNA PCR C. pneumoniae DNA (PCR) Coronavirus OC43 (PCR) Coronavirus HKU1 (PCR) Coronavirus 229E (PCR) SARS-CoV-2 (PCR) Coronavirus NL63 (PCR) Human Metapneumovir PCR Influenza Type A (PCR) Influenza Type B (PCR) M. pneumoniae (PCR) Parainfluenza 1 (PCR) Parainfluenza 2 (PCR) Parainfluenza 3 (PCR) Parainfluenza 4 (PCR) RSV (PCR) Entero/Rhino (PCR) Blood Type Antibody Screen Crossmatch 07/18/25 07/18/25 07/18/25 20:22 21:12 Unknown WBC RBC Hgb Hct MCV MCH MCHC RDW Std Deviation RDW Coeff of Rolo Plt Count MPV Immature Gran % (Auto) Neut % (Auto) Lymph % (Auto) Sutton % (Auto) Eos % (Auto) Baso % (Auto) Neut # (Auto) Lymph # (Auto) Sutton # (Auto) Eos # (Auto) Baso # (Auto) Immature Gran # (Auto) Anisocytosis PT INR APTT PTT Ratio VBG pH VBG pCO2 VBG pO2 VBG HCO3 VBG O2 Saturation VBG Base Excess Sodium Potassium Chloride Carbon Dioxide Anion Gap BUN Creatinine Est Cr Clr Drug Dosing eGFR BUN/Creatinine Ratio Glucose POC Glucose 97 Lactate 2.9 H* Calcium Ionized Calcium Phosphorus Magnesium Iron TIBC Transferrin Transferrin % Sat Total Bilirubin Direct Bilirubin AST ALT Alkaline Phosphatase Troponin I High Sens B-Natriuretic Peptide Total Protein Albumin Globulin Albumin/Globulin Ratio Vitamin B12 25-OH Vitamin D Total Folate Procalcitonin Cortisol AM Sample Urine Color Yellow Urine Appearance Clear Urine pH 5.5 Ur Specific [place] 1.009 Urine Protein Trace H Urine Glucose (UA) Negative Urine Ketones Negative Urine Blood Negative Urine Nitrite Negative Urine Bilirubin Negative Urine Urobilinogen Negative Ur Leukocyte Esterase Negative Urine WBC (Auto) 0-5 Urine RBC (Auto) 0-2 U Hyaline Cast (Auto) 6-10 H U Epithel Cells (Auto) 0-2 Urine Bacteria (Auto) None Seen Hyaline Casts Present A Urine Comment Nasal Screen MRSA (PCR) Negative Adenovirus (PCR) Not Detected B. pertussis DNA (PCR) Not Detected B.parapertussis DNA PCR Not Detected C. pneumoniae DNA (PCR) Not Detected Coronavirus OC43 (PCR) Not Detected Coronavirus HKU1 (PCR) Not Detected Coronavirus 229E (PCR) Not Detected SARS-CoV-2 (PCR) Not Detected Coronavirus NL63 (PCR) Not Detected Human Metapneumovir PCR Not Detected Influenza Type A (PCR) Not Detected Influenza Type B (PCR) Not Detected M. pneumoniae (PCR) Not Detected Parainfluenza 1 (PCR) Not Detected Parainfluenza 2 (PCR) Not Detected Parainfluenza 3 (PCR) Not Detected Parainfluenza 4 (PCR) Not Detected RSV (PCR) Not Detected Entero/Rhino (PCR) Not Detected Blood Type Antibody Screen Crossmatch 07/19/25 07/19/25 07/19/25 04:41 07:33 07:34 WBC 6.03 RBC 2.17 L Hgb 7.7 L Hct 22.6 L MCV 104.1 H MCH 35.5 H MCHC 34.1 RDW Std Deviation 88.7 H RDW Coeff of Rolo 23.4 H Plt Count 38 L MPV 11.2 Immature Gran % (Auto) Neut % (Auto) Lymph % (Auto) Sutton % (Auto) Eos % (Auto) Baso % (Auto) Neut # (Auto) Lymph # (Auto) Sutton # (Auto) Eos # (Auto) Baso # (Auto) Immature Gran # (Auto) Anisocytosis PT INR APTT PTT Ratio VBG pH VBG pCO2 VBG pO2 VBG HCO3 VBG O2 Saturation VBG Base Excess Sodium 133 L Potassium 3.9 Chloride 103 Carbon Dioxide 23 Anion Gap 7 BUN 49 H Creatinine 3.20 H Est Cr Clr Drug Dosing 13.5 eGFR 14.73 BUN/Creatinine Ratio 15.3 Glucose 93 POC Glucose 81 Lactate Calcium 8.3 L Ionized Calcium Phosphorus 4.1 Magnesium 1.7 Iron TIBC Transferrin Transferrin % Sat Total Bilirubin 2.4 H Direct Bilirubin AST 78 H ALT 31 Alkaline Phosphatase 270 H Troponin I High Sens B-Natriuretic Peptide Total Protein 5.6 L Albumin 2.3 L Globulin 3.3 Albumin/Globulin Ratio 0.7 L Vitamin B12 25-OH Vitamin D Total Folate > 22.30 Procalcitonin Cortisol AM Sample 24.70 H Urine Color Urine Appearance Urine pH Ur Specific [place] Urine Protein Urine Glucose (UA) Urine Ketones Urine Blood Urine Nitrite Urine Bilirubin Urine Urobilinogen Ur Leukocyte Esterase Urine WBC (Auto) Urine RBC (Auto) U Hyaline Cast (Auto) U Epithel Cells (Auto) Urine Bacteria (Auto) Hyaline Casts Urine Comment Nasal Screen MRSA (PCR) Adenovirus (PCR) B. pertussis DNA (PCR) B.parapertussis DNA PCR C. pneumoniae DNA (PCR) Coronavirus OC43 (PCR) Coronavirus HKU1 (PCR) Coronavirus 229E (PCR) SARS-CoV-2 (PCR) Coronavirus NL63 (PCR) Human Metapneumovir PCR Influenza Type A (PCR) Influenza Type B (PCR) M. pneumoniae (PCR) Parainfluenza 1 (PCR) Parainfluenza 2 (PCR) Parainfluenza 3 (PCR) Parainfluenza 4 (PCR) RSV (PCR) Entero/Rhino (PCR) Blood Type Antibody Screen Crossmatch 07/19/25 07/19/25 07/19/25 07:50 11:04 11:20 WBC RBC Hgb Hct MCV MCH MCHC RDW Std Deviation RDW Coeff of Rolo Plt Count MPV Immature Gran % (Auto) Neut % (Auto) Lymph % (Auto) [place] % (Auto) Eos % (Auto) Baso % (Auto) Neut # (Auto) Lymph # (Auto) [place] # (Auto) Eos # (Auto) Baso # (Auto) Immature Gran # (Auto) Anisocytosis PT INR APTT PTT Ratio VBG pH VBG pCO2 VBG pO2 VBG HCO3 VBG O2 Saturation VBG Base Excess Sodium Potassium Chloride Carbon Dioxide Anion Gap BUN Creatinine Est Cr Clr Drug Dosing eGFR BUN/Creatinine Ratio Glucose POC Glucose 150 H Lactate 2.9 H* Calcium Ionized Calcium 1.18 Phosphorus Magnesium Iron 172 H TIBC 192 L Transferrin 137 L Transferrin % Sat 90 H Total Bilirubin Direct Bilirubin AST ALT Alkaline Phosphatase Troponin I High Sens B-Natriuretic Peptide 148 H Total Protein Albumin Globulin Albumin/Globulin Ratio Vitamin B12 1149 H 25-OH Vitamin D Total > 120.0 H Folate Procalcitonin Cortisol AM Sample Urine Color Urine Appearance Urine pH Ur Specific [place] Urine Protein Urine Glucose (UA) Urine Ketones Urine Blood Urine Nitrite Urine Bilirubin Urine Urobilinogen Ur Leukocyte Esterase Urine WBC (Auto) Urine RBC (Auto) U Hyaline Cast (Auto) U Epithel Cells (Auto) Urine Bacteria (Auto) Hyaline Casts Urine Comment Nasal Screen MRSA (PCR) Adenovirus (PCR) B. pertussis DNA (PCR) B.parapertussis DNA PCR C. pneumoniae DNA (PCR) Coronavirus OC43 (PCR) Coronavirus HKU1 (PCR) Coronavirus 229E (PCR) SARS-CoV-2 (PCR) Coronavirus NL63 (PCR) Human Metapneumovir PCR Influenza Type A (PCR) Influenza Type B (PCR) M. pneumoniae (PCR) Parainfluenza 1 (PCR) Parainfluenza 2 (PCR) Parainfluenza 3 (PCR) Parainfluenza 4 (PCR) RSV (PCR) Entero/Rhino (PCR) Blood Type A Negative Antibody Screen NEGATIVE Crossmatch See Detail Medications Administered Current Inpatient Medications Acetaminophen (Acetaminophen 325 Mg Tab) 650 mg PO Q4H PRN PRN Reason: pain/fever Stop: 08/17/25 16:20 Apixaban (Apixaban 2.5 Mg Tab) 2.5 mg PO BID [facility] Stop: 08/17/25 20:59 Last Admin: 07/19/25 08:06 Dose: 2.5 mg Cholestyramine Resin (Cholestyramine Light 4 Gm Pkt) 4 gm PO DAILY PRN PRN Reason: Acne Stop: 08/17/25 18:16 Diphenoxylate HCl/Atropine (Diphenoxylate/Atropine 2.5/0.025mg Tab) 1 tab PO TID [facility] Stop: 08/17/25 20:59 Last Admin: 07/19/25 08:09 Dose: 1 tab Ergocalciferol (Ergocalciferol 1250 Mcg (50,000 Units) Cap) 1,250 mcg PO MoFr@0900 [facility] Stop: 08/18/25 08:59 Last Admin: 07/19/25 08:06 Dose: 1,250 mcg Norepinephrine Bitartrate (Levophed/D5w) 4 mg in 250 mls @ 11.312 mls/hr IV .Q22H7M [facility]; Protocol Stop: 08/17/25 23:44 Last Titration: 07/19/25 07:13 Dose: 0.05 mcg/kg/min, 11.3 mls/hr Thiamine HCl 200 mg/ Sodium (Chloride) 52 mls @ 210 mls/hr IV QAM [facility] Stop: 08/18/25 09:59 Last Infusion: 07/19/25 10:34 Dose: Infused Sodium Chloride (Nss) 100 mls @ 15 mls/hr IV .Q6H40M PRN PRN Reason: For Transfusion Duration Stop: 07/19/25 17:50 Ceftriaxone Sodium (Rocephin) 2,000 mg in 50 mls @ 100 mls/hr IV Q24H [facility] Stop: 07/24/25 11:59 Last Infusion: 07/19/25 12:23 Dose: Infused Azithromycin (Zithromax) 500 mg in 255 mls @ 127.5 mls/hr IV Q24H [facility] Stop: 07/21/25 12:59 Last Admin: 07/19/25 10:45 Dose: 127.5 mls/hr Loperamide HCl (Loperamide Hcl 2 Mg Cap) 4 mg PO QAM [facility] Stop: 08/18/25 08:59 Last Admin: 07/19/25 08:05 Dose: 4 mg Loperamide HCl (Loperamide Hcl 2 Mg Cap) 2 mg PO HS [facility] Stop: 08/17/25 21:19 Last Admin: 07/18/25 21:26 Dose: 2 mg Loratadine (Loratadine 10 Mg Tab) 10 mg PO DAILY [facility] Stop: 08/18/25 08:59 Last Admin: 07/19/25 08:06 Dose: 10 mg Melatonin (Melatonin 3 Mg Tab) 3 mg PO HS PRN PRN Reason: Insomnia Stop: 08/17/25 16:20 Midodrine (Midodrine Hcl 2.5 Mg Tab) 2.5 mg PO TID@0800,1200,1700 [facility] Stop: 08/17/25 21:44 Last Admin: 07/19/25 11:49 Dose: 2.5 mg Miscellaneous (Icu Protocol For Hyperglycemia) 1 each N/A ACHS [facility] Stop: 07/20/25 20:59 Last Admin: 07/19/25 11:21 Dose: 1 each Mupirocin (Mupirocin 2% Oint 22 Gm Tube) 1 appln TOP BID [facility] Stop: 08/17/25 20:59 Last Admin: 07/19/25 08:07 Dose: 1 appln Nystatin (Nystatin Powder 15gm Btl) 1 appln EXT BID [facility] Stop: 08/17/25 20:59 Last Admin: 07/19/25 08:07 Dose: 1 appln Nystatin/Triamcinolone Acetonide (Nystatin/Triamcin Cr 15 Gm Tube) 1 appln EXT BID [facility] Stop: 08/17/25 20:59 Last Admin: 07/19/25 08:08 Dose: 1 appln Ondansetron HCl (Ondansetron Inj 2 Mg/Ml 2 Ml Vial) 4 mg IV Q6H PRN PRN Reason: Nausea Stop: 08/17/25 16:20 Ondansetron HCl (Ondansetron 4 Mg Od Tab) 4 mg PO Q6H PRN PRN Reason: Nausea And Vomiting Stop: 08/17/25 18:17 Pantoprazole Sodium (Pantoprazole 40 Mg Tab) 40 mg PO DAILY [facility] Stop: 08/18/25 08:59 Last Admin: 07/19/25 08:06 Dose: 40 mg Polyethylene Glycol (Polyethylene (Miralax) 17 Gm Pack) 17 gm PO DAILY PRN PRN Reason: Constipation Stop: 08/17/25 16:20 Prednisolone Sodium Phosphate (Prednisolone Sod Phos 1% 10 Ml Btl) 1 drops OP 6XD [facility] Stop: 08/17/25 18:04 Last Admin: 07/18/25 19:19 Dose: 1 drops Psyllium Hydrophilic Mucilloid (Psyllium Husk 4gm Packet) 4 gm PO TID [facility] Stop: 08/17/25 20:59 Last Admin: 07/19/25 08:08 Dose: 4 gm Tramadol HCl (Tramadol Hcl 50 Mg Tablet) 50 mg PO Q8H PRN PRN Reason: pain Stop: 08/17/25 18:04 Vitamin B Complex (Vitamin B Complex Tab) 1 tab PO DAILY [facility] Stop: 08/18/25 08:59 Last Admin: 07/19/25 08:06 Dose: 1 tab PG Care Time/CCT Total # of Minutes Spent Total Time Spent with Patient: Total time spent is greater than 50% in coordination of care (as documented) at patient's floor/unit and/or counseling patient: Coding Level of Care Code 93259 SUB INP/OBS CARE 1/25MIN Diagnoses Septic shock A41.9; R65.21 Cellulitis L03.90 Time Spent (min) 25
--- NOTE | 2025-07-19 14:23 | Critical Care Progress Note ---
Date of Service July 19, 2025 Assessment & Plan (1) Septic shock: Plan: * Still on Levophed. Also given Midodrine. * RLL suspected infectious source (2) Pneumonia: Plan: * RLL consolidation. * Possible associated effusion. * Will obtain CT for clarification of anatomy. (3) Hypotension: (4) Moderate malnutrition: (5) Bilateral edema of lower extremity: (6) Metastatic adenocarcinoma: (7) Lymphedema: Plan: I have personally spent 45 minutes of critical care time in the direct management of this patient. This is a life/limb threatening event. This includes time spent evaluating the patient, direct bedside care, chart review, placing orders, interpreting diagnostic studies, communicating with consultants, attending providers, patient, and family members, as well as required patient management activities. This time is exclusive of all separately-billable procedures and teaching time, and separate from and in addition to any other critical care service time. Feeding/Fluids: Eating. No supplemental IV fluids at this time Analgesia: None needed at this time. Sedation: None needed at this time. Thromboprophylaxis: Chronically maintained on Eliquis. Consider holding for procedures. Head-up Position: Not applicable Ulcer Prophylaxis: Protonix Glycemic Control: None needed at this time. Spontaneous Breathing Trial: Not applicable Bowel Care: Psyllium Indwelling Catheters/ Removal: Right upper chest chemo-port Drug de-escalation: Rocephin, Zithromax Social Support: Family at bedside. Discussed patient's condition. Disposition: Continue in ICU. Admission and Anticipated Discharge Date Admission Date: July 18, 2025 Subjective The patient is a very pleasant 74-year-old female who presented to the ED at the recommendations of her oncologist for worsening lower extremity edema and shortness of breath. She reported exertional dyspnea over several days, which resolved at rest, and noted a 20-pound weight gain over the past week with worsening bilateral lower extremity edema. In the emergency department, she was found to be hypotensive with a blood pressure of 76/54, and her vital signs were remarkable for hypotension. She had an elevated lactate of 3.5, and laboratory studies showed a creatinine slightly above her new baseline at 3.17, mild troponin elevation (downtrending), and procalcitonin elevation. Chest x-ray revealed right lower lobe opacity suspicious for pneumonia vs. atelectasis and effusion. She was treated with IV fluids, albumin, and empiric IV cefepime for possible pneumonia and cellulitis. She was admitted to the ICU for persistent hypotension and shock requiring vasopressors. Her past medical history was significant for metastatic ovarian cancer (diagnosed in 2021, status post extensive surgery and chemotherapy with carboplatin and liposomal doxorubicin, held due to declining cardiac function), history of PE on Eliquis, lymphedema, CKD IIIb, pancytopenia, moderate malnutrition, failure to thrive, prior adrenal hemorrhage, malignant pleural e ffusion, decubitus ulcer, GERD, chemotherapy-induced nausea and vomiting, history of bladder cancer (status post surgery in 2012), and an ostomy. She was also noted to have a history of lower extremity cellulitis, diffuse leg edema, and was on chronic diuretic therapy (Bumex and previously aldactone, held due to hypotension). She had a history of chronic hypotension, with a baseline systolic BP of 90-95. Her last echocardiogram in April 2025 showed an LVEF of 45-50%. Note from 07/19/2025: Patient feeling better with no dyspnea at rest. Remains on Levophed. Will be given 1 unit PRBC. Switched Cefepime to Rocephin and added Azithromycin. Will check Legionella urine antigen. Echo this am unremarkable. Review of Systems Review of Systems: All systems reviewed & are unremarkable except as noted in HPI & below Physical Exam Physical Exam: General: In no acute distress, on room-air. Emaciated. Venous port at Right upper chest. Skin: Warm and dry to touch. Noobvious lesions. Eyes: Anicteric.Noconjunctival hyperemia or exudates.No periorbital edema. ENT: No oral thrush. No oropharyngeal erythema or exudates. Neck: No palpable masses or adenopathy. Respiratory: Decreased breath sounds with dullness over right base laterally, no wheezing or crackles. No use of accessory muscles and no prolonged exhalation. Cardiac: Regular rhythm, no murmurs, no gallops, no rubs; could not appreciate JV pulse elevation. GI: Soft, nontender. Ileostomy at RLQ. Extremities No clubbing,no cyanosis,3+ edema over the lower extremities. Positive Stemmer sign over left foot. Neuro: No gross motor deficits. Seems appropriate. No facial-droop. Speech is clear. Results & Data Results & Data Vital Signs (Past 12 Hours) Vital Signs Temp Pulse Resp BP Pulse Ox Pulse Ox O2 Del Method 07/19/25 14:07 36.7 C 69 18 99/59 L 97 07/19/25 13:50 36.7 C 76 20 94/61 L 95 07/19/25 13:00 72 14 89/57 L 91 Room Air 07/19/25 12:30 81 22 92/59 L 90 Room Air 07/19/25 12:03 76 24 98 Room Air 07/19/25 11:30 78 17 93/62 L 98 Room Air 07/19/25 11:21 83 19 96/61 L 97 Room Air 07/19/25 11:19 85 19 96/61 L 96 07/19/25 11:00 78 19 83/52 L 96 07/19/25 10:03 79 20 83/55 L 97 07/19/25 09:57 72 13 89/65 L 91 07/19/25 09:27 77 16 94/57 L 97 07/19/25 09:06 74 18 90/54 L 95 07/19/25 08:27 73 17 96/59 L 97 07/19/25 08:09 83 24 100/60 97 07/19/25 08:00 97 07/19/25 08:00 Room Air 07/19/25 07:48 91 H 16 89/70 L 87 L 07/19/25 07:45 86 23 90 07/19/25 07:33 88 13 103/62 95 07/19/25 07:18 74 15 96/59 L 98 07/19/25 05:06 25 H 07/19/25 05:02 90/49 L 07/19/25 05:00 88/42 L 07/19/25 04:54 67 31 H 07/19/25 04:51 72 19 07/19/25 04:48 83/48 L 07/19/25 04:45 72 21 07/19/25 04:39 66 12 99 07/19/25 04:30 81/48 L 07/19/25 04:21 70 19 99 07/19/25 04:15 87/44 L 07/19/25 04:00 89/51 L 07/19/25 03:57 68 19 99 07/19/25 03:45 101/58 L 07/19/25 03:45 101/58 L 07/19/25 03:45 101/58 L 07/19/25 03:42 72 15 99 07/19/25 03:33 19 87 L 07/19/25 03:30 101/61 07/19/25 03:15 95/60 L 07/19/25 03:00 94/59 L 07/19/25 02:54 77 16 99 07/19/25 02:51 74 15 99 07/19/25 02:48 79 14 98 07/19/25 02:45 91/55 L 07/19/25 02:39 74 15 99 07/19/25 02:30 90/57 L 07/19/25 02:27 72 15 99 O2 Del Method 07/19/25 14:07 07/19/25 13:50 07/19/25 13:00 07/19/25 12:30 07/19/25 12:03 07/19/25 11:30 07/19/25 11:21 07/19/25 11:19 07/19/25 11:00 07/19/25 10:03 07/19/25 09:57 07/19/25 09:27 07/19/25 09:06 07/19/25 08:27 07/19/25 08:09 07/19/25 08:00 Room Air 07/19/25 08:00 07/19/25 07:48 07/19/25 07:45 07/19/25 07:33 07/19/25 07:18 07/19/25 05:06 07/19/25 05:02 07/19/25 05:00 07/19/25 04:54 07/19/25 04:51 07/19/25 04:48 07/19/25 04:45 07/19/25 04:39 07/19/25 04:30 07/19/25 04:21 07/19/25 04:15 07/19/25 04:00 07/19/25 03:57 07/19/25 03:45 07/19/25 03:45 07/19/25 03:45 07/19/25 03:42 07/19/25 03:33 07/19/25 03:30 07/19/25 03:15 07/19/25 03:00 07/19/25 02:54 07/19/25 02:51 07/19/25 02:48 07/19/25 02:45 07/19/25 02:39 07/19/25 02:30 07/19/25 02:27 Laboratory Results 07/18/25 14:33 Aerobic Blood Culture - Pending Blood Anaerobic Blood Culture - Pending 07/18/25 14:17 Aerobic Blood Culture - Pending Blood Anaerobic Blood Culture - Pending 07/19/25 07/19/25 07/19/25 11:20 11:04 07:50 WBC RBC Hgb Hct MCV MCH MCHC RDW Std Deviation RDW Coeff of Rolo Plt Count MPV Immature Gran % (Auto) Neut % (Auto) Lymph % (Auto) Edmunds % (Auto) Eos % (Auto) Baso % (Auto) Neut # (Auto) Lymph # (Auto) [place] # (Auto) Eos # (Auto) Baso # (Auto) Immature Gran # (Auto) Anisocytosis PT INR APTT PTT Ratio VBG pH VBG pCO2 VBG pO2 VBG HCO3 VBG O2 Saturation VBG Base Excess Sodium Potassium Chloride Carbon Dioxide Anion Gap BUN Creatinine Est Cr Clr Drug Dosing eGFR BUN/Creatinine Ratio Glucose POC Glucose 150 H Lactate 2.9 H* Calcium Ionized Calcium 1.18 Phosphorus Magnesium Iron 172 H TIBC 192 L Transferrin 137 L Transferrin % Sat 90 H Total Bilirubin Direct Bilirubin AST ALT Alkaline Phosphatase Troponin I High Sens B-Natriuretic Peptide 148 H Total Protein Albumin Globulin Albumin/Globulin Ratio Vitamin B12 1149 H 25-OH Vitamin D Total > 120.0 H Folate Procalcitonin Cortisol AM Sample Urine Color Urine Appearance Urine pH Ur Specific [place] Urine Protein Urine Glucose (UA) Urine Ketones Urine Blood Urine Nitrite Urine Bilirubin Urine Urobilinogen Ur Leukocyte Esterase Urine WBC (Auto) Urine RBC (Auto) U Hyaline Cast (Auto) U Epithel Cells (Auto) Urine Bacteria (Auto) Hyaline Casts Urine Comment Nasal Screen MRSA (PCR) Adenovirus (PCR) B. pertussis DNA (PCR) B.parapertussis DNA PCR C. pneumoniae DNA (PCR) Coronavirus OC43 (PCR) Coronavirus HKU1 (PCR) Coronavirus 229E (PCR) SARS-CoV-2 (PCR) Coronavirus NL63 (PCR) Human Metapneumovir PCR Influenza Type A (PCR) Influenza Type B (PCR) M. pneumoniae (PCR) Parainfluenza 1 (PCR) Parainfluenza 2 (PCR) Parainfluenza 3 (PCR) Parainfluenza 4 (PCR) RSV (PCR) Entero/Rhino (PCR) Blood Type A Negative Antibody Screen NEGATIVE Crossmatch See Detail 07/19/25 07/19/25 07/19/25 07:34 07:33 04:41 WBC 6.03 RBC 2.17 L Hgb 7.7 L Hct 22.6 L MCV 104.1 H MCH 35.5 H MCHC 34.1 RDW Std Deviation 88.7 H RDW Coeff of Rolo 23.4 H Plt Count 38 L MPV 11.2 Immature Gran % (Auto) Neut % (Auto) Lymph % (Auto) Edmunds % (Auto) Eos % (Auto) Baso % (Auto) Neut # (Auto) Lymph # (Auto) [place] # (Auto) Eos # (Auto) Baso # (Auto) Immature Gran # (Auto) Anisocytosis PT INR APTT PTT Ratio VBG pH VBG pCO2 VBG pO2 VBG HCO3 VBG O2 Saturation VBG Base Excess Sodium 133 L Potassium 3.9 Chloride 103 Carbon Dioxide 23 Anion Gap 7 BUN 49 H Creatinine 3.20 H Est Cr Clr Drug Dosing 13.5 eGFR 14.73 BUN/Creatinine Ratio 15.3 Glucose 93 POC Glucose 81 Lactate Calcium 8.3 L Ionized Calcium Phosphorus 4.1 Magnesium 1.7 Iron TIBC Transferrin Transferrin % Sat Total Bilirubin 2.4 H Direct Bilirubin AST 78 H ALT 31 Alkaline Phosphatase 270 H Troponin I High Sens B-Natriuretic Peptide Total Protein 5.6 L Albumin 2.3 L Globulin 3.3 Albumin/Globulin Ratio 0.7 L Vitamin B12 25-OH Vitamin D Total Folate > 22.30 Procalcitonin Cortisol AM Sample 24.70 H Urine Color Urine Appearance Urine pH Ur Specific [place] Urine Protein Urine Glucose (UA) Urine Ketones Urine Blood Urine Nitrite Urine Bilirubin Urine Urobilinogen Ur Leukocyte Esterase Urine WBC (Auto) Urine RBC (Auto) U Hyaline Cast (Auto) U Epithel Cells (Auto) Urine Bacteria (Auto) Hyaline Casts Urine Comment Nasal Screen MRSA (PCR) Adenovirus (PCR) B. pertussis DNA (PCR) B.parapertussis DNA PCR C. pneumoniae DNA (PCR) Coronavirus OC43 (PCR) Coronavirus HKU1 (PCR) Coronavirus 229E (PCR) SARS-CoV-2 (PCR) Coronavirus NL63 (PCR) Human Metapneumovir PCR Influenza Type A (PCR) Influenza Type B (PCR) M. pneumoniae (PCR) Parainfluenza 1 (PCR) Parainfluenza 2 (PCR) Parainfluenza 3 (PCR) Parainfluenza 4 (PCR) RSV (PCR) Entero/Rhino (PCR) Blood Type Antibody Screen Crossmatch 07/18/25 07/18/25 07/18/25 Unknown 21:12 20:22 WBC RBC Hgb Hct MCV MCH MCHC RDW Std Deviation RDW Coeff of Rolo Plt Count MPV Immature Gran % (Auto) Neut % (Auto) Lymph % (Auto) Ed[place]ds % (Auto) Eos % (Auto) Baso % (Auto) Neut # (Auto) Lymph # (Auto) [place] # (Auto) Eos # (Auto) Baso # (Auto) Immature Gran # (Auto) Anisocytosis PT INR APTT PTT Ratio VBG pH VBG pCO2 VBG pO2 VBG HCO3 VBG O2 Saturation VBG Base Excess Sodium Potassium Chloride Carbon Dioxide Anion Gap BUN Creatinine Est Cr Clr Drug Dosing eGFR BUN/Creatinine Ratio Glucose POC Glucose 97 Lactate 2.9 H* Calcium Ionized Calcium Phosphorus Magnesium Iron TIBC Transferrin Transferrin % Sat Total Bilirubin Direct Bilirubin AST ALT Alkaline Phosphatase Troponin I High Sens B-Natriuretic Peptide Total Protein Albumin Globulin Albumin/Globulin Ratio Vitamin B12 25-OH Vitamin D Total Folate Procalcitonin Cortisol AM Sample Urine Color Yellow Urine Appearance Clear Urine pH 5.5 Ur Specific [place] 1.009 Urine Protein Trace H Urine Glucose (UA) Negative Urine Ketones Negative Urine Blood Negative Urine Nitrite Negative Urine Bilirubin Negative Urine Urobilinogen Negative Ur Leukocyte Esterase Negative Urine WBC (Auto) 0-5 Urine RBC (Auto) 0-2 U Hyaline Cast (Auto) 6-10 H U Epithel Cells (Auto) 0-2 Urine Bacteria (Auto) None Seen Hyaline Casts Present A Urine Comment Nasal Screen MRSA (PCR) Negative Adenovirus (PCR) Not Detected B. pertussis DNA (PCR) Not Detected B.parapertussis DNA PCR Not Detected C. pneumoniae DNA (PCR) Not Detected Coronavirus OC43 (PCR) Not Detected Coronavirus HKU1 (PCR) Not Detected Coronavirus 229E (PCR) Not Detected SARS-CoV-2 (PCR) Not Detected Coronavirus NL63 (PCR) Not Detected Human Metapneumovir PCR Not Detected Influenza Type A (PCR) Not Detected Influenza Type B (PCR) Not Detected M. pneumoniae (PCR) Not Detected Parainfluenza 1 (PCR) Not Detected Parainfluenza 2 (PCR) Not Detected Parainfluenza 3 (PCR) Not Detected Parainfluenza 4 (PCR) Not Detected RSV (PCR) Not Detected Entero/Rhino (PCR) Not Detected Blood Type Antibody Screen Crossmatch 07/18/25 07/18/25 07/18/25 16:36 14:33 14:17 WBC 6.74 RBC 2.43 L Hgb 8.7 L Hct 25.4 L MCV 104.5 H MCH 35.8 H MCHC 34.3 RDW Std Deviation 88.0 H RDW Coeff of Rolo 23.3 H Plt Count 49 L MPV 11.2 Immature Gran % (Auto) 0.6 Neut % (Auto) 83.2 Lymph % (Auto) 10.2 Edmunds % (Auto) 5.9 Eos % (Auto) 0.0 Baso % (Auto) 0.1 Neut # (Auto) 5.60 Lymph # (Auto) 0.69 L Edmunds # (Auto) 0.40 Eos # (Auto) 0.00 Baso # (Auto) 0.01 Immature Gran # (Auto) 0.04 Anisocytosis Present PT 12.4 H INR 1.2 H APTT 31 PTT Ratio 1.1 VBG pH 7.38 VBG pCO2 34 L VBG pO2 49 VBG HCO3 20 VBG O2 Saturation 80.7 VBG Base Excess -4.2 Sodium 132 L Potassium 3.9 Chloride 101 Carbon Dioxide 23 Anion Gap 8 BUN 51 H Creatinine 3.17 H Est Cr Clr Drug Dosing Not Reportable eGFR 14.90 BUN/Creatinine Ratio 16.1 Glucose 120 H POC Glucose Lactate 2.8 H* 3.6 H* Calcium 8.6 Ionized Calcium Phosphorus Magnesium 1.8 Iron TIBC Transferrin Transferrin % Sat Total Bilirubin 2.7 H Direct Bilirubin 1.4 H AST 87 H ALT 34 Alkaline Phosphatase 321 H Troponin I High Sens 32.6 H 37.5 H B-Natriuretic Peptide Total Protein 6.2 Albumin 2.4 L Globulin 3.8 Albumin/Globulin Ratio 0.6 L Vitamin B12 25-OH Vitamin D Total Folate Procalcitonin 0.92 H Cortisol AM Sample Urine Color Urine Appearance Urine pH Ur Specific [place] Urine Protein Urine Glucose (UA) Urine Ketones Urine Blood Urine Nitrite Urine Bilirubin Urine Urobilinogen Ur Leukocyte Esterase Urine WBC (Auto) Urine RBC (Auto) U Hyaline Cast (Auto) U Epithel Cells (Auto) Urine Bacteria (Auto) Hyaline Casts Urine Comment Nasal Screen MRSA (PCR) Adenovirus (PCR) B. pertussis DNA (PCR) B.parapertussis DNA PCR C. pneumoniae DNA (PCR) Coronavirus OC43 (PCR) Coronavirus HKU1 (PCR) Coronavirus 229E (PCR) SARS-CoV-2 (PCR) Coronavirus NL63 (PCR) Human Metapneumovir PCR Influenza Type A (PCR) Influenza Type B (PCR) M. pneumoniae (PCR) Parainfluenza 1 (PCR) Parainfluenza 2 (PCR) Parainfluenza 3 (PCR) Parainfluenza 4 (PCR) RSV (PCR) Entero/Rhino (PCR) Blood Type Antibody Screen Crossmatch Diagnostic Findings Chest X-Ray 07/18/25 13:48 XR chest 1V portable CLINICAL HISTORY: Sepsis COMPARISON STUDY: 06/19/2025 FINDINGS: Stable right chest port and left PICC line. Heart size and pulmonary vasculature are normal. There is increased stranding opacity at the right lung base with partial obscuration of the right hemidiaphragm. There is blunting of the costophrenic angles. No pneumothorax. IMPRESSION: 1. Possible small bilateral pleural effusions. 2. Pneumonia versus atelectasis right lung base. ACT 112: Negative or not required by law. Electronically signed by: Lester Domínguez M.D. 07/18/2025 2:42 PM Venous Doppler Study 07/18/25 20:51 Exam(s): US VENOUS BILATERAL LOWER EXTREMITIES EXAM: US Duplex Bilateral Lower Extremities Veins CLINICAL HISTORY: Reason for exam: Rule out DVT. OTHER: TECHNIQUE: Real-time duplex ultrasound scan of the bilateral lower extremity veins integrating B-mode two-dimensional vascular structure, Doppler spectral analysis, color flow Doppler imaging and compression. COMPARISON: No relevant prior studies available. FINDINGS: Right deep veins: No DVT in the right common femoral, femoral, proximal deep femoral or popliteal veins. The veins demonstrate normal color flow, are normally compressible, with normal phasic flow and/or augmentation response. Right superficial veins: No thrombus in the visualized right great saphenous vein. Left deep veins: No DVT in the left common femoral, femoral, proximal deep femoral or popliteal veins. The veins demonstrate normal color flow, are normally compressible, with normal phasic flow and/or augmentation response. Left superficial veins: No thrombus in the visualized left great saphenous vein. Soft tissues: Edema. IMPRESSION: No evidence of acute DVT. Electronically signed by: Jose Carlos Vallejo M.D. 07/19/25 00:26 AM Medications Administered Home Medications Medication Instructions Recorded Confirmed Last Taken nystatin 100,000 unit/gram topical 1 applic topical BID 08/07/24 07/18/25 07/18/25 08:00 powder (Klayesta) ondansetron HCl 4 mg tablet 4 mg PO Q6H PRN nausea and 09/13/24 07/18/25 Unknown vomiting #30 tabs tramadol 50 mg tablet 50 mg PO Q8H PRN pain #30 tabs 09/13/24 07/18/25 Unknown nystatin-triamcinolone 100,000 1 applic topical BID #60 grams 10/15/24 07/18/25 07/18/25 08:00 unit/g-0.1 % topical cream cholestyramine 4 gram oral powder 4 g PO DAILY PRN Acne 03/05/25 07/18/25 Unknown mirvetuximab soravtansine-gynx 5 0 mg IV Q21D 03/27/25 07/18/25 05/08/25 mg/mL intravenous solution (Elahere) loratadine 10 mg tablet (Claritin) 10 mg PO DAILY 04/11/25 07/18/25 07/18/25 mupirocin 2 % topical ointment 1 applic topical BID #15 grams 04/11/25 07/18/25 07/18/25 08:00 prednisolone sodium phosphate 1 % 1 drp ophthalmic (eye) 6XD 04/11/25 07/18/25 07/18/25 eye drops 2 DOSES TODAY diphenoxylate-atropine 2.5 1 tab PO TID #270 tabs 04/16/25 07/18/25 07/18/25 08:00 mg-0.025 mg tablet (Lomotil) Levomefolate/ Vit B12/ Vit B6/ Vit 1 tab PO DAILY 05/10/25 07/18/25 07/18/25 B2 6//50/5 apixaban 2.5 mg tablet (Eliquis) 2.5 mg PO BID 05/10/25 07/18/25 07/18/25 08:00 bumetanide 1 mg tablet 1 mg PO DAILY 05/10/25 07/18/25 07/18/25 olanzapine 2.5 mg tablet 2.5 mg PO DIRECTED 05/10/25 07/18/25 05/09/25 bumetanide 0.5 mg tablet 0.5 mg PO DAILY #30 tabs 05/21/25 07/18/25 07/18/25 ergocalciferol (vitamin D2) 1,250 1,250 mcg PO 2XWK #20 caps 05/22/25 07/18/25 07/15/25 mcg (50,000 unit) capsule (Vitamin D2) loperamide 2 mg tablet 4 mg (2 x 2 mg) PO QAM #60 tabs 06/20/25 07/18/25 07/18/25 pantoprazole 40 mg tablet,delayed 40 mg PO DAILY #90 tabs 06/25/25 07/18/25 07/18/25 release spironolactone 25 mg tablet 25 mg PO DAILY #90 tabs 07/02/25 07/18/25 07/18/25 psyllium husk 0.4 gram capsule 0.4 g PO TID 07/18/25 07/18/25 07/18/25 (Metamucil) Active Medications Generic Name Dose Route Start Last Admin Trade Name Freq PRN Reason Stop Dose Admin Apixaban 2.5 mg 07/18/25 21:00 07/19/25 08:06 Apixaban 2.5 Mg Tab PO 08/17/25 20:59 2.5 mg BID LUCY Administration Diphenoxylate HCl/Atropine 1 tab 07/18/25 21:00 07/19/25 13:37 Diphenoxylate/Atropine 2.5/0.025mg Tab PO 08/17/25 20:59 1 tab TID LUCY Administration Ergocalciferol 1,250 mcg 07/19/25 09:00 07/19/25 08:06 Ergocalciferol 1250 Mcg (50,000 Units) Cap PO 08/18/25 08:59 1,250 mcg MoFr@0900 LUCY Administration Norepinephrine Bitartrate 4 mg in 250 mls @ 11.312 mls/hr 07/18/25 23:45 07/19/25 07:13 Levophed/D5w IV 08/17/25 23:44 0.05 mcg/kg/min .Q22H7M LUCY 11.3 mls/hr Titration Protocol 0.05 MCG/KG/MIN Thiamine HCl 200 mg/ Sodium 52 mls @ 210 mls/hr 07/19/25 10:00 07/19/25 10:34 Chloride IV 08/18/25 09:59 Infused QAM LUCY Infusion Ceftriaxone Sodium 2,000 mg in 50 mls @ 100 mls/hr 07/19/25 12:00 07/19/25 12:23 Rocephin IV 07/24/25 11:59 Infused Q24H LUCY Infusion Azithromycin 500 mg in 255 mls @ 127.5 mls/hr 07/19/25 11:00 07/19/25 12:37 Zithromax IV 07/21/25 12:59 Infused Q24H LUCY Infusion Loperamide HCl 4 mg 07/19/25 09:00 07/19/25 08:05 Loperamide Hcl 2 Mg Cap PO 08/18/25 08:59 4 mg QAM LUCY Administration Loperamide HCl 2 mg 07/18/25 21:20 07/18/25 21:26 Loperamide Hcl 2 Mg Cap PO 08/17/25 21:19 2 mg HS LUCY Administration Loratadine 10 mg 07/19/25 09:00 07/19/25 08:06 Loratadine 10 Mg Tab PO 08/18/25 08:59 10 mg DAILY LUCY Administration Midodrine 2.5 mg 07/18/25 21:45 07/19/25 11:49 Midodrine Hcl 2.5 Mg Tab PO 08/17/25 21:44 2.5 mg TID@0800,1200,1700 LUCY Administration Miscellaneous 1 each 07/18/25 21:00 07/19/25 11:21 Icu Protocol For Hyperglycemia N/A 07/20/25 20:59 1 each ACHS LUCY Administration Mupirocin 1 appln 07/18/25 21:00 07/19/25 08:07 Mupirocin 2% Oint 22 Gm Tube TOP 08/17/25 20:59 1 appln BID LUCY Administration Nystatin 1 appln 07/18/25 21:00 07/19/25 08:07 Nystatin Powder 15gm Btl EXT 08/17/25 20:59 1 appln BID LUCY Administration Nystatin/Triamcinolone Acetonide 1 appln 07/18/25 21:00 07/19/25 08:08 Nystatin/Triamcin Cr 15 Gm Tube EXT 08/17/25 20:59 1 appln BID LUCY Administration Pantoprazole Sodium 40 mg 07/19/25 09:00 07/19/25 08:06 Pantoprazole 40 Mg Tab PO 08/18/25 08:59 40 mg DAILY LUCY Administration Prednisolone Sodium Phosphate 1 drops 07/18/25 19:00 07/18/25 19:19 Prednisolone Sod Phos 1% 10 Ml Btl OP 08/17/25 18:04 1 drops 6XD LUCY Administration Psyllium Hydrophilic Mucilloid 4 gm 07/18/25 21:00 07/19/25 13:37 Psyllium Husk 4gm Packet PO 08/17/25 20:59 4 gm TID LUCY Administration Vitamin B Complex 1 tab 07/19/25 09:00 07/19/25 08:06 Vitamin B Complex Tab PO 08/18/25 08:59 1 tab DAILY LUCY Administration Coding Level of Care Code 71005 CRITICAL CARE 1ST 30-74M Diagnoses Septic shock A41.9; R65.21 Pneumonia of right lower lobe due to infectious organism J18.9 Laterality: right Lung location: lower lobe of lung Pneumonia type: due to unspecified organism Other specified hypotension I95.89 Hypotension type: other hypotension type Moderate malnutrition E44.0 Bilateral edema of lower extremity R60.0 Metastatic adenocarcinoma C79.9 Lymphedema I89.0 Time Spent (min) 45 (2) Pneumonia Laterality: right Lung location: lower lobe of lung Pneumonia type: due to unspecified organism Qualified Code(s): J18.9 - Pneumonia, unspecified organism (3) Hypotension Hypotension type: other hypotension type Qualified Code(s): I95.89 - Other hypotension
[2025-07-19] MEDS: ALBUMIN 25% 25 GM/100 ML VIAL IV ONE (16:34)
[2025-07-19] MEDS: metroNIDAZOLE 500 MG/100 ML BAG IV SCH (18:19)
[2025-07-19] MEDS ORDERED: LOPERAMIDE HCL 2 MG CAP PO SCH (21:00)
--- NOTE | 2025-07-19 23:30 | CT Scan Report ---
Exam(s): CT CHEST Without Contrast EXAM: CT Chest Without Intravenous Contrast CLINICAL HISTORY: Reason for exam: sepsis. TECHNIQUE: Axial computed tomography images of the chest without intravenous contrast. CTDI is 7.79 mGy and DLP is 524.32 mGy-cm. Automated exposure control was utilized for the study. A dose lowering technique was utilized adhering to the principles of ALARA. COMPARISON: 05/11/2025 FINDINGS: Lungs: Consolidative opacities in the right lower lobe concerning for pneumonia. Numerous bilateral pulmonary nodules which are new from prior and are concerning for pulmonary metastatic disease. Largest is in the right middle lobe measuring 12 mm (series 4, image 163). Mild septal thickening in keeping with mild pulmonary edema. Pleural space: Small left and trace right pleural effusions. No pneumothorax. Heart: Coronary artery atherosclerosis. No cardiomegaly or pericardial effusion. Bones/joints: Osteopenia. No acute fracture or dislocation. No suspicious bone lesions. Benign intraosseous hemangioma at T11. Soft tissues: Unremarkable. Vasculature: No aortic aneurysm. Lymph nodes: Bilateral supraclavicular lymphadenopathy is suggested, calcified on the left side, suboptimally characterize without contrast. Upper abdomen: Reported separately. Tubes, lines and devices: Right IJ approach port catheter extends to the cavoatrial junction. Left PICC extends to the SVC. IMPRESSION: 1. Consolidative opacities in the right lower lobe concerning for pneumonia. 2. Numerous bilateral pulmonary nodules which are new from prior and are concerning for pulmonary metastatic disease. Largest is in the right middle lobe measuring 12 mm (series 4, image 163). 3. Mild septal thickening in keeping with mild pulmonary edema. 4. Bilateral supraclavicular lymphadenopathy is suggested, calcified on the left side, suboptimally characterize without contrast. 5. Small left and trace right pleural effusions. Electronically signed by: Jose Carlos Vallejo M.D. 07/19/25 23:29 PM
--- NOTE | 2025-07-19 23:34 | CT Scan Report ---
Exam(s): CT ABDOMEN + PELVIS Without Contrast EXAM: CT Abdomen and Pelvis Without Intravenous Contrast CLINICAL HISTORY: Reason for exam: sepsis, hx of bowel infection, ovarian cancer. TECHNIQUE: Axial computed tomography images of the abdomen and pelvis without intravenous contrast. CTDI is 7.79 mGy and DLP is 524.32 mGy-cm. Automated exposure control was utilized for the study. A dose lowering technique was utilized adhering to the principles of ALARA. COMPARISON: 05/11/2025 FINDINGS: Noncontrast evaluation of the abdomen and pelvis is limited in the assessment of malignancy progression. There are multiple new hypodense hepatic masses concerning for progression of hepatic metastatic disease. Large complex infrahepatic mass measuring 11 x 12 x 19 cm is similar in size to prior exam. Right adrenal gland is not visualized. There is cholelithiasis without evidence of acute cholecystitis. Spleen and pancreas are unremarkable. Left adrenal gland is poorly visualized. There is no hydronephrosis. Hyperdense left renal cysts suggests hemorrhagic cysts; no follow-up is indicated. There is atherosclerosis of the aorta without aneurysm. Calcified mesenteric and retroperitoneal lymphadenopathy is similar to prior. Ascites is suggested. There is no free air. There is generalized anasarca. There are postoperative changes of the bowel with oversewn Markus's pouch and left-sided ostomy. There is no bowel obstruction. Appendix is not identified. Urinary bladder is unremarkable. Uterus is absent. There are no suspicious bone lesions or acute osseous findings. IMPRESSION: 1. Limited noncontrast evaluation. 2. Progression of hepatic metastatic disease. Stable large complex subhepatic mass. Calcified adenopathy, similar to prior. 3. Ascites. Anasarca. Electronically signed by: Jose Carlos Vallejo M.D. 07/19/25 23:33 PM
[2025-07-20] MEDS: ACETAMINOPHEN 325 MG TAB PO PRN (04:29)
[2025-07-20 05:05] LABS: Alanine Aminotransferase 30.0 U/L (7-52); Albumin Globulin Ratio 0.9 (0.9-2); Albumin Level 2.7 gm/dl (3.4-5.0); Alkaline Phosphatase 245.0 U/L (34-104); Anion Gap 9.0 (3-11); Bilirubin,Total 2.8 mg/dl (0.2-1.0); Blood Urea Nitrogen 48.0 mg/dl (6-23); Calcium 8.3 mg/dl (8.6-10.3); Carbon Dioxide 21.0 mmol/L (21-32); Chloride 103.0 mmol/L (98-107); Creatinine Clr Calc Pharmacy 15.5 ml/min; Globulin 3.0 gm/dl (2.5-4.0); Glucose 81.0 mg/dl (70-99(Fasting)); Magnesium 2.1 mg/dl (1.7-2.4); Potassium 3.8 mmol/L (3.5-5.1); Sodium 133.0 mmol/L (136-145); Total Protein 5.7 gm/dl (6.0-8.3)
[2025-07-20 05:24] LABS: Hematocrit (blood only) 23.5 % (37.0-47.0); Hemoglobin 8.4 g/dl (12.0-16.0); Mean Corpuscular Hemoglobin 35.3 pg (25.0-34.0); Mean Corpuscular Volume 98.7 fL (80.0-100.0); Platelet Count 33 K/uL (130-400); RDW Standard Deviation 86.2 fL (36.4-46.3); Red Blood Count 2.38 M/uL (4.20-5.40); White Blood Count 6.10 K/ul (4.8-10.8)
[2025-07-20] MEDS: POTASSIUM CHLORIDE CRTAB 20 MEQ TABCR PO ONE (07:19)
--- NOTE | 2025-07-20 09:24 | XRay Report ---
XR chest 1V portable CLINICAL HISTORY: RLL pneumonia COMPARISON STUDY: 07/18/2025 and 07/19/2025 FINDINGS: Stable right chest port and left PICC line. Heart size and pulmonary vasculature are normal . There is stable small bilateral pleural effusions with adjacent lung base consolidation. Stable ret icular nodular opacity at the right lower lung. Scattered pulmonary nodules are better seen on the pr ior CT. No pneumothorax. IMPRESSION: Stable exam. ACT 112: Negative or not required by law. Electronically signed by: Lester Domínguez M.D. 07/20/2025 9:23 AM
[2025-07-20] MEDS: MIDODRINE HCL 2.5 MG TAB PO ONE (10:12)
[2025-07-20] MEDS: MIDODRINE HCL 2.5 MG TAB PO SCH (11:59)
--- NOTE | 2025-07-20 14:03 | Hospitalist Progress Note ---
Date of Service July 20, 2025 Assessment & Plan (1) Septic shock: Plan: She remains on intravenous Levophed and midodrine. Continue broad-spectrum antibiotic therapy with treatment of right lower lobe pneumonia. (2) Pneumonia: Plan: Right lower lobe, present on admission. She is currently on intravenous azithromycin, Rocephin, Flagyl. Serial chest x-ray. (3) Thrombocytopenia: Plan: Platelet count has dropped to 33,000, probably from recent chemotherapy. Eliquis discontinued for the time being due to risk of bleeding. (4) Ovarian cancer: Plan: With metastatic disease. Currently undergoing chemotherapy. Supportive care Plan To be determined by clinical course Admission and Anticipated Discharge Date Admission Date: July 18, 2025 Subjective Alert. Cachectic appearing. is at the bedside. Critical care entry noted. Chest CT scan ordered and pending. Eliquis discontinued due to thrombocytopenia which continues to worsen. Platelet count is now 33,000, July 20. She remains on pressor support and multiple intravenous antibiotics. Review of Systems 2 Review of Systems: Constitutionalno fever or chills. Cachexia ENTno blurred vision, no double vision, no epistaxis, no sore throat Respiratoryoccasional cough. No hemoptysis. Cardiacno palpitations, no chest pain, no syncope Gilmer nausea, vomiting, diarrhea, melena, hematochezia GUno urinary retention, no urinary incontinence, no dysuria, no hematuria Musculoskeletalno joint pain, no muscle tenderness Skinno bruising, no rashes, no pruritus Neurono isolated weakness, no paresthesia, no weakness Psychno depression, no anxiety Physical Exam 2 Physical Exam: General-alert and oriented x3, no fever, no chills HEENT-head atraumatic and normocephalic, pupils equal and reactive to light, extraocular muscles intact Neck-no lymphadenopathy or thyromegaly, trachea midline Chest-dullness at the right base. Scattered rhonchi. No rales, no wheezing i Cardiac-regular rate and rhythm, normal S1 and S2 Abdomen-normal bowel sounds, no hepatosplenomegaly Extremities-no cyanosis, clubbing, or edema Neuro-cranial nerves II through XII intact, motor and sensory function within normal limits, strength symmetrical, no focal deficits Psych-normal affect, normal mood Results & Data Results & Data Vital Signs (Past 12 Hours) Vital Signs Temp Pulse Resp BP Pulse Ox O2 Del Method 07/20/25 13:18 68 14 88/65 L 98 Room Air 07/20/25 12:00 70 14 95/58 L 98 Room Air 07/20/25 12:00 36.5 C 07/20/25 11:06 62 15 88/59 L 97 Room Air 07/20/25 10:00 64 15 91/57 L 98 Room Air 07/20/25 09:00 69 16 93/57 L 98 Room Air 07/20/25 08:03 80 13 98/64 L 97 Room Air 07/20/25 07:00 36.5 C 07/20/25 07:00 85 16 98/56 L 96 Room Air 07/20/25 06:09 72 16 97 07/20/25 06:00 97/59 L 07/20/25 06:00 97/59 L 07/20/25 06:00 97/59 L 07/20/25 05:57 77 24 97 07/20/25 05:15 65 13 95 07/20/25 05:00 93/59 L 07/20/25 04:39 75 17 100 07/20/25 04:00 91/65 L 07/20/25 04:00 91/65 L 07/20/25 04:00 91/65 L 07/20/25 04:00 91/65 L 07/20/25 04:00 91/65 L 07/20/25 04:00 83 21 07/20/25 03:21 74 14 97 07/20/25 03:00 91/56 L 07/20/25 02:39 73 16 96 07/20/25 02:03 71 16 96 07/20/25 02:00 93/58 L Laboratory Results 07/20/25 04:21 07/20/25 04:22 PG Care Time/CCT Total # of Minutes Spent Total Time Spent with Patient: Total time spent is greater than 50% in coordination of care (as documented) at patient's floor/unit and/or counseling patient: Coding Level of Care Code 57431 SUB INP/OBS CARE 3/50MIN Diagnoses Septic shock A41.9; R65.21 Pneumonia J18.9 Thrombocytopenia D69.6 Ovarian cancer C56.9
--- NOTE | 2025-07-20 14:22 | Critical Care Progress Note ---
Date of Service July 20, 2025 Assessment & Plan (1) Septic shock: Plan: * Still on Levophed. Also given Midodrine. * RLL suspected infectious source (2) Pneumonia: Plan: * RLL consolidation. * Unclear contribution from metastatic disease * No suggestion of post-obstructive pneumonia * Continue treatment for community-acquire pneumonia. (3) Hypotension: (4) Moderate malnutrition: (5) Bilateral edema of lower extremity: Plan: * At least partly lymphedema, especially on the left, probably related to calcified lymph nodes. * Suspicion of IVC interruption by abdominal mass. The patient will be seeking a surgical consult at [facility] for potential benefit from excision of the mass to relieve compression. I reviewed reports of CT of abdomen for studies going back to November 2024, and there was no mention of such an issue. However, I couldn't establish a continuity of the IVC on any of the studies. (6) Metastatic adenocarcinoma: (7) Lymphedema: Plan: I have personally spent 40 minutes of critical care time in the direct management of this patient. This is a life/limb threatening event. This includes time spent evaluating the patient, direct bedside care, chart review, placing orders, interpreting diagnostic studies, communicating with consultants, attending providers, patient, and family members, as well as required patient management activities. This time is exclusive of all separately-billable procedures and teaching time, and separate from and in addition to any other critical care service time. Housekeeping items: Feeding/Fluids: Eating. No supplemental IV fluids at this time Analgesia: None needed at this time. Sedation: None needed at this time. Thromboprophylaxis: Eliquis held due to thrombocytopenia. Will use SCDs. Head-up Position: Not applicable Ulcer Prophylaxis: Protonix Glycemic Control: None needed at this time. Spontaneous Breathing Trial: Not applicable Bowel Care: Psyllium Indwelling Catheters/ Removal: Right upper chest chemo-port Drug de-escalation: Rocephin, Zithromax, Flagyl Social Support: Family at bedside. Discussed patient's condition. Disposition: Continue in ICU at least until off of Levophed. Admission and Anticipated Discharge Date Admission Date: July 18, 2025 Subjective The patient is a very pleasant 74-year-old female who presented to the ED at the recommendations of her oncologist for worsening lower extremity edema and shortness of breath. She reported exertional dyspnea over several days, which resolved at rest, and noted a 20-pound weight gain over the past week with worsening bilateral lower extremity edema. In the emergency department, she was found to be hypotensive with a blood pressure of 76/54, and her vital signs were remarkable for hypotension. She had an elevated lactate of 3.5, and laboratory studies showed a creatinine slightly above her new baseline at 3.17, mild troponin elevation (downtrending), and procalcitonin elevation. Chest x-ray revealed right lower lobe opacity suspicious for pneumonia vs. atelectasis and effusion. She was treated with IV fluids, albumin, and empiric IV cefepime for possible pneumonia and cellulitis. She was admitted to the ICU for persistent hypotension and shock requiring vasopressors. Her past medical history was significant for metastatic ovarian cancer (diagnosed in 2021, status post extensive surgery and chemotherapy with carboplatin and liposomal doxorubicin, held due to declining cardiac function), history of PE on Eliquis, lymphedema, CKD IIIb, pancytopenia, moderate malnutrition, failure to thrive, prior adrenal hemorrhage, malignant pleural effusion, decubitus ulcer, GERD, chemotherapy-induced nausea and vomiting, history of bladder cancer (status post surgery in 2012), and an ostomy. She was also noted to have a history of lower extremity cellulitis, diffuse leg edema, and was on chronic diuretic therapy (Bumex and previously aldactone, held due to hypotension). She had a history of chronic hypotension, with a baseline systolic BP of 90-95. Her last echocardiogram in April 2025 showed an LVEF of 45-50%. Note from 07/19/2025: Patient feeling better with no dyspnea at rest. Remains on Levophed. Will be given 1 unit PRBC. Switched Cefepime to Rocephin and added Azithromycin. Will check Legionella urine antigen. Echo this am unremarkable. Note from 07/19/2025: Feels better overall, but still requiring a low-rate of Levophed. Will increase Midodrine to 5 mg TID hoping to free patient from Le vophed soon. It seems that there is concern about possibility of IVC compression by intra- abdominal mass, for which the patient will be seeking a surgical consult at [facility] for potential benefit from excision of the mass to relieve compression. I reviewed reports of CT of abdomen for studies going back to November 2024, and there was no mention of such an issue. However, I couldn't establish a continuity of the IVC on any of the studies. Physical Exam Physical Exam: General: In no acute distress, on room-air. Emaciated. Venous port at Right upper chest. Neck: No palpable masses or adenopathy. Respiratory: Decreased breath sounds with dullness over right base laterally, no wheezing or crackles. No use of accessory muscles and no prolonged exhalation. Cardiac: Regular rhythm, no murmurs, no gallops, no rubs; could not appreciate JV pulse elevation. GI: Soft, nontender. Ileostomy at RLQ. Extremities No clubbing,no cyanosis,3+ edema over the lower extremities. Positive Stemmer sign over left foot. Neuro: No gross motor deficits. Seems appropriate. No facial-droop. Speech is clear. Results & Data Results & Data Vital Signs (Past 12 Hours) Vital Signs Temp Pulse Resp BP Pulse Ox O2 Del Method 07/20/25 13:18 68 14 88/65 L 98 Room Air 07/20/25 12:00 70 14 95/58 L 98 Room Air 07/20/25 12:00 36.5 C 07/20/25 11:06 62 15 88/59 L 97 Room Air 07/20/25 10:00 64 15 91/57 L 98 Room Air 07/20/25 09:00 69 16 93/57 L 98 Room Air 07/20/25 08:03 80 13 98/64 L 97 Room Air 07/20/25 07:00 36.5 C 07/20/25 07:00 85 16 98/56 L 96 Room Air 07/20/25 06:09 72 16 97 07/20/25 06:00 97/59 L 07/20/25 06:00 97/59 L 07/20/25 06:00 97/59 L 07/20/25 05:57 77 24 97 07/20/25 05:15 65 13 95 07/20/25 05:00 93/59 L 07/20/25 04:39 75 17 100 07/20/25 04:00 91/65 L 07/20/25 04:00 91/65 L 07/20/25 04:00 91/65 L 07/20/25 04:00 91/65 L 07/20/25 04:00 91/65 L 07/20/25 04:00 83 21 07/20/25 03:21 74 14 97 07/20/25 03:00 91/56 L 07/20/25 02:39 73 16 96 Coding Level of Care Code 16840 CRITICAL CARE 1ST 30-74M Diagnoses Septic shock A41.9; R65.21 Pneumonia of right lower lobe due to infectious organism J18.9 Laterality: right Lung location: lower lobe of lung Pneumonia type: due to unspecified organism Other specified hypotension I95.89 Hypotension type: other hypotension type Moderate malnutrition E44.0 Bilateral edema of lower extremity R60.0 Metastatic adenocarcinoma C79.9 Lymphedema I89.0 Time Spent (min) 40 (2) Pneumonia Laterality: right Lung location: lower lobe of lung Pneumonia type: due to unspecified organism Qualified Code(s): J18.9 - Pneumonia, unspecified organism (3) Hypotension Hypotension type: other hypotension type Qualified Code(s): I95.89 - Other hypotension
[2025-07-21 05:19] LABS: Alanine Aminotransferase 31.0 U/L (7-52); Albumin Globulin Ratio 0.8 (0.9-2); Albumin Level 2.3 gm/dl (3.4-5.0); Alkaline Phosphatase 227.0 U/L (34-104); Anion Gap 7.0 (3-11); Bilirubin,Total 3.0 mg/dl (0.2-1.0); Blood Urea Nitrogen 46.0 mg/dl (6-23); Calcium 8.3 mg/dl (8.6-10.3); Carbon Dioxide 23.0 mmol/L (21-32); Chloride 103.0 mmol/L (98-107); Creatinine Clr Calc Pharmacy 16.8 ml/min; Globulin 3.0 gm/dl (2.5-4.0); Glucose 73.0 mg/dl (70-99(Fasting)); Magnesium 2.0 mg/dl (1.7-2.4); Potassium 3.8 mmol/L (3.5-5.1); Sodium 133.0 mmol/L (136-145); Total Protein 5.3 gm/dl (6.0-8.3)
[2025-07-21 05:48] LABS: Hematocrit (blood only) 23.5 % (37.0-47.0); Hemoglobin 7.8 g/dl (12.0-16.0); Mean Corpuscular Hemoglobin 33.3 pg (25.0-34.0); Mean Corpuscular Volume 100.4 fL (80.0-100.0); Platelet Count 28 K/uL (130-400); RDW Standard Deviation 87.0 fL (36.4-46.3); Red Blood Count 2.34 M/uL (4.20-5.40); White Blood Count 6.09 K/ul (4.8-10.8)
[2025-07-21] MEDS: MIDODRINE HCL 2.5 MG TAB PO ONE (08:56)
--- NOTE | 2025-07-21 09:01 | Critical Care Progress Note ---
Date of Service July 21, 2025 Assessment & Plan (1) Septic shock: Plan: * Still on Levophed. Also given Midodrine. * RLL suspected infectious source * Midodrine increased to 10 mg TID * Will stop Levophed even if MAP less than 65 mmHg, as long as patient is asymp tomatic. (2) Pneumonia: Plan: * RLL consolidation. * Unclear contribution from metastatic disease * No suggestion of post-obstructive pneumonia * Continue treatment for community-acquire pneumonia. Today last dose of Azithromycin. (3) Hypotension: (4) Moderate malnutrition: (5) Bilateral edema of lower extremity: Plan: * At least partly lymphedema, especially on the left, probably related to calcified lymph nodes. * Suspicion of IVC interruption by abdominal mass. The patient will be seeking a surgical consult at [facility] for potential benefit from excision of the mass to relieve compression. I reviewed reports of CT of abdomen for studies going back to November 2024, and there was no mention of such an issue. However, I couldn't establish a continuity of the IVC on any of the studies. (6) Metastatic adenocarcinoma: (7) Lymphedema: Plan: I have personally spent 45 minutes of critical care time in the direct management of this patient. This is a life/limb threatening event. This includes time spent evaluating the patient, direct bedside care, chart review, placing orders, interpreting diagnostic studies, communicating with consultants, attending providers, patient, and family members, as well as required patient management activities. This time is exclusive of all separately-billable procedures and teaching time, and separate from and in addition to any other critical care service time. Housekeeping items: Feeding/Fluids: Eating. No supplemental IV fluids at this time Analgesia: None needed at this time. Sedation: None needed at this time. Thromboprophylaxis: SCXDs. Eliquis held due to thrombocytopenia. Head-up Position: Not applicable Ulcer Prophylaxis: Protonix Glycemic Control: None needed at this time. Spontaneous Breathing Trial: Not applicable Bowel Care: Psyllium Indwelling Catheters/ Removal: Right upper chest chemo-port Drug de-escalation: Rocephin, Zithromax, Flagyl Social Support: Family at bedside. Discussed patient's condition. Disposition: Continue in ICU at least until off of Levophed. Admission and Anticipated Discharge Date Admission Date: July 18, 2025 Subjective The patient is a very pleasant 74-year-old female who presented to the ED at the recommendations of her oncologist for worsening lower extremity edema and shortness of breath. She reported exertional dyspnea over several days, which resolved at rest, and noted a 20-pound weight gain over the past week with worsening bilateral lower extremity edema. In the emergency department, she was found to be hypotensive with a blood pressure of 76/54, and her vital signs were remarkable for hypotension. She had an elevated lactate of 3.5, and laboratory studies showed a creatinine slightly above her new baseline at 3.17, mild troponin elevation (downtrending), and procalcitonin elevation. Chest x-ray revealed right lower lobe opacity suspicious for pneumonia vs. atelectasis and effusion. She was treated with IV fluids, albumin, and empiric IV cefepime for possible pneumonia and cellulitis. She was admitted to the ICU for persistent hypotension and shock requiring vasopressors. Her past medical history was significant for metastatic ovarian cancer (diagnosed in 2021, status post extensive surgery and chemotherapy with carboplatin and liposomal doxorubicin, held due to declining cardiac function), history of PE on Eliquis, lymphedema, CKD IIIb, pancytopenia, moderate malnutrition, failure to thrive, prior adrenal hemorrhage, malignant pleural effusion, decubitus ulcer, GERD, chemotherapy-induced nausea and vomiting, history of bladder cancer (status post surgery in 2012), and an ostomy. She was also noted to have a history of lower extremity cellulitis, diffuse leg edema, and was on chronic diuretic therapy (Bumex and previously aldactone, held due to hypotension). She had a history of chronic hypotension, with a baseline systolic BP of 90-95. Her last echocardiogram in April 2025 showed an LVEF of 45-50%. Note from 07/19/2025: Patient feeling better with no dyspnea at rest. Remains on Levophed. Will be given 1 unit PRBC. Switched Cefepime to Rocephin and added Azithromycin. Will check Legionella urine antigen. Echo this am unremarkable. Note from 07/20/2025: Feels better overall, but still requiring a low-rate of Levophed. Will increase Midodrine to 5 mg TID hoping to free patient from Levophed soon. It seems that there is concern about possibility of IVC compression by intra- abdominal mass, for which the patient will be seeking a surgical consult at [facility] for potential benefit from excision of the mass to relieve compression. I reviewed reports of CT of abdomen for studies going back to November 2024, and there was no mention of such an issue. However, I couldn't establish a continuity of the IVC on any of the studies. Note from 07/21/2025: Denies symptoms. Denies dyspnea, chest pain, or dizziness. Midodrine increased to 10 mg TID. Will stop Levophed even if MAP is less than 65 mmHG, as long as patient is asymptomatic. Review of Systems Review of Systems: All systems reviewed & are unremarkable except as noted in HPI & below Physical Exam Physical Exam: General: In no acute distress, on room-air. Emaciated. Venous port at Right upper chest. Neck: No palpable masses or adenopathy. Respiratory: Decreased breath sounds with dullness over right base laterally, no wheezing or crackles. No use of accessory muscles and no prolonged exhalation. Cardiac: Regular rhythm, no murmurs, no gallops, no rubs; could not appreciate JV pulse elevation. GI: Soft, nontender. Ileostomy at RLQ. Extremities No clubbing,no cyanosis,3+ edema over the lower extremities. Positive Stemmer sign over left foot. Neuro: No gross motor deficits. Seems appropriate. No facial-droop. Speech is clear. Results & Data Results & Data Vital Signs (Past 12 Hours) Vital Signs Temp Pulse Resp BP Pulse Ox O2 Del Method 07/21/25 08:00 99 H 16 83/46 L 97 Room Air 07/21/25 07:15 95 H 17 89/47 L 98 Room Air 07/21/25 07:00 36.4 C L 07/21/25 05:02 82 18 95 07/21/25 05:00 81/57 L 07/21/25 05:00 81/57 L 07/21/25 05:00 81/57 L 07/21/25 04:44 79 21 94 07/21/25 04:00 78 14 93 07/21/25 04:00 90/55 L 07/21/25 04:00 90/55 L 07/21/25 04:00 90/55 L 07/21/25 03:06 75 14 95 07/21/25 03:00 86/55 L 11/02/25 02:54 74 17 95 07/21/25 02:00 88 23 95 07/21/25 02:00 77 18 95 07/21/25 02:00 84/56 L 07/21/25 02:00 87/54 L 07/21/25 02:00 87/54 L 07/21/25 02:00 87/54 L 07/21/25 02:00 87/54 L 07/21/25 01:12 EST 76 15 95 07/21/25 01:00 EST 84/56 L 07/21/25 01:00 EST 84/56 L 07/21/25 01:00 EST 86/53 L 07/21/25 01:00 EST 86/53 L 07/21/25 01:00 EST 86/53 L 07/21/25 01:00 EST 86/53 L 07/21/25 01:00 EST 86/53 L 07/21/25 01:00 EST 86/53 L 07/21/25 01:00 EST 86/53 L 07/21/25 01:00 EST 86/53 L 07/21/25 01:00 EST 86/53 L 07/21/25 01:00 EST 86/53 L 07/21/25 01:00 EST 86/53 L 07/21/25 01:00 EST 86/53 L 07/21/25 01:00 EST 86/53 L 07/21/25 01:00 EST 86/53 L 07/21/25 01:00 EST 86/53 L 07/21/25 01:00 EST 86/53 L 07/21/25 01:00 EST 86/53 L 07/21/25 01:00 EST 86/53 L 07/21/25 01:00 EST 86/53 L 07/21/25 01:00 EST 86/53 L 07/21/25 01:00 EST 86/53 L 07/21/25 01:00 EST 86/53 L 07/21/25 01:00 EST 86/53 L 07/21/25 01:00 EST 86/53 L 07/21/25 00:39 75 19 95 07/21/25 00:00 80 13 95 07/21/25 00:00 85/51 L 07/21/25 00:00 85/51 L 07/21/25 00:00 85/51 L 07/20/25 23:00 75 18 95 07/20/25 23:00 86/56 L 07/20/25 23:00 86/56 L 07/20/25 22:18 65 15 97 07/20/25 22:00 93/55 L Laboratory Results 07/18/25 14:17 Aerobic Blood Culture - Preliminary Blood No growth in Aerobic bottle after 48 hours. Anaerobic Blood Culture - Preliminary No growth in Anaerobic bottle after 48 hours. 07/18/25 14:33 Aerobic Blood Culture - Preliminary Blood No growth in Aerobic bottle after 48 hours. Anaerobic Blood Culture - Preliminary No growth in Anaerobic bottle after 48 hours. 07/21/25 07/20/25 07/20/25 04:24 16:15 11:14 WBC 6.09 RBC 2.34 L Hgb 7.8 L Hct 23.5 L MCV 100.4 H MCH 33.3 MCHC 33.2 RDW Std Deviation 87.0 H RDW Coeff of Rolo 24.3 H Plt Count 28 L* MPV 11.2 Sodium 133 L Potassium 3.8 Chloride 103 Carbon Dioxide 23 Anion Gap 7 BUN 46 H Creatinine 2.57 H Est Cr Clr Drug Dosing 16.8 eGFR 19.16 BUN/Creatinine Ratio 17.9 Glucose 73 POC Glucose 71 86 Calcium 8.3 L Phosphorus 3.2 Magnesium 2.0 Total Bilirubin 3.0 H AST 88 H ALT 31 Alkaline Phosphatase 227 H Total Protein 5.3 L Albumin 2.3 L Globulin 3.0 Albumin/Globulin Ratio 0.8 L Medications Administered Home Medications Medication Instructions Recorded Confirmed Last Taken nystatin 100,000 unit/gram topical 1 applic topical BID 08/07/24 07/18/25 07/18/25 08:00 powder (Klayesta) ondansetron HCl 4 mg tablet 4 mg PO Q6H PRN nausea and 09/13/24 07/18/25 Unknown vomiting #30 tabs tramadol 50 mg tablet 50 mg PO Q8H PRN pain #30 tabs 09/13/24 07/18/25 Unknown nystatin-triamcinolone 100,000 1 applic topical BID #60 grams 10/15/24 07/18/25 07/18/25 08:00 unit/g-0.1 % topical cream cholestyramine 4 gram oral powder 4 g PO DAILY PRN Acne 03/05/25 07/18/25 Unknown mirvetuximab soravtansine-gynx 5 0 mg IV Q21D 03/27/25 07/18/25 05/08/25 mg/mL intravenous solution (Elahere) loratadine 10 mg tablet (Claritin) 10 mg PO DAILY 04/11/25 07/18/25 07/18/25 mupirocin 2 % topical ointment 1 applic topical BID #15 grams 04/11/25 07/18/25 07/18/25 08:00 prednisolone sodium phosphate 1 % 1 drp ophthalmic (eye) 6XD 04/11/25 07/18/25 07/18/25 eye drops 2 DOSES TODAY diphenoxylate-atropine 2.5 1 tab PO TID #270 tabs 04/16/25 07/18/25 07/18/25 08:00 mg-0.025 mg tablet (Lomotil) Levomefolate/ Vit B12/ Vit B6/ Vit 1 tab PO DAILY 05/10/25 07/18/25 07/18/25 B2 / apixaban 2.5 mg tablet (Eliquis) 2.5 mg PO BID 05/10/25 07/18/25 07/18/25 08:00 bumetanide 1 mg tablet 1 mg PO DAILY 05/10/25 07/18/25 07/18/25 olanzapine 2.5 mg tablet 2.5 mg PO DIRECTED 05/10/25 07/18/25 05/09/25 bumetanide 0.5 mg tablet 0.5 mg PO DAILY #30 tabs 05/21/25 07/18/25 07/18/25 ergocalciferol (vitamin D2) 1,250 1,250 mcg PO 2XWK #20 caps 05/22/25 07/18/25 07/15/25 mcg (50,000 unit) capsule (Vitamin D2) loperamide 2 mg tablet 4 mg (2 x 2 mg) PO QAM #60 tabs 06/20/25 07/18/25 07/18/25 pantoprazole 40 mg tablet,delayed 40 mg PO DAILY #90 tabs 06/25/25 07/18/25 07/18/25 release spironolactone 25 mg tablet 25 mg PO DAILY #90 tabs 07/02/25 07/18/25 07/18/25 psyllium husk 0.4 gram capsule 0.4 g PO TID 07/18/25 07/18/25 07/18/25 (Metamucil) Active Medications Generic Name Dose Route Start Last Admin Trade Name Freq PRN Reason Stop Dose Admin Acetaminophen 650 mg 07/18/25 16:21 07/20/25 04:29 Acetaminophen 325 Mg Tab PO 08/17/25 16:20 650 mg Q4H PRN Administration pain/fever Diphenoxylate HCl/Atropine 1 tab 07/18/25 21:00 07/21/25 08:15 Diphenoxylate/Atropine 2.5/0.025mg Tab PO 08/17/25 20:59 1 tab TID LUCY Administration Ergocalciferol 1,250 mcg 07/19/25 09:00 07/19/25 08:06 Ergocalciferol 1250 Mcg (50,000 Units) Cap PO 08/18/25 08:59 1,250 mcg MoFr@0900 LUCY Administration Norepinephrine Bitartrate 4 mg in 250 mls @ 2.262 mls/hr 07/18/25 23:45 07/21/25 06:53 Levophed/D5w IV 08/17/25 23:44 0.01 mcg/kg/min .Q24H LUCY 2.3 mls/hr Titration Protocol 0.01 MCG/KG/MIN Thiamine HCl 200 mg/ Sodium 52 mls @ 210 mls/hr 07/19/25 10:00 07/21/25 08:32 Chloride IV 08/18/25 09:59 Infused QAM LUCY Infusion Ceftriaxone Sodium 2,000 mg in 50 mls @ 100 mls/hr 07/19/25 12:00 07/20/25 13:44 Rocephin IV 07/24/25 11:59 Infused Q24H LUCY Infusion Azithromycin 500 mg in 255 mls @ 127.5 mls/hr 07/19/25 11:00 07/20/25 13:14 Zithromax IV 07/21/25 12:59 Infused Q24H LUCY Infusion Metronidazole 500 mg in 100 mls @ 100 mls/hr 07/19/25 18:00 07/21/25 04:45 Flagyl IV 07/21/25 17:59 Infused Q8H LUCY Infusion Protocol Loperamide HCl 4 mg 07/19/25 09:00 07/21/25 08:16 Loperamide Hcl 2 Mg Cap PO 08/18/25 08:59 4 mg QAM LUCY Administration Loperamide HCl 2 mg 07/18/25 21:20 07/20/25 20:46 Loperamide Hcl 2 Mg Cap PO 08/17/25 21:19 2 mg HS LUCY Administration Loratadine 10 mg 07/19/25 09:00 07/21/25 08:16 Loratadine 10 Mg Tab PO 08/18/25 08:59 10 mg DAILY LUCY Administration Mupirocin 1 appln 07/18/25 21:00 07/21/25 08:21 Mupirocin 2% Oint 22 Gm Tube TOP 08/17/25 20:59 1 appln BID LUCY Administration Nystatin 1 appln 07/18/25 21:00 07/21/25 08:20 Nystatin Powder 15gm Btl EXT 08/17/25 20:59 1 appln BID LUCY Administration Nystatin/Triamcinolone Acetonide 1 appln 07/18/25 21:00 07/21/25 08:22 Nystatin/Triamcin Cr 15 Gm Tube EXT 08/17/25 20:59 1 appln BID LUCY Administration Pantoprazole Sodium 40 mg 07/19/25 09:00 07/21/25 08:16 Pantoprazole 40 Mg Tab PO 08/18/25 08:59 40 mg DAILY LUCY Administration Prednisolone Sodium Phosphate 1 drops 07/18/25 19:00 07/20/25 18:41 Prednisolone Sod Phos 1% 10 Ml Btl OP 08/17/25 18:04 1 drops 6XD LUCY Administration Psyllium Hydrophilic Mucilloid 4 gm 07/18/25 21:00 07/21/25 08:20 Psyllium Husk 4gm Packet PO 08/17/25 20:59 Not Given TID LUCY Tramadol HCl 50 mg 07/18/25 18:05 07/21/25 03:36 Tramadol Hcl 50 Mg Tablet PO 08/17/25 18:04 50 mg Q8H PRN Administration pain Vitamin B Complex 1 tab 07/19/25 09:00 07/21/25 08:17 Vitamin B Complex Tab PO 08/18/25 08:59 1 tab DAILY LUCY Administration Coding Level of Care Code 34269 CRITICAL CARE 1ST 30-74M Diagnoses Septic shock A41.9; R65.21 Pneumonia of right lower lobe due to infectious organism J18.9 Laterality: right Lung location: lower lobe of lung Pneumonia type: due to unspecified organism Other specified hypotension I95.89 Hypotension type: other hypotension type Moderate malnutrition E44.0 Bilateral edema of lower extremity R60.0 Metastatic adenocarcinoma C79.9 Lymphedema I89.0 Time Spent (min) 45 (2) Pneumonia Laterality: right Lung location: lower lobe of lung Pneumonia type: due to unspecified organism Qualified Code(s): J18.9 - Pneumonia, unspecified organism (3) Hypotension Hypotension type: other hypotension type Qualified Code(s): I95.89 - Other hypotension
--- NOTE | 2025-07-21 12:01 | Hospitalist Progress Note ---
Date of Service July 21, 2025 Assessment & Plan (1) Septic shock: Plan: She remains on intravenous Levophed and midodrine. Continue broad-spectrum antibiotic therapy with treatment of right lower lobe pneumonia. (2) Pneumonia: Plan: Right lower lobe, present on admission. She is currently on intravenous azithromycin, Rocephin, Flagyl. Chest CT scan completed July 19 noted. Serial chest x-ray. (3) Thrombocytopenia: Plan: Platelet count has dropped further, now 28,000 today, July 21. Probably from recent chemotherapy. Eliquis discontinued for the time being due to risk of bleeding. (4) Ovarian cancer: Plan: With metastatic disease. Currently undergoing chemotherapy. Supportive care Plan To be determined by clinical course. Hospitalist service will assume care once she is moved out of the ICU Admission and Anticipated Discharge Date Admission Date: July 18, 2025 Subjective Alert and pleasant. is at the bedside. She remains on intravenous Levophed and oral midodrine. Blood pressure is running low despite these measures. Platelet count has fallen further to 28,000. Eliquis has been temporarily placed on hold. Creatinine is improving though, now 2.5 today, July 21. Will defer to critical care management until she is moved out of the ICU. Review of Systems 2 Review of Systems: Constitutionalno fever or chills. Cachexia ENTno blurred vision, no double vision, no epistaxis, no sore throat Respiratoryoccasional cough. No hemoptysis. Cardiacno palpitations, no chest pain, no syncope Gilmer nausea, vomiting, diarrhea, melena, hematochezia GUno urinary retention, no urinary incontinence, no dysuria, no hematuria Musculoskeletalno joint pain, no muscle tenderness Skinno bruising, no rashes, no pruritus Neurono isolated weakness, no paresthesia, no weakness Psychno depression, no anxiety Physical Exam 2 Physical Exam: General-alert and oriented x3, no fever, no chills. Cachectic appearing HEENT-head atraumatic and normocephalic, pupils equal and reactive to light, extraocular muscles intact Neck-no lymphadenopathy or thyromegaly, trachea midline Chest-dullness at the right base. Scattered rhonchi. No rales, no wheezing i Cardiac-regular rate and rhythm, normal S1 and S2 Abdomen-normal bowel sounds, no hepatosplenomegaly Extremities-no cyanosis, clubbing, or edema Neuro-cranial nerves II through XII intact, motor and sensory function within normal limits, strength symmetrical, no focal deficits Psych-normal affect, normal mood Results & Data Results & Data Vital Signs (Past 12 Hours) Vital Signs Temp Pulse Pulse Resp BP BP Pulse Ox 07/21/25 11:00 77 20 89/58 L 96 07/21/25 10:48 75 16 96/63 L 95 07/21/25 10:21 104 H 71/54 L 07/21/25 10:03 73 19 93/60 L 96 07/21/25 09:06 83 18 85/57 L 96 07/21/25 08:00 99 H 16 83/46 L 97 07/21/25 07:15 95 H 17 89/47 L 98 07/21/25 07:00 36.4 C L 07/21/25 05:02 82 18 95 07/21/25 05:00 81/57 L 07/21/25 05:00 81/57 L 07/21/25 05:00 81/57 L 07/21/25 04:44 79 21 94 07/21/25 04:00 78 14 93 07/21/25 04:00 90/55 L 07/21/25 04:00 90/55 L 07/21/25 04:00 90/55 L 07/21/25 03:06 75 14 95 07/21/25 03:00 86/55 L 07/21/25 02:54 74 17 95 07/21/25 02:00 88 23 95 07/21/25 02:00 77 18 95 07/21/25 02:00 84/56 L 07/21/25 02:00 87/54 L 07/21/25 02:00 87/54 L 07/21/25 02:00 87/54 L 07/21/25 02:00 87/54 L 07/21/25 01:12 EST 76 15 95 07/21/25 01:00 EST 84/56 L 07/21/25 01:00 EST 84/56 L 07/21/25 01:00 EST 86/53 L 07/21/25 01:00 EST 86/53 L 07/21/25 01:00 EST 86/53 L 07/21/25 01:00 EST 86/53 L 07/21/25 01:00 EST 86/53 L 07/21/25 01:00 EST 86/53 L 07/21/25 01:00 EST 86/53 L 07/21/25 01:00 EST 86/53 L 07/21/25 01:00 EST 86/53 L 07/21/25 01:00 EST 86/53 L 07/21/25 01:00 EST 86/53 L 07/21/25 01:00 EST 86/53 L 07/21/25 01:00 EST 86/53 L 07/21/25 01:00 EST 86/53 L 07/21/25 01:00 EST 86/53 L 07/21/25 01:00 EST 86/53 L 07/21/25 01:00 EST 86/53 L 07/21/25 01:00 EST 86/53 L 07/21/25 01:00 EST 86/53 L 07/21/25 01:00 EST 86/53 L 07/21/25 01:00 EST 86/53 L 07/21/25 01:00 EST 86/53 L 07/21/25 01:00 EST 86/53 L 07/21/25 01:00 EST 86/53 L O2 Del Method 07/21/25 11:00 Room Air 07/21/25 10:48 Room Air 07/21/25 10:21 07/21/25 10:03 Room Air 07/21/25 09:06 Room Air 07/21/25 08:00 Room Air 07/21/25 07:15 Room Air 07/21/25 07:00 07/21/25 05:02 07/21/25 05:00 07/21/25 05:00 07/21/25 05:00 07/21/25 04:44 07/21/25 04:00 07/21/25 04:00 07/21/25 04:00 07/21/25 04:00 07/21/25 03:06 07/21/25 03:00 07/21/25 02:54 07/21/25 02:00 07/21/25 02:00 07/21/25 02:00 07/21/25 02:00 07/21/25 02:00 07/21/25 02:00 07/21/25 02:00 07/21/25 01:12 EST 07/21/25 01:00 EST 07/21/25 01:00 EST 07/21/25 01:00 EST 07/21/25 01:00 EST 07/21/25 01:00 EST 07/21/25 01:00 EST 07/21/25 01:00 EST 07/21/25 01:00 EST 07/21/25 01:00 EST 07/21/25 01:00 EST 07/21/25 01:00 EST 07/21/25 01:00 EST 07/21/25 01:00 EST 07/21/25 01:00 EST 07/21/25 01:00 EST 07/21/25 01:00 EST 07/21/25 01:00 EST 07/21/25 01:00 EST 07/21/25 01:00 EST 07/21/25 01:00 EST 07/21/25 01:00 EST 07/21/25 01:00 EST 07/21/25 01:00 EST 07/21/25 01:00 EST 07/21/25 01:00 EST 07/21/25 01:00 EST Laboratory Results 07/21/25 04:24 07/21/25 04:24 PG Care Time/CCT Total # of Minutes Spent Total Time Spent with Patient: Total time spent is greater than 50% in coordination of care (as documented) at patient's floor/unit and/or counseling patient: Coding Level of Care Code 99182 SUB INP/OBS CARE 2/35MIN Diagnoses Septic shock A41.9; R65.21 Pneumonia J18.9 Thrombocytopenia D69.6 Ovarian cancer C56.9
[2025-07-21] MEDS: MIDODRINE HCL 10 MG TAB PO SCH (12:10)
[2025-07-22 06:14] LABS: Anion Gap 7.0 (3-11); Blood Urea Nitrogen 51.0 mg/dl (6-23); Calcium 8.4 mg/dl (8.6-10.3); Carbon Dioxide 22.0 mmol/L (21-32); Chloride 104.0 mmol/L (98-107); Creatinine Clr Calc Pharmacy 17.7 ml/min; Glucose 71.0 mg/dl (70-99(Fasting)); Magnesium 2.0 mg/dl (1.7-2.4); Potassium 4.0 mmol/L (3.5-5.1); Sodium 133.0 mmol/L (136-145)
[2025-07-22 06:20] LABS: Hematocrit (blood only) 23.7 % (37.0-47.0); Hemoglobin 8.1 g/dl (12.0-16.0); Mean Corpuscular Hemoglobin 34.8 pg (25.0-34.0); Mean Corpuscular Volume 101.7 fL (80.0-100.0); Platelet Count 26 K/uL (130-400); RDW Standard Deviation 88.4 fL (36.4-46.3); Red Blood Count 2.33 M/uL (4.20-5.40); White Blood Count 6.23 K/ul (4.8-10.8)
[2025-07-22 06:37] LABS: Anisocytosis Present; Immature Granulocytes # (auto) 0.08 K/uL (0.01-0.20); Immature Granulocytes % (auto) 1.3 %
--- NOTE | 2025-07-22 08:20 | Critical Care Progress Note ---
Date of Service July 22, 2025 Assessment & Plan (1) Septic shock: (2) Hypotension: (3) Thrombocytopenia: (4) Ovarian cancer: (5) Lymphedema: (6) Metastatic neoplastic disease: Plan Patient is a 74-year-old female who presented to the emergency department 07/18/2025 at the recommendations of her oncologist for worsening lower extremity edema and shortness of breath. The patient endorsed a 20 pound weight gain over the past week with worsening bilateral lower extremity edema. The patient was also found to be hypotensive in the emergency department with a blood pressure of 76/54. No tachycardia was appreciated. Lactic was elevated 3.5. Creatinine was also increased at 3.17. Troponin was slightly elevated but did not have ACS trend. Procalcitonin was elevated. Imaging of the chest with x-ray showed a right lower lobe opacity suspicious for pneumonia versus atelectasis and effusion. The patient was initiated on fluids, albumin, antibiotics with cefepime and admitted to the medical ICU for persistent hypotension and shock requiring vasopressor support. The patient carries a medical history of metastatic ovarian cancer (diagnosed 2021, status post extensive surgery, chemotherapy with carboplatin and liposomal doxorubicin previously, held due to declining cardiac function), history of PE on Eliquis, lymphedema, CKD stage IIIb, pancytopenia, malnutrition, failure to thrive, history of adrenal hemorrhage, malignant pleural effusion, GERD, bladder cancer (status post surgery 2012) ostomy. The patient also has chronic hypotension with a systolic regularly around 90-95. Most recent echo was April 2025 which showed an EF of 45 to 50%. CT imaging with CT abdomen and pelvis without contrast showed progression of hepatic metastatic disease with large complex subhepatic mass and calcified adenopathy, ascites and anasarca was appreciated. CT of the chest was also consolidative opacities in the right lower lobe concerning for pneumonia as well as numerous bilateral pulmonary nodules which were new from obtained which showed prior imaging and were concerning for metastatic disease. Septal thickening concerning with mild pulmonary edema. Supraclavicular lymphadenopathy. Pleural effusions. The patient has remained in the ICU due to persistent hypotension requiring Levophed. Midodrine has also been added. The patient was treated for community-acquired pneumonia with Rocephin and azithromycin. Norepinephrine was slowly weaned off, the patient remains borderline hypotensive. Cortisol level was 25 in March and repeat today is 20. When evaluated the patient today she is awake and alert. She says that her blood pressure is always low. About 90 systolic at home. He feels well today and is talking to me with a systolic around 95. MAP is 67. Reason Critically Ill: Shock, likely septic shock in setting of community-acquired pneumonia (shock resolved) Diffuse metastatic ovarian cancer with large subhepatic mass Possible IVC compression secondary to subhepatic mass with bilateral lymphedema Chronic hypotension TRISTON on CKD, improving Chronic mild hyponatremia Neuro: Awake and alert this morning. Oriented. No acute concerns today. Cardiac: Patient has been weaned off of norepinephrine, no longer in shock. Midodrine was added yesterday with good response. Cortisol level is acceptable, no need for fludrocortisone or hydrocortisone at this time. If level drops could consider ACTH stim test. Respiratory: On room air. Does have a infiltrate in the right lower lobe concerning for pneumonia, treated for community-acquired pneumonia. Can complete 5 days. GI: Tolerating p.o. Pantoprazole oral daily for GI prophylaxis. RENAL/LYTES: TRISTON on CKD. Renal function is improving. Patient is voiding on the toilet so we do not have urine output documented. Avoid nephrotoxins. : Good urine output. No Licona catheter in place. ENDO: Blood sugar simple. Monitor every 6 hours. HEME: Patient has chronic anemia and thrombocytopenia. Continue to monitor daily labs. No new indication for transfusion at this time due to lack of bleeding. Platelet 26 today. ID: Patient has evidence of infiltrate in the right lower lobe on imaging. All cultures negative today. Plan to complete 5 days total for community-acquired pneumonia. Currently on Rocephin. Feeding: Regular diet Fluids: None Analgesia: Tramadol as needed Activity: Out of bed with assist Thromboprophylaxis: SCDs, thrombocytopenia, no active bleeding Ulcer prophylaxis: Pantoprazole Glycemic control: Monitor blood glucose every 6 no indication for insulin at this time Bowels: Has chronic diarrhea, on loperamide Antibiotics: Rocephin Plan: Patient has clinically stable. No longer in shock. Responded to midodrine. No added evidence of adrenal insufficiency that could be contributing to hypotension at this time. Patient may be transferred out of the ICU. Patient has chronic hypotension, her normal systolic is around 90 at home. She is awake and alert, having good urine output and good perfusion with borde rline hypotension. The patient does have an enlarging subhepatic mass. This is likely the etiology of her lower extremity lymphedema. She follows with [facility], patient and family would like to ensure that her images are sent to that facility to see if she would be a candidate for any interventions. Metastatic disease continues to progress. Has multiple new nodules on imaging. Would benefit from palliative care. I have personally spent 55 minutes of critical care time in the direct management of this patient. This is a life/limb threatening event. This includes time spent evaluating patient, direct bedside care, chart review, placing orders, interpretation of diagnostic studies, discussion with consultants, patient, and family members, as well as other required patient management activities. This time is exclusive of all separately billable procedures, and teaching time and separate from and in addition to any other critical care service time. Admission and Anticipated Discharge Date Admission Date: July 18, 2025 Subjective Past 24-hour events: Midodrine was increased yesterday, patient was weaned off of vasopressor support. Having good urine output, is voiding into the toilet so it is not documented. Is awake and alert this morning. She says she feels good. Family was at bedside this morning, both son and . Rounding: Patient is feeling well this morning. Alert and cooperative. She says she had some back pain for which tramadol improved her symptoms significantly. Family is at bedside, all questions addressed. Excited to get out of the ICU now that she is no longer requiring norepinephrine. Intake: 2058 mL Output: Not recorded Mechanical ventilation: On room air Feeding: Regular diet IV infusions: None Laboratory: CBC: WBC 6.2, hemoglobin 8.1, platelet 26 Chemistry: Sodium 133, potassium 4.0, chloride 104, bicarb 22, BUN 51, creatinine 2.44, glucose 71, calcium 8.4, phosphorus 3.3, magnesium 2.0 ABG: None Other: Cortisol 20 Review of Systems Review of Systems: A 12 point review of systems was obtained in detail. Negative except as noted in HPI. Physical Exam Physical Exam: Physical examination: General: Frail appearing, alert, in good spirits this morning, not in distress. HEENT: Normocephalic, atraumatic. Extraocular movements intact. Sclera are nonicteric. No JVD appreciated. Skin: Warm and dry. No rashes appreciated. No jaundice appreciated. Cardiovascular: Heart is a regular rate and rhythm, no murmurs appreciated on my exam. 3+ pitting edema with lymphedema of lower extremities. Lungs: Clear bilaterally, no wheezing appreciated. No crackles. Nontachypneic. Resting comfortably on room air. Abdomen: Nontender to palpation, slightly tense, ostomy in place. Musculoskeletal: Frail, decreased muscle mass and tone. No gross joint deformity abnormalities. No effusions appreciated. Neurologic: Awake and alert, oriented. CN II through XII are grossly intact. Speech is fluent. Nonfocal exam. Psychiatric: Appropriate cooperative during my exam. Results & Data Results & Data Vital Signs (Past 12 Hours) Vital Signs Temp Pulse Pulse Resp BP BP Pulse Ox 07/22/25 06:00 36.6 C 78 19 87/53 L 94 07/22/25 05:00 36.6 C 78 16 87/53 L 92 07/22/25 04:00 36.9 C 86 18 85/52 L 94 07/22/25 03:00 36.9 C 78 20 92/57 L 95 07/22/25 02:33 73 15 93 07/22/25 02:03 75 20 88/57 L 92 07/22/25 01:42 72 22 93 07/22/25 01:09 73 16 92 07/22/25 00:00 74 16 89/54 L 90 07/21/25 23:06 73 17 91/57 L 95 07/21/25 22:03 74 18 89/52 L 94 07/21/25 21:00 72 15 84/54 L 91 07/21/25 20:33 72 18 94 O2 Del Method 07/22/25 06:00 Room Air 07/22/25 05:00 Room Air 07/22/25 04:00 Room Air 07/22/25 03:00 Room Air 07/22/25 02:33 07/22/25 02:03 07/22/25 01:42 07/22/25 01:09 07/22/25 00:00 07/21/25 23:06 07/21/25 22:03 07/21/25 21:00 07/21/25 20:33 Coding Level of Care Code 96361 CRITICAL CARE 1ST 30-74M Diagnoses Septic shock A41.9; R65.21 Other specified hypotension I95.89 Hypotension type: other hypotension type Thrombocytopenia D69.6 Ovarian cancer C56.9 Lymphedema I89.0 Metastatic neoplastic disease C79.9 (2) Hypotension Hypotension type: other hypotension type Qualified Code(s): I95.89 - Other hypotension
[2025-07-22] MEDS: ALTEPLASE, RECOMBINANT 1 MG/ML 2ML VIAL INSTIL ONE ×2 (09:18)
--- NOTE | 2025-07-22 11:23 | Infectious Disease Consult ---
Date of Consultation July 22, 2025 Assessment & Plan (1) Ovarian cancer: (2) Thrombocytopenia: (3) Pneumonia: (4) Septic shock: (5) Hypotension: Plan This is a 74-year-old female with a past medical history of metastatic ovarian cancer (Dx 2021), status post extensive surgery, chemotherapy with carboplatin and liposomal doxorubicin which was held secondary to declining heart function, recently started Mirvetuximab( Elahere) in 03/2025, PE on Eliquis, bilateral lower extremity lymphedema, CKD, pancytopenia, malignant pleural effusions, bladder cancer status post surgery in 2012, ostomy, status post PICC line and port who presents to the ED on 07/18/2025 with increasing shortness of breath and worsening bilateral lower extremity edema. She denies any sick contacts, fever, nausea, vomiting, change in urine or bowel habits, rash. She reports chronic hypotension. Per patient and her who is at bedside her SBP is usually less than 90 and she is usually asymptomatic. On admission, she is afebrile, hypotensive with BP 76/54, O2 sats 95-100% on room air. Labs: WBC 6.74, platelets 49, hemoglobin 8.7, hemoglobin 25.4, sodium 132, BUN 51, creatinine 3.17, lactate 2.9, AST 78, ALT 31, alk phos 270, procalcitonin 0.92. Urinalysis 05 WBC. Nasal screen negative. Blood cultures NGTD. Respiratory viral panel negative. Urine Legionella antigen not detected. Chest x-ray shows possible small bilateral pleural effusions ;Pneumonia versus atelectasis in the right lung base. Lower extremity Doppler with no evidence of acute DVT. CT chest shows consolidative opacities in the right lower lobe concerning for pneumonia. Numerous bilateral pulmonary nodules which are new from prior and are concerning for pulmonary metastatic disease. Largest is in the right middle lobe. Mild septal thickening in keeping with pulmonary edema. Bilateral supraclavicular lymphadenopathy, calcified on the left. Small trace left and trace right pleural effusion. CT abdomen pelvis shows progression of hepatic metastatic disease. Stable large complex subhepatic mass. Calcified adenopathy similar to prior. Ascites and anasarca. Echocardiogram shows mild mitral regurgitation. Right ventricle systolic pressure normal. Grade 1 diastolic dysfunction. Left ventricular systolic function normal. She received normal saline and albumin. Started on cefepime for empiric coverage and then she was admitted to the ICU for hypotension for which she required pressors. She has been weaned off pressors. She is now on ceftriaxone and completed azithromycin for possible CAP. ID consulted for possible septic shock. Patient states she feels better. She has less shortness of breath. Denies any productive cough. There is concern that she has possible IVC compression secondary to subhepatic mass with bilateral lymphedema. Microbiology: 07/18 blood culture NGTD 07/18 respiratory viral panel negative 07/18 MRSA nares negative 07/19 urinary Legionella antigen negative Antibiotics: Ceftriaxone 07/18present Cefepime 07/18 Azithromycin 07/19 - 07/21 Metronidazole 07/19 - 07/21 # ? Septic shock # Chronic hypotension # Possible community-acquired pneumonia # Bilateral lower extremity lymphedema # Metastatic ovarian cancer with large subhepatic mass # Port in place # Chronic PICC in place # TRISTON on CKD Discussion: She presents with increasing shortness of breath and acute on chronic bilateral lower extremity edema. On admission noted for elevated procal citonin but difficult to interpret in the setting of CKD. She has chronic hypotension. CT chest shows findings concerning for right lower lobe infiltrate. She denies any abdominal, urinary symptoms. She does not have a productive cough. No evidence of LE cellulitis. No open wounds, ulcers. CTAP shows findings c/f metastasis, subhepatic mass, ascites, anasarca. She has a chronic port and PICC line in place with no signs of an infection at those sites. Recommendations: Agree with ceftriaxone 2 g daily for total of 5 days ( ) for treatment of possible community-acquired pneumonia. Follow-up blood culture. Thank you for this consult. ID will sign off. Call with questions.. Benny Acosta MD, MPH Infectious Disease [facility] Call [phone] with questions Consultation Information Consultation was provided via telemedicine using two-way real-time interactive telecommunication between the patient and the telemedicine provider. For the duration of the visit, the provider was performing the assessment from a different facility than the patient. This includesuse of bluetooth stethoscope forauscultationperformed by the telepresenter that the telemedicine provider can hear if described in the physical exam. [employer] contact information: Please call [facility] Center [phone]. (Phone Number For Physician Use Only) After establishing a telemedicine visit, patient was: Patient was verified with two unique identifiers and Gave permission to continue telehealth session Time Spent with Patient: Initial => 75 min History of Present Illness Reason for Consultation: Septic shock, PNA Requesting Physician: Abe Quesada DO Attending Physician: William Villalobos DO History of Present Illness This is a 74-year-old female with a past medical history of metastatic ovarian cancer (Dx 2021), status post extensive surgery, chemotherapy with carboplatin and liposomal doxorubicin which was held secondary to declining heart function, recently started Mirvetuximab( Elahere) in 03/2025, PE on Eliquis, bilateral lower extremity lymphedema, CKD, pancytopenia, malignant pleural effusions, bladder cancer status post surgery in 2012, ostomy, status post PICC line and port who presents to the ED on 07/18/2025 with increasing shortness of breath and worsening bilateral lower extremity edema. She denies any sick contacts, fever, nausea, vomiting, change in urine or bowel habits, rash. She reports chronic hypotension. Per patient and her who is at bedside her SBP is usually less than 90 and she is usually asymptomatic. On admission, she is afebrile, hypotensive with BP 76/54, O2 sats 95-100% on room air. Labs: WBC 6.74, platelets 49, hemoglobin 8.7, hemoglobin 25.4, sodium 132, BUN 51, creatinine 3.17, lactate 2.9, AST 78, ALT 31, alk phos 270, procalcitonin 0.92. Urinalysis 05 WBC. Nasal screen negative. Blood cultures NGTD. Respiratory viral panel negative. Urine Legionella antigen not detected. Chest x-ray shows possible small bilateral pleural effusions ;Pneumonia versus atelectasis in the right lung base. Lower extremity Doppler with no evidence of acute DVT. CT chest shows consolidative opacities in the right lower lobe concerning for pneumonia. Numerous bilateral pulmonary nodules which are new from prior and are concerning for pulmonary metastatic disease. Largest is in the right middle lobe. Mild septal thickening in keeping with pulmonary edema. Bilateral supraclavicular lymphadenopathy, calcified on the left. Small trace left and trace right pleural effusion. CT abdomen pelvis shows progression of hepatic metastatic disease. Stable large complex subhepatic mass. Calcified adenopathy similar to prior. Ascites and anasarca. Echocardiogram shows mild mitral regurgitation. Right ventricle systolic pressure normal. Grade 1 diastolic dysfunction. Left ventricular systolic function normal. She received normal saline and albumin. Started on cefepime for empiric coverage and then she was admitted to the ICU for hypotension for which she required pressors. She has been weaned off pressors She is now on ceftriaxone and completed azithromycin for possible CAP. ID consulted for possible septic shock. Patient states she feels better. She has less shortness of breath. Denies any productive cough. There is concern that she has possible IVC compression secondary to subhepatic mass with bilateral lymphedema. Allergies Allergy/AdvReac Type Severity Reaction Status Date / Time No Known Allergies Allergy Verified 07/18/25 15:46 Home Medications Medication Instructions Recorded Confirmed Type nystatin 100,000 unit/gram topical 1 applic topical BID 08/07/24 07/18/25 His tory powder (Klayesta) ondansetron HCl 4 mg tablet 4 mg PO Q6H PRN nausea and 09/13/24 07/18/25 Rx vomiting #30 tabs tramadol 50 mg tablet 50 mg PO Q8H PRN pain #30 tabs 09/13/24 07/18/25 Rx nystatin-triamcinolone 100,000 1 applic topical BID #60 grams 10/15/24 07/18/25 Rx unit/g-0.1 % topical cream cholestyramine 4 gram oral powder 4 g PO DAILY PRN Acne 03/05/25 07/18/25 Hi story mirvetuximab soravtansine-gynx 5 0 mg IV Q21D 03/27/25 07/18/25 History mg/mL intravenous solution (Elahere) loratadine 10 mg tablet (Claritin) 10 mg PO DAILY 04/11/25 07/18/25 History mupirocin 2 % topical ointment 1 applic topical BID #15 grams 04/11/25 07/18/25 Rx prednisolone sodium phosphate 1 % 1 drp ophthalmic (eye) 6XD 04/11/25 07/18/25 History eye drops diphenoxylate-atropine 2.5 1 tab PO TID #270 tabs 04/16/25 07/18/25 Rx mg-0.025 mg tablet (Lomotil) Levomefolate/ Vit B12/ Vit B6/ Vit 1 tab PO DAILY 05/10/25 07/18/25 History B2 02/17/50 apixaban 2.5 mg tablet (Eliquis) 2.5 mg PO BID 05/10/25 07/18/25 History bumetanide 1 mg tablet 1 mg PO DAILY 05/10/25 07/18/25 History olanzapine 2.5 mg tablet 2.5 mg PO DIRECTED 05/10/25 07/18/25 History bumetanide 0.5 mg tablet 0.5 mg PO DAILY #30 tabs 05/21/25 07/18/25 Rx ergocalciferol (vitamin D2) 1,250 1,250 mcg PO 2XWK #20 caps 05/22/25 07/18/25 Rx mcg (50,000 unit) capsule (Vitamin D2) pantoprazole 40 mg tablet,delayed 40 mg PO DAILY #90 tabs 06/25/25 07/18/25 Rx release spironolactone 25 mg tablet 25 mg PO DAILY #90 tabs 07/02/25 07/18/25 Rx psyllium husk 0.4 gram capsule 0.4 g PO TID 07/18/25 07/18/25 History (Metamucil) loperamide 2 mg tablet 4 mg (2 x 2 mg) PO QAM #180 tabs 07/22/25 Rx Patient History Medical History Ileostomy present Elevated homocysteine Non-healing surgical wound Colovaginal fistula Bladder cancer TREATED BY [facility] Blood clotting disorder ? 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) Surgical History H/O abdominal surgery Hx of bilateral breast reduction surgery H/O hand surgery LEFT HAND MIDDLE FINGER GROWTH REMOVED (DONE MULTIPLE TIMES) History of colonoscopy History of cystoscopy BLADDER TUMORS REMOVED (MULTIPLE TIMES) HAS HAD NO PROBLEMS FOR 3 YEARS History of tooth extraction History of tonsillectomy Family History Father Cholangitis Mother Dementia Osteoporosis Obesity Brother Dyslipidemia Social History Smoking Status: Never smoker Tobacco Type: Cigarettes Age Started Using Tobacco: 22; Age Quit Using Tobacco: 27; packs per day: 0.5; Second Hand Exposure: No; Do You Dip or Chew Tobacco: No; Hx Alcohol Use: No Hx Substance Use: No Preferred Language: Mohawk Communication Ability: Effective Visual Impairment: No Limitations Hearing Ability: Normal Shadow Graph Weight Operator Required: No Beliefs That Will Affect Care: None marital status: Current Living Situation: Spouse current occupational status: retired How many Children do You have: 2 Feels Safe at Home: Yes Childhood Exposure to Second-Hand Smoke: Yes Diet: other Diet Comment: TPN via PICC, PEG tube (not currently in use) caffeine: Yes Dental Care, Regularly: Yes Physical Activity Frequency: 3-4 Times per Week Seatbelt Use: always Sunscreen Use: Yes Do you think of yourself as: straight/heterosexual Gender Identity: Female Assistive Devices: Walker Review of System A 10 point ROS obtained. Pertinent positives as per HPI Physical Exam Physical Exam: Gen- thin, frail, chronically ill appearing in NAD Neck- supple HEENT- AT/NC, anicteric sclera, EOMI , fair dentition/ dental caps, no thrush or oral lesions. Decreased hearing. Chest wall- RU chest PORT- w/o surrounding erythema, warmth, tenderness Extremities- B/L LE edema thight down to toes. No tenderness, warmth or erythema. No open wounds. No s/o infection; Left PICC line in place ( > 1 year) no s/o infection Abdomen- Soft, NT, ND + ostomy with opaque bag covering. Neuro- AAO times 3 Psych- Cooperative, normal mood Results & Data Vital Signs (Past 12 Hours) Vital Signs Temp Pulse Pulse Resp BP BP Pulse Ox 07/22/25 10:03 07/22/25 10:00 83 18 93 07/22/25 09:00 86/54 L 07/22/25 09:00 82 22 96 07/22/25 08:03 78 12 93 07/22/25 08:00 81/51 L 07/22/25 07:18 89 10 L 92 07/22/25 07:00 87/53 L 07/22/25 06:00 36.6 C 78 19 87/53 L 94 07/22/25 05:00 36.6 C 78 16 87/53 L 92 07/22/25 04:00 36.9 C 86 18 85/52 L 94 07/22/25 03:00 36.9 C 78 20 92/57 L 95 07/22/25 02:33 73 15 93 07/22/25 02:03 75 20 88/57 L 92 07/22/25 01:42 72 22 93 07/22/25 01:09 73 16 92 07/22/25 00:00 74 16 89/54 L 90 O2 Del Method 07/22/25 10:03 Room Air 07/22/25 10:00 07/22/25 09:00 07/22/25 09:00 07/22/25 08:03 07/22/25 08:00 07/22/25 07:18 07/22/25 07:00 07/22/25 06:00 Room Air 07/22/25 05:00 Room Air 07/22/25 04:00 Room Air 07/22/25 03:00 Room Air 07/22/25 02:33 07/22/25 02:03 07/22/25 01:42 07/22/25 01:09 07/22/25 00:00 Laboratory Results Laboratory Results - last 48 hr 07/19/25 07/20/25 07/21/25 11:20 16:15 04:24 WBC 6.09 RBC 2.34 L Hgb 7.8 L Hct 23.5 L MCV 100.4 H MCH 33.3 MCHC 33.2 RDW Std Deviation 87.0 H RDW Coeff of Rolo 24.3 H Plt Count 28 L* MPV 11.2 Immature Gran % (Auto) Neut % (Auto) Lymph % (Auto) Bradley % (Auto) Eos % (Auto) Baso % (Auto) Neut # (Auto) Lymph # (Auto) Bradley # (Auto) Eos # (Auto) Baso # (Auto) Immature Gran # (Auto) Anisocytosis Sodium 133 L Potassium 3.8 Chloride 103 Carbon Dioxide 23 Anion Gap 7 BUN 46 H Creatinine 2.57 H Est Cr Clr Drug Dosing 16.8 eGFR 19.16 BUN/Creatinine Ratio 17.9 Glucose 73 POC Glucose 71 Calcium 8.3 L Phosphorus 3.2 Magnesium 2.0 Total Bilirubin 3.0 H AST 88 H ALT 31 Alkaline Phosphatase 227 H Total Protein 5.3 L Albumin 2.3 L Globulin 3.0 Albumin/Globulin Ratio 0.8 L Random Cortisol Urine Legionella Ag SEE NOTE 07/22/25 07/22/25 05:02 08:25 WBC 6.23 RBC 2.33 L Hgb 8.1 L Hct 23.7 L MCV 101.7 H MCH 34.8 H MCHC 34.2 RDW Std Deviation 88.4 H RDW Coeff of Rolo 23.8 H Plt Count 26 L* MPV 12.3 Immature Gran % (Auto) 1.3 Neut % (Auto) 80.5 Lymph % (Auto) 10.8 Bradley % (Auto) 6.7 Eos % (Auto) 0.5 Baso % (Auto) 0.2 Neut # (Auto) 5.02 Lymph # (Auto) 0.67 L Bradley # (Auto) 0.42 Eos # (Auto) 0.03 Baso # (Auto) 0.01 Immature Gran # (Auto) 0.08 Anisocytosis Present Sodium 133 L Potassium 4.0 Chloride 104 Carbon Dioxide 22 Anion Gap 7 BUN 51 H Creatinine 2.44 H Est Cr Clr Drug Dosing 17.7 eGFR 20.40 BUN/Creatinine Ratio 20.9 H Glucose 71 POC Glucose Calcium 8.4 L Phosphorus 3.3 Magnesium 2.0 Total Bilirubin AST ALT Alkaline Phosphatase Total Protein Albumin Globulin Albumin/Globulin Ratio Random Cortisol 20.53 Urine Legionella Ag Microbiology 07/18/25 14:17 Blood Aerobic Blood Culture - Preliminary No growth in Aerobic bottle after 48 hours. 07/18/25 14:17 Blood Anaerobic Blood Culture - Preliminary No growth in Anaerobic bottle after 48 hours. 07/18/25 14:33 Blood Aerobic Blood Culture - Preliminary No growth in Aerobic bottle after 48 hours. 07/18/25 14:33 Blood Anaerobic Blood Culture - Preliminary No growth in Anaerobic bottle after 48 hours. Diagnostic Findings Chest CT 07/19/25 17:35 Exam(s): CT CHEST Without Contrast EXAM: CT Chest Without Intravenous Contrast CLINICAL HISTORY: Reason for exam: sepsis. TECHNIQUE: Axial computed tomography images of the chest without intravenous contrast. CTDI is 7.79 mGy and DLP is 524.32 mGy-cm. Automated exposure control was utilized for the study. A dose lowering technique was utilized adhering to the principles of ALARA. COMPARISON: 05/11/2025 FINDINGS: Lungs: Consolidative opacities in the right lower lobe concerning for pneumonia. Numerous bilateral pulmonary nodules which are new from prior and are concerning for pulmonary metastatic disease. Largest is in the right middle lobe measuring 12 mm (series 4, image 163). Mild septal thickening in keeping with mild pulmonary edema. Pleural space: Small left and trace right pleural effusions. No pneumothorax. Heart: Coronary artery atherosclerosis. No cardiomegaly or pericardial effusion. Bones/joints: Osteopenia. No acute fracture or dislocation. No suspicious bone lesions. Benign intraosseous hemangioma at T11. Soft tissues: Unremarkable. Vasculature: No aortic aneurysm. Lymph nodes: Bilateral supraclavicular lymphadenopathy is suggested, calcified on the left side, suboptimally characterize without contrast. Upper abdomen: Reported separately. Tubes, lines and devices: Right IJ approach port catheter extends to the cavoatrial junction. Left PICC extends to the SVC. IMPRESSION: 1. Consolidative opacities in the right lower lobe concerning for pneumonia. 2. Numerous bilateral pulmonary nodules which are new from prior and are concerning for pulmonary metastatic disease. Largest is in the right middle lobe measuring 12 mm (series 4, image 163). 3. Mild septal thickening in keeping with mild pulmonary edema. 4. Bilateral supraclavicular lymphadenopathy is suggested, calcified on the left side, suboptimally characterize without contrast. 5. Small left and trace right pleural effusions. Electronically signed by: Jose Carlos Vallejo M.D. 07/19/25 23:29 PM Abdomen/Pelvis CT 07/19/25 17:36 Exam(s): CT ABDOMEN + PELVIS Without Contrast EXAM: CT Abdomen and Pelvis Without Intravenous Contrast CLINICAL HISTORY: Reason for exam: sepsis, hx of bowel infection, ovarian cancer. TECHNIQUE: Axial computed tomography images of the abdomen and pelvis without intravenous contrast. CTDI is 7.79 mGy and DLP is 524.32 mGy-cm. Automated exposure control was utilized for the study. A dose lowering technique was utilized adhering to the principles of ALARA. COMPARISON: 05/11/2025 FINDINGS: Noncontrast evaluation of the abdomen and pelvis is limited in the assessment of malignancy progression. There are multiple new hypodense hepatic masses concerning for progression of hepatic metastatic disease. Large complex infrahepatic mass measuring 11 x 12 x 19 cm is similar in size to prior exam. Right adrenal gland is not visualized. There is cholelithiasis without evidence of acute cholecystitis. Spleen and pancreas are unremarkable. Left adrenal gland is poorly visualized. There is no hydronephrosis. Hyperdense left renal cysts suggests hemorrhagic cysts; no follow-up is indicated. There is atherosclerosis of the aorta without aneurysm. Calcified mesenteric and retroperitoneal lymphadenopathy is similar to prior. Ascites is suggested. There is no free air. There is generalized anasarca. There are postoperative changes of the bowel with oversewn Markus's pouch and left-sided ostomy. There is no bowel obstruction. Appendix is not identified. Urinary bladder is unremarkable. Uterus is absent. There are no suspicious bone lesions or acute osseous findings. IMPRESSION: 1. Limited noncontrast evaluation. 2. Progression of hepatic metastatic disease. Stable large complex subhepatic mass. Calcified adenopathy, similar to prior. 3. Ascites. Anasarca. Electronically signed by: Jose Carlos Vallejo M.D. 07/19/25 23:33 PM Chest X-Ray 07/20/25 08:31 XR chest 1V portable CLINICAL HISTORY: RLL pneumonia COMPARISON STUDY: 07/18/2025 and 07/19/2025 FINDINGS: Stable right chest port and left PICC line. Heart size and pulmonary vasculature are normal. There is stable small bilateral pleural effusions with adjacent lung base consolidation. Stable reticular nodular opacity at the right lower lung. Scattered pulmonary nodules are better seen on the prior CT. No pneumothorax. IMPRESSION: Stable exam. ACT 112: Negative or not required by law. Electronically signed by: Lester Domínguez M.D. 07/20/2025 9:23 AM Medications Administered Home Medications Medication Instructions Recorded Confirmed Last Taken nystatin 100,000 unit/gram topical 1 applic topical BID 08/07/24 07/18/25 07/18/25 08:00 powder (Klayesta) ondansetron HCl 4 mg tablet 4 mg PO Q6H PRN nausea and 09/13/24 07/18/25 Unknown vomiting #30 tabs tramadol 50 mg tablet 50 mg PO Q8H PRN pain #30 tabs 09/13/24 07/18/25 Unknown nystatin-triamcinolone 100,000 1 applic topical BID #60 grams 10/15/24 07/18/25 07/18/25 08:00 unit/g-0.1 % topical cream cholestyramine 4 gram oral powder 4 g PO DAILY PRN Acne 03/05/25 07/18/25 Unknown mirvetuximab soravtansine-gynx 5 0 mg IV Q21D 03/27/25 07/18/25 05/08/25 mg/mL intravenous solution (Elahere) loratadine 10 mg tablet (Claritin) 10 mg PO DAILY 04/11/25 07/18/25 07/18/25 mupirocin 2 % topical ointment 1 applic topical BID #15 grams 04/11/25 07/18/25 07/18/25 08:00 prednisolone sodium phosphate 1 % 1 drp ophthalmic (eye) 6XD 04/11/25 07/18/25 07/18/25 eye drops 2 DOSES TODAY diphenoxylate-atropine 2.5 1 tab PO TID #270 tabs 04/16/25 07/18/25 07/18/25 08:00 mg-0.025 mg tablet (Lomotil) Levomefolate/ Vit B12/ Vit B6/ Vit 1 tab PO DAILY 05/10/25 07/18/25 07/18/25 B2 / apixaban 2.5 mg tablet (Eliquis) 2.5 mg PO BID 05/10/25 07/18/25 07/18/25 08:00 bumetanide 1 mg tablet 1 mg PO DAILY 05/10/25 07/18/25 07/18/25 olanzapine 2.5 mg tablet 2.5 mg PO DIRECTED 05/10/25 07/18/25 05/09/25 bumetanide 0.5 mg tablet 0.5 mg PO DAILY #30 tabs 05/21/25 07/18/25 07/18/25 ergocalciferol (vitamin D2) 1,250 1,250 mcg PO 2XWK #20 caps 05/22/25 07/18/25 07/15/25 mcg (50,000 unit) capsule (Vitamin D2) pantoprazole 40 mg tablet,delayed 40 mg PO DAILY #90 tabs 06/25/25 07/18/25 07/18/25 release spironolactone 25 mg tablet 25 mg PO DAILY #90 tabs 07/02/25 07/18/25 07/18/25 psyllium husk 0.4 gram capsule 0.4 g PO TID 07/18/25 07/18/25 07/18/25 (Metamucil) loperamide 2 mg tablet 4 mg (2 x 2 mg) PO QAM #180 tabs 07/22/25 Unknown Active Medications Generic Name Dose Route Start Last Admin Trade Name Mert PRN Reason Stop Dose Admin Acetaminophen 650 mg 07/18/25 16:21 07/20/25 04:29 Acetaminophen 325 Mg Tab PO 08/17/25 16:20 650 mg Q4H PRN Administration pain/fever Diphenoxylate HCl/Atropine 1 tab 07/18/25 21:00 07/22/25 14:31 Diphenoxylate/Atropine 2.5/0.025mg Tab PO 08/17/25 20:59 1 tab TID LUCY Administration Ergocalciferol 1,250 mcg 07/19/25 09:00 07/22/25 08:39 Ergocalciferol 1250 Mcg (50,000 Units) Cap PO 08/18/25 08:59 1,250 mcg MoFr@0900 LUCY Administration Ceftriaxone Sodium 2,000 mg in 50 mls @ 100 mls/hr 07/19/25 12:00 07/22/25 12:51 Rocephin IV 07/24/25 11:59 Infused Q24H LUCY Infusion Loperamide HCl 4 mg 07/19/25 09:00 07/22/25 08:40 Loperamide Hcl 2 Mg Cap PO 08/18/25 08:59 4 mg QAM LUCY Administration Loperamide HCl 2 mg 07/18/25 21:20 07/21/25 20:57 Loperamide Hcl 2 Mg Cap PO 08/17/25 21:19 2 mg HS LUCY Administration Loratadine 10 mg 07/19/25 09:00 07/22/25 08:41 Loratadine 10 Mg Tab PO 08/18/25 08:59 10 mg DAILY LUCY Administration Midodrine 10 mg 07/21/25 12:00 07/22/25 12:02 Midodrine Hcl 10 Mg Tab PO 08/20/25 11:59 10 mg TID@0800,1200,1700 LUCY Administration Mupirocin 1 appln 07/18/25 21:00 07/22/25 10:02 Mupirocin 2% Oint 22 Gm Tube TOP 08/17/25 20:59 1 appln BID LUCY Administration Nystatin 1 appln 07/18/25 21:00 07/22/25 10:02 Nystatin Powder 15gm Btl EXT 08/17/25 20:59 1 appln BID LUCY Administration Nystatin/Triamcinolone Acetonide 1 appln 07/18/25 21:00 07/22/25 10:02 Nystatin/Triamcin Cr 15 Gm Tube EXT 08/17/25 20:59 1 appln BID LUCY Administration Pantoprazole Sodium 40 mg 07/19/25 09:00 07/22/25 08:39 Pantoprazole 40 Mg Tab PO 08/18/25 08:59 40 mg DAILY LUCY Administration Prednisolone Sodium Phosphate 1 drops 07/18/25 19:00 07/21/25 20:59 Prednisolone Sod Phos 1% 10 Ml Btl OP 08/17/25 18:04 1 drops 6XD LUCY Administration Psyllium Hydrophilic Mucilloid 4 gm 07/18/25 21:00 07/22/25 14:31 Psyllium Husk 4gm Packet PO 08/17/25 20:59 4 gm TID LUCY Administration Tramadol HCl 100 mg 07/21/25 09:19 07/21/25 17:09 Tramadol Hcl 50 Mg Tablet PO 08/20/25 09:18 100 mg Q12H PRN Administration pain Vitamin B Complex 1 tab 07/19/25 09:00 07/22/25 08:41 Vitamin B Complex Tab PO 08/18/25 08:59 1 tab DAILY LUCY Administration (5) Hypotension Hypotension type: other hypotension type Qualified Code(s): I95.89 - Other hypotension
[2025-07-22] MEDS: LACTATED RINGER'S 500 ML IV ONE (13:30)
--- NOTE | 2025-07-22 17:51 | Progress Note ---
Date of Service July 22, 2025 Assessment & Plan (1) Septic shock: Plan: 07/22 - patient is now off of levophed; midodrine dose increased - BP still remains soft - cont Rocephin, appreciate ID input (2) Pneumonia: Plan: 07/22 - appreciate ID input, was on Cefepime and completed Azithro and flagyl course; but now on Rocephin Right lower lobe, present on admission. She is currently on intravenous azithromycin, Rocephin, Flagyl. Chest CT scan completed July 19 noted. Serial chest x-ray. (3) Thrombocytopenia: Plan: 07/22 - platelet dropped to 26k; monitor signs of any bleeding; to note, patient has chronic thrombocytopenia, possibly from malignancy or more likely chemo. Platelet count has dropped further, now 28,000 today, July 21. Probably from recent chemotherapy. Eliquis discontinued for the time being due to risk of bleeding. (4) Ovarian cancer: Plan: With metastatic disease. Currently undergoing chemotherapy. Supportive care Plan To be determined by clinical course. Hospitalist service will assume care once she is moved out of the ICU Admission and Anticipated Discharge Date Admission Date: July 18, 2025 Subjective Patient is feeling well, denies acute issues. No significant pain. Review of Systems Review of Systems: Constitutional: No Weight Change, No Fever, No Chills, No Night Sweats, No Fatigue, No Malaise ENT/Mouth: No Hearing Changes, No Ear Pain, No Nasal Congestion, No Sinus Pain, No Hoarseness, No sore throat, No Rhinorrhea, No Swallowing Difficulty Eyes: No Eye Pain, No Swelling, No Redness, No Foreign Body, No Discharge, No Vision Changes Cardiovascular: No Chest Pain, No SOB, No PND, No Dyspnea on Exertion, No Orthopnea, No Claudication, No Edema, No Palpitations Respiratory: No Cough, No Sputum, No Wheezing, No Smoke Exposure, No Dyspnea Gastrointestinal: No Nausea, No Vomiting, No Diarrhea, No Constipation, No Pain, No Heartburn, No Anorexia, No Dysphagia, No Hematochezia, No Melena, No Flatulence, No Jaundice Genitourinary: No Dysmenorrhea, No DUB, No Dyspareunia, No Dysuria, No Urinary Frequency, No Hematuria, No Urinary Incontinence, No Urgency, No Flank Pain, No Urinary Flow Changes, No Hesitancy Musculoskeletal: No Arthralgias, No Myalgias, No Joint Swelling, No Joint Stiffness, No Back Pain, No Neck Pain, No Injury History Skin: No Skin Lesions, No Pruritis, No Hair Changes, No Breast/Skin Changes, No Nipple Discharge Neuro: No Weakness, No Numbness, No Paresthesias, No Loss of Consciousness, No Syncope, No Dizziness, No Headache, No Coordination Changes, No Recent Falls Psych: No Anxiety/Panic, No Depression, No Insomnia, No Personality Changes, No Delusions, No Rumination, No SI/HI/AH/VH, No Social Issues, No Memory Changes, No Violence/Abuse Hx., No Eating Concerns Heme/Lymph: No Bruising, No Bleeding, No Transfusions History, No Lymphadenopathy Endocrine: No Polyuria, No Polydipsia, No Temperature Intolerance Physical Exam Physical Exam: VITALS: Reviewed. WEIGHT/BMI reviewed. GEN: Healthy appearing, well-developed, NAD. PSYCH: Good Judgment. AOx3. Normal memory, mood, and affect. HEENT -Head: NC/AT; -Eyes: PERRL, EOMI. No discharge or redn ess; -Ears: External ears are normal. Normal TMs. -Nose: Normal nares. -Mouth and throat: MMM. Normal gums, muc shahzad, palate,. Good dentition. NECK: Supple, with no masses. CV: RRR, no m/r/g. LUNGS: CTAB, no w/r/c. ABD: Soft, NT/ND, NBS, no masses or organomegaly. : N/A SKIN: Warm, well perfused. No skin rashes or abnormal lesions. MSK: No deformities, Normal gait. EXT: No clubbing, cyanosis, or edema. NEURO: Ambulating with no limitations. Normal muscle strength and tone. No focal deficits. Results & Data Vital Signs (Past 12 Hours) Vital Signs Temp Pulse Pulse Resp BP BP Pulse Ox 07/22/25 15:09 68 23 85/52 L 94 07/22/25 14:14 77 07/22/25 14:00 64 15 85/53 L 95 07/22/25 13:00 75 20 95 07/22/25 12:12 74 17 96 07/22/25 11:15 80 18 96 07/22/25 11:00 92/56 L 07/22/25 10:03 07/22/25 10:00 86/61 L 07/22/25 10:00 83 18 93 07/22/25 09:00 86/54 L 07/22/25 09:00 82 22 96 07/22/25 08:03 78 12 93 07/22/25 08:00 81/51 L 07/22/25 07:18 89 10 L 92 07/22/25 07:00 87/53 L 07/22/25 06:00 36.6 C 78 19 87/53 L 94 O2 Del Method 07/22/25 15:09 07/22/25 14:14 07/22/25 14:00 07/22/25 13:00 07/22/25 12:12 07/22/25 11:15 07/22/25 11:00 07/22/25 10:03 Room Air 07/22/25 10:00 07/22/25 10:00 07/22/25 09:00 07/22/25 09:00 07/22/25 08:03 07/22/25 08:00 07/22/25 07:18 07/22/25 07:00 07/22/25 06:00 Room Air Laboratory Results Laboratory Results WBC 6.23 K/ul (4.8-10.8) 07/22/25 05:02 RBC 2.33 M/uL (4.20-5.40) L 07/22/25 05:02 Hgb 8.1 g/dl (12.0-16.0) L 07/22/25 05:02 Hct 23.7 % (37.0-47.0) L 07/22/25 05:02 MCV 101.7 fL (80.0-100.0) H 07/22/25 05:02 MCH 34.8 pg (25.0-34.0) H 07/22/25 05:02 MCHC 34.2 g/dL (32.0-36.0) 07/22/25 05:02 RDW Std Deviation 88.4 fL (36.4-46.3) H 07/22/25 05:02 RDW Coeff of Rolo 23.8 % (11.5-14.5) H 07/22/25 05:02 Plt Count 26 K/uL (130-400) L* 07/22/25 05:02 MPV 12.3 fL (9.4-12.4) 07/22/25 05:02 Immature Gran % (Auto) 1.3 % 07/22/25 05:02 Neut % (Auto) 80.5 % 07/22/25 05:02 Lymph % (Auto) 10.8 % 07/22/25 05:02 Lagrange % (Auto) 6.7 % 07/22/25 05:02 Eos % (Auto) 0.5 % 07/22/25 05:02 Baso % (Auto) 0.2 % 07/22/25 05:02 Neut # (Auto) 5.02 K/uL (1.40-6.50) 07/22/25 05:02 Lymph # (Auto) 0.67 K/uL (1.20-3.40) L 07/22/25 05:02 [place]range # (Auto) 0.42 K/uL (0.11-0.59) 07/22/25 05:02 Eos # (Auto) 0.03 K/uL (0.00-0.50) 07/22/25 05:02 Baso # (Auto) 0.01 K/uL (0.00-0.20) 07/22/25 05:02 Immature Gran # (Auto) 0.08 K/uL (0.01-0.20) 07/22/25 05:02 Anisocytosis Present 07/22/25 05:02 PT 12.4 Seconds (9.0-12.0) H 07/18/25 14:17 INR 1.2 (0.9-1.1) H 07/18/25 14:17 APTT 31 Seconds (21-31) 07/18/25 14:17 PTT Ratio 1.1 07/18/25 14:17 VBG pH 7.38 (7.36-7.41) 07/18/25 14:33 VBG pCO2 34 mmHg (38-50) L 07/18/25 14:33 VBG pO2 49 mmHg 07/18/25 14:33 VBG HCO3 20 mmol/L 07/18/25 14:33 VBG O2 Saturation 80.7 % 07/18/25 14:33 VBG Base Excess -4.2 mEq/L 07/18/25 14:33 Sodium 133 mmol/L (136-145) L 07/22/25 05:02 Potassium 4.0 mmol/L (3.5-5.1) 07/22/25 05:02 Chloride 104 mmol/L (98-107) 07/22/25 05:02 Carbon Dioxide 22 mmol/L (21-32) 07/22/25 05:02 Anion Gap 7 (3-11) 07/22/25 05:02 BUN 51 mg/dl (6-23) H 07/22/25 05:02 Creatinine 2.44 mg/dl (0.6-1.2) H 07/22/25 05:02 Est Cr Clr Drug Dosing 17.7 ml/min 07/22/25 05:02 eGFR 20.40 07/22/25 05:02 BUN/Creatinine Ratio 20.9 (10-20) H 07/22/25 05:02 Glucose 71 mg/dl (70-99(Fasting)) 07/22/25 05:02 POC Glucose 94 mg/dl (70-99) 07/22/25 14:37 Lactate 2.7 mmol/L (0.4-2.0) H* 07/19/25 16:30 Calcium 8.4 mg/dl (8.6-10.3) L 07/22/25 05:02 Ionized Calcium 1.16 mmol/L (1.12-1.32) 07/20/25 08:25 Phosphorus 3.3 mg/dl (2.5-4.9) 07/22/25 05:02 Magnesium 2.0 mg/dl (1.7-2.4) 07/22/25 05:02 Iron 172 mcg/dl (35-150) H 07/19/25 07:50 TIBC 192 mcg/dl (250-450) L 07/19/25 07:50 Transferrin 137 mg/dl (200-360) L 07/19/25 07:50 Transferrin % Sat 90 % (15-50) H 07/19/25 07:50 Total Bilirubin 3.0 mg/dl (0.2-1.0) H 07/21/25 04:24 Direct Bilirubin 1.4 mg/dl (0-0.2) H 07/18/25 14:17 AST 88 U/L (13-39) H 07/21/25 04:24 ALT 31 U/L (7-52) 07/21/25 04:24 Alkaline Phosphatase 227 U/L (34-104) H 07/21/25 04:24 Troponin I High Sens 32.6 pg/ml (0-14) H 07/18/25 16:36 B-Natriuretic Peptide 148 pg/ml (0-100) H 07/19/25 11:04 Total Protein 5.3 gm/dl (6.0-8.3) L 07/21/25 04:24 Albumin 2.3 gm/dl (3.4-5.0) L 07/21/25 04:24 Globulin 3.0 gm/dl (2.5-4.0) 07/21/25 04:24 Albumin/Globulin Ratio 0.8 (0.9-2) L 07/21/25 04:24 Vitamin B12 1149 pg/ml (180-914) H 07/19/25 07:50 25-OH Vitamin D Total > 120.0 ng/ml (30-100) H 07/19/25 07:50 Folate > 22.30 ng/ml (>5.38) 07/19/25 07:33 Procalcitonin 0.92 ng/ml (0-0.5) H 07/18/25 14:17 Random Cortisol 20.53 mcg/dl 07/22/25 08:25 Cortisol AM Sample 24.70 mcg/dl (6.2-22.6) H 07/19/25 07:33 Urine Color Yellow 07/18/25 Unknown Urine Appearance Clear (Clear) 07/18/25 Unknown Urine pH 5.5 (4.5-7.5) 07/18/25 Unknown Ur Specific Olga 1.009 (1.000-1.030) 07/18/25 Unknown Urine Protein Trace (Negative) H 07/18/25 Unknown Urine Glucose (UA) Negative (Negative) 07/18/25 Unknown Urine Ketones Negative (Negative) 07/18/25 Unknown Urine Blood Negative (Negative) 07/18/25 Unknown Urine Nitrite Negative (Negative) 07/18/25 Unknown Urine Bilirubin Negative (Negative) 07/18/25 Unknown Urine Urobilinogen Negative (Negative) 07/18/25 Unknown Ur Leukocyte Esterase Negative (Negative) 07/18/25 Unknown Urine WBC (Auto) 0-5 /hpf (0-5) 07/18/25 Unknown Urine RBC (Auto) 0-2 /hpf (0-2) 07/18/25 Unknown U Hyaline Cast (Auto) 6-10 /lpf (0-2) H 07/18/25 Unknown U Epithel Cells (Auto) 0-2 /hpf (0-2) 07/18/25 Unknown Urine Bacteria (Auto) None Seen (None Seen) 07/18/25 Unknown Hyaline Casts Present /lpf (None Presnt) A 07/18/25 Unknown Urine Comment 07/18/25 Unknown Nasal Screen MRSA (PCR) Negative (Negative) 07/18/25 Unknown Adenovirus (PCR) Not Detected (NotDetected) 07/18/25 Unknown B. pertussis DNA (PCR) Not Detected (NotDetected) 07/18/25 Unknown B.parapertussis DNA PCR Not Detected (NotDetected) 07/18/25 Unknown C. pneumoniae DNA (PCR) Not Detected (NotDetected) 07/18/25 Unknown Coronavirus OC43 (PCR) Not Detected (NotDetected) 07/18/25 Unknown Coronavirus HKU1 (PCR) Not Detected (NotDetected) 07/18/25 Unknown Coronavirus 229E (PCR) Not Detected (NotDetected) 07/18/25 Unknown SARS-CoV-2 (PCR) Not Detected (NotDetected) 07/18/25 Unknown Coronavirus NL63 (PCR) Not Detected (NotDetected) 07/18/25 Unknown Human Metapneumovir PCR Not Detected (NotDetected) 07/18/25 Unknown Influenza Type A (PCR) Not Detected (NotDetected) 07/18/25 Unknown Influenza Type B (PCR) Not Detected (NotDetected) 07/18/25 Unknown Urine Legionella Ag SEE NOTE 07/19/25 11:20 M. pneumoniae (PCR) Not Detected (NotDetected) 07/18/25 Unknown Parainfluenza 1 (PCR) Not Detected (NotDetected) 07/18/25 Unknown Parainfluenza 2 (PCR) Not Detected (NotDetected) 07/18/25 Unknown Parainfluenza 3 (PCR) Not Detected (NotDetected) 07/18/25 Unknown Parainfluenza 4 (PCR) Not Detected (NotDetected) 07/18/25 Unknown RSV (PCR) Not Detected (NotDetected) 07/18/25 Unknown Entero/Rhino (PCR) Not Detected (NotDetected) 07/18/25 Unknown Blood Type A Negative 07/19/25 11:04 Antibody Screen NEGATIVE 07/19/25 11:04 Crossmatch See Detail 07/19/25 11:04 Impressions Venous Doppler Study 07/18/25 20:51 Exam(s): US VENOUS BILATERAL LOWER EXTREMITIES EXAM: US Duplex Bilateral Lower Extremities Veins CLINICAL HISTORY: Reason for exam: Rule out DVT. OTHER: TECHNIQUE: Real-time duplex ultrasound scan of the bilateral lower extremity veins integrating B-mode two-dimensional vascular structure, Doppler spectral analysis, color flow Doppler imaging and compression. COMPARISON: No relevant prior studies available. FINDINGS: Right deep veins: No DVT in the right common femoral, femoral, proximal deep femoral or popliteal veins. The veins demonstrate normal color flow, are normally compressible, with normal phasic flow and/or augmentation response. Right superficial veins: No thrombus in the visualized right great saphenous vein. Left deep veins: No DVT in the left common femoral, femoral, proximal deep femoral or popliteal veins. The veins demonstrate normal color flow, are normally compressible, with normal phasic flow and/or augmentation response. Left superficial veins: No thrombus in the visualized left great saphenous vein. Soft tissues: Edema. IMPRESSION: No evidence of acute DVT. Electronically signed by: Jose Carlos Vallejo M.D. 07/19/25 00:[address] 07/19/25 17:35 Exam(s): CT CHEST Without Contrast EXAM: CT Chest Without Intravenous Contrast CLINICAL HISTORY: Reason for exam: sepsis. TECHNIQUE: Axial computed tomography images of the chest without intravenous contrast. CTDI is 7.79 mGy and DLP is 524.32 mGy-cm. Automated exposure control was utilized for the study. A dose lowering technique was utilized adhering to the principles of ALARA. COMPARISON: 05/11/2025 FINDINGS: Lungs: Consolidative opacities in the right lower lobe concerning for pneumonia. Numerous bilateral pulmonary nodules which are new from prior and are concerning for pulmonary metastatic disease. Largest is in the right middle lobe measuring 12 mm (series 4, image 163). Mild septal thickening in keeping with mild pulmonary edema. Pleural space: Small left and trace right pleural effusions. No pneumothorax. Heart: Coronary artery atherosclerosis. No cardiomegaly or pericardial effusion. Bones/joints: Osteopenia. No acute fracture or dislocation. No suspicious bone lesions. Benign intraosseous hemangioma at T11. Soft tissues: Unremarkable. Vasculature: No aortic aneurysm. Lymph nodes: Bilateral supraclavicular lymphadenopathy is suggested, calcified on the left side, suboptimally characterize without contrast. Upper abdomen: Reported separately. Tubes, lines and devices: Right IJ approach port catheter extends to the cavoatrial junction. Left PICC extends to the SVC. IMPRESSION: 1. Consolidative opacities in the right lower lobe concerning for pneumonia. 2. Numerous bilateral pulmonary nodules which are new from prior and are concerning for pulmonary metastatic disease. Largest is in the right middle lobe measuring 12 mm (series 4, image 163). 3. Mild septal thickening in keeping with mild pulmonary edema. 4. Bilateral supraclavicular lymphadenopathy is suggested, calcified on the left side, suboptimally characterize without contrast. 5. Small left and trace right pleural effusions. Electronically signed by: Jose Carlos Vallejo M.D. 07/19/25 23:29 PM Abdomen/Pelvis CT 07/19/25 17:36 Exam(s): CT ABDOMEN + PELVIS Without Contrast EXAM: CT Abdomen and Pelvis Without Intravenous Contrast CLINICAL HISTORY: Reason for exam: sepsis, hx of bowel infection, ovarian cancer. TECHNIQUE: Axial computed tomography images of the abdomen and pelvis without intravenous contrast. CTDI is 7.79 mGy and DLP is 524.32 mGy-cm. Automated exposure control was utilized for the study. A dose lowering technique was utilized adhering to the principles of ALARA. COMPARISON: 05/11/2025 FINDINGS: Noncontrast evaluation of the abdomen and pelvis is limited in the assessment of malignancy progression. There are multiple new hypodense hepatic masses concerning for progression of hepatic metastatic disease. Large complex infrahepatic mass measuring 11 x 12 x 19 cm is similar in size to prior exam. Right adrenal gland is not visualized. There is cholelithiasis without evidence of acute cholecystitis. Spleen and pancreas are unremarkable. Left adrenal gland is poorly visualized. There is no hydronephrosis. Hyperdense left renal cysts suggests hemorrhagic cysts; no follow-up is indicated. There is atherosclerosis of the aorta without aneurysm. Calcified mesenteric and retroperitoneal lymphadenopathy is similar to prior. Ascites is suggested. There is no free air. There is generalized anasarca. There are postoperative changes of the bowel with oversewn Markus's pouch and left-sided ostomy. There is no bowel obstruction. Appendix is not identified. Urinary bladder is unremarkable. Uterus is absent. There are no suspicious bone lesions or acute osseous findings. IMPRESSION: 1. Limited noncontrast evaluation. 2. Progression of hepatic metastatic disease. Stable large complex subhepatic mass. Calcified adenopathy, similar to prior. 3. Ascites. Anasarca. Electronically signed by: Jose Carlos Vallejo M.D. 07/19/25 23:33 PM Chest X-Ray 07/20/25 08:31 XR chest 1V portable CLINICAL HISTORY: RLL pneumonia COMPARISON STUDY: 07/18/2025 and 07/19/2025 FINDINGS: Stable right chest port and left PICC line. Heart size and pulmonary vasculature are normal. There is stable small bilateral pleural effusions with adjacent lung base consolidation. Stable reticular nodular opacity at the right lower lung. Scattered pulmonary nodules are better seen on the prior CT. No pneumothorax. IMPRESSION: Stable exam. ACT 112: Negative or not required by law. Electronically signed by: Lester Domínguez M.D. 07/20/2025 9:23 AM PG Care Time/CCT Total # of Minutes Spent Total Time Spent with Patient: Total time spent is greater than 50% in coordination of care (as documented) at patient's floor/unit and/or counseling patient: Coding Level of Care Code 96762 SUB INP/OBS CARE 3/50MIN Diagnoses Septic shock A41.9; R65.21 Pneumonia J18.9 Thrombocytopenia D69.6 Ovarian cancer C56.9
[2025-07-22] MEDS: ONDANSETRON 4 MG OD TAB PO PRN (20:09)
[2025-07-23 04:27] LABS: Hematocrit (blood only) 22.2 % (37.0-47.0); Hemoglobin 7.7 g/dl (12.0-16.0); Mean Corpuscular Hemoglobin 35.0 pg (25.0-34.0); Mean Corpuscular Volume 100.9 fL (80.0-100.0); Platelet Count 25 K/uL (130-400); RDW Standard Deviation 86.9 fL (36.4-46.3); Red Blood Count 2.20 M/uL (4.20-5.40); White Blood Count 6.65 K/ul (4.8-10.8)
[2025-07-23 04:42] LABS: Anion Gap 7.0 (3-11); Blood Urea Nitrogen 55.0 mg/dl (6-23); Calcium 8.3 mg/dl (8.6-10.3); Carbon Dioxide 22.0 mmol/L (21-32); Chloride 103.0 mmol/L (98-107); Creatinine Clr Calc Pharmacy 17.3 ml/min; Glucose 69.0 mg/dl (70-99(Fasting)); Magnesium 2.0 mg/dl (1.7-2.4); Potassium 4.2 mmol/L (3.5-5.1); Sodium 132.0 mmol/L (136-145)
[2025-07-23 04:53] LABS: Anisocytosis Present; Immature Granulocytes # (auto) 0.12 K/uL (0.01-0.20); Immature Granulocytes % (auto) 1.8 %
--- NOTE | 2025-07-23 13:34 | Palliative Care Progress Note ---
Date of Service July 23, 2025 Assessment & Plan (1) Weakness generalized: (2) Palliative care by specialist: Plan: Palliative care will continue to follow for ongoing ACP discussions and patient/family support. (3) Advanced care planning/counseling discussion: Plan: Met with pt and her spouse Sal at bedside. They shared concern about reported progression of disease on CT scan this admission. They are hopeful to discuss this with Dr Leach (consult placed 07/22/25) for clarification and comparison with previous scans done last month. Erica shared that she has an appointment with oncologic content management specialist at [facility] on 07/31 and she is hopeful to be down graded from ICU to floor and discharged to home in time to make it to this appointment. Erica and Sal reaffirm commitment to pursuing all life prolonging treatments and aggressive care at this time. Sal shared that they have gotten hopeful feedback from her oncology team at [facility]. They expressed gratitude for the collaboration of [facility] teams with [facility] team to ensure best outcome for Erica. Plan as above Admission and Anticipated Discharge Date Admission Date: July 18, 2025 Subjective Assessed pt at bedside, she was awake and alert. VSS, NAEON. She shared frustration with remaining in ICU. She reinforced that her current BP (87/55) is her baseline and denies any complaint. Review of Systems Review of Systems: All systems reviewed & are unremarkable except as noted in Subjective Physical Exam Constitutional: + ill appearing, + cachectic, + frail ap pearing, cooperative and comfortable Eyes: PERRL and EOM intact bilaterally icteric sclera ENMT: external ear and nose normal, oropharynx normal Neck: trachea midline, no thyromegaly Cardiovascular: Rate/Rhythm: regular rate and regular rhythm Gastrointestinal (Abdomen): normal bowel sounds, soft, nontender, no hepatosplenomegaly Musculoskeletal: generalized weakness. Results & Data Vital Signs (Past 12 Hours) Vital Signs Temp Pulse Resp BP BP Pulse Ox 07/23/25 11:00 83/55 L 07/23/25 10:30 79 19 96 07/23/25 10:00 80/50 L 07/23/25 09:15 78 19 96 07/23/25 09:00 84/55 L 07/23/25 08:09 77 22 91 07/23/25 08:00 80/55 L 07/23/25 07:58 84 07/23/25 07:40 36.6 C 07/23/25 07:09 75 20 88/54 L 93 07/23/25 05:00 81 12 88/58 L 91 07/23/25 04:03 81 28 H 84/53 L 93 07/23/25 03:15 78 25 H 91/52 L 94 07/23/25 02:15 87 19 88/51 L 91 Laboratory Results Abnormal lab results 07/23/25 07/23/25 Range/Units 04:07 12:33 RBC 2.20 L (4.20-5.40) M/uL Hgb 7.7 L (12.0-16.0) g/dl Hct 22.2 L (37.0-47.0) % MCV 100.9 H (80.0-100.0) fL MCH 35.0 H (25.0-34.0) pg RDW Std Deviation 86.9 H (36.4-46.3) fL RDW Coeff of Rolo 23.7 H (11.5-14.5) % Plt Count 25 L* (130-400) K/uL Lymph # (Auto) 0.68 L (1.20-3.40) K/uL Sodium 132 L (136-145) mmol/L BUN 55 H (6-23) mg/dl Creatinine 2.50 H (0.6-1.2) mg/dl BUN/Creatinine Ratio 22.0 H (10-20) Glucose 69 L (70-99(Fasting)) mg/dl POC Glucose 103 H (70-99) mg/dl Calcium 8.3 L (8.6-10.3) mg/dl Diagnostic Findings Venous Doppler Study 07/18/25 20:51 Exam(s): US VENOUS BILATERAL LOWER EXTREMITIES EXAM: US Duplex Bilateral Lower Extremities Veins CLINICAL HISTORY: Reason for exam: Rule out DVT. OTHER: TECHNIQUE: Real-time duplex ultrasound scan of the bilateral lower extremity veins integrating B-mode two-dimensional vascular structure, Doppler spectral analysis, color flow Doppler imaging and compression. COMPARISON: No relevant prior studies available. FINDINGS: Right deep veins: No DVT in the right common femoral, femoral, proximal deep femoral or popliteal veins. The veins demonstrate normal color flow, are normally compressible, with normal phasic flow and/or augmentation response. Right superficial veins: No thrombus in the visualized right great saphenous vein. Left deep veins: No DVT in the left common femoral, femoral, proximal deep femoral or popliteal veins. The veins demonstrate normal color flow, are normally compressible, with normal phasic flow and/or augmentation response. Left superficial veins: No thrombus in the visualized left great saphenous vein. Soft tissues: Edema. IMPRESSION: No evidence of acute DVT. Electronically signed by: Jose Carlos Vallejo M.D. 07/19/25 00:[address] 07/19/25 17:35 Exam(s): CT CHEST Without Contrast EXAM: CT Chest Without Intravenous Contrast CLINICAL HISTORY: Reason for exam: sepsis. TECHNIQUE: Axial computed tomography images of the chest without intravenous contrast. CTDI is 7.79 mGy and DLP is 524.32 mGy-cm. Automated exposure control was utilized for the study. A dose lowering technique was utilized adhering to the principles of ALARA. COMPARISON: 05/11/2025 FINDINGS: Lungs: Consolidative opacities in the right lower lobe concerning for pneumonia. Numerous bilateral pulmonary nodules which are new from prior and are concerning for pulmonary metastatic disease. Largest is in the right middle lobe measuring 12 mm (series 4, image 163). Mild septal thickening in keeping with mild pulmonary edema. Pleural space: Small left and trace right pleural effusions. No pneumothorax. Heart: Coronary artery atherosclerosis. No cardiomegaly or pericardial effusion. Bones/joints: Osteopenia. No acute fracture or dislocation. No suspicious bone lesions. Benign intraosseous hemangioma at T11. Soft tissues: Unremarkable. Vasculature: No aortic aneurysm. Lymph nodes: Bilateral supraclavicular lymphadenopathy is suggested, calcified on the left side, suboptimally characterize without contrast. Upper abdomen: Reported separately. Tubes, lines and devices: Right IJ approach port catheter extends to the cavoatrial junction. Left PICC extends to the SVC. IMPRESSION: 1. Consolidative opacities in the right lower lobe concerning for pneumonia. 2. Numerous bilateral pulmonary nodules which are new from prior and are concerning for pulmonary metastatic disease. Largest is in the right middle lobe measuring 12 mm (series 4, image 163). 3. Mild septal thickening in keeping with mild pulmonary edema. 4. Bilateral supraclavicular lymphadenopathy is suggested, calcified on the left side, suboptimally characterize without contrast. 5. Small left and trace right pleural effusions. Electronically signed by: Jose Carlos Vallejo M.D. 07/19/25 23:29 PM Abdomen/Pelvis CT 07/19/25 17:36 Exam(s): CT ABDOMEN + PELVIS Without Contrast EXAM: CT Abdomen and Pelvis Without Intravenous Contrast CLINICAL HISTORY: Reason for exam: sepsis, hx of bowel infection, ovarian cancer. TECHNIQUE: Axial computed tomography images of the abdomen and pelvis without intravenous contrast. CTDI is 7.79 mGy and DLP is 524.32 mGy-cm. Automated exposure control was utilized for the study. A dose lowering technique was utilized adhering to the principles of ALARA. COMPARISON: 05/11/2025 FINDINGS: Noncontrast evaluation of the abdomen and pelvis is limited in the assessment of malignancy progression. There are multiple new hypodense hepatic masses concerning for progression of hepatic metastatic disease. Large complex infrahepatic mass measuring 11 x 12 x 19 cm is similar in size to prior exam. Right adrenal gland is not visualized. There is cholelithiasis without evidence of acute cholecystitis. Spleen and pancreas are unremarkable. Left adrenal gland is poorly visualized. There is no hydronephrosis. Hyperdense left renal cysts suggests hemorrhagic cysts; no follow-up is indicated. There is atherosclerosis of the aorta without aneurysm. Calcified mesenteric and retroperitoneal lymphadenopathy is similar to prior. Ascites is suggested. There is no free air. There is generalized anasarca. There are postoperative changes of the bowel with oversewn Markus's pouch and left-sided ostomy. There is no bowel obstruction. Appendix is not identified. Urinary bladder is unremarkable. Uterus is absent. There are no suspicious bone lesions or acute osseous findings. IMPRESSION: 1. Limited noncontrast evaluation. 2. Progression of hepatic metastatic disease. Stable large complex subhepatic mass. Calcified adenopathy, similar to prior. 3. Ascites. Anasarca. Electronically signed by: Jose Carlos Vallejo M.D. 07/19/25 23:33 PM Chest X-Ray 07/20/25 08:31 XR chest 1V portable CLINICAL HISTORY: RLL pneumonia COMPARISON STUDY: 07/18/2025 and 07/19/2025 FINDINGS: Stable right chest port and left PICC line. Heart size and pulmonary vasculature are normal. There is stable small bilateral pleural effusions with adjacent lung base consolidation. Stable reticular nodular opacity at the right lower lung. Scattered pulmonary nodules are better seen on the prior CT. No pneumothorax. IMPRESSION: Stable exam. ACT 112: Negative or not required by law. Electronically signed by: Lester Domínguez M.D. 07/20/2025 9:23 AM Medications Administered Current Inpatient Medications Acetaminophen (Acetaminophen 325 Mg Tab) 650 mg PO Q4H PRN PRN Reason: pain/fever Stop: 08/17/25 16:20 Last Admin: 07/20/25 04:29 Dose: 650 mg Cholestyramine Resin (Cholestyramine Light 4 Gm Pkt) 4 gm PO DAILY PRN PRN Reason: Acne Stop: 08/17/25 18:16 Diphenoxylate HCl/Atropine (Diphenoxylate/Atropine 2.5/0.025mg Tab) 1 tab PO TID LUCY Stop: 08/17/25 20:59 Last Admin: 07/23/25 08:23 Dose: 1 tab Ergocalciferol (Ergocalciferol 1250 Mcg (50,000 Units) Cap) 1,250 mcg PO MoFr@0900 LUCY Stop: 08/18/25 08:59 Last Admin: 07/22/25 08:39 Dose: 1,250 mcg Ceftriaxone Sodium (Rocephin) 2,000 mg in 50 mls @ 100 mls/hr IV Q24H LUCY Stop: 07/24/25 11:59 Last Infusion: 07/23/25 12:36 Dose: Infused Loperamide HCl (Loperamide Hcl 2 Mg Cap) 4 mg PO QAM LUCY Stop: 08/18/25 08:59 Last Admin: 07/23/25 08:23 Dose: 4 mg Loperamide HCl (Loperamide Hcl 2 Mg Cap) 2 mg PO HS LUCY Stop: 08/17/25 21:19 Last Admin: 07/22/25 20:10 Dose: 2 mg Loratadine (Loratadine 10 Mg Tab) 10 mg PO DAILY LUCY Stop: 08/18/25 08:59 Last Admin: 07/23/25 08:23 Dose: 10 mg Melatonin (Melatonin 3 Mg Tab) 3 mg PO HS PRN PRN Reason: Insomnia Stop: 08/17/25 16:20 Midodrine (Midodrine Hcl 10 Mg Tab) 10 mg PO TID@0800,1200,1700 LUCY Stop: 08/20/25 11:59 Last Admin: 07/23/25 11:42 Dose: 10 mg Mupirocin (Mupirocin 2% Oint 22 Gm Tube) 1 appln TOP BID LUCY Stop: 08/17/25 20:59 Last Admin: 07/23/25 08:24 Dose: 1 appln Nystatin (Nystatin Powder 15gm Btl) 1 appln EXT BID LUCY Stop: 08/17/25 20:59 Last Admin: 07/23/25 08:24 Dose: 1 appln Nystatin/Triamcinolone Acetonide (Nystatin/Triamcin Cr 15 Gm Tube) 1 appln EXT BID LUCY Stop: 08/17/25 20:59 Last Admin: 07/23/25 08:24 Dose: 1 appln Ondansetron HCl (Ondansetron Inj 2 Mg/Ml 2 Ml Vial) 4 mg IV Q6H PRN PRN Reason: Nausea Stop: 08/17/25 16:20 Ondansetron HCl (Ondansetron 4 Mg Od Tab) 4 mg PO Q6H PRN PRN Reason: Nausea And Vomiting Stop: 08/17/25 18:17 Last Admin: 07/22/25 20:09 Dose: 4 mg Pantoprazole Sodium (Pantoprazole 40 Mg Tab) 40 mg PO DAILY LUCY Stop: 08/18/25 08:59 Last Admin: 07/23/25 08:24 Dose: 40 mg Polyethylene Glycol (Polyethylene (Miralax) 17 Gm Pack) 17 gm PO DAILY PRN PRN Reason: Constipation Stop: 08/17/25 16:20 Prednisolone Sodium Phosphate (Prednisolone Sod Phos 1% 10 Ml Btl) 1 drops OP 6XD LUCY Stop: 08/17/25 18:04 Last Admin: 07/22/25 20:10 Dose: 1 drops Psyllium Hydrophilic Mucilloid (Psyllium Husk 4gm Packet) 4 gm PO TID LUCY Stop: 08/17/25 20:59 Last Admin: 07/23/25 08:24 Dose: Not Given Tramadol HCl (Tramadol Hcl 50 Mg Tablet) 100 mg PO Q12H PRN PRN Reason: pain Stop: 08/20/25 09:18 Last Admin: 07/21/25 17:09 Dose: 100 mg Vitamin B Complex (Vitamin B Complex Tab) 1 tab PO DAILY LUCY Stop: 08/18/25 08:59 Last Admin: 07/23/25 08:23 Dose: 1 tab PG Care Time/CCT Total # of Minutes Spent Total Time Spent with Patient: Total time spent is greater than 50% in coordination of care (as documented) at patient's floor/unit and/or counseling patient: Coding [place] [address] SUB INP/OBS CARE 2/35MIN Patient Type Established History Expanded Problem Focused Exam Expanded Problem Focused Medical Decision Making Moderate Complexity Diagnoses Weakness generalized R53.1 Palliative care by specialist Z51.5 Advanced care planning/counseling discussion Z71.89
--- NOTE | 2025-07-23 18:27 | Progress Note ---
Date of Service July 23, 2025 Assessment & Plan (1) Septic shock: Plan: 07/22 - patient is now off of levophed; midodrine dose increased - BP still remains soft - cont Rocephin, appreciate ID input 07/23 - transferred out of the ICU - cont midodrine - MAP goal is 55 (2) Pneumonia: Plan: 07/22 - appreciate ID input, was on Cefepime and completed Azithro and flagyl course; but now on Rocephin Right lower lobe, present on admission. She is currently on intravenous azithromycin, Rocephin, Flagyl. Chest CT scan completed July 19 noted. Serial chest x-ray. (3) Thrombocytopenia: Plan: 07/22 - platelet dropped to 26k; monitor signs of any bleeding; to note, patient has chronic thrombocytopenia, possibly from malignancy or more likely chemo. Platelet count has dropped further, now 28,000 today, July 21. Probably from recent chemotherapy. Eliquis discontinued for the time being due to risk of bleeding. (4) Ovarian cancer: Plan: With metastatic disease. Currently undergoing chemotherapy. Supportive care Plan To be determined by clinical course. Hospitalist service will assume care once she is moved out of the ICU Admission and Anticipated Discharge Date Admission Date: July 18, 2025 Subjective Patient is out of the ICU, doing well, no acute issues noted. Pressures remain soft, but patient is asymptomatic. Review of Systems Review of Systems: Constitutional: No Weight Change, No Fever, No Chills, No Night Sweats, No Fatigue, No Malaise ENT/Mouth: No Hearing Changes, No Ear Pain, No Nasal Congestion, No Sinus Pain, No Hoarseness, No sore throat, No Rhinorrhea, No Swallowing Difficulty Eyes: No Eye Pain, No Swelling, No Redness, No Foreign Body, No Discharge, No Vision Changes Cardiovascular: No Chest Pain, No SOB, No PND, No Dyspnea on Exertion, No Orthopnea, No Claudication, No Edema, No Palpitations Respiratory: No Cough, No Sputum, No Wheezing, No Smoke Exposure, No Dyspnea Gastrointestinal: No Nausea, No Vomiting, No Diarrhea, No Constipation, No Pain, No Heartburn, No Anorexia, No Dysphagia, No Hematochezia, No Melena, No Flatulence, No Jaundice Genitourinary: No Dysmenorrhea, No DUB, No Dyspareunia, No Dysuria, No Urinary Frequency, No Hematuria, No Urinary Incontinence, No Urgency, No Flank Pain, No Urinary Flow Changes, No Hesitancy Musculoskeletal: No Arthralgias, No Myalgias, No Joint Swelling, No Joint Stiffness, No Back Pain, No Neck Pain, No Injury History Skin: No Skin Lesions, No Pruritis, No Hair Changes, No Breast/Skin Changes, No Nipple Discharge Neuro: No Weakness, No Numbness, No Paresthesias, No Loss of Consciousness, No Syncope, No Dizziness, No Headache, No Coordination Changes, No Recent Falls Psych: No Anxiety/Panic, No Depression, No Insomnia, No Personality Changes, No Delusions, No Rumination, No SI/HI/AH/VH, No Social Issues, No Memory Changes, No Violence/Abuse Hx., No Eating Concerns Heme/Lymph: No Bruising, No Bleeding, No Transfusions History, No Lymphadenopathy Endocrine: No Polyuria, No Polydipsia, No Temperature Intolerance Physical Exam Physical Exam: VITALS: Reviewed. WEIGHT/BMI reviewed. GEN: Healthy appearing, well-developed, NAD. PSYCH: Good Judgment. AOx3. Normal memory, mood, and affect. HEENT -Head: NC/AT; -Eyes: PERRL, EOMI. No discharge or redn ess; -Ears: External ears are normal. Normal TMs. -Nose: Normal nares. -Mouth and throat: MMM. Normal gums, muc shahzad, palate,. Good dentition. NECK: Supple, with no masses. CV: RRR, no m/r/g. LUNGS: CTAB, no w/r/c. ABD: Soft, NT/ND, NBS, no masses or organomegaly. : N/A SKIN: Warm, well perfused. No skin rashes or abnormal lesions. MSK: No deformities, Normal gait. EXT: No clubbing, cyanosis, or edema. NEURO: Ambulating with no limitations. Normal muscle strength and tone. No focal deficits. Results & Data Vital Signs (Past 12 Hours) Vital Signs Temp Pulse Resp BP BP Pulse Ox 07/23/25 17:00 73 15 95 07/23/25 16:03 82 18 95 07/23/25 16:00 89/59 L 07/23/25 15:06 67 15 95 07/23/25 14:18 79 19 94 07/23/25 14:06 81/48 L 07/23/25 13:06 85 31 H 93 07/23/25 13:00 86/54 L 07/23/25 12:15 81 26 H 94 07/23/25 12:00 89/58 L 07/23/25 11:36 83 18 96 07/23/25 11:00 83/55 L 07/23/25 10:30 79 19 96 07/23/25 10:00 80/50 L 07/23/25 09:15 78 19 96 07/23/25 09:00 84/55 L 07/23/25 08:09 77 22 91 07/23/25 08:00 80/55 L 07/23/25 07:58 84 07/23/25 07:40 36.6 C 07/23/25 07:09 75 20 88/54 L 93 PG Care Time/CCT Total # of Minutes Spent Total Time Spent with Patient: Total time spent is greater than 50% in coordination of care (as documented) at patient's floor/unit and/or counseling patient: Coding Level of Care Code 75166 SUB INP/OBS CARE 2/35MIN Diagnoses Septic shock A41.9; R65.21 Pneumonia J18.9 Thrombocytopenia D69.6 Ovarian cancer C56.9
[2025-07-23] MEDS: ONDANSETRON INJ 2 MG/ML 2 ML VIAL IV PRN (22:52)
[2025-07-24 06:50] LABS: Hematocrit (blood only) 24.2 % (37.0-47.0); Hemoglobin 8.2 g/dl (12.0-16.0); Mean Corpuscular Hemoglobin 35.0 pg (25.0-34.0); Mean Corpuscular Volume 103.4 fL (80.0-100.0); Platelet Count 28 K/uL (130-400); RDW Standard Deviation 87.6 fL (36.4-46.3); Red Blood Count 2.34 M/uL (4.20-5.40); White Blood Count 7.12 K/ul (4.8-10.8)
[2025-07-24 06:57] LABS: Anion Gap 7.0 (3-11); Blood Urea Nitrogen 62.0 mg/dl (6-23); Calcium 8.6 mg/dl (8.6-10.3); Carbon Dioxide 24.0 mmol/L (21-32); Chloride 102.0 mmol/L (98-107); Creatinine Clr Calc Pharmacy 15.8 ml/min; Glucose 71.0 mg/dl (70-99(Fasting)); Potassium 4.4 mmol/L (3.5-5.1); Sodium 133.0 mmol/L (136-145)
[2025-07-24 07:41] LABS: Anisocytosis Present; Immature Granulocytes # (auto) 0.13 K/uL (0.01-0.20); Immature Granulocytes % (auto) 1.8 %; Polychromasia 1+
--- NOTE | 2025-07-24 15:33 | Progress Note ---
Date of Service July 24, 2025 Assessment & Plan (1) Septic shock: Plan: 07/22 - patient is now off of levophed; midodrine dose increased - BP still remains soft - cont Rocephin, appreciate ID input 07/23 - transferred out of the ICU - cont midodrine - MAP goal is 55 07/24 - doing well, completed course of Rocephin - ambulating well with PT - plan for d/c home in AM if labs look good - cont midodrine, soft pressures; asymptomatic (2) Pneumonia: Plan: 07/22 - appreciate ID input, was on Cefepime and completed Azithro and flagyl course; but now on Rocephin Right lower lobe, present on admission. She is currently on intravenous azithromycin, Rocephin, Flagyl. Chest CT scan completed July 19 noted. Serial chest x-ray. (3) Thrombocytopenia: Plan: 07/22 - platelet dropped to 26k; monitor signs of any bleeding; to note, patient has chronic thrombocytopenia, possibly from malignancy or more likely chemo. Platelet count has dropped further, now 28,000 today, July 21. Probably from recent chemotherapy. Eliquis discontinued for the time being due to risk of bleeding. (4) Ovarian cancer: Plan: With metastatic disease. Currently undergoing chemotherapy. Supportive care Plan To be determined by clinical course. Hospitalist service will assume care once she is moved out of the ICU Admission and Anticipated Discharge Date Admission Date: July 18, 2025 Subjective Patient is doing well, no acute issues. Eager to get home ambulated [facility] PT Review of Systems Review of Systems: Constitutional: No Fever, No Chills, No Night Sweats, No Fatigue, No Malaise ENT/Mouth: No Hearing Changes, No Ear Pain, No Nasal Congestion, No Sinus Pain, No Hoarseness, No sore throat, No Rhinorrhea, No Swallowing Difficulty Eyes: No Eye Pain, No Swelling, No Redness, No Foreign Body, No Discharge, No Vision Changes Cardiovascular: No Chest Pain, No SOB, No PND, No Dyspnea on Exertion, No Orthopnea, No Claudication, No Edema, No Palpitations Respiratory: No Cough, No Sputum, No Wheezing, No Smoke Exposure, No Dyspnea Gastrointestinal: No Nausea, No Vomiting, No Diarrhea, No Constipation, No Pain, No Heartburn, No Anorexia, No Dysphagia, No Hematochezia, No Melena, No Flatulence, No Jaundice Genitourinary: No Dysmenorrhea, No DUB, No Dyspareunia, No Dysuria, No Urinary Frequency, No Hematuria, No Urinary Incontinence, No Urgency, No Flank Pain, No Urinary Flow Changes, No Hesitancy Musculoskeletal: No Arthralgias, No Myalgias, No Joint Swelling, No Joint Stiffness, No Back Pain, No Neck Pain, No Injury History Skin: No Skin Lesions, No Pruritis, No Hair Changes, No Breast/Skin Changes, No Nipple Discharge Neuro: No Weakness, No Numbness, No Paresthesias, No Loss of Consciousness, No Syncope, No Dizziness, No Headache, No Coordination Changes, No Recent Falls Psych: No Anxiety/Panic, No Depression, No Insomnia, No Personality Changes, No Delusions, No Rumination, No SI/HI/AH/VH, No Social Issues, No Memory Changes, No Violence/Abuse Hx., No Eating Concerns Heme/Lymph: No Bruising, No Bleeding, No Transfusions History, No Lymphadenopathy Endocrine: No Polyuria, No Polydipsia, No Temperature Intolerance Physical Exam Physical Exam: VITALS: Reviewed. WEIGHT/BMI reviewed. GEN: +frail, +cachectic PSYCH: Good Judgment. AOx3. Normal memory, mood, and affect. HEENT -Head: NC/AT; -Eyes: PERRL, EOMI. No discharge or redn ess; -Ears: External ears are normal. Normal TMs. -Nose: Normal nares. -Mouth and throat: MMM. Normal gums, muc shahzad, palate,. Good dentition. NECK: Supple, with no masses. CV: RRR, no m/r/g. LUNGS: CTAB, no w/r/c. ABD: Soft, NT/ND, NBS, no masses or organomegaly. : N/A SKIN: Warm, well perfused. No skin rashes or abnormal lesions. MSK: No deformities, Normal gait. EXT: No clubbing, cyanosis, +3-4 lymphedema bilaterally NEURO: Ambulating with no limitations. Normal muscle strength and tone. No focal deficits. Results & Data Vital Signs (Past 12 Hours) Vital Signs Temp Pulse Pulse Resp BP Pulse Ox O2 Del Method 07/24/25 13:04 36.6 C 83 18 89/59 L 96 Room Air 07/24/25 09:00 Room Air 11/05/25 07:00 81 PG Care Time/CCT Total # of Minutes Spent Total Time Spent with Patient: Total time spent is greater than 50% in coordination of care (as documented) at patient's floor/unit and/or counseling patient: Coding Level of Care Code 30530 SUB INP/OBS CARE 2/35MIN Diagnoses Septic shock A41.9; R65.21 Pneumonia J18.9 Thrombocytopenia D69.6 Ovarian cancer C56.9
[2025-07-25 02:48] VITALS: TEMP 98.1
[2025-07-25 07:07] LABS: Hematocrit (blood only) 22.3 % (37.0-47.0); Hemoglobin 7.5 g/dl (12.0-16.0); Mean Corpuscular Hemoglobin 34.4 pg (25.0-34.0); Mean Corpuscular Volume 102.3 fL (80.0-100.0); Platelet Count 22 K/uL (130-400); RDW Standard Deviation 86.3 fL (36.4-46.3); Red Blood Count 2.18 M/uL (4.20-5.40); White Blood Count 6.15 K/ul (4.8-10.8)
[2025-07-25 07:25] LABS: Anisocytosis Present; Immature Granulocytes # (auto) 0.11 K/uL (0.01-0.20); Immature Granulocytes % (auto) 1.8 %
[2025-07-25 07:29] LABS: Alanine Aminotransferase 33.0 U/L (7-52); Albumin Globulin Ratio 0.8 (0.9-2); Albumin Level 2.2 gm/dl (3.4-5.0); Alkaline Phosphatase 185.0 U/L (34-104); Anion Gap 8.0 (3-11); Bilirubin,Total 3.4 mg/dl (0.2-1.0); Blood Urea Nitrogen 70.0 mg/dl (6-23); Calcium 8.4 mg/dl (8.6-10.3); Carbon Dioxide 22.0 mmol/L (21-32); Chloride 103.0 mmol/L (98-107); Creatinine Clr Calc Pharmacy 15.0 ml/min; Globulin 2.9 gm/dl (2.5-4.0); Glucose 104.0 mg/dl (70-99(Fasting)); Magnesium 2.1 mg/dl (1.7-2.4); Potassium 4.6 mmol/L (3.5-5.1); Sodium 133.0 mmol/L (136-145); Total Protein 5.1 gm/dl (6.0-8.3)
[2025-07-25 07:59] VITALS: BP 94/57; RESP 18; O2SAT 95
--- NOTE | 2025-07-25 10:14 | Discharge Summary ---
Discharge Summary Date of Service July 25, 2025 Principal Dx & Hospital Course #1 = Principal Diagnosis (1) Septic shock: This is a 74 year old female with a PMH of metastatic ovarian cancer, hx of PE on Eliquis - coming in with septic shock secondary to PNA. Intiially required ICU stay on a levophed drip. Was started on midodrine and eventually taperd off of the levophed (with a new goal MAP of 55). ID saw patient and after being on Cefepime, Azithro and Flagyl; switched to Rocephin and completed her abx course on 07/24. She has been working with PT/OT and ambulating well and strong enough to get home. Her diuretics were held due to the hypotension, she has known/chronic lymphedema, but the lymphedema is manageable even without her diuretics. Lastly, her platelets have been low and therefore Eliquis was held due to the high risk of bleed. Can recheck labs as an outpatient and discuss with PCP and oncology regarding restarting Eliquis at some point as an outpatient. 07/22 - patient is now off of levophed; midodrine dose increased - BP still remains soft - cont Rocephin, appreciate ID input 07/23 - transferred out of the ICU - cont midodrine - MAP goal is 55 07/24 - doing well, completed course of Rocephin - ambulating well with PT - plan for d/c home in AM if labs look good - cont midodrine, soft pressures; asymptomatic (2) Pneumonia: 07/22 - appreciate ID input, was on Cefepime and completed Azithro and flagyl course; but now on Rocephin Right lower lobe, present on admission. She is currently on intravenous azithromycin, Rocephin, Flagyl. Chest CT scan completed July 19 noted. Serial chest x-ray. (3) Thrombocytopenia: 07/22 - platelet dropped to 26k; monitor signs of any bleeding; to note, patient has chronic thrombocytopenia, possibly from malignancy or more likely chemo. Platelet count has dropped further, now 28,000 today, July 21. Probably from recent chemotherapy. Eliquis discontinued for the time being due to risk of bleeding. (4) Ovarian cancer: With metastatic disease. Currently undergoing chemotherapy. Supportive care Plan To be determined by clinical course. Hospitalist service will assume care once she is moved out of the ICU Admission HPI Per Admitting Provider Erica Edmond is a 74 yo woman with PMH of recurrent ovarian cancer( diagnosed since 2021 s/p multiple surgery) , PE on eliquis, bladder cancer s/p surgery in 2012 and intravesicular chem, decubitus ulcer of sacral region, malignant pleural effusion, hx of adrenal metastatic lesion, colovaginal fistula, pleural effusion. she's has ileostomy and on lomotil and imodium,. which reduced GI volume produce daily. 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 calcified iplant and omental caking. she went to [facility] for several weeks of chemotherapy and s/p surgical debulking on 04/26/2022, has multiple complication and was hospitalized at [facility] for more than 100 days. she's started developed edema after Elahere and did not improved with lasix, that result in cellulitis and admitted to hospital and vt home on IV cefazolin since several weeks ago, she's been having shortness of breath, difficulty breathing, in addition, she was provided with bumex and aldactone for her 3+ leg edema. her normal BP is between 90-95 on 07/18, she's continue to has shortness of breath, difficulty breathing, and 3+ leg edema she was found to has BP of 75 and lactic acidosis > 3.0, s/p IV fluid, IV albumin, cefepime, on interview, she's denied chest pain, abdominal pain, fever, chill, no flank pain she was AAox3 she will be admitted for undifferentiated shock, cellulitis, she's has hx of PE,, her shortness of breath and leg edema, warrant a DVT and PE evaluation Discharge Exam VITALS: Reviewed. WEIGHT/BMI reviewed. GEN: +frail, +cachectic PSYCH: Good Judgment. AOx3. Normal memory, mood, and affect. HEENT -Head: NC/AT; -Eyes: PERRL, EOMI. No discharge or redness; -Ears: External ears are normal. Normal TMs. -Nose: Normal nares. -Mouth and throat: MMM. Normal gums, mucosa, palate,. Good dentition. NECK: Supple, with no masses. CV: RRR, no m/r/g. LUNGS: CTAB, no w/r/c. ABD: Soft, NT/ND, NBS, no masses or organomegaly. : N/A SKIN: Warm, well perfused. No skin rashes or abnormal lesions. MSK: No deformities, Normal gait. EXT: No clubbing, cyanosis, +3-4 lymphedema bilaterally NEURO: Ambulating with no limitations. Normal muscle strength and tone. No focal deficits. Discharge Plan Discharge Items Patient Disposition: Home - Self-Care Reason For Visit: HYPOTENSION, CELLULITIS, SHORTNESS, OVARIAN CA Discharge Diagnosis: Septic Shock Pneumonia Thrombocytopenia Anemia Ovarian Cancer Condition on Discharge: Fair Activity: Resume your previous activity Non-emergency contact: Primary Care Provider and Oncologist Call non-emergency contact if: you have any medication questions, your symptoms worsen, your pain is not controlled, your pain is worsening, your pain is unusual for you, your pain is concerning for you and you have a fever Follow-up/Referrals: Shahzad Mcelroy MD [Primary Care Provider] - Diet: Regular Addtl Attending Provider Instructions: Please follow-up with your primary care physician Would consider labs as an outpatient to follow-up on platelets for now, hold Eliquis Hold diuretics, restart if the swelling in the legs get worse Pending Studies at Discharge: No Stand-Alone Forms: My [employer], Smoking Cessation Medications and DC Order Prescriptions: New polyethylene glycol 3350 [Miralax] 17 gram Powder In Packet 17 g PO DAILY PRN (Reason: constipation) Qty: 30 0RF midodrine 10 mg Tablet 10 mg PO TID@0800,1200,1700 30 Days Qty: 90 0RF Continued diphenoxylate-atropine [Lomotil] 2.5-0.025 mg tablet 1 tab PO TID Qty: 270 1RF ergocalciferol (vitamin D2) [Vitamin D2] 1,250 mcg (50,000 unit) capsule 1,250 mcg PO 2XWK Qty: 20 5RF Rx Instructions: Mon/Fri pantoprazole 40 mg tablet,delayed release (DR/EC) 40 mg PO DAILY Qty: 90 3RF loperamide 2 mg tablet 4 mg PO QAM Qty: 180 1RF Elahere 5 mg/mL solution 0 mg IV Q21D Patient Comments: Just took 3rd cycle on Tuesday - due for 4th cycle in 3 weeks. 05/10/25 loratadine [Claritin] 10 mg tablet 10 mg PO DAILY prednisolone sodium phosphate 1 % drops 1 drp ophthalmic (eye) 6XD mupirocin 2 % ointment 1 applic topical BID Qty: 15 1RF ondansetron HCl 4 mg tablet 4 mg PO Q6H PRN (Reason: nausea and vomiting) Qty: 30 5RF tramadol 50 mg tablet 50 mg PO Q8H PRN (Reason: pain) Qty: 30 5RF nystatin-triamcinolone 100,000-0.1 unit/g-% cream 1 applic topical BID Qty: 60 5RF cholestyramine 4 gram powder 4 g PO DAILY PRN (Reason: Acne) Rx Instructions: administer w/meal; avoid other meds within 1hr before or 4-6hr after dose nystatin [Klayesta] 100,000 unit/gram powder 1 applic TOPICAL BID olanzapine 2.5 mg tablet 2.5 mg PO DIRECTED Rx Instructions: TAKE 1 TABLET BY MOUTH DAILY AT BEDTIME. TAKE FOR 4 DAYS STARTING DAY 1 OF CHEMOTHERAPY FOR NAUSEA Levomefolate/ Vit B12/ Vit B6/ Vit B2 02/17/50/5 1 tab PO DAILY Rx Instructions: 1 tablet orally daily; psyllium husk [Metamucil] 0.4 gram Capsule 0.4 g PO TID Discontinued spironolactone 25 mg tablet 25 mg PO DAILY Qty: 90 3RF bumetanide 1 mg tablet 1 mg PO DAILY bumetanide 0.5 mg tablet 0.5 mg PO DAILY Qty: 30 2RF Eliquis 2.5 mg tablet 2.5 mg PO BID Discharge Orders: Discharge Order (Routine); Ordered 07/25/25 Ordered By: William Jovel/Other Patient Handouts: Managing Lymphedema After Cancer Admission Data Admit Date/Time: 07/18/25 16:11 Attending Provider: William Villalobos Admit Provider: Tushar Talavera Primary Care Provider: Shahzad Mcelroy Other Providers: Tushar Talavera; William Camara; Lluvia Jacques; Dimitry Leach Hospital Stay Data Consultations 07/18/25 15:26 ED Decision to Admit Stat 07/18/25 16:12 Consult Bindery Operator Routine 07/19/25 12:35 Consult Palliative Care Routine 07/21/25 10:41 Consult Infectious Diseases Routine 07/22/25 17:25 Consult Oncology Routine Diagnostic Imagining Performed 07/18/25 20:51 US venous doppler LE BI Urgent 07/19/25 17:35 CT chest diagnostic wo con Stat 07/19/25 17:36 CT Abdomen and Pelvis [CT abd pelvis wo con] Stat Pending Results Patient Have Any Pending Studies at Discharge: No Discharge Instructions Given to Patient (Per Discharging Provider) Please follow-up with your primary care physician Would consider labs as an outpatient to follow-up on platelets for now, hold Eliquis Hold diuretics, restart if the swelling in the legs get worse Home Health Attestation I certify that this patient is under my care and that I, or a physicians assistant strength coach working with me, had a face to-face encounter that meets the [id number] encounter requirements with this patient. The encounter with the patient was in whole, or in part, for the following medical condition, which is the primary reason for home health care (list medical condition): I certify that, based on my findings, the following services are medically necessary home health services: My clinical findings support the need for the above services because: Further, I certify that my clinical findings support that this patient is homebound (i.e. absences from home require considerable and taxing effort and are for medical reasons or [employer] services or infrequently or of short duration when for other reasons) because: Certification for Home Health Services: Based on the above findings, I certify that this patient is confined to the home and needs intermittent senior care care, physical therapy and/or speech therapy or continues to need occupational therapy. The patient is under my care, and I have initiated the establishment of the plan of care. This patient will be followed by a physician who will periodically review the plan of care. Total Time Total Time Spent Total Time Spent (In Minutes): 45 Coding Level of Care Code 19635 INP/OBS DISCH >30 MIN Diagnoses Septic shock A41.9; R65.21 Pneumonia J18.9 Thrombocytopenia D69.6 Ovarian cancer C56.9 Time Spent (min) 45
[2025-07-25 11:05] VITALS: PULSE 79
--- NOTE | 2025-07-25 12:36 | Oncology Consultation ---
Date of Consultation July 25, 2025 Assessment & Plan (1) Metastatic adenocarcinoma: obviously her cancer is progressing very quickly at this point. Will stop outpatient institution of mirvetuximab. Will start her on cytotoxic chemotherapy again once she is stable and discharged. She is here to follow-up with surgical oncology from [place]. Will evaluate the patient after an opinion [place]. Plan Thank you for this interesting oncological consult. A total of 60 minutes was spent in counseling, coordination of care, review of prior records. History of Present Illness Attending Physician: William Villalobos DO History of Present Illness 01/15/2022: Imaging: Calcified omental cake and peritoneal implants, consistent with carcinomatosis. Intraperitoneal retroperitoneal adenopathy in the abdomen. Source of metastatic disease not apparent but considerations include ovarian malignancy and primary peritoneal carcinomatosis. Small calcified nodes identified above the diaphragm and pericardiac region. Consider complete CT chest for imaging. Diverticulosis 01/28/2022 pathology: Diagnosis 1. Peritoneum biopsy: Metastatic high-grade serous carcinoma, consistent with tubal/ovarian/peritoneal origin, involving fibrovascular and adipose tissue 02/18/2022-11/16/2022 antineoplastic therapy Carboplatin paclitaxel every 21 days for gynecological malignancies 04/26/2022: Surgery, diaphragm/peritoneal resection, MILO/BSO, resection of right transverse and sigmoid colon with ileocolic and colorectal anastomosis. Optimal tumor resection with no residual tumor greater than 1 cm located at greater curvature of stomach, plaque along posterior right diaphragm and descending colon. Intraoperative finding, extensive omental cake with invasion of anterior abdominal wall, tumor involving the terminal ileum, cecum, appendix, right colon, transverse colon, sigmoid colon. Gross tumor bilateral tubes and ovaries and pelvic peritoneum. Ileocolic and colorectal anastomosis 04/26/2022 to 05/12/2022; pathology 1. Falciform ligament excision mesothelial lined fibroadipose tissue focally involved by high-grade serous carcinoma 2 hernia sac. Mesothelial lined fibroadipose tissue involved by high-grade serous carcinoma 3. Peritoneum, right diaphragm: Mesothelial lined fibroadipose tissue extensively involved by high-grade serous carcinoma 4. Right colon, transverse colon and omentum. Omentum involved by high-grade serous carcinoma in a background of extensive fibrosis, patchy chronic inflammation and psammomatous calcification. Colonic serosa involved by high- grade serous carcinoma 2 pericolic lymph nodes are negative for carcinoma uterus cervix, bilateral fallopian tubes, ovaries, terminal ileum, appendix, sigmoid colon, pelvic peritoneum, high-grade serous carcinoma involving bilateral fallopian tubes surface and ovaries, myometrium and uterine serosa and sigmoid colon from serosa to the mucosa. Proximal resection margin is negative for carcinoma. Distal resection margin is involved by carcinoma. Appendix acute serositis and small foci of psammomatous calcifications, negative for carcinoma. Cervix negative for carcinoma. Predominantly denuded squamous mucosa and chronic cervicitis. 2 pericolonic lymph nodes are positive for metastatic carcinoma. Stomach, lesser curvature fibroadipose tissue involved by high-grade serous carcinoma. Colonic donut, colonic submucosa is focally involved by high- grade serous carcinoma. Acute serositis, adhesions, psammomatous calcifications 08/06/2022 imaging: CT of the chest abdomen pelvis 1. Stable postsurgical changes from hysterectomy and bilateral salpingo- oophorectomies, small bowel resection and colectomy with right lower quadrant ileostomy 2. No intra-abdominal or pelvic fluid collections 3. Stable to minimally increasing mediastinal and retroperitoneal adenopathy 09/08/2022 imaging: CT of the chest abdomen pelvis 1. No evidence for new disease in the chest 2. Stable left supraclavicular and retroperitoneal adenopathy 3. You have focally dilated segment of bowel near right lower quadrant anastomosis with focal pneumatosis which is nonspecific 4. Periumbilical region inflammation with heterogeneous tissue and gas bubbles 5. Chronically occluded left common iliac vein 12/21/2022 imaging: CT chest abdomen pelvis 1. Stable left supraclavicular and retroperitoneal lymphadenopathy 2. No new sites of disease identified in the chest abdomen or pelvis 12/21/2022 to 10/12/2023 for antineoplastic therapy: Letrozole maintenance 01/30/[address] of the chest abdomen pelvis: Stable mild left supraclavicular and retroperitoneal lymphadenopathy when compared with prior CT 05/10/[address] chest abdomen pelvis; 1. Retroperitoneal/retrocrural and left axillary lymphadenopathy overall mildly increased 2. New borderline enlarged right common iliac nodes 3. Stable postsurgical changes of hysterectomy, oophorectomy, subtotal colectomy with right lower quadrant ileostomy 4. Decompressed bladder with bladder wall thickening and perivesical stranding, nonspecific. While finding may be related to prior radiation therapy, cystitis may appear similarly. Correlation with urinalysis as clinically indicated 10/12/2023 surgery, debulking: Negative for tumor, size of largest metastatic deposit, 6.6 cm 08/23/2024 imaging, PET CT scan: Overall progressive disease within the neck chest abdomen and pelvis Disease includes left supraclavicular adenopathy, right basilar pleural metastasis with moderate malignant right pleural effusion and progressive omental/peritoneal and amanda disease throughout the abdomen and pelvis along with new hepatic metastasis Large and small bowel anastomosis is redemonstrated without obstruction Right sided pleural catheter in place with small right pneumothorax Recommendations from [place]: Carboplatin 5 AUC plus Doxil 30 mg/m every [address] angiogram chest, 09/20/2024: IMPRESSION: 1. No evidence of pulmonary embolus or acute aortic injury. 2. Loculated right and trace left pleural effusion with a chest tube noted. 3. Partially calcified supraclavicular lymphadenopathy is seen compatible with amanda spread of disease. CT abdomen pelvis, 12 09/20/2024 IMPRESSION: 1. No evidence of active extravasation or other acute vascular abnormality is seen. The adrenal metastatic lesion is hypervascular. 2. Subacute hematoma in the right perinephric space, similar in appearance to prior exam 3. Redemonstration of extensive metastatic disease including hepatic, right adrenal, and numerous amanda metastases. Baseline echocardiogram, 09/05/2024: Left ventricular ejection fraction 55 to 60% Normal LV size and wall thickness Normal RV size and function No significant valvular pathology Normal estimated PA pressure Echocardiogram, 12/21/2024: Left ventricular systolic function is mildly reduced Left ventricular ejection fraction, 40 to 45% There is mild global hypokinesis of the left ventricle Right ventricle is normal in size and function CT chest abdomen pelvis, 12/03/2024: IMPRESSION: 1. Interval resolving right sided pleural effusion noted causing subsegmental atelectasis of underlying lung parenchyma. No evidence of left sided pleural effusion seen on current scan. 2. Redemonstration of partially calcified left supraclavicular lymphadenopathy appears unchanged as compared to prior scan. IMPRESSION: 1. Redemonstration of extensive metastatic disease including hepatic, right adrenal, and numerous amanda metastases. 2. Interval regression in the size of the hepatic and visualized supradiaphragmatic deposits as compared to prior study. 3. Interval increase in size of right adrenal lesion. 4. Interval stable lymphatic metastatic disease process in abdomen and pelvis. 5. Interval regression in the retroperitoneal fluid and peritoneal edematous changes as compared to prior study. 6. Evidence of colostomy on left side of abdomen. 7. Other chronic findings as described above. 8. Degenerative changes in the lumbar spine. Treatment: Carboplatin, liposomal doxorubicin, every 28 days cycle 1 day 1: 09/25/2024 Carboplatin, liposomal doxorubicin, cycle 2-day 1: 10/23/2024 Carboplatin, liposomal doxorubicin, cycle 3- day 1: 11/20/2024. Carboplatin, liposomal doxorubicin, Avastin, cycle 4-day 1: 12/18/2024 Carboplatin, liposomal doxorubicin, avastin, cycle 5 day 1: 01/15/2025 Carboplatin, cycle 6-day 1: 02/13/2025 Carboplatin and liposomal doxorubicin held because of generally declining performance status and cardiac function Current treatment: Mirvetuximab C1 D1: 03/27/2025 Mirvetuximab C2 D1: 04/17/2025 Mg rituximab, cycle 3-day 1 05/08/2025 Mirvetuximab, cycle 4-day 1 05/29/2025 CT chest abdomen pelvis, 07/18/2025: IMPRESSION: 1. Limited noncontrast evaluation. 2. Progression of hepatic metastatic disease. Stable large complex subhepatic mass. Calcified adenopathy, similar to prior. 3. Ascites. Anasarca. IMPRESSION: 1. Consolidative opacities in the right lower lobe concerning for pneumonia. 2. Numerous bilateral pulmonary nodules which are new from prior and are concerning for pulmonary metastatic disease. Largest is in the right middle lobe measuring 12 mm (series 4, image 163). 3. Mild septal thickening in keeping with mild pulmonary edema. 4. Bilateral supraclavicular lymphadenopathy is suggested, calcified on the left side, suboptimally characterize without contrast. 5. Small left and trace right pleural effusions. Allergies Allergy/AdvReac Type Severity Reaction Status Date / Time No Known Allergies Allergy Verified 07/18/25 15:46 Home Medications Medication Instructions Recorded Confirmed Type nystatin 100,000 unit/gram topical 1 applic topical BID 08/07/24 07/18/25 History powder (Klayesta) ondansetron HCl 4 mg tablet 4 mg PO Q6H PRN nausea and 09/13/24 07/18/25 Rx vomiting #30 tabs tramadol 50 mg tablet 50 mg PO Q8H PRN pain #30 tabs 09/13/24 07/18/25 Rx nystatin-triamcinolone 100,000 1 applic topical BID #60 grams 10/15/24 07/18/25 Rx unit/g-0.1 % topical cream cholestyramine 4 gram oral powder 4 g PO DAILY PRN Acne 03/05/25 07/18/25 History mirvetuximab soravtansine-gynx 5 0 mg IV Q21D 03/27/25 07/18/25 History mg/mL intravenous solution (Elahere) loratadine 10 mg tablet (Claritin) 10 mg PO DAILY 04/11/25 07/18/25 History mupirocin 2 % topical ointment 1 applic topical BID #15 grams 04/11/25 07/18/25 Rx prednisolone sodium phosphate 1 % 1 drp ophthalmic (eye) 6XD 04/11/25 07/18/25 History eye drops diphenoxylate-atropine 2.5 1 tab PO TID #270 tabs 04/16/25 07/18/25 Rx mg-0.025 mg tablet (Lomotil) Levomefolate/ Vit B12/ Vit B6/ Vit 1 tab PO DAILY 05/10/25 07/18/25 History B2 6//50/5 olanzapine 2.5 mg tablet 2.5 mg PO DIRECTED 05/10/25 07/18/25 History ergocalciferol (vitamin D2) 1,250 1,250 mcg PO 2XWK #20 caps 05/22/25 07/18/25 Rx mcg (50,000 unit) capsule (Vitamin D2) pantoprazole 40 mg tablet,delayed 40 mg PO DAILY #90 tabs 06/25/25 07/18/25 Rx release psyllium husk 0.4 gram capsule 0.4 g PO TID 07/18/25 07/18/25 History (Metamucil) loperamide 2 mg tablet 4 mg (2 x 2 mg) PO QAM #180 tabs 07/22/25 Rx midodrine 10 mg tablet 10 mg PO TID@0800,1200,1700 30 07/25/25 Rx days #90 tabs polyethylene glycol 3350 17 gram 17 g PO DAILY PRN constipation #30 07/25/25 Rx oral powder packet (Miralax) ea Patient History Medical History Ileostomy present Elevated homocysteine Non-healing surgical wound Colovaginal fistula Bladder cancer TREATED BY [facility] Blood clotting disorder ? 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) Surgical History H/O abdominal surgery Hx of bilateral breast reduction surgery H/O hand surgery LEFT HAND MIDDLE FINGER GROWTH REMOVED (DONE MULTIPLE TIMES) History of colonoscopy History of cystoscopy BLADDER TUMORS REMOVED (MULTIPLE TIMES) HAS HAD NO PROBLEMS FOR 3 YEARS History of tooth extraction History of tonsillectomy Family History Father Cholangitis Mother Dementia Osteoporosis Obesity Brother Dyslipidemia Social History Smoking Status: Never smoker Tobacco Type: Cigarettes Age Started Using Tobacco: 22; Age Quit Using Tobacco: 27; packs per day: 0.5; Second Hand Exposure: No; Do You Dip or Chew Tobacco: No; Hx Alcohol Use: No Hx Substance Use: No Preferred Language: Sammarinese Communication Ability: Effective Visual Impairment: No Limitations Hearing Ability: Normal Well Driller Helper Required: No Beliefs That Will Affect Care: None marital status: Current Living Situation: Spouse current occupational status: retired How many Children do You have: 2 Feels Safe at Home: Yes Childhood Exposure to Second-Hand Smoke: Yes Diet: other Diet Comment: TPN via PICC, PEG tube (not currently in use) caffeine: Yes Dental Care, Regularly: Yes Physical Activity Frequency: 3-4 Times per Week Seatbelt Use: always Sunscreen Use: Yes Do you think of yourself as: straight/heterosexual Gender Identity: Female Assistive Devices: Walker Review of Systems Review of Systems: All systems reviewed & are unremarkable except as noted in HPI & below Constitutional: as per Subjective / HPI Eyes: as per Subjective / HPI Ear, Nose, Mouth, Throat: as per Subjective / HPI Respiratory: as per Subjective / HPI Cardiovascular: as per Subjective / HPI Gastrointestinal: as per Subjective / HPI Genitourinary: as per Subjective / HPI Musculoskeletal: as per Subjective / HPI Integumentary: as per Subjective / HPI Neurologic: as per Subjective / HPI Psychiatric: as per Subjective / HPI Endocrine: as per Subjective / HPI Results & Data Vital Signs (Past 12 Hours) Vital Signs Temp Pulse Pulse Resp BP Pulse Ox O2 Del Method 07/25/25 11:00 36.7 C 79 18 94/57 L 95 07/25/25 08:00 Room Air 07/25/25 07:05 36.7 C 79 18 94/57 L 95 Room Air 07/25/25 07:00 74 07/25/25 02:47 36.7 C 84 16 88/55 L 93 Room Air
== END 2025-07-25 13:17 | disposition home or self-care (01) | DRG 871 ==
LOC: ED 13:06 → 1E 16:11 → SUATTDRO 16:11 → 1E 18:05 → 2S 07-23 18:04

== ENCOUNTER 2025-07-29 09:46 | Inpatient (IN) ==
--- NOTE | 2025-07-29 09:54 | Emergency Department Note ---
Impression & Plan Hypoxic respiratory failure, Hypotension, Weakness generalized, Pneumonia ED Provider Note NAME: CAROL Krueger BLOOD AGE: 74 SEX: F : 1950 ARRIVES VIA: Ambulance INFORMANT: Patient, ED PROVIDER(S): Francesco Lazo MD CHIEF COMPLAINT: Shortness of breath MEDICAL DECISION MAKING: Patient presents with the above. IV was established and blood work is obtained. Patient with crackles on the right side when compared to the left. Patient with a normal white count hemoglobin of 8. This is around the patient's baseline. Platelet count of 21,000. The patient has been thrombocytopenic in the past. Patient's kidney function was slightly elevated compared to prior creat today with 3.5. L patient with an elevated bilirubin of 6. The patient has known history of liver metastasis. No abdominal pain on exam. Initial troponin of 80.9. Patient denies any chest pains. Do believe that this hypoxia secondary to volume overload. Patient does have significant pitting edema pleural effusions and chest x-ray with possible pneumonia versus volume overload on the right side consistent with the patient's exam. Patient denies any cough or fever. Discussed this with the on-call hospitalist service and they are in agreement with adding a procalcitonin and depending on that we will tailor management treatment. Additional medications deferred to the inpatient service. Patient's procalcitonin was noted to be elevated. Did discuss this with Dr. Sanchez who asked that the patient have blood cultures, lactate and empiric antibiotics including IV vancomycin and cefepime ordered. Initial lactate of 3.5. He did request that 500 of IV fluids be ordered and this was ordered. Additional management deferred to the inpatient service. The patient does have a port as well as a PICC line for access. Of note the patient did not receive a 30 cc/kg bolus in light of the concerns for volume overload. Inpatient service did order albumin and midodrine. Critical Care: I have personally spent 37 minutes of critical care time in direct management of this patient. This includes bedside care, interpretation of diagnostic studies, and testing, discussion with consultants, patient, and family members, and other require inpatient management activities. This 37 minutes is in excess of all separately billable procedures. Discussion w/ other healthcare providers: Dr. Sanchez inpatient medicine service Prior /Outside records reviewed: I reviewed part of a discharge summary from July 25, [address] Villalobos. Patient with a history of metastatic ovarian CA PE on Eliquis who presented with septic shock secondary to pneumonia did require intensive care stay and Levophed drip. Patient reported with a chronic history of lymphedema. Differential diagnosis: Reactive airway disease, pneumonia, pneumothorax, COPD, CHF, ACS, pulmonary embolism, musculoskeletal, GERD as well as other pathologies were considered. Diagnostics, as interpreted by me: ECG: Sinus with PVCs, rate of 90 normal intervals, left axis deviation no obvious STEMI. Cardiac monitoring: An order was placed for continuous cardiac monitoring. The monitor shows a rate of 95 with sinus rhythm. Patient was placed on pulse oximetry Medical decision rules: None Imaging studies: I informally interpreted the patient's Chest x-ray does show bilateral pleural effusions although with possible consolidative changes in the right lower lobe opacities noted in the right lower lobe. with formal report to follow. HPI: Patient presents due to concern for worsening shortness of breath. Patient reportedly was 88% at home was placed on 2 L. Patient denies any cough or fever. Patient states that her appetite has been okay and that her ostomy is still had output. The patient does have a PICC line for hydration but not for antibiotics at this time. Patient does follow with Dr. Ortega off. She unfortunately does have a history of ovarian cancer with metastatic disease to the liver. She has noted some increased lower extremity swelling. She denies any orthopnea. She does complain of MONTE. Patient does report that she does have a prior history of DVT in the leg and is anticoagulated. PAST MEDICAL HISTORY: See Below PAST SURGICAL HISTORY: See Below SOCIAL HISTORY: See Below HOME MEDICATIONS: See Below ALLERGIES: See Below VITALS: See Below PHYSICAL EXAMINATION: GENERAL: Mildly ill but nontoxic in appearance. EYE EXAM: Scleral icterus noted. PERRL, no anisocoria and EOM's grossly intact w/o pain. OROPHARYNX: Moist mucus membranes, grossly normal dentition. NECK: Crackles noted in the right chest. Normal chest wall mechanics. HEART: NSR, no MRG. ABDOMEN: Abdomen soft, non-tender, no masses, no rebound or guarding. BACK: No CVA TTP. SKIN: No rashes and no bruising. UPPER EXTREMITIES: Upper extremities are grossly normal. LOWER EXTREMITIES: Grossly normal, 3-4+ pitting edema in the lower extremities bilaterally without any calf pain or erythema. No obvious asymmetry. NEURO EXAM: Awake and alert, follows commands, no obvious facial asymmetry, normal speech, moves all 4 extremities. Past Med/Surg History Problem List (Updated 07/29/25 @ 16:36 by Francesco Lazo MD) Hypoxic respiratory failure (Acute) Ovarian cancer Thrombocytopenia Pneumonia (Acute) Palliative care by specialist Advanced care planning/counseling discussion Weakness generalized (Acute) Hypotension (Acute) Septic shock Pneumonia (Acute) Edema, peripheral (Acute) Sepsis (Acute) Fluid overload Lymphedema Failure of outpatient treatment (Acute) Antineoplastic chemotherapy induced pancytopenia Moderate malnutrition Subconjunctival hemorrhage Chemotherapy adverse reaction Metastatic neoplastic disease Cellulitis (Acute) Bilateral edema of lower extremity (Acute) Decubitus ulcer of sacral region, stage 1 Peripheral edema Cardiomyopathy Exertional dyspnea Sinusitis Urinary incontinence Sinusitis Pain Anemia Malignant pleural effusion Metastatic adenocarcinoma Ileostomy care (Chronic) Dehydration Otitis externa Chest pain Peritonitis (acute) generalized Cholecystitis Small bowel obstruction Diarrhea Ileocolic anastomotic leak Weakness acquired in intensive care unit Left anterior accessory atrioventricular conduction Colostomy in place History of compression fracture of vertebral column (~09/10/22) Closed wedge compression fracture of L1 vertebra, Hypomagnesemia (Acute) Ovarian cancer (Chronic) Pulmonary embolism Sleep disorder 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) Surgical History H/O abdominal surgery Hx of bilateral breast reduction surgery H/O hand surgery LEFT HAND MIDDLE FINGER GROWTH REMOVED (DONE MULTIPLE TIMES) History of colonoscopy History of cystoscopy BLADDER TUMORS REMOVED (MULTIPLE TIMES) HAS HAD NO PROBLEMS FOR 3 YEARS History of tooth extraction History of tonsillectomy Family History Father Cholangitis Mother Dementia Osteoporosis Obesity Brother Dyslipidemia Social History Smoking Status: Former smoker Tobacco Type: Cigarettes Age Started Using Tobacco: 22; Age Quit Using Tobacco: 27; packs per day: 0.5; Cigarettes Per Day: 20; Second Hand Exposure: No; Do You Dip or Chew Tobacco: No; Hx Alcohol Use: No Hx Substance Use: No Preferred Language: Albanian Communication Ability: Effective Visual Impairment: No Limitations Hearing Ability: Normal Net Programmer Analyst Required: No Beliefs That Will Affect Care: None marital status: Current Living Situation: Spouse current occupational status: retired How many Children do You have: 2 Feels Safe at Home: Yes Childhood Exposure to Second-Hand Smoke: Yes Diet: other Diet Comment: TPN via PICC, PEG tube (not currently in use) caffeine: Yes Dental Care, Regularly: Yes Physical Activity Frequency: 3-4 Times per Week Seatbelt Use: always Sunscreen Use: Yes Do you think of yourself as: straight/heterosexual Gender Identity: Female Assistive Devices: Walker Allergies Allergies Allergy/AdvReac Type Severity Reaction Status Date / Time No Known Allergies Allergy Verified 07/18/25 15:46 Home Meds Home Medications Medication Instructions Recorded Confirmed nystatin 100,000 unit/gram topical 1 applic topical BID 08/07/24 07/29/25 powder (Klayesta) cholestyramine 4 gram oral powder 4 g PO DAILY PRN Other 03/05/25 07/29/25 mirvetuximab soravtansine-gynx 5 0 mg IV Q21D 03/27/25 07/29/25 mg/mL intravenous solution (Elahere) loratadine 10 mg tablet (Claritin) 10 mg PO DAILY 04/11/25 07/29/25 prednisolone sodium phosphate 1 % 1 drp ophthalmic (eye) 6XD 04/11/25 07/29/25 eye drops Levomefolate/ Vit B12/ Vit B6/ Vit 1 tab PO DAILY 05/10/25 07/29/25 B2 6/1/50/5 olanzapine 2.5 mg tablet 2.5 mg PO DIRECTED 05/10/25 07/29/25 psyllium husk 0.4 gram capsule 0.4 g PO TID 07/18/25 07/29/25 (Metamucil) Previous Rx's Medication Instructions Recorded ondansetron HCl 4 mg tablet 4 mg PO Q6H PRN nausea and 09/13/24 vomiting #30 tabs tramadol 50 mg tablet 50 mg PO Q8H PRN pain #30 tabs 09/13/24 nystatin-triamcinolone 100,000 1 applic topical BID #60 grams 10/15/24 unit/g-0.1 % topical cream mupirocin 2 % topical ointment 1 applic topical BID #15 grams 04/11/25 diphenoxylate-atropine 2.5 1 tab PO TID #270 tabs 04/16/25 mg-0.025 mg tablet (Lomotil) ergocalciferol (vitamin D2) 1,250 1,250 mcg PO 2XWK #20 caps 05/22/25 mcg (50,000 unit) capsule (Vitamin D2) pantoprazole 40 mg tablet,delayed 40 mg PO DAILY #90 tabs 06/25/25 release loperamide 2 mg tablet 4 mg (2 x 2 mg) PO QAM #180 tabs 07/22/25 midodrine 10 mg tablet 10 mg PO TID@0800,1200,1700 30 07/25/25 days #90 tabs polyethylene glycol 3350 17 gram 17 g PO DAILY PRN constipation #30 07/25/25 oral powder packet (Miralax) ea Results & Data (ED) Vital Signs Vital Signs - 24 hr 07/29/25 09:57 07/29/25 09:59 07/29/25 09:59 Temperature 36.7 C Temperature Source Oral Pulse Rate 83 83 83 Pulse Rate [Apical] Pulse Rhythm Regular Regular Pulse Rhythm [Apical] Pulse Strength Normal Pulse Strength [Apical] Respiratory Rate 14 14 Respiratory Effort / Characteristics Non-Labored Spontaneous Respiratory Depth Normal Respiratory Pattern Regular Blood Pressure 90/59 L Blood Pressure [Right Arm] Blood Pressure Mean 69 Blood Pressure Mean [Right Arm] Blood Pressure Position Lying Blood Pressure Position [Right Arm] Pulse Oximetry 95 95 Oxygen Delivery Method Nasal Cannula Nasal Cannula Oxygen Flow Rate 3 3 Sepsis Recent Fever Within 48 Hours No Sepsis New/Unexplained Change in Mental Status No Sepsis Action Taken by Nursing No Action Required 07/29/25 10:07 07/29/25 10:07 07/29/25 10:07 Temperature Temperature Source Pulse Rate Pulse Rate [Apical] 83 Pulse Rhythm Pulse Rhythm [Apical] Regular Pulse Strength Pulse Strength [Apical] Normal Respiratory Rate 14 Respiratory Effort / Characteristics Short of Breath SOB on Exertion Non-Labored Spontaneous Respiratory Depth Normal Normal Respiratory Pattern Regular Regular Blood Pressure Blood Pressure [Right Arm] 90/59 L Blood Pressure Mean Blood Pressure Mean [Right Arm] 69 Blood Pressure Position Blood Pressure Position [Right Arm] Lying Pulse Oximetry 95 95 Oxygen Delivery Method Nasal Cannula Nasal Cannula Nasal Cannula Oxygen Flow Rate 3 3 3 Sepsis Recent Fever Within 48 Hours Sepsis New/Unexplained Change in Mental Status Sepsis Action Taken by Nursing 07/29/25 11:51 07/29/25 13:00 Temperature Temperature Source Pulse Rate Pulse Rate [Apical] 82 81 Pulse Rhythm Pulse Rhythm [Apical] Regular Regular Pulse Strength Pulse Strength [Apical] Normal Normal Respiratory Rate 19 12 Respiratory Effort / Characteristics Non-Labored Spontaneous Non-Labored Spontaneous Respiratory Depth Normal Normal Respiratory Pattern Regular Regular Blood Pressure Blood Pressure [Right Arm] 82/54 L 89/62 L Blood Pressure Mean Blood Pressure Mean [Right Arm] 63 71 Blood Pressure Position Blood Pressure Position [Right Arm] Lying Lying Pulse Oximetry 98 95 Oxygen Delivery Method Nasal Cannula Nasal Cannula Oxygen Flow Rate 3 3 Sepsis Recent Fever Within 48 Hours Sepsis New/Unexplained Change in Mental Status Sepsis Action Taken by [facility] Medications Current Medication List: was personally reviewed by me Laboratory Data Attestation: I reviewed the patient's lab results. 07/29/25 10:19 07/29/25 10:19 Lab Results 07/29/25 07/29/25 07/29/25 Range/Units 10:19 12:25 13:20 WBC 7.71 (4.8-10.8) K/ul RBC 2.33 L (4.20-5.40) M/uL Hgb 8.0 L (12.0-16.0) g/dl Hct 23.7 L (37.0-47.0) % MCV 101.7 H (80.0-100.0) fL MCH 34.3 H (25.0-34.0) pg MCHC 33.8 (32.0-36.0) g/dL RDW Std Deviation 83.8 H (36.4-46.3) fL RDW Coeff of Rolo 23.0 H (11.5-14.5) % Plt Count 21 L* (130-400) K/uL Immature Gran % (Auto) 1.4 % Neut % (Auto) 87.9 % Lymph % (Auto) 5.6 % Hooker % (Auto) 4.9 % Eos % (Auto) 0.1 % Baso % (Auto) 0.1 % Neut # (Auto) 6.77 H (1.40-6.50) K/uL Lymph # (Auto) 0.43 L (1.20-3.40) K/uL Hooker # (Auto) 0.38 (0.11-0.59) K/uL Eos # (Auto) 0.01 (0.00-0.50) K/uL Baso # (Auto) 0.01 (0.00-0.20) K/uL Immature Gran # (Auto) 0.11 (0.01-0.20) K/uL Absolute Nucleated RBC 0.03 (0.00-0.12) K/uL Nucleated RBC % (auto) 0.4 % Echinocytes 1+ Acanthocytes (Spur) 1+ PT 14.9 H (9.0-12.0) Seconds INR 1.4 H (0.9-1.1) APTT 38 H (21-31) Seconds PTT Ratio 1.4 Sodium 131 L (136-145) mmol/L Potassium 5.0 (3.5-5.1) mmol/L Chloride 101 (98-107) mmol/L Carbon Dioxide 20 L (21-32) mmol/L Anion Gap 10 (3-11) BUN 94 H (6-23) mg/dl Creatinine 3.59 H (0.6-1.2) mg/dl Est Cr Clr Drug Dosing 12.1 ml/min eGFR 12.83 BUN/Creatinine Ratio 26.2 H (10-20) Glucose 72 (70-99(Fasting)) mg/dl Lactate 3.5 H* (0.4-2.0) mmol/L Calcium 8.6 (8.6-10.3) mg/dl Magnesium 2.1 (1.7-2.4) mg/dl Total Bilirubin 6.1 H (0.2-1.0) mg/dl AST 156 H (13-39) U/L ALT 64 H (7-52) U/L Alkaline Phosphatase 403 H (34-104) U/L Troponin I High Sens 80.9 H* 77.8 H* (0-14) pg/ml B-Natriuretic Peptide 105 H (0-100) pg/ml Total Protein 5.1 L (6.0-8.3) gm/dl Albumin 2.0 L (3.4-5.0) gm/dl Globulin 3.1 (2.5-4.0) gm/dl Albumin/Globulin Ratio 0.6 L (0.9-2) Procalcitonin 3.22 H (0-0.5) ng/ml Nasal Screen MRSA (PCR) (Negative) 07/29/25 Range/Units 13:22 WBC (4.8-10.8) K/ul RBC (4.20-5.40) M/uL Hgb (12.0-16.0) g/dl Hct (37.0-47.0) % MCV (80.0-100.0) fL MCH (25.0-34.0) pg MCHC (32.0-36.0) g/dL RDW Std Deviation (36.4-46.3) fL RDW Coeff of Rolo (11.5-14.5) % Plt Count (130-400) K/uL Immature Gran % (Auto) % Neut % (Auto) % Lymph % (Auto) % Hooker % (Auto) % Eos % (Auto) % Baso % (Auto) % Neut # (Auto) (1.40-6.50) K/uL Lymph # (Auto) (1.20-3.40) K/uL Hooker # (Auto) (0.11-0.59) K/uL Eos # (Auto) (0.00-0.50) K/uL Baso # (Auto) (0.00-0.20) K/uL Immature Gran # (Auto) (0.01-0.20) K/uL Absolute Nucleated RBC (0.00-0.12) K/uL Nucleated RBC % (auto) % Echinocytes Acanthocytes (Spur) PT (9.0-12.0) Seconds INR (0.9-1.1) APTT (21-31) Seconds PTT Ratio Sodium (136-145) mmol/L Potassium (3.5-5.1) mmol/L Chloride (98-107) mmol/L Carbon Dioxide (21-32) mmol/L Anion Gap (3-11) BUN (6-23) mg/dl Creatinine (0.6-1.2) mg/dl Est Cr Clr Drug Dosing ml/min eGFR BUN/Creatinine Ratio (10-20) Glucose (70-99(Fasting)) mg/dl Lactate (0.4-2.0) mmol/L Calcium (8.6-10.3) mg/dl Magnesium (1.7-2.4) mg/dl Total Bilirubin (0.2-1.0) mg/dl AST (13-39) U/L ALT (7-52) U/L Alkaline Phosphatase (34-104) U/L Troponin I High Sens (0-14) pg/ml B-Natriuretic Peptide (0-100) pg/ml Total Protein (6.0-8.3) gm/dl Albumin (3.4-5.0) gm/dl Globulin (2.5-4.0) gm/dl Albumin/Globulin Ratio (0.9-2) Procalcitonin (0-0.5) ng/ml Nasal Screen MRSA (PCR) Negative (Negative) Administered Medications Discontinued Medications Albumin Human (Albumin 25%) 25 gm in 100 mls @ 50 mls/hr IV ONE ONE Stop: 07/29/25 14:51 Last Infusion: 07/29/25 15:39 Dose: Infused Documented By: Admin: 07/29/25 13:25 Dose: 50 mls/hr Documented By: SHERLY Vancomycin HCl 1,250 mg/ (Sodium Chloride) 500 mls @ 200 mls/hr IV NOW STA Stop: 07/29/25 15:31 Last Admin: 07/29/25 14:08 Dose: 200 mls/hr Documented By: SHERLY Cefepime HCl (Maxipime 2000mg) 2,000 mg in 20 mls @ 5 mls/min IV NOW STA; Protocol Stop: 07/29/25 13:05 Last Admin: 07/29/25 14:09 Dose: 5 mls/min Documented By: SHERLY Midodrine (Midodrine Hcl 10 Mg Tab) 10 mg PO ONCE ONE Stop: 07/29/25 12:53 Last Admin: 07/29/25 13:23 Dose: 10 mg Documented By: SHERLY Imaging Data Radiologist's Impression: Chest X-Ray 07/29/25 09:59 XR chest 1V portable CLINICAL HISTORY: Dyspnea, R sided crackles; h/o ovarian/liver ca COMPARISON STUDY: 07/20/2025 FINDINGS: The cardiac and mediastinal contours remain stable. There is a left- sided PICC catheter present and right sided A-Port catheter present. There are persistent bilateral pleural effusions. There are progressive right mid and lower lung zone airspace opacities, edema versus pneumonia. There are also slight we progressive left basilar airspace opacities. Lower lung zone nodules cannot be excluded. IMPRESSION: Persistent bilateral pleural effusions with progressive right greater than left mid to lower lung zone airspace opacities. Pneumonia versus versus edema. Lower lung zone nodules not excluded. ACT 112: Negative or not required by law. Electronically signed by: Gunner Sequeira M.D. 07/29/2025 10:13 AM Discharge Plan Visit Data Chief Complaint: Shortness of Breath/Dyspnea Stated Complaint: SOB ED Provider: Francesco Lazo Discharge Problem: Hypoxic respiratory failure, Hypotension, Weakness generalized, Pneumonia Patient Disposition: Admitted As Inpatient Condition: Serious Discharge Instructions Interventions: ED Discharge Assessment Last Done: 07/29/25 14:47 Discharge Problem: Hypoxic respiratory failure Qualifiers: Chronicity: acute Qualified Code(s): J96.01 - Acute respiratory failure with hypoxia Hypotension Qualifiers: Hypotension type: unspecified hypotension type Qualified Code(s): I95.9 - Hypotension, unspecified Pneumonia Qualifiers: Pneumonia type: due to unspecified organism Laterality: right Lung location: l ower lobe of lung Qualified Code(s): J18.9 - Pneumonia, unspecified organism
--- NOTE | 2025-07-29 10:14 | XRay Report ---
XR chest 1V portable CLINICAL HISTORY: Dyspnea, R sided crackles; h/o ovarian/liver ca COMPARISON STUDY: 07/20/2025 FINDINGS: The cardiac and mediastinal contours remain stable. There is a left-sided PICC catheter pre sent and right sided A-Port catheter present. There are persistent bilateral pleural effusions. There are progressive right mid and lower lung zone airspace opacities, edema versus pneumonia. There are also slight we progressive left basilar airspace opacities. Lower lung zone nodules cannot be exclude d. IMPRESSION: Persistent bilateral pleural effusions with progressive right greater than left mid to l ower lung zone airspace opacities. Pneumonia versus versus edema. Lower lung zone nodules not exclude d. ACT 112: Negative or not required by law. Electronically signed by: Gunner Sequeira M.D. 07/29/2025 10:13 AM
[2025-07-29 11:00] LABS: Hematocrit (blood only) 23.7 % (37.0-47.0); Hemoglobin 8.0 g/dl (12.0-16.0); Mean Corpuscular Hemoglobin 34.3 pg (25.0-34.0); Mean Corpuscular Volume 101.7 fL (80.0-100.0); RDW Standard Deviation 83.8 fL (36.4-46.3); Red Blood Count 2.33 M/uL (4.20-5.40); White Blood Count 7.71 K/ul (4.8-10.8)
[2025-07-29 11:01] LABS: Platelet Count 21 K/uL (130-400)
[2025-07-29 11:06] LABS: INR 1.4 (0.9-1.1); Partial Thromboplastin Time 38 Seconds (21-31); Prothrombin Time 14.9 Seconds (9.0-12.0)
[2025-07-29 11:13] LABS: Albumin Level 2.0 gm/dl (3.4-5.0); Anion Gap 10.0 (3-11); Bilirubin,Total 6.1 mg/dl (0.2-1.0); Calcium 8.6 mg/dl (8.6-10.3); Carbon Dioxide 20.0 mmol/L (21-32); Chloride 101.0 mmol/L (98-107); Magnesium 2.1 mg/dl (1.7-2.4); Potassium 5.0 mmol/L (3.5-5.1); Sodium 131.0 mmol/L (136-145)
[2025-07-29 11:19] LABS: Alanine Aminotransferase 64.0 U/L (7-52); Albumin Globulin Ratio 0.6 (0.9-2); Alkaline Phosphatase 403.0 U/L (34-104); Blood Urea Nitrogen 94.0 mg/dl (6-23); Creatinine Clr Calc Pharmacy 12.1 ml/min; Globulin 3.1 gm/dl (2.5-4.0); Glucose 72.0 mg/dl (70-99(Fasting)); Total Protein 5.1 gm/dl (6.0-8.3)
[2025-07-29 11:23] LABS: Acanthocytes 1+; Immature Granulocytes # (auto) 0.11 K/uL (0.01-0.20); Immature Granulocytes % (auto) 1.4 %
--- NOTE | 2025-07-29 11:43 | History & Physical Report ---
Date of Service July 29, 2025 Assessment & Plan (1) Ovarian cancer: (2) Pneumonia: (3) Thrombocytopenia: (4) Hypotension: (5) Septic shock: (6) Fluid overload: (7) Lymphedema: (8) Moderate malnutrition: (9) Metastatic neoplastic disease: (10) Decubitus ulcer of sacral region, stage 1: (11) Cardiomyopathy: (12) Ileostomy care: (13) Diarrhea: (14) Blood clotting disorder: Plan #Shock #SIRS/sepsis - Shock is multifactorial, distributive plus or minus cardiogenic plus or minus malnourished plus or minus endocrine/adrenal IV albumin infusion, continue midodrine, admit ICU, Levophed as needed during the initial interval - septic shock protocol, supportive measures serial lactate, no volume expansion at this time secondary to anasarca - Procal elevated, lactic acid postiive, 500 NS given in ED - Cefepime and vancomycin, ID consult, MRSA swab sent - ICU sepsis bundle - consult program developer #Hypoxemic respiratory failure - Volume overload, once BP stabilizes she will need diuresis as below, NC for short term, RT for nebs prn but mechanically doing well at this time #HFpEF #Anasarca - start bumex gtt after initial SIRS expansion, Starling assessment on arrival to ICU - likely 15-20kg of total volume overload, will need to be diuresed prior to DC - Echo 07/18 with grade 1 diastolic dysfunction, likely renal and oncotic failure contributing #TRISTON #CKD - multifactorial, ? chemotherapy, consult to nephrology, cystatin C #Thrombocytopenia - 21 on admit, no active bleed, monitor daily, avoid lovenox #Metastatic adenocarcinoma/ovarian cancer - consult to heme/onc, ongoing chemotx, no doses due at this time #History of ileostomy with diverting colostomy # High output ostomy -wound/ostomy care consult -bowel meds per home regimen, using the diarrhea treatments at this time, continue imodium #Chronic N/V - continue olanzapine 2.5mg qHS #Chronic moderate malnutrition - RD consult - IV albumin in ED, daily PRN #GERD -PPI #CODE Status -Full Code per her wishes, reviewed with patient and family History of Present Illness Chief Complaint: Shortness of breath Primary Care Provider: Shahzad Mcelroy MD 74-year-old female history of stage IV ovarian cancer status post surgical debridement and chemotherapy until January 2025, recent hospitalization secondary to cellulitis and septic shock in late June, also history of HFpEF/Diastolic Dysfunction, lymphedema, CKD, GERD, ostomy, Hx f DVT and PE/MTHFR mutation, osteoporosis, chronic nausea and vomiting and thrombocytopenia presents to the emergency department after home care visit for new onset shortness of breath/hypoxemia. Reportedly for a transitional care visit in the home this morning saturations were 88% she was placed on 2 L nasal cannula and noted to have worsening edema and shortness of breath so she was sent to the emergency department for evaluation. Patient denies any chest pain. Symptomatic to the shortness of breath. Denies any fevers chills or other generalized signs of illness. Initial evaluation in the emergency department x-ray showed excess volume worsening infiltrate versus edema on the right side, worsening pitting edema in the lower extremity. Interval decline of her chronic kidney disease. inflammatory markers reassuring, she was referred for admission for monitoring of blood pressure, volume management, evaluation for possible occult infection. Allergies Allergy/AdvReac Type Severity Reaction Status Date / Time No Known Allergies Allergy Verified 07/18/25 15:46 Home Medications Medication Instructions Recorded Confirmed Type nystatin 100,000 unit/gram topical 1 applic topical BID 08/07/24 07/29/25 History powder (Klayesta) ondansetron HCl 4 mg tablet 4 mg PO Q6H PRN nausea and 09/13/24 07/29/25 Rx vomiting #30 tabs tramadol 50 mg tablet 50 mg PO Q8H PRN pain #30 tabs 09/13/24 07/29/25 Rx nystatin-triamcinolone 100,000 1 applic topical BID #60 grams 10/15/24 07/29/25 Rx unit/g-0.1 % topical cream cholestyramine 4 gram oral powder 4 g PO DAILY PRN Other 03/05/25 07/29/25 History mirvetuximab soravtansine-gynx 5 0 mg IV Q21D 03/27/25 07/29/25 History mg/mL intravenous solution (Elahere) loratadine 10 mg tablet (Claritin) 10 mg PO DAILY 04/11/25 07/29/25 History mupirocin 2 % topical ointment 1 applic topical BID #15 grams 04/11/25 07/29/25 Rx prednisolone sodium phosphate 1 % 1 drp ophthalmic (eye) 6XD 04/11/25 07/29/25 History eye drops diphenoxylate-atropine 2.5 1 tab PO TID #270 tabs 04/16/25 07/29/25 Rx mg-0.025 mg tablet (Lomotil) Levomefolate/ Vit B12/ Vit B6/ Vit 1 tab PO DAILY 05/10/25 07/29/25 History B2 6/1/50/5 olanzapine 2.5 mg tablet 2.5 mg PO DIRECTED 05/10/25 07/29/25 History ergocalciferol (vitamin D2) 1,250 1,250 mcg PO 2XWK #20 caps 05/22/25 07/29/25 Rx mcg (50,000 unit) capsule (Vitamin D2) pantoprazole 40 mg tablet,delayed 40 mg PO DAILY #90 tabs 06/25/25 07/29/25 Rx release psyllium husk 0.4 gram capsule 0.4 g PO TID 07/18/25 07/29/25 History (Metamucil) loperamide 2 mg tablet 4 mg (2 x 2 mg) PO QAM #180 tabs 07/22/25 07/29/25 Rx midodrine 10 mg tablet 10 mg PO TID@0800,1200,1700 30 07/25/25 07/29/25 Rx days #90 tabs polyethylene glycol 3350 17 gram 17 g PO DAILY PRN constipation #30 07/25/25 07/29/25 Rx oral powder packet (Miralax) ea Past Med/Surg History Problem List (Updated 07/20/25 @ 14:01 by Ke Fuentes MD) Ovarian cancer Thrombocytopenia Pneumonia Palliative care by specialist Advanced care planning/counseling discussion Weakness generalized Hypotension Septic shock Pneumonia (Acute) Edema, peripheral (Acute) Sepsis (Acute) Fluid overload Lymphedema Failure of outpatient treatment (Acute) Antineoplastic chemotherapy induced pancytopenia Moderate malnutrition Subconjunctival hemorrhage Chemotherapy adverse reaction Metastatic neoplastic disease Cellulitis (Acute) Bilateral edema of lower extremity (Acute) Decubitus ulcer of sacral region, stage 1 Peripheral edema Cardiomyopathy Exertional dyspnea Sinusitis Urinary incontinence Sinusitis Pain Anemia Malignant pleural effusion Metastatic adenocarcinoma Ileostomy care (Chronic) Dehydration Otitis externa Chest pain Peritonitis (acute) generalized Cholecystitis Small bowel obstruction Diarrhea Ileocolic anastomotic leak Weakness acquired in intensive care unit Left anterior accessory atrioventricular conduction Colostomy in place History of compression fracture of vertebral column (~09/10/22) Closed wedge compression fracture of L1 vertebra, Hypomagnesemia (Acute) Ovarian cancer (Chronic) Pulmonary embolism Sleep disorder 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) Surgical History H/O abdominal surgery Hx of bilateral breast reduction surgery H/O hand surgery LEFT HAND MIDDLE FINGER GROWTH REMOVED (DONE MULTIPLE TIMES) History of colonoscopy History of cystoscopy BLADDER TUMORS REMOVED (MULTIPLE TIMES) HAS HAD NO PROBLEMS FOR 3 YEARS History of tooth extraction History of tonsillectomy Family History Father Cholangitis Mother Dementia Osteoporosis Obesity Brother Dyslipidemia Social History Smoking Status: Former smoker Tobacco Type: Cigarettes Age Started Using Tobacco: 22; Age Quit Using Tobacco: 27; packs per day: 0.5; Second Hand Exposure: No; Do You Dip or Chew Tobacco: No; Hx Alcohol Use: No Hx Substance Use: No Preferred Language: Cuban Communication Ability: Effective Visual Impairment: No Limitations Hearing Ability: Normal Adjuster And Inspector Required: No Beliefs That Will Affect Care: None marital status: Current Living Situation: Spouse current occupational status: retired How many Children do You have: 2 Feels Safe at Home: Yes Childhood Exposure to Second-Hand Smoke: Yes Diet: other Diet Comment: TPN via PICC, PEG tube (not currently in use) caffeine: Yes Dental Care, Regularly: Yes Physical Activity Frequency: 3-4 Times per Week Seatbelt Use: always Sunscreen Use: Yes Do you think of yourself as: straight/heterosexual Gender Identity: Female Assistive Devices: Walker Review of Systems Constitutional: + body aches, + fatigue, + weakness and + weight gain; no fever, no sweats and no insomnia Eyes: no problem reported Respiratory: + chest congestion and + dyspnea; no karen nge in sputum Cardiovascular: + edema; no chest pain and no palpitatio ns Additional Comments: 20lb reported weight gain over 4-6 weeks per family Gastrointestinal: + nausea Genitourinary: no difficulty urinating Musculoskeletal: no problem reported Integumentary: no problem reported Neurologic: no problem reported Hematologic / Lymphatic: no problem reported Physical Exam Physical Exam: General: A&Ox3. NAD. Cooperative. HEENT: Atraumatic, normocephalic. Vision and hearing grossly intact. Pupils equal and reactive to light, sclera clear and anicteric Pulm: CTAB A&P. -wheezes, -rales, -rhonchi. No increased work of breathing. No respiratory distress. Cardiac: 2/6 DARYL at he RUSB. Radial pulses intact and symmetrical. Abdominal: Nontender, nondistended, soft. BS present. Ext: Anasarca to the level of the abdomen, #+ throughout lower extremities, Moves all extremities equally NEURO: A&O as above, no focal deficits Skin: warm, moist. Results & Data Results & Data Vital Signs (Past 12 Hours) Vital Signs Temp Pulse Pulse Resp BP BP Pulse Ox 07/29/25 10:07 83 14 90/59 L 95 07/29/25 10:07 95 07/29/25 10:07 07/29/25 09:59 83 14 95 07/29/25 09:59 36.7 C 83 14 90/59 L 95 07/29/25 09:57 83 O2 Del Method O2 Flow Rate 07/29/25 10:07 Nasal Cannula 3 07/29/25 10:07 Nasal Cannula 3 07/29/25 10:07 Nasal Cannula 3 07/29/25 09:59 Nasal Cannula 3 07/29/25 09:59 Nasal Cannula 3 07/29/25 09:57 Laboratory Results 07/29/25 13:33 Aerobic Blood Culture - Pending Blood Anaerobic Blood Culture - Pending 07/29/25 13:20 Aerobic Blood Culture - Pending Blood Anaerobic Blood Culture - Pending 07/29/25 07/29/25 07/29/25 13:20 12:25 10:19 WBC 7.71 RBC 2.33 L Hgb 8.0 L Hct 23.7 L MCV 101.7 H MCH 34.3 H MCHC 33.8 RDW Std Deviation 83.8 H RDW Coeff of Rolo 23.0 H Plt Count 21 L* Immature Gran % (Auto) 1.4 Neut % (Auto) 87.9 Lymph % (Auto) 5.6 Doddridge % (Auto) 4.9 Eos % (Auto) 0.1 Baso % (Auto) 0.1 Neut # (Auto) 6.77 H Lymph # (Auto) 0.43 L Doddridge # (Auto) 0.38 Eos # (Auto) 0.01 Baso # (Auto) 0.01 Immature Gran # (Auto) 0.11 Absolute Nucleated RBC 0.03 Nucleated RBC % (auto) 0.4 Echinocytes 1+ Acanthocytes (Spur) 1+ PT 14.9 H INR 1.4 H APTT 38 H PTT Ratio 1.4 Sodium 131 L Potassium 5.0 Chloride 101 Carbon Dioxide 20 L Anion Gap 10 BUN 94 H Creatinine 3.59 H Est Cr Clr Drug Dosing 12.1 eGFR 12.83 BUN/Creatinine Ratio 26.2 H Glucose 72 Lactate 3.5 H* Calcium 8.6 Magnesium 2.1 Total Bilirubin 6.1 H AST 156 H ALT 64 H Alkaline Phosphatase 403 H Troponin I High Sens 77.8 H* 80.9 H* B-Natriuretic Peptide 105 H Total Protein 5.1 L Albumin 2.0 L Globulin 3.1 Albumin/Globulin Ratio 0.6 L Procalcitonin 3.22 H Diagnostic Findings Chest X-Ray 07/29/25 09:59 XR chest 1V portable CLINICAL HISTORY: Dyspnea, R sided crackles; h/o ovarian/liver ca COMPARISON STUDY: 07/20/2025 FINDINGS: The cardiac and mediastinal contours remain stable. There is a left- sided PICC catheter present and right sided A-Port catheter present. There are persistent bilateral pleural effusions. There are progressive right mid and lower lung zone airspace opacities, edema versus pneumonia. There are also slight we progressive left basilar airspace opacities. Lower lung zone nodules cannot be excluded. IMPRESSION: Persistent bilateral pleural effusions with progressive right greater than left mid to lower lung zone airspace opacities. Pneumonia versus versus edema. Lower lung zone nodules not excluded. ACT 112: Negative or not required by law. Electronically signed by: Gunner Sequeira M.D. 07/29/2025 10:13 AM PG Care Time/CCT Total # of Minutes Spent Total Time Spent with Patient: Total time spent is greater than 50% in coordination of care (as documented) at patient's floor/unit and/or counseling patient: Coding Level of Care Code 65408 INT INP/OBS CARE 3/75MIN Diagnoses Ovarian cancer C56.9 Pneumonia J18.9 Thrombocytopenia D69.6 Other specified hypotension I95.89 Hypotension type: other hypotension type Septic shock A41.9; R65.21 Fluid overload E87.70 Lymphedema I89.0 Moderate malnutrition E44.0 Metastatic neoplastic disease C79.9 Decubitus ulcer of sacral region, stage 1 L89.151 Cardiomyopathy I42.9 Ileostomy care Z43.2 Diarrhea R19.7 Blood clotting disorder D68.9 (4) Hypotension Hypotension type: other hypotension type Qualified Code(s): I95.89 - Other hypotension
[2025-07-29] MEDS ORDERED: VANCOMYCIN CONSULT ACTIVE PRN (13:02)
[2025-07-29] MEDS: MIDODRINE HCL 10 MG TAB PO ONE (13:23)
[2025-07-29] MEDS: ALBUMIN 25% 25 GM/100 ML VIAL IV ONE (13:25)
[2025-07-29] MEDS: VANCOMYCIN HCL 1,250 MG in SODIUM CHLORIDE 0.9% 500 ML IV STA (14:08)
[2025-07-29] MEDS: CEFEPIME 2000MG 2,000 MG/20 ML SYR IV STA (14:09)
--- NOTE | 2025-07-29 14:43 | Infectious Disease Consult ---
Date of Consultation July 29, 2025 Consultation Information Consultation was provided via telemedicine using two-way real-time interactive telecommunication between the patient and the telemedicine provider. For the duration of the visit, the provider was performing the assessment from a different facility than the patient. This includesuse of bluetooth stethoscope forauscultationperformed by the telepresenter that the telemedicine provider can hear if described in the physical exam. Film Waxer contact information: Please call [facility] . (Phone Number For Physician Use Only) After establishing a telemedicine visit, patient was: Patient was verified with two unique identifiers, Patient/authorized rep acknowledged consent and understanding and Gave permission to continue telehealth session Time Spent with Patient: Initial => 55 min History of Present Illness Reason for Consultation: Sepsis History of Present Illness 74 yo F with stage IV ovarian cancer (dx 2021) s/p surgical debridement, chemotherapy with carboplatin and liposomal doxorubicin held secondary to declining heart function, recently started mirvetuximab 03/2025 but discontinued at last hospitalization due to progression of her cancer with plan to restart cytotoxic chemotherapy, PE on Eliquis, bilateral lower extremity lymphedema, CKD, pancytopenia, malignant pleural effusions, bladder cancer s/p surgery 2012, ostomy, s/p PICC line and port. Was recently admitted 07/18-07/25 with increasing shortness of breath and worsening bilateral lower extremity edema, hypotension requiring ICU admission for pressors. CT chest showed Allergies Allergy/AdvReac Type Severity Reaction Status Date / Time No Known Allergies Allergy Verified 07/18/25 15:46 Home Medications Medication Instructions Recorded Confirmed Type nystatin 100,000 unit/gram topical 1 applic topical BID 08/07/24 07/29/25 History powder (Klayesta) ondansetron HCl 4 mg tablet 4 mg PO Q6H PRN nausea and 09/13/24 07/29/25 Rx vomiting #30 tabs tramadol 50 mg tablet 50 mg PO Q8H PRN pain #30 tabs 09/13/24 07/29/25 Rx nystatin-triamcinolone 100,000 1 applic topical BID #60 grams 10/15/24 07/29/25 Rx unit/g-0.1 % topical cream cholestyramine 4 gram oral powder 4 g PO DAILY PRN Other 03/05/25 07/29/25 History mirvetuximab soravtansine-gynx 5 0 mg IV Q21D 03/27/25 07/29/25 History mg/mL intravenous solution (Elahere) loratadine 10 mg tablet (Claritin) 10 mg PO DAILY 04/11/25 07/29/25 History mupirocin 2 % topical ointment 1 applic topical BID #15 grams 04/11/25 07/29/25 Rx prednisolone sodium phosphate 1 % 1 drp ophthalmic (eye) 6XD 04/11/25 07/29/25 History eye drops diphenoxylate-atropine 2.5 1 tab PO TID #270 tabs 04/16/25 07/29/25 Rx mg-0.025 mg tablet (Lomotil) Levomefolate/ Vit B12/ Vit B6/ Vit 1 tab PO DAILY 05/10/25 07/29/25 History B2 6///5 olanzapine 2.5 mg tablet 2.5 mg PO DIRECTED 05/10/25 07/29/25 History ergocalciferol (vitamin D2) 1,250 1,250 mcg PO 2XWK #20 caps 05/22/25 07/29/25 Rx mcg (50,000 unit) capsule (Vitamin D2) pantoprazole 40 mg tablet,delayed 40 mg PO DAILY #90 tabs 06/25/25 07/29/25 Rx release psyllium husk 0.4 gram capsule 0.4 g PO TID 07/18/25 07/29/25 History (Metamucil) loperamide 2 mg tablet 4 mg (2 x 2 mg) PO QAM #180 tabs 07/22/25 07/29/25 Rx midodrine 10 mg tablet 10 mg PO TID@0800,1200,1700 30 07/25/25 07/29/25 Rx days #90 tabs polyethylene glycol 3350 17 gram 17 g PO DAILY PRN constipation #30 07/25/25 07/29/25 Rx oral powder packet (Miralax) ea Patient History Medical History Ileostomy present Elevated homocysteine Non-healing surgical wound Colovaginal fistula Bladder cancer [facility] BY [facility] Blood clotting disorder ? 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) Surgical History H/O abdominal surgery Hx of bilateral breast reduction surgery H/O hand surgery LEFT HAND MIDDLE FINGER GROWTH REMOVED (DONE MULTIPLE TIMES) History of colonoscopy History of cystoscopy BLADDER TUMORS REMOVED (MULTIPLE TIMES) HAS HAD NO PROBLEMS FOR 3 YEARS History of tooth extraction History of tonsillectomy Family History Father Cholangitis Mother Dementia Osteoporosis Obesity Brother Dyslipidemia Social History Smoking Status: Former smoker Tobacco Type: Cigarettes Age Started Using Tobacco: 22; Age Quit Using Tobacco: 27; packs per day: 0.5; Second Hand Exposure: No; Do You Dip or Chew Tobacco: No; Hx Alcohol Use: No Hx Substance Use: No Preferred Language: Tunisian Communication Ability: Effective Visual Impairment: No Limitations Hearing Ability: Normal Nca Certified Concierge Required: No Beliefs That Will Affect Care: None marital status: Current Living Situation: Spouse current occupational status: retired How many Children do You have: 2 Feels Safe at Home: Yes Childhood Exposure to Second-Hand Smoke: Yes Diet: other Diet Comment: TPN via PICC, PEG tube (not currently in use) caffeine: Yes Dental Care, Regularly: Yes Physical Activity Frequency: 3-4 Times per Week Seatbelt Use: always Sunscreen Use: Yes Do you think of yourself as: straight/heterosexual Gender Identity: Female Assistive Devices: Walker Results & Data Vital Signs (Past 12 Hours) Vital Signs Temp Pulse Pulse Resp BP BP Pulse Ox 07/29/25 13:54 77 07/29/25 13:00 81 12 89/62 L 95 07/29/25 11:51 82 19 82/54 L 98 07/29/25 10:07 83 14 90/59 L 95 07/29/25 10:07 95 07/29/25 10:07 07/29/25 09:59 83 14 95 07/29/25 09:59 36.7 C 83 14 90/59 L 95 07/29/25 09:57 83 O2 Del Method O2 Flow Rate 07/29/25 13:54 07/29/25 13:00 Nasal Cannula 3 07/29/25 11:51 Nasal Cannula 3 07/29/25 10:07 Nasal Cannula 3 07/29/25 10:07 Nasal Cannula 3 07/29/25 10:07 Nasal Cannula 3 07/29/25 09:59 Nasal Cannula 3 07/29/25 09:59 Nasal Cannula 3 07/29/25 09:57
--- NOTE | 2025-07-29 15:11 | Infectious Disease Consult ---
Date of Consultation July 29, 2025 Assessment & Plan (1) Hypoxic respiratory failure: (2) Hypotension: Plan Problems: #Acute hypoxemic respiratory failure #TRISTON on CKD #Thrombocytopenia Micro: 07/29 BCx x2: pending Abx: Vanc 07/29 - present Cefepime 07/29 - present 74 yo F with stage IV ovarian cancer (dx 2021) s/p surgical debridement, chemotherapy with carboplatin and liposomal doxorubicin held secondary to de clining heart function, recently started mirvetuximab 03/2025 but discontinued at last hospitalization due to progression of her cancer with plan to restart cytotoxic chemotherapy, PE on Eliquis, bilateral lower extremity lymphedema, CKD, pancytopenia, malignant pleural effusions, bladder cancer s/p surgery 2012, ostomy, s/p PICC line and port. Was recently admitted 07/18-07/25 with increasing shortness of breath and worsening bilateral lower extremity edema, hypotension requiring ICU admission for pressors. CT chest showed consolidative opacities in the RLL concerning for pneumonia; numerous bilateral pulmonary nodules new from prior and concerning for pulmonary metastatic disease. Mild septal thickening in keeping with pulmonary edema. CT AP showed progression of hepatic metastatic disease. She had no abdominal or urinary symptoms, no productive cough, no evidence of cellulitis, open wounds. She was started on cefepime, then narrowed to ceftriaxone/azithro for possible CAP. BCx, RVP, urine Legionella Ag were negative. She completed a 5 day course of antibiotics. At a transitional care visit in the home this AM, pt had O2 sat 88% and was placed on 2 L. Noted to have worsening edema and shortness of breath, so sent to the ED on 07/29 for evaluation. Denied fever, cough. On presentation, pt was afebrile, HR 83, BP 90/59, RR 14, 95% on 3 L NC. Labs showed WBC 7.71, Hb 8, plt 21, Cr 3.59, lactate 3.5, BNP 105, procal 3.22, MRSA nares negative. CXR with persistent bilateral pleural effusions wtih progressive R>L mid to lower lung zone airspace opacities, pneumonia vs edema. Given 500 cc NS in ED. Was started on vanc, cefepime. Discussion: Was recently admitted for hypotension requiring pressors, pneumonia with CT showing RLL consolidation and worsening metastatic disease, treated with cefepime --> ceftriaxone/azithro x 5 days through 07/23/25. Now presenting back with O2 requirement, soft BPs. Her soft BPs seem similar to her last admission. Unclear whether her hypoxia is from pulmonary edema vs persistent/worsened pneumonia, also consider worsened pulmonary metastatic disease. Recommendations: - Continue vanc, cefepime for now - CT chest for further evaluation - Follow-up blood cultures - Send sputum for culture if able - Ordered urine Legionella antigen, respiratory viral panel Will continue to follow Consultation Information This patient recommendation is based on a telemedicine consult request which was completed asynchronously through chart review and information provided by the primary physician. The patient was not seen or examined today. The evaluation is consultative in nature and all patient care and treatment decisions can either be accepted or rejected by the patient's primary hospital-based treating physician using their own independent medical judgment for their patient. Delivery Associate contact information: Please call [facility] [phone]. (Phone Number For Physician Use Only) Time Spent Reviewing Chart: 31+ minutes History of Present Illness Reason for Consultation: sepsis History of Present Illness An e-consult was performed due to lack of telepresenter availability. 74 yo F with stage IV ovarian cancer (dx 2021) s/p surgical debridement, chemotherapy with carboplatin and liposomal doxorubicin held secondary to declining heart function, recently started mirvetuximab 03/2025 but discontinued at last hospitalization due to progression of her cancer with plan to restart cytotoxic chemotherapy, PE on Eliquis, bilateral lower extremity lymphedema, CKD, pancytopenia, malignant pleural effusions, bladder cancer s/p surgery 2012, ostomy, s/p PICC line and port. Was recently admitted 07/18-07/25 with increasing shortness of breath and worsening bilateral lower extremity edema, hypotension requiring ICU admission for pressors. CT chest showed consolidative opacities in the RLL concerning for pneumonia; numerous bilateral pulmonary nodules new from prior and concerning for pulmonary metastatic disease. Mild septal thickening in keeping with pulmonary edema. CT AP showed progression of hepatic metastatic disease. She had no abdominal or urinary symptoms, no productive cough, no evidence of cellulitis, open wounds. She was started on cefepime, then narrowed to ceftriaxone/azithro for possible CAP. BCx, RVP, urine Legionella Ag were negative. She completed a 5 day course of antibiotics. At a transitional care visit in the home this AM, pt had O2 sat 88% and was placed on 2 L. Noted to have worsening edema and shortness of breath, so sent to the ED on 07/29 for evaluation. Denied fever, cough. On presentation, pt was afebrile, HR 83, BP 90/59, RR 14, 95% on 3 L NC. Labs showed WBC 7.71, Hb 8, plt 21, Cr 3.59, lactate 3.5, BNP 105, procal 3.22, MRSA nares negative. CXR with persistent bilateral pleural effusions wtih progressive R>L mid to lower lung zone airspace opacities, pneumonia vs edema. Given 500 cc NS in ED. Was started on vanc, cefepime. Allergies Allergy/AdvReac Type Severity Reaction Status Date / Time No Known Allergies Allergy Verified 07/18/25 15:46 Home Medications Medication Instructions Recorded Confirmed Type nystatin 100,000 unit/gram topical 1 applic topical BID 08/07/24 07/29/25 History powder (Klayesta) ondansetron HCl 4 mg tablet 4 mg PO Q6H PRN nausea and 09/13/24 07/29/25 Rx vomiting #30 tabs tramadol 50 mg tablet 50 mg PO Q8H PRN pain #30 tabs 09/13/24 07/29/25 Rx nystatin-triamcinolone 100,000 1 applic topical BID #60 grams 10/15/24 07/29/25 Rx unit/g-0.1 % topical cream cholestyramine 4 gram oral powder 4 g PO DAILY PRN Other 03/05/25 07/29/25 History mirvetuximab soravtansine-gynx 5 0 mg IV Q21D 03/27/25 07/29/25 History mg/mL intravenous solution (Elahere) loratadine 10 mg tablet (Claritin) 10 mg PO DAILY 04/11/25 07/29/25 History mupirocin 2 % topical ointment 1 applic topical BID #15 grams 04/11/25 07/29/25 Rx prednisolone sodium phosphate 1 % 1 drp ophthalmic (eye) 6XD 04/11/25 07/29/25 History eye drops diphenoxylate-atropine 2.5 1 tab PO TID #270 tabs 04/16/25 07/29/25 Rx mg-0.025 mg tablet (Lomotil) Levomefolate/ Vit B12/ Vit B6/ Vit 1 tab PO DAILY 05/10/25 07/29/25 History B2 6//50/5 olanzapine 2.5 mg tablet 2.5 mg PO DIRECTED 05/10/25 07/29/25 History ergocalciferol (vitamin D2) 1,250 1,250 mcg PO 2XWK #20 caps 05/22/25 07/29/25 Rx mcg (50,000 unit) capsule (Vitamin D2) pantoprazole 40 mg tablet,delayed 40 mg PO DAILY #90 tabs 06/25/25 07/29/25 Rx release psyllium husk 0.4 gram capsule 0.4 g PO TID 07/18/25 07/29/25 History (Metamucil) loperamide 2 mg tablet 4 mg (2 x 2 mg) PO QAM #180 tabs 07/22/25 07/29/25 Rx midodrine 10 mg tablet 10 mg PO TID@0800,1200,1700 30 07/25/25 07/29/25 Rx days #90 tabs polyethylene glycol 3350 17 gram 17 g PO DAILY PRN constipation #30 07/25/25 07/29/25 Rx oral powder packet (Miralax) ea Patient History Medical History Ileostomy present Elevated homocysteine Non-healing surgical wound Colovaginal fistula Bladder cancer TREATED BY [facility] Blood clotting disorder ? 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) Surgical History H/O abdominal surgery Hx of bilateral breast reduction surgery H/O hand surgery LEFT HAND MIDDLE FINGER GROWTH REMOVED (DONE MULTIPLE TIMES) History of colonoscopy History of cystoscopy BLADDER TUMORS REMOVED (MULTIPLE TIMES) HAS HAD NO PROBLEMS FOR 3 YEARS History of tooth extraction History of tonsillectomy Family History Father Cholangitis Mother Dementia Osteoporosis Obesity Brother Dyslipidemia Social History Smoking Status: Former smoker Tobacco Type: Cigarettes Age Started Using Tobacco: 22; Age Quit Using Tobacco: 27; packs per day: 0.5; Second Hand Exposure: No; Do You Dip or Chew Tobacco: No; Hx Alcohol Use: No Hx Substance Use: No Preferred Language: [place] Communication Ability: Effective Visual Impairment: No Limitations Hearing Ability: Normal Genetic Counsellor Required: No Beliefs That Will Affect Care: None marital status: Current Living Situation: Spouse current occupational status: retired How many Children do You have: 2 Feels Safe at Home: Yes Childhood Exposure to Second-Hand Smoke: Yes Diet: other Diet Comment: TPN via PICC, PEG tube (not currently in use) caffeine: Yes Dental Care, Regularly: Yes Physical Activity Frequency: 3-4 Times per Week Seatbelt Use: always Sunscreen Use: Yes Do you think of yourself as: straight/heterosexual Gender Identity: Female Assistive Devices: Walker Results & Data Vital Signs (Past 12 Hours) Vital Signs Temp Pulse Pulse Resp BP BP Pulse Ox 07/29/25 13:54 77 07/29/25 13:00 81 12 89/62 L 95 07/29/25 11:51 82 19 82/54 L 98 07/29/25 10:07 83 14 90/59 L 95 07/29/25 10:07 95 07/29/25 10:07 07/29/25 09:59 83 14 95 07/29/25 09:59 36.7 C 83 14 90/59 L 95 07/29/25 09:57 83 O2 Del Method O2 Flow Rate 07/29/25 13:54 07/29/25 13:00 Nasal Cannula 3 07/29/25 11:51 Nasal Cannula 3 07/29/25 10:07 Nasal Cannula 3 07/29/25 10:07 Nasal Cannula 3 07/29/25 10:07 Nasal Cannula 3 07/29/25 09:59 Nasal Cannula 3 07/29/25 09:59 Nasal Cannula 3 07/29/25 09:57 Laboratory Results Short CBC 07/29/25 Range/Units 10:19 WBC 7.71 (4.8-10.8) K/ul Hgb 8.0 L (12.0-16.0) g/dl Hct 23.7 L (37.0-47.0) % Plt Count 21 L* (130-400) K/uL BMP 07/29/25 10:19 Sodium 131 L Potassium 5.0 Chloride 101 Carbon Dioxide 20 L BUN 94 H Creatinine 3.59 H Glucose 72 Calcium 8.6 Liver Function 07/29/25 Range/Units 10:19 Total Bilirubin 6.1 H (0.2-1.0) mg/dl AST 156 H (13-39) U/L ALT 64 H (7-52) U/L Alkaline Phosphatase 403 H (34-104) U/L Albumin 2.0 L (3.4-5.0) gm/dl Diagnostic Findings Chest X-Ray 07/29/25 09:59 XR chest 1V portable CLINICAL HISTORY: Dyspnea, R sided crackles; h/o ovarian/liver ca COMPARISON STUDY: 07/20/2025 FINDINGS: The cardiac and mediastinal contours remain stable. There is a left- sided PICC catheter present and right sided A-Port catheter present. There are persistent bilateral pleural effusions. There are progressive right mid and lower lung zone airspace opacities, edema versus pneumonia. There are also slight we progressive left basilar airspace opacities. Lower lung zone nodules cannot be excluded. IMPRESSION: Persistent bilateral pleural effusions with progressive right greater than left mid to lower lung zone airspace opacities. Pneumonia versus versus edema. Lower lung zone nodules not excluded. ACT 112: Negative or not required by law. Electronically signed by: Gunner Sequeira M.D. 07/29/2025 10:13 AM Medications Administered Current Inpatient Medications Vancomycin HCl 1,250 mg/ (Sodium Chloride) 500 mls @ 200 mls/hr IV NOW STA Stop: 07/29/25 15:31 Last Admin: 07/29/25 14:08 Dose: 200 mls/hr Miscellaneous Information (Vancomycin Consult Active) 1 each N/A UD PRN PRN Reason: Consult Stop: 08/28/25 13:01 (2) Hypotension Hypotension type: other hypotension type Qualified Code(s): I95.89 - Other hypotension
[2025-07-29] MEDS: SODIUM CHLORIDE 0.9% 500 ML IV ONE (15:30)
--- NOTE | 2025-07-29 15:36 | Pharmacy Report ---
Pharmacy PK ABX Note - Date of Service July 29, 2025 - Assessment and Plan Assessment 74 year old F receiving IV Vancomycin + Cefepime for treatment of possible pneumonia. CXR with persistent bilateral pleural effusions with progressive R>L mid to lower lung zone airspace opacities, pneumonia vs edema. Stage IV Ovarian cancer on chemo. Afebrile, HR 83, BP 90/59, RR 14, 95% on 3 L NC. Labs: WBC 7.71, Hb 8, plt 21, Cr 3.59, lactate 3.5, BNP 105, procal 3.22, MRSA nares negative. Patient recently admitted pneumonia,treated with cefepime --> ceftriaxone/azithro x 5 days through 07/23/25. ID consult, ordered urine Legionella antigen, respiratory viral panel. Plan Vancomycin * Loading dose: 1250 mg IV x 1 * Random level ordered for: 07/31/25 with AM labs due to poor renal function Cefepime 2g IV x1 then 1g IV Q12H starting tomorrow morning Pharmacy will continue to follow and will adjust dose/frequency as necessary. Thank you.
[2025-07-29] MEDS ORDERED: BUMETANIDE 10 MG in DEXTROSE 5% 10 ML IV SCH (15:52)
[2025-07-29] MEDS ORDERED: STAT IV Infusion **Titration per Protocol STA (15:52)
[2025-07-29] MEDS ORDERED: POLYETHYLENE (MIRALAX) 17 GM PACK PO PRN (15:52)
[2025-07-29] MEDS ORDERED: CEFEPIME 2000MG 2,000 MG/20 ML SYR IV SCH (15:52)
[2025-07-29] MEDS: NOREPINEPHRINE/D5W 4 MG/250 ML PLCT IV SCH (16:24)
[2025-07-29] MEDS: DIPHENOXYLATE/ATROPINE 2.5/0.025MG TAB PO SCH (16:24)
[2025-07-29] MEDS: MIDODRINE HCL 10 MG TAB PO SCH (16:25)
[2025-07-29] MEDS: PSYLLIUM HUSK 4GM PACKET PO SCH (16:26)
[2025-07-29 16:58] LABS: Chlamydia pneumoniae PCR Not Detected (NotDetected); Coronavirus 229E PCR Not Detected (NotDetected); Coronavirus CoV-2 (COVID19)PCR Not Detected (NotDetected); Coronavirus HKU1 PCR Not Detected (NotDetected); Coronavirus NL63 PCR Not Detected (NotDetected); Coronavirus OC43PCR Not Detected (NotDetected); Human Metapneumovirus PCR Not Detected (NotDetected); Parainfluenza Virus 1 PCR Not Detected (NotDetected); Parainfluenza Virus 2 PCR Not Detected (NotDetected); Parainfluenza Virus 3 PCR Not Detected (NotDetected); Parainfluenza Virus 4 PCR Not Detected (NotDetected); Respiratory Syncytial VirusPCR Not Detected (NotDetected); Rhinovirus/Enterovirus PCR Not Detected (NotDetected)
--- NOTE | 2025-07-29 17:11 | Critical Care Consultation ---
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 Cardiac: Hypotension. Seems chronic. Possibly worsened by overall deterioration of cardiopulmonary circulation. Poor venous return due to abdominal mass impeding venous return from IVC. Possible worsening of pulmonary circulation (pulmonary emboli) while patient has been off of anticoagulation. Will continue PO Midodrine. Will consider adding Hydrocortisone and/or Fludrocortisone Slightly elevated Troponin without change. No suspicion of coronary event. Respiratory: Platypnea and new hypoxemia (possibly orthodeoxia). New Left pleural effusion and worsening RLL consolidation and pleural effusion. Concern about new metastatic disease to the lungs. Concern about possible new/worsening thromboembolic pulmonary vascular disease. Will obtain unenhanced CT. Consider thoracentesis accordingly. GI: Elevated LFTs (Transaminases, Bilirubin, and Alk phosphatase Suspicion for new liver metastatic disease Hypoalbuminemia and protein-calorie malnutrition. RENAL/LYTES: Hyponatremia with Potassium at upper-side of normal. Will check Cortisol level and consider Hydrocortisone and/or Fludrocortisone. Worsened renal function TRISTON/CKD, at least partly due to impaired cardiac output. Mild metabolic acidosis, with mild Lactic Acidosis. Absence of significant anion gap at least partly due to hypoalbuminemia. ENDO: Mild hypoglycemia. Possibly associated with hyponatremia and upper-normal Potassium. Cannot rule out impaired glycogen stores. Will try Systemic steroids. HEME: Chronic Anemia Chronic Thrombocytopenia Lymphopenia Slightly elevated PT/PTT ID: Elevated Procalcitonin in view of worening renal function No suspicion for sepsis at this point CXR changes most likely secondary to metastatic disease. Feeding/Fluids Eating. Will consider Dextrose-containing IV fluids. Analgesia Tramadol PRN Sedation None needed at this time. Thromboprophylaxis SCDs. Chemoprophylaxis contraindicated due to thrombocytopenia. Head-up Position Not applicable Ulcer Prophylaxis Protonix Glycemic Control Will monitor secondary to hypoglycemia on presentation Spontaneous Breathing Trial Not applicable Bowel Care Psyllium Indwelling Catheters Right upper chest chemo-port Drug de-escalation Cefepime and Vancomycin per ID. Social Support Family at bedside. Discussed patient's condition and prognosis. Disposition Continue in ICU. I have personally spent 55 minutes of critical care time in the direct management of this patient. This is a life/limb threatening event. This includes time spent evaluating the patient, direct bedside care, chart review, placing orders, interpreting diagnostic studies, communicating with consultants, attending providers, patient, and family members, as well as required patient management activities. This time is exclusive of all separately-billable procedures and teaching time, and separate from and in addition to any other critical care service time. History of Present Illness Reason for Consultation: Hypotension and suspected sepsis Attending Physician: Chadwick Sanchez MD History of Present Illness The patient is a very pleasant 74-year-old female who presented to the ED due to worsening shortness of breath and hypoxemia, which was noted during a transitional care visit at home when her oxygen saturation was found to be 88% on room air, prompting initiation of 2 L nasal cannula and subsequent transfer for further evaluation. She reported increased lower extremity swelling and dyspnea on exertion, but denied chest pain, cough, fever, chills, orthopnea, or other generalized symptoms. On arrival, she appeared mildly ill but nontoxic, with vital signs notable for hypotension (BP 90/59), HR 83, RR 14, and oxygen saturation of 95% on 3 L nasal cannula. Physical exam revealed scleral icterus, moist mucous membranes, right- sided crackles, significant bilateral lower extremity pitting edema (3-4+), and no abdominal tenderness or calf pain. She was alert and oriented, with no focal neurological deficits. Laboratory evaluation demonstrated a normal WBC, chronic anemia (Hb 8), severe thrombocytopenia (platelets 21,000), acute on chronic kidney injury (Cr 3.59), elevated bilirubin (6), elevated lactate (3.5), and elevated procalcitonin (3.22). Cardiac markers showed an initial troponin of 80.9, and BNP was 105. Imaging with chest x-ray revealed bilateral pleural effusions and new right lower lobe opacities. ECG showed sinus rhythm with PVCs and left axis deviation, but no evidence of STEMI. The patient was managed in the ED with IV access, blood work, 500 cc IV fluids (with further volume expansion with held due to anasarca and concern for fluid overload), empiric antibiotics (vancomycin and cefepime), and supportive care. Her recent history includes a hospitalization from 07/18 to 07/25 for hypotension requiring pressors and suspected pneumonia with right lower lobe consolidation, during which she completed a 5-day course of antibiotics. She has a complex oncologic history with stage IV ovarian cancer (diagnosed 2021) with hepatic and pulmonary metastases, prior chemotherapy (carboplatin, liposomal doxorubicin, mirvetuximab), and a plan to restart cytotoxic therapy. Additional comorbidities include HFpEF/diastolic dysfunction, CKD, chronic lymphedema, pancytopenia, malignant pleural effusions, history of PE and DVT (previously on Eliquis stopped during last admission due to thrombocytopenia), bladder cancer s/p surgery (2012), ileostomy, malnutrition, GERD, chronic nausea/vomiting, and a stage 1 sacral decubitus ulcer. She also has a port and PICC line in place for access. Note from 07/29/2025: Patient presented due to hypoxemia and dyspnea when she stands up. She denies dizziness or near-fainting. CXR with new left pleural effusion and worsening consolidation/effusion at right hemithorax. Borderline hypotension with hyponatremia, upper-normal Potassium, and mild hypoglycemia. I have low suspicion for sepsis. Possible Adrenal insufficiency. Patient given IV fluid boluses in ED and by Dr. Sanchez. I will add Solumedrol and Fludrocortisone at least until Cortisol level is drawn. Continue vasopressors and antibiotics. Long and detailed discussion with the patient and family regarding prognosis. Allergies Allergy/AdvReac Type Severity Reaction Status Date / Time No Known Allergies Allergy Verified 07/18/25 15:46 Home Medications Medication Instructions Recorded Confirmed Type nystatin 100,000 unit/gram topical 1 applic topical BID 08/07/24 07/29/25 History powder (Klayesta) ondansetron HCl 4 mg tablet 4 mg PO Q6H PRN nausea and 09/13/24 07/29/25 Rx vomiting #30 tabs tramadol 50 mg tablet 50 mg PO Q8H PRN pain #30 tabs 09/13/24 07/29/25 Rx nystatin-triamcinolone 100,000 1 applic topical BID #60 grams 10/15/24 07/29/25 Rx unit/g-0.1 % topical cream cholestyramine 4 gram oral powder 4 g PO DAILY PRN Other 03/05/25 07/29/25 History mirvetuximab soravtansine-gynx 5 0 mg IV Q21D 03/27/25 07/29/25 History mg/mL intravenous solution (Elahere) loratadine 10 mg tablet (Claritin) 10 mg PO DAILY 04/11/25 07/29/25 History mupirocin 2 % topical ointment 1 applic topical BID #15 grams 04/11/25 07/29/25 Rx prednisolone sodium phosphate 1 % 1 drp ophthalmic (eye) 6XD 04/11/25 07/29/25 History eye drops diphenoxylate-atropine 2.5 1 tab PO TID #270 tabs 04/16/25 07/29/25 Rx mg-0.025 mg tablet (Lomotil) Levomefolate/ Vit B12/ Vit B6/ Vit 1 tab PO DAILY 05/10/25 07/29/25 History B2 02/17/50 olanzapine 2.5 mg tablet 2.5 mg PO DIRECTED 05/10/25 07/29/25 History ergocalciferol (vitamin D2) 1,250 1,250 mcg PO 2XWK #20 caps 05/22/25 07/29/25 Rx mcg (50,000 unit) capsule (Vitamin D2) pantoprazole 40 mg tablet,delayed 40 mg PO DAILY #90 tabs 06/25/25 07/29/25 Rx release psyllium husk 0.4 gram capsule 0.4 g PO TID 07/18/25 07/29/25 History (Metamucil) loperamide 2 mg tablet 4 mg (2 x 2 mg) PO QAM #180 tabs 07/22/25 07/29/25 Rx midodrine 10 mg tablet 10 mg PO TID@0800,1200,1700 30 07/25/25 07/29/25 Rx days #90 tabs polyethylene glycol 3350 17 gram 17 g PO DAILY PRN constipation #30 07/25/25 07/29/25 Rx oral powder packet (Miralax) ea Patient History Medical History Ileostomy present Elevated homocysteine Non-healing surgical wound Colovaginal fistula Bladder cancer TREATED BY [facility] Blood clotting disorder ? 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) Surgical History H/O abdominal surgery Hx of bilateral breast reduction surgery H/O hand surgery LEFT HAND MIDDLE FINGER GROWTH REMOVED (DONE MULTIPLE TIMES) History of colonoscopy History of cystoscopy BLADDER TUMORS REMOVED (MULTIPLE TIMES) HAS HAD NO PROBLEMS FOR 3 YEARS History of tooth extraction History of tonsillectomy Family History Father Cholangitis Mother Dementia Osteoporosis Obesity Brother Dyslipidemia Social History Smoking Status: Former smoker Tobacco Type: Cigarettes Age Started Using Tobacco: 22; Age Quit Using Tobacco: 27; packs per day: 0.5; Cigarettes Per Day: 20; Second Hand Exposure: No; Do You Dip or Chew Tobacco: No; Hx Alcohol Use: No Hx Substance Use: No Preferred Language: [place] Communication Ability: Effective Visual Impairment: No Limitations Hearing Ability: Normal Assignment Clerk Required: No Beliefs That Will Affect Care: None marital status: Current Living Situation: Spouse current occupational status: retired How many Children do You have: 2 Feels Safe at Home: Yes Childhood Exposure to Second-Hand Smoke: Yes Diet: other Diet Comment: TPN via PICC, PEG tube (not currently in use) caffeine: Yes Dental Care, Regularly: Yes Physical Activity Frequency: 3-4 Times per Week Seatbelt Use: always Sunscreen Use: Yes Do you think of yourself as: straight/heterosexual Gender Identity: Female Assistive Devices: Walker Review of Systems Review of Systems: All systems reviewed & are unremarkable except as noted in HPI & below Physical Exam Physical Exam: General: In no acute distress, using Oxygen via nasal cannula. Emaciated. Venous port at Right upper chest. Stage 1 sacral decubitus ulcer. Neck: No palpable masses or adenopathy. Respiratory: Decreased breath sounds with dullness over both bases, no wheezing or crackles. No use of accessory muscles and no prolonged exhalation. Cardiac: Regular rhythm, no murmurs, no gallops, no rubs; could not appreciate JV pulse elevation. GI: Soft, nontender. Ileostomy at RLQ. Extremities No clubbing,no cyanosis,3+ edema over the lower extremities. Positive Stemmer sign bilaterally. Neuro: No gross motor deficits. Seems appropriate. No facial-droop. Speech is clear. Results & Data Results & Data Vital Signs (Past 12 Hours) Vital Signs Temp Pulse Pulse Resp BP BP Pulse Ox 07/29/25 16:30 60 12 07/29/25 16:30 99/61 L 07/29/25 16:00 66 14 07/29/25 16:00 90/54 L 07/29/25 16:00 07/29/25 15:34 80/50 L 07/29/25 15:33 75 14 89 L 07/29/25 15:30 76 16 91 07/29/25 15:29 81/50 L 07/29/25 15:27 78 15 93 07/29/25 15:21 86 17 07/29/25 13:54 77 07/29/25 13:00 81 12 89/62 L 95 07/29/25 11:51 82 19 82/54 L 98 07/29/25 10:07 83 14 90/59 L 95 07/29/25 10:07 95 07/29/25 10:07 07/29/25 09:59 83 14 95 07/29/25 09:59 36.7 C 83 14 90/59 L 95 07/29/25 09:57 83 O2 Del Method O2 Flow Rate 07/29/25 16:30 07/29/25 16:30 07/29/25 16:00 07/29/25 16:00 07/29/25 16:00 Nasal Cannula 2 07/29/25 15:34 07/29/25 15:33 07/29/25 15:30 07/29/25 15:29 07/29/25 15:27 07/29/25 15:21 07/29/25 13:54 07/29/25 13:00 Nasal Cannula 3 07/29/25 11:51 Nasal Cannula 3 07/29/25 10:07 Nasal Cannula 3 07/29/25 10:07 Nasal Cannula 3 07/29/25 10:07 Nasal Cannula 3 07/29/25 09:59 Nasal Cannula 3 07/29/25 09:59 Nasal Cannula 3 07/29/25 09:57 Laboratory Results 07/29/25 13:33 Aerobic Blood Culture - Pending Blood Anaerobic Blood Culture - Pending 07/29/25 13:20 Aerobic Blood Culture - Pending Blood Anaerobic Blood Culture - Pending 07/29/25 07/29/25 07/29/25 16:03 16:00 15:28 WBC RBC Hgb Hct MCV MCH MCHC RDW Std Deviation RDW Coeff of Rolo Plt Count Immature Gran % (Auto) Neut % (Auto) Lymph % (Auto) [place] % (Auto) Eos % (Auto) Baso % (Auto) Neut # (Auto) Lymph # (Auto) [place] # (Auto) Eos # (Auto) Baso # (Auto) Immature Gran # (Auto) Absolute Nucleated RBC Nucleated RBC % (auto) Echinocytes Acanthocytes (Spur) PT INR APTT PTT Ratio Sodium Potassium Chloride Carbon Dioxide Anion Gap BUN Creatinine Est Cr Clr Drug Dosing eGFR BUN/Creatinine Ratio Glucose POC Glucose 69 L* Lactate 2.8 H* Calcium Magnesium Total Bilirubin AST ALT Alkaline Phosphatase Troponin I High Sens B-Natriuretic Peptide Total Protein Albumin Globulin Albumin/Globulin Ratio Procalcitonin Nasal Screen MRSA (PCR) Adenovirus (PCR) Not Detected B. pertussis DNA (PCR) Not Detected B.parapertussis DNA PCR Not Detected C. pneumoniae DNA (PCR) Not Detected Coronavirus OC43 (PCR) Not Detected Coronavirus HKU1 (PCR) Not Detected Coronavirus 229E (PCR) Not Detected SARS-CoV-2 (PCR) Not Detected Coronavirus NL63 (PCR) Not Detected Human Metapneumovir PCR Not Detected Influenza Type A (PCR) Not Detected Influenza Type B (PCR) Not Detected M. pneumoniae (PCR) Not Detected Parainfluenza 1 (PCR) Not Detected Parainfluenza 2 (PCR) Not Detected Parainfluenza 3 (PCR) Not Detected Parainfluenza 4 (PCR) Not Detected RSV (PCR) Not Detected Entero/Rhino (PCR) Not Detected 07/29/25 07/29/25 07/29/25 15:26 13:22 13:20 WBC RBC Hgb Hct MCV MCH MCHC RDW Std Deviation RDW Coeff of Rolo Plt Count Immature Gran % (Auto) Neut % (Auto) Lymph % (Auto) [place] % (Auto) Eos % (Auto) Baso % (Auto) Neut # (Auto) Lymph # (Auto) [place] # (Auto) Eos # (Auto) Baso # (Auto) Immature Gran # (Auto) Absolute Nucleated RBC Nucleated RBC % (auto) Echinocytes Acanthocytes (Spur) PT INR APTT PTT Ratio Sodium Potassium Chloride Carbon Dioxide Anion Gap BUN Creatinine Est Cr Clr Drug Dosing eGFR BUN/Creatinine Ratio Glucose POC Glucose 67 L* Lactate 3.5 H* Calcium Magnesium Total Bilirubin AST ALT Alkaline Phosphatase Troponin I High Sens B-Natriuretic Peptide Total Protein Albumin Globulin Albumin/Globulin Ratio Procalcitonin Nasal Screen MRSA (PCR) Negative Adenovirus (PCR) B. pertussis DNA (PCR) B.parapertussis DNA PCR C. pneumoniae DNA (PCR) Coronavirus OC43 (PCR) Coronavirus HKU1 (PCR) Coronavirus 229E (PCR) SARS-CoV-2 (PCR) Coronavirus NL63 (PCR) Human Metapneumovir PCR Influenza Type A (PCR) Influenza Type B (PCR) M. pneumoniae (PCR) Parainfluenza 1 (PCR) Parainfluenza 2 (PCR) Parainfluenza 3 (PCR) Parainfluenza 4 (PCR) RSV (PCR) Entero/Rhino (PCR) 07/29/25 07/29/25 12:25 10:19 WBC 7.71 RBC 2.33 L Hgb 8.0 L Hct 23.7 L MCV 101.7 H MCH 34.3 H MCHC 33.8 RDW Std Deviation 83.8 H RDW Coeff of Rolo 23.0 H Plt Count 21 L* Immature Gran % (Auto) 1.4 Neut % (Auto) 87.9 Lymph % (Auto) 5.6 [place] % (Auto) 4.9 Eos % (Auto) 0.1 Baso % (Auto) 0.1 Neut # (Auto) 6.77 H Lymph # (Auto) 0.43 L [place] # (Auto) 0.38 Eos # (Auto) 0.01 Baso # (Auto) 0.01 Immature Gran # (Auto) 0.11 Absolute Nucleated RBC 0.03 Nucleated RBC % (auto) 0.4 Echinocytes 1+ Acanthocytes (Spur) 1+ PT 14.9 H INR 1.4 H APTT 38 H PTT Ratio 1.4 Sodium 131 L Potassium 5.0 Chloride 101 Carbon Dioxide 20 L Anion Gap 10 BUN 94 H Creatinine 3.59 H Est Cr Clr Drug Dosing 12.1 eGFR 12.83 BUN/Creatinine Ratio 26.2 H Glucose 72 POC Glucose Lactate Calcium 8.6 Magnesium 2.1 Total Bilirubin 6.1 H AST 156 H ALT 64 H Alkaline Phosphatase 403 H Troponin I High Sens 77.8 H* 80.9 H* B-Natriuretic Peptide 105 H Total Protein 5.1 L Albumin 2.0 L Globulin 3.1 Albumin/Globulin Ratio 0.6 L Procalcitonin 3.22 H Nasal Screen MRSA (PCR) Adenovirus (PCR) B. pertussis DNA (PCR) B.parapertussis DNA PCR C. pneumoniae DNA (PCR) Coronavirus OC43 (PCR) Coronavirus HKU1 (PCR) Coronavirus 229E (PCR) SARS-CoV-2 (PCR) Coronavirus NL63 (PCR) Human Metapneumovir PCR Influenza Type A (PCR) Influenza Type B (PCR) M. pneumoniae (PCR) Parainfluenza 1 (PCR) Parainfluenza 2 (PCR) Parainfluenza 3 (PCR) Parainfluenza 4 (PCR) RSV (PCR) Entero/Rhino (PCR) Coding Level of Care Code 00345 CRITICAL CARE 1ST 30-74M Diagnoses Hypoxic respiratory failure J96.01 Chronicity: acute Ovarian cancer C56.9 Thrombocytopenia D69.6 Other specified hypotension I95.9 Hypotension type: unspecified hypotension type Edema, peripheral R60.0 Lymphedema I89.0 Moderate malnutrition E44.0 Metastatic neoplastic disease C79.9 Decubitus ulcer of sacral region, stage 1 L89.151 Platypnea-orthodeoxia syndrome R06.09 Time Spent (min) 55 (1) Hypoxic respiratory failure Chronicity: acute Qualified Code(s): J96.01 - Acute respiratory failure with hypoxia (4) Hypotension Hypotension type: unspecified hypotension type Qualified Code(s): I95.9 - Hypotension, unspecified
[2025-07-29] MEDS: FLUDROCORTISONE ACETATE 0.1 MG TAB PO SCH (17:56)
[2025-07-29] MEDS ORDERED: methylPREDNISolone 10 mg/mL (For Ped Dose < 7mg) IV SCH (18:00)
--- NOTE | 2025-07-29 18:51 | CT Scan Report ---
CT chest without contrast History: Chest pain Comparison: 07/19/2025 Technique: Helical CT imaging of the chest performed without IV contrast Dose reduction techniques were achieved by using automatic exposure control and/or adjustment of mA and/or kV according to patient size and/or use of iterative reconstruction technique. Findings: There is a moderate left pleural effusion which is increased, with subjacent compressive atelectasis. A small right pleural effusion is not significantly changed. Scattered solid pulmonary nodules again seen are similar to prior. New patchy consolidation throughout the right lower lobe. There are new areas of ground glass with a atoll appearance in the periphery of the left upper lung on image 25, measuring 2.1 cm, and 3.2 cm, respectively. No pneumothorax. Heart size is enlarged. Left upper extremity PICC and right chest wall port with catheter tip's in the high right atrium. The thoracic aorta is normal in size. The pulmonary artery is normal in size. No significant pericardial effusion. No suspicious lymphadenopathy in the chest. The central airway is clear. Limited visualized upper abdomen. A large mass about the liver as well as additional smaller hepatic masses are again seen. No acute bony abnormalities. Impression: New area of consolidation in the right lower lung, suspicious for pneumonia. There are also new opacities in the periphery of the left upper lung with an atypical appearance, which may be infectious, versus organizing pneumonia. Similar-appearing diffuse pulmonary nodules. Redemonstrated pleural effusions, increased. Electronically signed by Rommel Meyer 07-29-2025 6:50 PM
[2025-07-29 22:29] LABS: Appearance Urine Clear (Clear); Bacteria Urine Automated None Seen (None Seen); Epithelial Cell Urine Auto 0-2 /hpf (0-2); Glucose Urine UA Negative (Negative); WBC Urine Automated 0-5 /hpf (0-5)
[2025-07-30 05:37] LABS: Hematocrit (blood only) 23.5 % (37.0-47.0); Hemoglobin 8.1 g/dl (12.0-16.0); Mean Corpuscular Hemoglobin 34.6 pg (25.0-34.0); Mean Corpuscular Volume 100.4 fL (80.0-100.0); Platelet Count 25 K/uL (130-400); RDW Standard Deviation 82.4 fL (36.4-46.3); Red Blood Count 2.34 M/uL (4.20-5.40); White Blood Count 7.99 K/ul (4.8-10.8)
[2025-07-30 05:40] LABS: Alanine Aminotransferase 63.0 U/L (7-52); Albumin Globulin Ratio 0.8 (0.9-2); Albumin Level 2.6 gm/dl (3.4-5.0); Alkaline Phosphatase 335.0 U/L (34-104); Anion Gap 10.0 (3-11); Bilirubin,Total 6.8 mg/dl (0.2-1.0); Blood Urea Nitrogen 93.0 mg/dl (6-23); Calcium 8.9 mg/dl (8.6-10.3); Carbon Dioxide 19.0 mmol/L (21-32); Chloride 100.0 mmol/L (98-107); Creatinine Clr Calc Pharmacy 11.9 ml/min; Globulin 3.1 gm/dl (2.5-4.0); Glucose 111.0 mg/dl (70-99(Fasting)); Magnesium 2.1 mg/dl (1.7-2.4); Potassium 5.5 mmol/L (3.5-5.1); Sodium 129.0 mmol/L (136-145); Total Protein 5.7 gm/dl (6.0-8.3)
[2025-07-30 06:16] LABS: Acanthocytes 1+; Anisocytosis Present; Dohle Bodies 1+; Immature Granulocytes # (auto) 0.11 K/uL (0.01-0.20); Immature Granulocytes % (auto) 1.4 %; Polychromasia 1+; Toxic Granulation 1+
--- NOTE | 2025-07-30 07:26 | Critical Care Progress Note ---
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 Sanchez, the patient and family opted to forfeit further treatment and go with palliative care. Admission and Anticipated Discharge Date Admission Date: July 29, 2025 Subjective The patient is a very pleasant 74-year-old female who presented to the ED due to worsening shortness of breath and hypoxemia, which was noted during a transitional care visit at home when her oxygen saturation was found to be 88% on room air, prompting initiation of 2 L nasal cannula and subsequent transfer for further evaluation. She reported increased lower extremity swelling and dyspnea on exertion, but denied chest pain, cough, fever, chills, orthopnea, or other generalized symptoms. On arrival, she appeared mildly ill but nontoxic, with vital signs notable for hypotension (BP 90/59), HR 83, RR 14, and oxygen saturation of 95% on 3 L nasal cannula. Physical exam revealed scleral icterus, moist mucous membranes, right- sided crackles, significant bilateral lower extremity pitting edema (3-4+), and no abdominal tenderness or calf pain. She was alert and oriented, with no focal neurological deficits. Laboratory evaluation demonstrated a normal WBC, chronic anemia (Hb 8), severe thrombocytopenia (platelets 21,000), acute on chronic kidney injury (Cr 3.59), elevated bilirubin (6), elevated lactate (3.5), and elevated procalcitonin (3.22). Cardiac markers showed an initial troponin of 80.9, and BNP was 105. Imaging with chest x-ray revealed bilateral pleural effusions and new right lower lobe opacities. ECG showed sinus rhythm with PVCs and left axis deviation, but no evidence of STEMI. The patient was managed in the ED with IV access, blood work, 500 cc IV fluids (with further volume expansion with held due to anasarca and concern for fluid overload), empiric antibiotics (vancomycin and cefepime), and supportive care. Her recent history includes a hospitalization from 07/18 to 07/25 for hypotension requiring pressors and suspected pneumonia with right lower lobe consolidation, during which she completed a 5-day course of antibiotics. She has a complex oncologic history with stage IV ovarian cancer (diagnosed 2021) with hepatic and pulmonary metastases, prior chemotherapy (carboplatin, liposomal doxorubicin, mirvetuximab), and a plan to restart cytotoxic therapy. Additional comorbidities include HFpEF/diastolic dysfunction, CKD, chronic lymphedema, pancytopenia, malignant pleural effusions, history of PE and DVT (previously on Eliquis stopped during last admission due to thrombocytopenia), bladder cancer s/p surgery (2012), ileostomy, malnutrition, GERD, chronic nausea/vomiting, and a stage 1 sacral decubitus ulcer. She also has a port and PICC line in place for access. Note from 07/29/2025: Patient presented due to hypoxemia and dyspnea when she stands up. She denies dizziness or near-fainting. CXR with new left pleural effusion and worsening consolidation/effusion at right hemithorax. Borderline hypotension with hyponatremia, upper-normal Potassium, and mild hypoglycemia. I have low suspicion for sepsis. Possible Adrenal insufficiency. Patient given IV fluid boluses in ED and by Dr. Sanchez. I will add Solumedrol and Fludrocortisone at least until Cortisol level is drawn. Continue vasopressors and antibiotics. Long and detailed discussion with the patient and family regarding prognosis. Note from 07/30/2025: No significant events overnight. Patient remained on Levophed. Renal function continued worsening. Chest CT showed new/worsening RLL infiltrates and increased left pleural effusion. After a long and detailed discussion with the patient and her family conducted by Dr. Sanchez, the patient and family opted to forfeit further treatment and go with palliative care. Review of Systems Review of Systems: All systems reviewed & are unremarkable except as noted in HPI & below Physical Exam Physical Exam: General: In no acute distress, using Oxygen via nasal cannula. Emaciated. Venous port at Right upper chest. Stage 1 sacral decubitus ulcer. Neck: No palpable masses or adenopathy. Respiratory: Decreased breath sounds with dullness over both bases, no wheezing or crackles. No use of accessory muscles and no prolonged exhalation. Cardiac: Regular rhythm, no murmurs, no gallops, no rubs; could not appreciate JV pulse elevation. GI: Soft, nontender. Ileostomy at RLQ. Extremities No clubbing,no cyanosis,3+ edema over the lower extremities. Positive Stemmer sign bilaterally. Neuro: No gross motor deficits. Seems appropriate. No facial-droop. Speech is clear. Results & Data Results & Data Vital Signs (Past 12 Hours) Vital Signs Temp Pulse Resp BP Pulse Ox O2 Del Method O2 Flow Rate 07/30/25 06:00 72 29 H 100 07/30/25 06:00 98/57 L 07/30/25 06:00 98/57 L 07/30/25 06:00 98/57 L 07/30/25 06:00 98/57 L 07/30/25 06:00 98/57 L 07/30/25 05:32 93/64 L 07/30/25 05:32 93/64 L 07/30/25 05:32 93/64 L 07/30/25 05:32 93/64 L 07/30/25 05:32 93/64 L 07/30/25 05:30 85 19 97 07/30/25 05:00 75 16 98 07/30/25 05:00 96/60 L 07/30/25 05:00 96/60 L 07/30/25 05:00 96/60 L 07/30/25 05:00 96/60 L 07/30/25 05:00 96/60 L 07/30/25 04:30 72 22 100 07/30/25 04:30 96/58 L 07/30/25 04:30 96/58 L 07/30/25 04:30 96/58 L 07/30/25 04:30 96/58 L 07/30/25 04:30 96/58 L 07/30/25 04:00 92/60 L 07/30/25 04:00 92/60 L 07/30/25 04:00 92/60 L 07/30/25 04:00 92/60 L 07/30/25 04:00 92/60 L 07/30/25 04:00 92/60 L 07/30/25 04:00 92/60 L 07/30/25 04:00 92/60 L 07/30/25 04:00 92/60 L 07/30/25 04:00 79 25 H 100 07/30/25 04:00 36.2 C L 07/30/25 03:30 75 29 H 100 07/30/25 03:30 98/59 L 07/30/25 03:30 98/59 L 07/30/25 03:30 98/59 L 07/30/25 03:30 98/59 L 07/30/25 03:30 98/59 L 07/30/25 03:00 96/58 L 07/30/25 03:00 96/58 L 07/30/25 03:00 96/58 L 07/30/25 03:00 96/58 L 07/30/25 03:00 96/58 L 07/30/25 03:00 73 13 99 07/30/25 02:30 72 17 100 07/30/25 02:30 95/58 L 07/30/25 02:30 95/58 L 07/30/25 02:30 95/58 L 07/30/25 02:30 95/58 L 07/30/25 02:30 95/58 L 07/30/25 02:00 75 20 100 07/30/25 02:00 91/60 L 07/30/25 02:00 91/60 L 07/30/25 02:00 91/60 L 07/30/25 02:00 91/60 L 07/30/25 02:00 91/60 L 07/30/25 01:30 74 18 99 07/30/25 01:30 87/57 L 07/30/25 01:30 87/57 L 07/30/25 01:30 87/57 L 07/30/25 01:30 87/57 L 07/30/25 01:30 87/57 L 07/30/25 01:14 Nasal Cannula 2 07/30/25 01:00 101/59 L 07/30/25 01:00 101/59 L 07/30/25 01:00 101/59 L 07/30/25 01:00 101/59 L 07/30/25 01:00 101/59 L 07/30/25 01:00 101/59 L 07/30/25 01:00 101/59 L 07/30/25 01:00 101/59 L 07/30/25 01:00 101/59 L 07/30/25 01:00 68 16 100 07/30/25 00:30 70 12 100 07/30/25 00:30 92/58 L 07/30/25 00:30 92/58 L 07/30/25 00:30 92/58 L 07/30/25 00:30 92/58 L 07/30/25 00:30 92/58 L 07/30/25 00:00 66 19 96 07/30/25 00:00 93/57 L 07/30/25 00:00 93/57 L 07/30/25 00:00 93/57 L 07/30/25 00:00 93/57 L 07/30/25 00:00 93/57 L 07/30/25 00:00 35.9 C L 07/30/25 00:00 68 07/29/25 23:30 65 12 99 07/29/25 23:30 93/57 L 07/29/25 23:30 93/57 L 07/29/25 23:30 93/57 L 07/29/25 23:30 93/57 L 07/29/25 23:30 93/57 L 07/29/25 23:00 64 20 99 07/29/25 23:00 96/62 L 07/29/25 23:00 96/62 L 07/29/25 23:00 96/62 L 07/29/25 23:00 96/62 L 07/29/25 23:00 96/62 L 07/29/25 22:30 70 17 97 07/29/25 22:30 95/58 L 07/29/25 22:30 95/58 L 07/29/25 22:30 95/58 L 07/29/25 22:30 95/58 L 07/29/25 22:30 95/58 L 07/29/25 22:00 89/64 L 07/29/25 22:00 89/64 L 07/29/25 22:00 89/64 L 07/29/25 22:00 89/64 L 07/29/25 22:00 89/64 L 07/29/25 22:00 78 21 91 07/29/25 21:30 95/62 L 07/29/25 21:30 95/62 L 07/29/25 21:30 95/62 L 07/29/25 21:30 95/62 L 07/29/25 21:30 95/62 L 07/29/25 21:30 70 12 100 07/29/25 21:00 93/63 L 07/29/25 21:00 93/63 L 07/29/25 21:00 93/63 L 07/29/25 21:00 93/63 L 07/29/25 21:00 93/63 L 07/29/25 21:00 80 15 100 07/29/25 20:30 86/57 L 07/29/25 20:30 86/57 L 07/29/25 20:30 86/57 L 07/29/25 20:30 86/57 L 07/29/25 20:30 86/57 L 07/29/25 20:30 73 23 100 07/29/25 20:00 87/58 L 07/29/25 20:00 87/58 L 07/29/25 20:00 87/58 L 07/29/25 20:00 87/58 L 07/29/25 20:00 87/58 L 07/29/25 20:00 75 23 97 07/29/25 20:00 35.6 C L 07/29/25 19:30 80/53 L 07/29/25 19:30 80/53 L 07/29/25 19:30 80/53 L 07/29/25 19:30 80/53 L 07/29/25 19:30 80/53 L 07/29/25 19:30 67 18 99 Laboratory Results 07/29/25 13:33 Aerobic Blood Culture - Pending Blood Anaerobic Blood Culture - Pending 07/29/25 13:20 Aerobic Blood Culture - Pending Blood Anaerobic Blood Culture - Pending 07/30/25 07/29/25 07/29/25 04:44 22:15 22:10 WBC 7.99 RBC 2.34 L Hgb 8.1 L Hct 23.5 L MCV 100.4 H MCH 34.6 H MCHC 34.5 RDW Std Deviation 82.4 H RDW Coeff of Rolo 23.0 H Plt Count 25 L* MPV 12.7 H Immature Gran % (Auto) 1.4 Neut % (Auto) 93.6 Lymph % (Auto) 2.9 Cooper % (Auto) 1.8 Eos % (Auto) 0.0 Baso % (Auto) 0.3 Neut # (Auto) 7.49 H Lymph # (Auto) 0.23 L Cooper # (Auto) 0.14 Eos # (Auto) 0.00 Baso # (Auto) 0.02 Immature Gran # (Auto) 0.11 Absolute Nucleated RBC 0.02 Nucleated RBC % (auto) 0.3 Toxic Granulation 1+ Dohle Bodies 1+ Polychromasia 1+ Anisocytosis Present Echinocytes Acanthocytes (Spur) 1+ PT INR APTT PTT Ratio Sodium 129 L Potassium 5.5 H Chloride 100 Carbon Dioxide 19 L Anion Gap 10 BUN 93 H Creatinine 3.65 H Est Cr Clr Drug Dosing 11.9 eGFR 12.58 BUN/Creatinine Ratio 25.5 H Glucose 111 H POC Glucose 106 H Lactate Calcium 8.9 Magnesium 2.1 Total Bilirubin 6.8 H AST 157 H ALT 63 H Alkaline Phosphatase 335 H Troponin I High Sens C-Reactive Protein 5.68 H B-Natriuretic Peptide Total Protein 5.7 L Albumin 2.6 L Globulin 3.1 Albumin/Globulin Ratio 0.8 L Procalcitonin 3.42 H Random Cortisol Urine Color Dark Yellow Urine Appearance Clear Urine pH 5.0 Ur Specific [place] 1.017 Urine Protein 1+ H Urine Glucose (UA) Negative Urine Ketones Negative Urine Blood 1+ H Urine Nitrite Negative Urine Bilirubin 1+ H Urine Urobilinogen Negative Ur Leukocyte Esterase Negative Urine WBC (Auto) 0-5 Urine RBC (Auto) 3-5 H U Hyaline Cast (Auto) 3-5 H U Epithel Cells (Auto) 0-2 Urine Bacteria (Auto) None Seen Urine Comment Nasal Screen MRSA (PCR) Random Vancomycin 11.1 Adenovirus (PCR) B. pertussis DNA (PCR) B.parapertussis DNA PCR C. pneumoniae DNA (PCR) Coronavirus OC43 (PCR) Coronavirus HKU1 (PCR) Coronavirus 229E (PCR) SARS-CoV-2 (PCR) Coronavirus NL63 (PCR) Human Metapneumovir PCR Influenza Type A (PCR) Influenza Type B (PCR) M. pneumoniae (PCR) Parainfluenza 1 (PCR) Parainfluenza 2 (PCR) Parainfluenza 3 (PCR) Parainfluenza 4 (PCR) RSV (PCR) Entero/Rhino (PCR) 07/29/25 07/29/25 07/29/25 16:03 16:00 15:28 WBC RBC Hgb Hct MCV MCH MCHC RDW Std Deviation RDW Coeff of Rolo Plt Count MPV Immature Gran % (Auto) Neut % (Auto) Lymph % (Auto) Cooper % (Auto) Eos % (Auto) Baso % (Auto) Neut # (Auto) Lymph # (Auto) Cooper # (Auto) Eos # (Auto) Baso # (Auto) Immature Gran # (Auto) Absolute Nucleated RBC Nucleated RBC % (auto) Toxic Granulation Dohle Bodies Polychromasia Anisocytosis Echinocytes Acanthocytes (Spur) PT INR APTT PTT Ratio Sodium Potassium Chloride Carbon Dioxide Anion Gap BUN Creatinine Est Cr Clr Drug Dosing eGFR BUN/Creatinine Ratio Glucose POC Glucose 69 L* Lactate 2.8 H* Calcium Magnesium Total Bilirubin AST ALT Alkaline Phosphatase Troponin I High Sens C-Reactive Protein B-Natriuretic Peptide Total Protein Albumin Globulin Albumin/Globulin Ratio Procalcitonin Random Cortisol Urine Color Urine Appearance Urine pH Ur Specific [place] Urine Protein Urine Glucose (UA) Urine Ketones Urine Blood Urine Nitrite Urine Bilirubin Urine Urobilinogen Ur Leukocyte Esterase Urine WBC (Auto) Urine RBC (Auto) U Hyaline Cast (Auto) U Epithel Cells (Auto) Urine Bacteria (Auto) Urine Comment Nasal Screen MRSA (PCR) Random Vancomycin Adenovirus (PCR) Not Detected B. pertussis DNA (PCR) Not Detected B.parapertussis DNA PCR Not Detected C. pneumoniae DNA (PCR) Not Detected Coronavirus OC43 (PCR) Not Detected Coronavirus HKU1 (PCR) Not Detected Coronavirus 229E (PCR) Not Detected SARS-CoV-2 (PCR) Not Detected Coronavirus NL63 (PCR) Not Detected Human Metapneumovir PCR Not Detected Influenza Type A (PCR) Not Detected Influenza Type B (PCR) Not Detected M. pneumoniae (PCR) Not Detected Parainfluenza 1 (PCR) Not Detected Parainfluenza 2 (PCR) Not Detected Parainfluenza 3 (PCR) Not Detected Parainfluenza 4 (PCR) Not Detected RSV (PCR) Not Detected Entero/Rhino (PCR) Not Detected 07/29/25 07/29/25 07/29/25 15:26 13:22 13:20 WBC RBC Hgb Hct MCV MCH MCHC RDW Std Deviation RDW Coeff of Rolo Plt Count MPV Immature Gran % (Auto) Neut % (Auto) Lymph % (Auto) Cooper % (Auto) Eos % (Auto) Baso % (Auto) Neut # (Auto) Lymph # (Auto) Cooper # (Auto) Eos # (Auto) Baso # (Auto) Immature Gran # (Auto) Absolute Nucleated RBC Nucleated RBC % (auto) Toxic Granulation Dohle Bodies Polychromasia Anisocytosis Echinocytes Acanthocytes (Spur) PT INR APTT PTT Ratio Sodium Potassium Chloride Carbon Dioxide Anion Gap BUN Creatinine Est Cr Clr Drug Dosing eGFR BUN/Creatinine Ratio Glucose POC Glucose 67 L* Lactate 3.5 H* Calcium Magnesium Total Bilirubin AST ALT Alkaline Phosphatase Troponin I High Sens C-Reactive Protein B-Natriuretic Peptide Total Protein Albumin Globulin Albumin/Globulin Ratio Procalcitonin Random Cortisol Urine Color Urine Appearance Urine pH Ur Specific [place] Urine Protein Urine Glucose (UA) Urine Ketones Urine Blood Urine Nitrite Urine Bilirubin Urine Urobilinogen Ur Leukocyte Esterase Urine WBC (Auto) Urine RBC (Auto) U Hyaline Cast (Auto) U Epithel Cells (Auto) Urine Bacteria (Auto) Urine Comment Nasal Screen MRSA (PCR) Negative Random Vancomycin Adenovirus (PCR) B. pertussis DNA (PCR) B.parapertussis DNA PCR C. pneumoniae DNA (PCR) Coronavirus OC43 (PCR) Coronavirus HKU1 (PCR) Coronavirus 229E (PCR) SARS-CoV-2 (PCR) Coronavirus NL63 (PCR) Human Metapneumovir PCR Influenza Type A (PCR) Influenza Type B (PCR) M. pneumoniae (PCR) Parainfluenza 1 (PCR) Parainfluenza 2 (PCR) Parainfluenza 3 (PCR) Parainfluenza 4 (PCR) RSV (PCR) Entero/Rhino (PCR) 07/29/25 07/29/25 12:25 10:19 WBC 7.71 RBC 2.33 L Hgb 8.0 L Hct 23.7 L MCV 101.7 H MCH 34.3 H MCHC 33.8 RDW Std Deviation 83.8 H RDW Coeff of Rolo 23.0 H Plt Count 21 L* MPV Immature Gran % (Auto) 1.4 Neut % (Auto) 87.9 Lymph % (Auto) 5.6 Cooper % (Auto) 4.9 Eos % (Auto) 0.1 Baso % (Auto) 0.1 Neut # (Auto) 6.77 H Lymph # (Auto) 0.43 L Cooper # (Auto) 0.38 Eos # (Auto) 0.01 Baso # (Auto) 0.01 Immature Gran # (Auto) 0.11 Absolute Nucleated RBC 0.03 Nucleated RBC % (auto) 0.4 Toxic Granulation Dohle Bodies Polychromasia Anisocytosis Echinocytes 1+ Acanthocytes (Spur) 1+ PT 14.9 H INR 1.4 H APTT 38 H PTT Ratio 1.4 Sodium 131 L Potassium 5.0 Chloride 101 Carbon Dioxide 20 L Anion Gap 10 BUN 94 H Creatinine 3.59 H Est Cr Clr Drug Dosing 12.1 eGFR 12.83 BUN/Creatinine Ratio 26.2 H Glucose 72 POC Glucose Lactate Calcium 8.6 Magnesium 2.1 Total Bilirubin 6.1 H AST 156 H ALT 64 H Alkaline Phosphatase 403 H Troponin I High Sens 77.8 H* 80.9 H* C-Reactive Protein B-Natriuretic Peptide 105 H Total Protein 5.1 L Albumin 2.0 L Globulin 3.1 Albumin/Globulin Ratio 0.6 L Procalcitonin 3.22 H Random Cortisol 28.24 Urine Color Urine Appearance Urine pH Ur Specific [place] Urine Protein Urine Glucose (UA) Urine Ketones Urine Blood Urine Nitrite Urine Bilirubin Urine Urobilinogen Ur Leukocyte Esterase Urine WBC (Auto) Urine RBC (Auto) U Hyaline Cast (Auto) U Epithel Cells (Auto) Urine Bacteria (Auto) Urine Comment Nasal Screen MRSA (PCR) Random Vancomycin Adenovirus (PCR) B. pertussis DNA (PCR) B.parapertussis DNA PCR C. pneumoniae DNA (PCR) Coronavirus OC43 (PCR) Coronavirus HKU1 (PCR) Coronavirus 229E (PCR) SARS-CoV-2 (PCR) Coronavirus NL63 (PCR) Human Metapneumovir PCR Influenza Type A (PCR) Influenza Type B (PCR) M. pneumoniae (PCR) Parainfluenza 1 (PCR) Parainfluenza 2 (PCR) Parainfluenza 3 (PCR) Parainfluenza 4 (PCR) RSV (PCR) Entero/Rhino (PCR) Diagnostic Findings Chest X-Ray 07/29/25 09:59 XR chest 1V portable CLINICAL HISTORY: Dyspnea, R sided crackles; h/o ovarian/liver ca COMPARISON STUDY: 07/20/2025 FINDINGS: The cardiac and mediastinal contours remain stable. There is a left- sided PICC catheter present and right sided A-Port catheter present. There are persistent bilateral pleural effusions. There are progressive right mid and lower lung zone airspace opacities, edema versus pneumonia. There are also slight we progressive left basilar airspace opacities. Lower lung zone nodules cannot be excluded. IMPRESSION: Persistent bilateral pleural effusions with progressive right greater than left mid to lower lung zone airspace opacities. Pneumonia versus versus edema. Lower lung zone nodules not excluded. ACT 112: Negative or not required by law. Electronically signed by: Gunner Sequeira M.D. 07/29/2025 10:[address] 07/29/25 17:01 CT chest without contrast History: Chest pain Comparison: 07/19/2025 Technique: Helical CT imaging of the chest performed without IV contrast Dose reduction techniques were achieved by using automatic exposure control and/or adjustment of mA and/or kV according to patient size and/or use of iterative reconstruction technique. Findings: There is a moderate left pleural effusion which is increased, with subjacent compressive atelectasis. A small right pleural effusion is not significantly changed. Scattered solid pulmonary nodules again seen are similar to prior. New patchy consolidation throughout the right lower lobe. There are new areas of ground glass with a atoll appearance in the periphery of the left upper lung on image 25, measuring 2.1 cm, and 3.2 cm, respectively. No pneumothorax. Heart size is enlarged. Left upper extremity PICC and right chest wall port with catheter tip's in the high right atrium. The thoracic aorta is normal in size. The pulmonary artery is normal in size. No significant pericardial effusion. No suspicious lymphadenopathy in the chest. The central airway is clear. Limited visualized upper abdomen. A large mass about the liver as well as additional smaller hepatic masses are again seen. No acute bony abnormalities. Impression: New area of consolidation in the right lower lung, suspicious for pneumonia. There are also new opacities in the periphery of the left upper lung with an atypical appearance, which may be infectious, versus organizing pneumonia. Similar-appearing diffuse pulmonary nodules. Redemonstrated pleural effusions, increased. Electronically signed by Rommel Meyer 07-29-2025 6:50 PM Medications Administered Home Medications Medication Instructions Recorded Confirmed Last Taken nystatin 100,000 unit/gram topical 1 applic topical BID 08/07/24 07/29/25 07/18/25 08:00 powder (Klayesta) ondansetron HCl 4 mg tablet 4 mg PO Q6H PRN nausea and 09/13/24 07/29/25 Unknown vomiting #30 tabs tramadol 50 mg tablet 50 mg PO Q8H PRN pain #30 tabs 09/13/24 07/29/25 Unknown nystatin-triamcinolone 100,000 1 applic topical BID #60 grams 10/15/24 07/29/25 07/18/25 08:00 unit/g-0.1 % topical cream cholestyramine 4 gram oral powder 4 g PO DAILY PRN Other 03/05/25 07/29/25 Unknown mirvetuximab soravtansine-gynx 5 0 mg IV Q21D 03/27/25 07/29/25 05/08/25 mg/mL intravenous solution (Elahere) loratadine 10 mg tablet (Claritin) 10 mg PO DAILY 04/11/25 07/29/25 07/18/25 mupirocin 2 % topical ointment 1 applic topical BID #15 grams 04/11/25 07/29/25 07/18/25 08:00 prednisolone sodium phosphate 1 % 1 drp ophthalmic (eye) 6XD 04/11/25 07/29/25 07/18/25 eye drops 2 DOSES TODAY diphenoxylate-atropine 2.5 1 tab PO TID #270 tabs 04/16/25 07/29/25 07/18/25 08:00 mg-0.025 mg tablet (Lomotil) Levomefolate/ Vit B12/ Vit B6/ Vit 1 tab PO DAILY 05/10/25 07/29/25 07/18/25 B2 6//50/5 olanzapine 2.5 mg tablet 2.5 mg PO DIRECTED 05/10/25 07/29/25 05/09/25 ergocalciferol (vitamin D2) 1,250 1,250 mcg PO 2XWK #20 caps 05/22/25 07/29/25 07/15/25 mcg (50,000 unit) capsule (Vitamin D2) pantoprazole 40 mg tablet,delayed 40 mg PO DAILY #90 tabs 06/25/25 07/29/25 07/18/25 release psyllium husk 0.4 gram capsule 0.4 g PO TID 07/18/25 07/29/25 07/18/25 (Metamucil) loperamide 2 mg tablet 4 mg (2 x 2 mg) PO QAM #180 tabs 07/22/25 07/29/25 Unknow n midodrine 10 mg tablet 10 mg PO TID@0800,1200,1700 30 07/25/25 07/29/25 Unknown days #90 tabs polyethylene glycol 3350 17 gram 17 g PO DAILY PRN constipation #30 07/25/25 07/29/25 Unknown oral powder packet (Miralax) ea Active Medications Generic Name Dose Route Start Last Admin Trade Name Freq PRN Reason Stop Dose Admin Diphenoxylate HCl/Atropine 1 tab 07/29/25 16:15 07/29/25 22:08 Diphenoxylate/Atropine 2.5/0.025mg Tab PO 08/28/25 16:14 1 tab TID LUCY Administration Fludrocortisone Acetate 0.1 mg 07/29/25 17:45 07/29/25 17:56 Fludrocortisone Acetate 0.1 Mg Tab PO 08/28/25 17:44 0.1 mg QAM LUCY Administration Norepinephrine Bitartrate 4 mg in 250 mls @ 12.206 mls/hr 07/29/25 15:52 07/30/25 06:49 Levophed/D5w IV 08/28/25 15:51 0.05 mcg/kg/min .[id number] LUCY 12.2 mls/hr Titration Protocol 0.05 MCG/KG/MIN Methylprednisolone 40 mg/ 0.64 mls @ 1.5 mls/min 07/29/25 18:00 07/30/25 06:11 Syringe IV 08/28/25 17:59 1.5 mls/min Q6H LUCY Administration Midodrine 10 mg 07/29/25 17:00 07/29/25 16:25 Midodrine Hcl 10 Mg Tab PO 08/28/25 16:59 10 mg TID@0800,1200,1700 LUCY Administration Miscellaneous 1 each 07/30/25 00:00 07/30/25 00:07 Order Awaiting Action - Levomefolate/ Vit B12/ Vit B6/ Vit B2 02/17/50/5 1 Tab N/A 08/29/25 00:00 Not Given QS LUCY Miscellaneous 1 each 07/29/25 16:30 07/29/25 22:11 Icu Protocol For Hyperglycemia N/A 07/31/25 16:29 1 each ACHS LUCY Administration Prednisolone Sodium Phosphate 1 drops 07/29/25 16:15 07/29/25 22:12 Prednisolone Sod Phos 1% 10 Ml Btl OP 08/28/25 16:14 1 drops [id number] LUCY Administration Psyllium Hydrophilic Mucilloid 4 gm 07/29/25 16:15 07/29/25 22:07 Psyllium Husk 4gm Packet PO 08/28/25 16:14 4 gm TID LUCY Administration Coding Level of Care Code 22294 SUB INP/OBS CARE 2/35MIN Diagnoses Hypoxic respiratory failure J96.01 Chronicity: acute Ovarian cancer C56.9 Thrombocytopenia D69.6 Other specified hypotension I95.9 Hypotension type: unspecified hypotension type Edema, peripheral R60.0 Lymphedema I89.0 Moderate malnutrition E44.0 Metastatic neoplastic disease C79.9 Decubitus ulcer of sacral region, stage 1 L89.151 Platypnea-orthodeoxia syndrome R06.09 Time Spent (min) 45 (1) Hypoxic respiratory failure Chronicity: acute Qualified Code(s): J96.01 - Acute respiratory failure with hypoxia (4) Hypotension Hypotension type: unspecified hypotension type Qualified Code(s): I95.9 - Hypotension, unspecified
[2025-07-30] MEDS: LOPERAMIDE HCL 2 MG CAP PO SCH (08:06)
[2025-07-30] MEDS: CEFEPIME 1000MG 1,000 MG/10 ML SYR IV SCH (08:10)
[2025-07-30 08:41] VITALS: TEMP 96.8
--- NOTE | 2025-07-30 09:45 | Infectious Disease Progress Nt ---
Date of Service July 30, 2025 Assessment & Plan (1) Hypoxic respiratory failure: (2) Hypotension: Plan Problems: #Acute hypoxemic respiratory failure #TRISTON on CKD #Thrombocytopenia Micro: 07/29 BCx x2: pending 07/29 MRSA nares: neg Abx: Vanc 07/29 Cefepime 07/29 - present 74 yo F with stage IV ovarian cancer (dx 2021) s/p surgical debridement, chemotherapy with carboplatin and liposomal doxorubicin held secondary to declining heart function, recently started mirvetuximab 03/2025 but discontinued at last hospitalization due to progression of her cancer with plan to restart cytotoxic chemotherapy, PE on Eliquis, bilateral lower extremity lymphedema, CKD, pancytopenia, malignant pleural effusions, bladder cancer s/p surgery 2012, ostomy, s/p PICC line and port. Was recently admitted 07/18-07/25 with increasing shortness of breath and worsening bilateral lower extremity edema, hypotension requiring ICU admission for pressors. CT chest showed consolidative opacities in the RLL concerning for pneumonia; numerous bilateral pulmonary nodules new from prior and concerning for pulmonary metastatic disease. Mild septal thickening in keeping with pulmonary edema. CT AP showed progression of hepatic metastatic disease. She had no abdominal or urinary symptoms, no productive cough, no evidence of cellulitis, open wounds. She was started on cefepime, then narrowed to ceftriaxone/azithro for possible CAP. BCx, RVP, urine Legionella Ag were negative. She completed a 5 day course of antibiotics. At a transitional care visit in the home this AM, pt had O2 sat 88% and was placed on 2 L. Noted to have worsening edema and shortness of breath, so sent to the ED on 07/29 for evaluation. Denied fever, cough. On presentation, pt was afebrile, HR 83, BP 90/59, RR 14, 95% on 3 L NC. Labs showed WBC 7.71, Hb 8, plt 21, Cr 3.59, lactate 3.5, BNP 105, procal 3.22, MRSA nares negative. CXR with persistent bilateral pleural effusions wtih progressive R>L mid to lower lung zone airspace opacities, pneumonia vs edema. Given 500 cc NS in ED. Was started on vanc, cefepime. Discussion: Was recently admitted for hypotension requiring pressors, pneumonia with CT showing RLL consolidation and worsening metastatic disease, treated with cefepime --> ceftriaxone/azithro x 5 days through 07/23/25. Now presenting back with O2 requirement, soft BPs. Her soft BPs seem similar to her last admission. Unclear whether her hypoxia is from pulmonary edema vs persistent/worsened pneumonia, also consider worsened pulmonary metastatic disease. Met with palliative care today, plan to transition to comfort care. Will continue antibiotics until family arrives. 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 Admission and Anticipated Discharge Date Admission Date: July 29, 2025 Subjective Subsequent visit was provided via telemedicine using two-way real-time interactive telecommunication between the patient and the telemedicine provider. For the duration of the visit, the provider was performing the assessment from a different facility than the patient. This includesuse of bluetooth stethoscope forauscultationperformed by the telepresenter that the telemedicine provider can hear if described in the physical exam. Fire Operations Forester contact information: Please call [facility] . (Phone Number For Physician Use Only) After establishing a telemedicine visit, patient was: Patient was verified with two unique identifiers, Patient/authorized rep acknowledged consent and understanding and Gave permission to continue telehealth session Time Spent with Patient: Subsequent => 25 min On 2 L NC No acute events Feels her breathing is comfortable when laying in bed Review of System A complete ROS was performed and is negative except as mentioned in the HPI. Physical Exam Physical Exam: GEN: NAD HEENT: NC in place RESP: No increased work of breathing NEURO: Alert and oriented. Answers all questions appropriately. Speech not slurred. PSYCH: Normal mood, affect appropriate. Results & Data Vital Signs (Past 12 Hours) Vital Signs Temp Pulse Resp BP Pulse Ox O2 Del Method O2 Flow Rate 07/30/25 08:00 36.0 C L 07/30/25 08:00 83 19 100 07/30/25 08:00 95/55 L 07/30/25 08:00 95/55 L 07/30/25 08:00 Nasal Cannula 2 07/30/25 07:31 95/58 L 07/30/25 07:30 87 17 98 07/30/25 07:00 79 17 99 07/30/25 07:00 100/61 07/30/25 06:00 72 29 H 100 07/30/25 06:00 98/57 L 07/30/25 06:00 98/57 L 07/30/25 06:00 98/57 L 07/30/25 06:00 98/57 L 07/30/25 06:00 98/57 L 07/30/25 05:32 93/64 L 07/30/25 05:32 93/64 L 07/30/25 05:32 93/64 L 07/30/25 05:32 93/64 L 07/30/25 05:32 93/64 L 07/30/25 05:30 85 19 97 07/30/25 05:00 75 16 98 07/30/25 05:00 96/60 L 07/30/25 05:00 96/60 L 07/30/25 05:00 96/60 L 07/30/25 05:00 96/60 L 07/30/25 05:00 96/60 L 07/30/25 04:30 72 22 100 07/30/25 04:30 96/58 L 07/30/25 04:30 96/58 L 07/30/25 04:30 96/58 L 07/30/25 04:30 96/58 L 07/30/25 04:30 96/58 L 07/30/25 04:00 92/60 L 07/30/25 04:00 92/60 L 07/30/25 04:00 92/60 L 07/30/25 04:00 92/60 L 07/30/25 04:00 92/60 L 07/30/25 04:00 92/60 L 07/30/25 04:00 92/60 L 07/30/25 04:00 92/60 L 07/30/25 04:00 92/60 L 07/30/25 04:00 79 25 H 100 07/30/25 04:00 36.2 C L 07/30/25 03:30 75 29 H 100 07/30/25 03:30 98/59 L 07/30/25 03:30 98/59 L 07/30/25 03:30 98/59 L 07/30/25 03:30 98/59 L 07/30/25 03:30 98/59 L 07/30/25 03:00 96/58 L 07/30/25 03:00 96/58 L 07/30/25 03:00 96/58 L 07/30/25 03:00 96/58 L 07/30/25 03:00 96/58 L 07/30/25 03:00 73 13 99 07/30/25 02:30 72 17 100 07/30/25 02:30 95/58 L 07/30/25 02:30 95/58 L 07/30/25 02:30 95/58 L 07/30/25 02:30 95/58 L 07/30/25 02:30 95/58 L 07/30/25 02:00 75 20 100 07/30/25 02:00 91/60 L 07/30/25 02:00 91/60 L 07/30/25 02:00 91/60 L 07/30/25 02:00 91/60 L 07/30/25 02:00 91/60 L 07/30/25 01:30 74 18 99 07/30/25 01:30 87/57 L 07/30/25 01:30 87/57 L 07/30/25 01:30 87/57 L 07/30/25 01:30 87/57 L 07/30/25 01:30 87/57 L 07/30/25 01:14 Nasal Cannula 2 07/30/25 01:00 101/59 L 07/30/25 01:00 101/59 L 07/30/25 01:00 101/59 L 07/30/25 01:00 101/59 L 07/30/25 01:00 101/59 L 07/30/25 01:00 101/59 L 07/30/25 01:00 101/59 L 07/30/25 01:00 101/59 L 07/30/25 01:00 101/59 L 07/30/25 01:00 68 16 100 07/30/25 00:30 70 12 100 07/30/25 00:30 92/58 L 07/30/25 00:30 92/58 L 07/30/25 00:30 92/58 L 07/30/25 00:30 92/58 L 07/30/25 00:30 92/58 L 07/30/25 00:00 66 19 96 07/30/25 00:00 93/57 L 07/30/25 00:00 93/57 L 07/30/25 00:00 93/57 L 07/30/25 00:00 93/57 L 07/30/25 00:00 93/57 L 07/30/25 00:00 35.9 C L 07/30/25 00:00 68 07/29/25 23:30 65 12 99 07/29/25 23:30 93/57 L 07/29/25 23:30 93/57 L 07/29/25 23:30 93/57 L 07/29/25 23:30 93/57 L 07/29/25 23:30 93/57 L 07/29/25 23:00 64 20 99 07/29/25 23:00 96/62 L 07/29/25 23:00 96/62 L 07/29/25 23:00 96/62 L 07/29/25 23:00 96/62 L 07/29/25 23:00 96/62 L 07/29/25 22:30 70 17 97 07/29/25 22:30 95/58 L 07/29/25 22:30 95/58 L 07/29/25 22:30 95/58 L 07/29/25 22:30 95/58 L 07/29/25 22:30 95/58 L 07/29/25 22:00 89/64 L 07/29/25 22:00 89/64 L 07/29/25 22:00 89/64 L 07/29/25 22:00 89/64 L 07/29/25 22:00 89/64 L 07/29/25 22:00 78 21 91 (1) Hypoxic respiratory failure Chronicity: acute Qualified Code(s): J96.01 - Acute respiratory failure with hypoxia (2) Hypotension Hypotension type: unspecified hypotension type Qualified Code(s): I95.9 - Hypotension, unspecified
[2025-07-30] MEDS ORDERED: VANCOMYCIN 750 MG in SODIUM CHLORIDE 0.9% 250 ML IV ONE (10:00)
--- NOTE | 2025-07-30 10:24 | Palliative Care Consultation ---
"Date of Consultation July 30, 2025 Assessment & Plan (1) Weakness generalized: (2) Advanced care planning/counseling discussion: Face to face ACP meeting with Erica and /Sal and son/Abdulaziz at bedside for 65min: I met with Erica, her and son Abdulaziz. We discussed clinical events to date and overall decline. She tells me she is very aware time is running short and she wants to be home. All are in agreement with a move to comfort and [place] home with [facility]. I provided education about the hospice benefit: an interdisciplinary program offered by nurses, nurses aides, social workers, chaplains and a medical lab director for patients with a terminal condition and a life expectancy of less than 6 months. This is covered by Medicare at 100%/no out of pocket expense to patient and all meds/supplies needed by patient for the reason they are on hospice are paid for/covered by hospice. The goal is assure quality of life of the patient in their home setting (home, senior care, inpatient hospice setting) by providing symptoms management, psychosocial and spiritual support. However, they cannot offer 24 hours care and if the family is unable to provide that care, they will have to consider personal care with out of pocket cost vs. senior care placement. We discussed the goals of hospice as a patient service and the goals of care; we discussed EOL trajectories and transitions belen the emotional impact of realizing mortality as a concrete reality from prior abstract considerations. Pt was reassured that no matter where they are along this trajectory, they are not alone - their medical team will remain by their side through their journey. Discussed the pros/cons of accepting help when especially weakened and distressed by pain-which would also help provide relief/decrease caregiver burden/strain. Their older son is en route from [facility] tomorrow afternoon/early evening. We agreed to keep her here on current plan of care including Abtx/pressor as needed to allow her to maintain cognitive clarity while awaiting son's arrival and to let her have some time alone with each family member. The discussion today was very robust and encompassed Erica discussing her wishes for and interment etc. She is comfortable with current pain mgt regimen and did not want anything increased. 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 The family also asked if possible we please move her to a room with a view/more natural light but they know it is not a priority request. She also accepted the offer of our EOL center aisle cashier, who will follow her through discharge into the home setting for continued emotional / non clinical support and to assist with her desired legacy work projects. Thank you all for this consult and for being a part of her care team. (3) Palliative care by specialist: Palliative Prognostic Index Score (PPI) = 8 points (Note:If the PPI is greater than 6.0, survival is less than three weeks --> Sensitivity - 80%; Specificity - 85%). Palliative Prognostic Score (PaP) = 16 points (Interpretation:30-day survival probability <30% --> 0 - 5.5: 30-day survival probability >70% | 5.6 - 11.0: 30- day survival probability 30-70% | 11.1 - 17.5: 30-day survival probability <30% ) (4) Hypotension: Hypotension type: unspecified hypotension type Qualified Code(s): I95.9 - Hypotension, unspecified (5) Failure of outpatient treatment: (6) Metastatic adenocarcinoma: Plan Move to [facility] Continue current plan of care with meds, Abtx, pressor until son arrives from [place] - allow pt some private time with each family member to share final wishes/thoughts etc. Pall Med EOL center aisle cashier activated=Sal's contact info provided per fmily preference Home with hospice -CM aware Thank you for allowing us to participate in the ongoing care of this patient. Please page with any additional concerns. Maria Elena Jacques DNP Director, Palliative Medicine History of Present Illness Attending Physician: Chadwick Sanchez MD History of Present Illness Erica is a 74-year-old female history with Stage IV ovarian cancer who presented to ED 07/29/25 with worsening hypoxia and edema. She is s/p surgical debridement and chemotherapy until January 2025, recent hospitalization secondary to cellulitis and septic shock in late June, She has h/o HFpEF/Diastolic Dysfunction, lymphedema, CKD, GERD, ostomy, Hx f DVT and PE/MTHFR mutation, osteoporosis, chronic nausea and vomiting and thrombocytopenia presents to the emergency department after home care visit for new onset shortness of breath/hypoxemia. On 07/29, she presented for a her TCM home visitand was found to have SpO2 88% for which she was placed on 2 L nasal cannula; additionally, worsening edema and dyspnea were noted and she was referred to [facility] ED for evaluation. Erica denies any chest pain. She endorses fatigue, dyspnea and weakness. She denies any fevers chills or other generalized signs of illness. Initial evaluation in the emergency department x-ray showed excess volume worsening infiltrate versus edema on the right side, worsening pitting edema in the lower extremity. Interval decline of her chronic kidney disease. inflammatory markers reassuring, she was referred for admission for monitoring of blood pressure, volume management, evaluation for possible occult infection. Chest CT 07/29: New area of consolidation in the right lower lung, suspicious for pneumonia. There are also new opacities in the periphery of the left upper lung with an atypical appearance, which may be infectious, versus organizing pneumonia. Similar-appearing diffuse pulmonary nodules. Redemonstrated pleural effusions, increased. Recent admission 07/08 - 07/25/25 Allergies Allergy/AdvReac Type Severity Reaction Status Date / Time No Known Allergies Allergy Verified 07/18/25 15:46 Home Medications Medication Instructions Recorded Confirmed Type nystatin 100,000 unit/gram topical 1 applic topical BID 08/07/24 07/29/25 History powder (Klayesta) ondansetron HCl 4 mg tablet 4 mg PO Q6H PRN nausea and 09/13/24 07/29/25 Rx vomiting #30 tabs tramadol 50 mg tablet 50 mg PO Q8H PRN pain #30 tabs 09/13/24 07/29/25 Rx nystatin-triamcinolone 100,000 1 applic topical BID #60 grams 10/15/24 07/29/25 Rx unit/g-0.1 % topical cream cholestyramine 4 gram oral powder 4 g PO DAILY PRN Other 03/05/25 07/29/25 History mirvetuximab soravtansine-gynx 5 0 mg IV Q21D 03/27/25 07/29/25 History mg/mL intravenous solution (Elahere) loratadine 10 mg tablet (Claritin) 10 mg PO DAILY 04/11/25 07/29/25 History mupirocin 2 % topical ointment 1 applic topical BID #15 grams 04/11/25 07/29/25 Rx prednisolone sodium phosphate 1 % 1 drp ophthalmic (eye) 6XD 04/11/25 07/29/25 History eye drops diphenoxylate-atropine 2.5 1 tab PO TID #270 tabs 04/16/25 07/29/25 Rx mg-0.025 mg tablet (Lomotil) Levomefolate/ Vit B12/ Vit B6/ Vit 1 tab PO DAILY 05/10/25 07/29/25 History B2 6//50/5 olanzapine 2.5 mg tablet 2.5 mg PO DIRECTED 05/10/25 07/29/25 History ergocalciferol (vitamin D2) 1,250 1,250 mcg PO 2XWK #20 caps 05/22/25 07/29/25 Rx mcg (50,000 unit) capsule (Vitamin D2) pantoprazole 40 mg tablet,delayed 40 mg PO DAILY #90 tabs 06/25/25 07/29/25 Rx release psyllium husk 0.4 gram capsule 0.4 g PO TID 07/18/25 07/29/25 History (Metamucil) loperamide 2 mg tablet 4 mg (2 x 2 mg) PO QAM #180 tabs 07/22/25 07/29/25 Rx midodrine 10 mg tablet 10 mg PO TID@0800,1200,1700 30 07/25/25 07/29/25 Rx days #90 tabs polyethylene glycol 3350 17 gram 17 g PO DAILY PRN constipation #30 07/25/25 07/29/25 Rx oral powder packet (Miralax) ea Patient History Medical History Ileostomy present Elevated homocysteine Non-healing surgical wound Colovaginal fistula Bladder cancer TREATED BY [facility] Blood clotting disorder ? 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) Surgical History H/O abdominal surgery Hx of bilateral breast reduction surgery H/O hand surgery LEFT HAND MIDDLE FINGER GROWTH REMOVED (DONE MULTIPLE TIMES) History of colonoscopy History of cystoscopy BLADDER TUMORS REMOVED (MULTIPLE TIMES) HAS HAD NO PROBLEMS FOR 3 YEARS History of tooth extraction History of tonsillectomy Family History Father Cholangitis Mother Dementia Osteoporosis Obesity Brother Dyslipidemia Social History Smoking Status: Former smoker Tobacco Type: Cigarettes Age Started Using Tobacco: 22; Age Quit Using Tobacco: 27; packs per day: 0.5; Cigarettes Per Day: 20; Second Hand Exposure: No; Do You Dip or Chew Tobacco: No; Hx Alcohol Use: No Hx Substance Use: No Preferred Language: Albanian Communication Ability: Effective Visual Impairment: No Limitations Hearing Ability: Normal Sand Mixer Machine Required: No Beliefs That Will Affect Care: None marital status: Current Living Situation: Spouse current occupational status: retired How many Children do You have: 2 Feels Safe at Home: Yes Childhood Exposure to Second-Hand Smoke: Yes Diet: other Diet Comment: TPN via PICC, PEG tube (not currently in use) caffeine: Yes Dental Care, Regularly: Yes Physical Activity Frequency: 3-4 Times per Week Seatbelt Use: always Sunscreen Use: Yes Do you think of yourself as: straight/heterosexual Gender Identity: Female Assistive Devices: Walker Review of Systems Review of Systems: All systems reviewed & are unremarkable except as noted in Subjective Physical Exam Physical Exam: Pale, chroniclly ill, weak frail appearing cachectic aaox3 bitemp wasting perrla , eomi's resp effort ild increased with conversational dyspnea rrr abd distended, +fluid, mild TTP 3-4+ BLE edema to upper legs Results & Data Vital Signs (Past 12 Hours) Vital Signs Temp Pulse Resp BP Pulse Ox O2 Del Method O2 Flow Rate 07/30/25 08:00 36.0 C L 07/30/25 08:00 83 19 100 07/30/25 08:00 95/55 L 07/30/25 08:00 95/55 L 07/30/25 08:00 Nasal Cannula 2 07/30/25 07:31 95/58 L 07/30/25 07:30 87 17 98 07/30/25 07:00 79 17 99 07/30/25 07:00 100/61 07/30/25 06:00 72 29 H 100 07/30/25 06:00 98/57 L 07/30/25 06:00 98/57 L 07/30/25 06:00 98/57 L 07/30/25 06:00 98/57 L 07/30/25 06:00 98/57 L 07/30/25 05:32 93/64 L 07/30/25 05:32 93/64 L 07/30/25 05:32 93/64 L 07/30/25 05:32 93/64 L 07/30/25 05:32 93/64 L 07/30/25 05:30 85 19 97 07/30/25 05:00 75 16 98 07/30/25 05:00 96/60 L 07/30/25 05:00 96/60 L 07/30/25 05:00 96/60 L 07/30/25 05:00 96/60 L 07/30/25 05:00 96/60 L 07/30/25 04:30 72 22 100 07/30/25 04:30 96/58 L 07/30/25 04:30 96/58 L 07/30/25 04:30 96/58 L 07/30/25 04:30 96/58 L 07/30/25 04:30 96/58 L 07/30/25 04:00 92/60 L 07/30/25 04:00 92/60 L 07/30/25 04:00 92/60 L 07/30/25 04:00 92/60 L 07/30/25 04:00 92/60 L 07/30/25 04:00 92/60 L 07/30/25 04:00 92/60 L 07/30/25 04:00 92/60 L 07/30/25 04:00 92/60 L 07/30/25 04:00 79 25 H 100 07/30/25 04:00 36.2 C L 07/30/25 03:30 75 29 H 100 07/30/25 03:30 98/59 L 07/30/25 03:30 98/59 L 07/30/25 03:30 98/59 L 07/30/25 03:30 98/59 L 07/30/25 03:30 98/59 L 07/30/25 03:00 96/58 L 07/30/25 03:00 96/58 L 07/30/25 03:00 96/58 L 07/30/25 03:00 96/58 L 07/30/25 03:00 96/58 L 07/30/25 03:00 73 13 99 07/30/25 02:30 72 17 100 07/30/25 02:30 95/58 L 07/30/25 02:30 95/58 L 07/30/25 02:30 95/58 L 07/30/25 02:30 95/58 L 07/30/25 02:30 95/58 L 07/30/25 02:00 75 20 100 07/30/25 02:00 91/60 L 07/30/25 02:00 91/60 L 07/30/25 02:00 91/60 L 07/30/25 02:00 91/60 L 07/30/25 02:00 91/60 L 07/30/25 01:30 74 18 99 07/30/25 01:30 87/57 L 07/30/25 01:30 87/57 L 07/30/25 01:30 87/57 L 07/30/25 01:30 87/57 L 07/30/25 01:30 87/57 L 07/30/25 01:14 Nasal Cannula 2 07/30/25 01:00 101/59 L 07/30/25 01:00 101/59 L 07/30/25 01:00 101/59 L 07/30/25 01:00 101/59 L 07/30/25 01:00 101/59 L 07/30/25 01:00 101/59 L 07/30/25 01:00 101/59 L 07/30/25 01:00 101/59 L 07/30/25 01:00 101/59 L 07/30/25 01:00 68 16 100 07/30/25 00:30 70 12 100 07/30/25 00:30 92/58 L 07/30/25 00:30 92/58 L 07/30/25 00:30 92/58 L 07/30/25 00:30 92/58 L 07/30/25 00:30 92/58 L 07/30/25 00:00 66 19 96 07/30/25 00:00 93/57 L 07/30/25 00:00 93/57 L 07/30/25 00:00 93/57 L 07/30/25 00:00 93/57 L 07/30/25 00:00 93/57 L 07/30/25 00:00 35.9 C L 07/30/25 00:00 68 07/29/25 23:30 65 12 99 07/29/25 23:30 93/57 L 07/29/25 23:30 93/57 L 07/29/25 23:30 93/57 L 07/29/25 23:30 93/57 L 07/29/25 23:30 93/57 L 07/29/25 23:00 64 20 99 07/29/25 23:00 96/62 L 07/29/25 23:00 96/62 L 07/29/25 23:00 96/62 L 07/29/25 23:00 96/62 L 07/29/25 23:00 96/62 L 07/29/25 22:30 70 17 97 07/29/25 22:30 95/58 L 07/29/25 22:30 95/58 L 07/29/25 22:30 95/58 L 07/29/25 22:30 95/58 L 07/29/25 22:30 95/58 L Laboratory Results 07/30/25 07/30/25 07/29/25 Range/Units 07:13 04:44 22:15 WBC 7.99 (4.8-10.8) K/ul RBC 2.34 L (4.20-5.40) M/uL Hgb 8.1 L (12.0-16.0) g/dl Hct 23.5 L (37.0-47.0) % MCV 100.4 H (80.0-100.0) fL MCH 34.6 H (25.0-34.0) pg MCHC 34.5 (32.0-36.0) g/dL RDW Std Deviation 82.4 H (36.4-46.3) fL RDW Coeff of Rolo 23.0 H (11.5-14.5) % Plt Count 25 L* (130-400) K/uL MPV 12.7 H (9.4-12.4) fL Immature Gran % (Auto) 1.4 % Neut % (Auto) 93.6 % Lymph % (Auto) 2.9 % Waldo % (Auto) 1.8 % Eos % (Auto) 0.0 % Baso % (Auto) 0.3 % Neut # (Auto) 7.49 H (1.40-6.50) K/uL Lymph # (Auto) 0.23 L (1.20-3.40) K/uL Waldo # (Auto) 0.14 (0.11-0.59) K/uL Eos # (Auto) 0.00 (0.00-0.50) K/uL Baso # (Auto) 0.02 (0.00-0.20) K/uL Immature Gran # (Auto) 0.11 (0.01-0.20) K/uL Absolute Nucleated RBC 0.02 (0.00-0.12) K/uL Nucleated RBC % (auto) 0.3 % Toxic Granulation 1+ Dohle Bodies 1+ Polychromasia 1+ Anisocytosis Present Echinocytes Acanthocytes (Spur) 1+ PT (9.0-12.0) Seconds INR (0.9-1.1) APTT (21-31) Seconds PTT Ratio Sodium 129 L (136-145) mmol/L Potassium 5.5 H (3.5-5.1) mmol/L Chloride 100 (98-107) mmol/L Carbon Dioxide 19 L (21-32) mmol/L Anion Gap 10 (3-11) BUN 93 H (6-23) mg/dl Creatinine 3.65 H (0.6-1.2) mg/dl Est Cr Clr Drug Dosing 11.9 ml/min eGFR 12.58 BUN/Creatinine Ratio 25.5 H (10-20) Glucose 111 H (70-99(Fasting)) mg/dl POC Glucose 118 H (70-99) mg/dl Lactate (0.4-2.0) mmol/L Calcium 8.9 (8.6-10.3) mg/dl Magnesium 2.1 (1.7-2.4) mg/dl Total Bilirubin 6.8 H (0.2-1.0) mg/dl AST 157 H (13-39) U/L ALT 63 H (7-52) U/L Alkaline Phosphatase 335 H (34-104) U/L Troponin I High Sens (0-14) pg/ml C-Reactive Protein 5.68 H (0-0.5) mg/dl B-Natriuretic Peptide (0-100) pg/ml Total Protein 5.7 L (6.0-8.3) gm/dl Albumin 2.6 L (3.4-5.0) gm/dl Globulin 3.1 (2.5-4.0) gm/dl Albumin/Globulin Ratio 0.8 L (0.9-2) Procalcitonin 3.42 H (0-0.5) ng/ml Random Cortisol mcg/dl Urine Color Dark Yellow Urine Appearance Clear (Clear) Urine pH 5.0 (4.5-7.5) Ur Specific [place] 1.017 (1.000-1.030) Urine Protein 1+ H (Negative) Urine Glucose (UA) Negative (Negative) Urine Ketones Negative (Negative) Urine Blood 1+ H (Negative) Urine Nitrite Negative (Negative) Urine Bilirubin 1+ H (Negative) Urine Urobilinogen Negative (Negative) Ur Leukocyte Esterase Negative (Negative) Urine WBC (Auto) 0-5 (0-5) /hpf Urine RBC (Auto) 3-5 H (0-2) /hpf U Hyaline Cast (Auto) 3-5 H (0-2) /lpf U Epithel Cells (Auto) 0-2 (0-2) /hpf Urine Bacteria (Auto) None Seen (None Seen) Urine Comment Nasal Screen MRSA (PCR) (Negative) Random Vancomycin 11.1 (10-20) mcg/ml Adenovirus (PCR) (NotDetected) B. pertussis DNA (PCR) (NotDetected) B.parapertussis DNA PCR (NotDetected) C. pneumoniae DNA (PCR) (NotDetected) Coronavirus OC43 (PCR) (NotDetected) Coronavirus HKU1 (PCR) (NotDetected) Coronavirus 229E (PCR) (NotDetected) SARS-CoV-2 (PCR) (NotDetected) Coronavirus NL63 (PCR) (NotDetected) Human Metapneumovir PCR (NotDetected) Influenza Type A (PCR) (NotDetected) Influenza Type B (PCR) (NotDetected) Urine Legionella Ag Pending M. pneumoniae (PCR) (NotDetected) Parainfluenza 1 (PCR) (NotDetected) Parainfluenza 2 (PCR) (NotDetected) Parainfluenza 3 (PCR) (NotDetected) Parainfluenza 4 (PCR) (NotDetected) RSV (PCR) (NotDetected) Entero/Rhino (PCR) (NotDetected) 07/29/25 07/29/25 07/29/25 Range/Units 22:10 16:03 16:00 WBC (4.8-10.8) K/ul RBC (4.20-5.40) M/uL Hgb (12.0-16.0) g/dl Hct (37.0-47.0) % MCV (80.0-100.0) fL MCH (25.0-34.0) pg MCHC (32.0-36.0) g/dL RDW Std Deviation (36.4-46.3) fL RDW Coeff of Rolo (11.5-14.5) % Plt Count (130-400) K/uL MPV (9.4-12.4) fL Immature Gran % (Auto) % Neut % (Auto) % Lymph % (Auto) % Waldo % (Auto) % Eos % (Auto) % Baso % (Auto) % Neut # (Auto) (1.40-6.50) K/uL Lymph # (Auto) (1.20-3.40) K/uL Waldo # (Auto) (0.11-0.59) K/uL Eos # (Auto) (0.00-0.50) K/uL Baso # (Auto) (0.00-0.20) K/uL Immature Gran # (Auto) (0.01-0.20) K/uL Absolute Nucleated RBC (0.00-0.12) K/uL Nucleated RBC % (auto) % Toxic Granulation Dohle Bodies Polychromasia Anisocytosis Echinocytes Acanthocytes (Spur) PT (9.0-12.0) Seconds INR (0.9-1.1) APTT (21-31) Seconds PTT Ratio Sodium (136-145) mmol/L Potassium (3.5-5.1) mmol/L Chloride (98-107) mmol/L Carbon Dioxide (21-32) mmol/L Anion Gap (3-11) BUN (6-23) mg/dl Creatinine (0.6-1.2) mg/dl Est Cr Clr Drug Dosing ml/min eGFR BUN/Creatinine Ratio (10-20) Glucose (70-99(Fasting)) mg/dl POC Glucose 106 H (70-99) mg/dl Lactate 2.8 H* (0.4-2.0) mmol/L Calcium (8.6-10.3) mg/dl Magnesium (1.7-2.4) mg/dl Total Bilirubin (0.2-1.0) mg/dl AST (13-39) U/L ALT (7-52) U/L Alkaline Phosphatase (34-104) U/L Troponin I High Sens (0-14) pg/ml C-Reactive Protein (0-0.5) mg/dl B-Natriuretic Peptide (0-100) pg/ml Total Protein (6.0-8.3) gm/dl Albumin (3.4-5.0) gm/dl Globulin (2.5-4.0) gm/dl Albumin/Globulin Ratio (0.9-2) Procalcitonin (0-0.5) ng/ml Random Cortisol mcg/dl Urine Color Urine Appearance (Clear) Urine pH (4.5-7.5) Ur Specific [place] (1.000-1.030) Urine Protein (Negative) Urine Glucose (UA) (Negative) Urine Ketones (Negative) Urine Blood (Negative) Urine Nitrite (Negative) Urine Bilirubin (Negative) Urine Urobilinogen (Negative) Ur Leukocyte Esterase (Negative) Urine WBC (Auto) (0-5) /hpf Urine RBC (Auto) (0-2) /hpf U Hyaline Cast (Auto) (0-2) /lpf U Epithel Cells (Auto) (0-2) /hpf Urine Bacteria (Auto) (None Seen) Urine Comment Nasal Screen MRSA (PCR) (Negative) Random Vancomycin (10-20) mcg/ml Adenovirus (PCR) Not Detected (NotDetected) B. pertussis DNA (PCR) Not Detected (NotDetected) B.parapertussis DNA PCR Not Detected (NotDetected) C. pneumoniae DNA (PCR) Not Detected (NotDetected) Coronavirus OC43 (PCR) Not Detected (NotDetected) Coronavirus HKU1 (PCR) Not Detected (NotDetected) Coronavirus 229E (PCR) Not Detected (NotDetected) SARS-CoV-2 (PCR) Not Detected (NotDetected) Coronavirus NL63 (PCR) Not Detected (NotDetected) Human Metapneumovir PCR Not Detected (NotDetected) Influenza Type A (PCR) Not Detected (NotDetected) Influenza Type B (PCR) Not Detected (NotDetected) Urine Legionella Ag M. pneumoniae (PCR) Not Detected (NotDetected) Parainfluenza 1 (PCR) Not Detected (NotDetected) Parainfluenza 2 (PCR) Not Detected (NotDetected) Parainfluenza 3 (PCR) Not Detected (NotDetected) Parainfluenza 4 (PCR) Not Detected (NotDetected) RSV (PCR) Not Detected (NotDetected) Entero/Rhino (PCR) Not Detected (NotDetected) 07/29/25 07/29/25 07/29/25 Range/Units 15:28 15:26 13:22 WBC (4.8-10.8) K/ul RBC (4.20-5.40) M/uL Hgb (12.0-16.0) g/dl Hct (37.0-47.0) % MCV (80.0-100.0) fL MCH (25.0-34.0) pg MCHC (32.0-36.0) g/dL RDW Std Deviation (36.4-46.3) fL RDW Coeff of Rolo (11.5-14.5) % Plt Count (130-400) K/uL MPV (9.4-12.4) fL Immature Gran % (Auto) % Neut % (Auto) % Lymph % (Auto) % Waldo % (Auto) % Eos % (Auto) % Baso % (Auto) % Neut # (Auto) (1.40-6.50) K/uL Lymph # (Auto) (1.20-3.40) K/uL Waldo # (Auto) (0.11-0.59) K/uL Eos # (Auto) (0.00-0.50) K/uL Baso # (Auto) (0.00-0.20) K/uL Immature Gran # (Auto) (0.01-0.20) K/uL Absolute Nucleated RBC (0.00-0.12) K/uL Nucleated RBC % (auto) % Toxic Granulation Dohle Bodies Polychromasia Anisocytosis Echinocytes Acanthocytes (Spur) PT (9.0-12.0) Seconds INR (0.9-1.1) APTT (21-31) Seconds PTT Ratio Sodium (136-145) mmol/L Potassium (3.5-5.1) mmol/L Chloride (98-107) mmol/L Carbon Dioxide (21-32) mmol/L Anion Gap (3-11) BUN (6-23) mg/dl Creatinine (0.6-1.2) mg/dl Est Cr Clr Drug Dosing ml/min eGFR BUN/Creatinine Ratio (10-20) Glucose (70-99(Fasting)) mg/dl POC Glucose 69 L* 67 L* (70-99) mg/dl Lactate (0.4-2.0) mmol/L Calcium (8.6-10.3) mg/dl Magnesium (1.7-2.4) mg/dl Total Bilirubin (0.2-1.0) mg/dl AST (13-39) U/L ALT (7-52) U/L Alkaline Phosphatase (34-104) U/L Troponin I High Sens (0-14) pg/ml C-Reactive Protein (0-0.5) mg/dl B-Natriuretic Peptide (0-100) pg/ml Total Protein (6.0-8.3) gm/dl Albumin (3.4-5.0) gm/dl Globulin (2.5-4.0) gm/dl Albumin/Globulin Ratio (0.9-2) Procalcitonin (0-0.5) ng/ml Random Cortisol mcg/dl Urine Color Urine Appearance (Clear) Urine pH (4.5-7.5) Ur Specific [place] (1.000-1.030) Urine Protein (Negative) Urine Glucose (UA) (Negative) Urine Ketones (Negative) Urine Blood (Negative) Urine Nitrite (Negative) Urine Bilirubin (Negative) Urine Urobilinogen (Negative) Ur Leukocyte Esterase (Negative) Urine WBC (Auto) (0-5) /hpf Urine RBC (Auto) (0-2) /hpf U Hyaline Cast (Auto) (0-2) /lpf U Epithel Cells (Auto) (0-2) /hpf Urine Bacteria (Auto) (None Seen) Urine Comment Nasal Screen MRSA (PCR) Negative (Negative) Random Vancomycin (10-20) mcg/ml Adenovirus (PCR) (NotDetected) B. pertussis DNA (PCR) (NotDetected) B.parapertussis DNA PCR (NotDetected) C. pneumoniae DNA (PCR) (NotDetected) Coronavirus OC43 (PCR) (NotDetected) Coronavirus HKU1 (PCR) (NotDetected) Coronavirus 229E (PCR) (NotDetected) SARS-CoV-2 (PCR) (NotDetected) Coronavirus NL63 (PCR) (NotDetected) Human Metapneumovir PCR (NotDetected) Influenza Type A (PCR) (NotDetected) Influenza Type B (PCR) (NotDetected) Urine Legionella Ag M. pneumoniae (PCR) (NotDetected) Parainfluenza 1 (PCR) (NotDetected) Parainfluenza 2 (PCR) (NotDetected) Parainfluenza 3 (PCR) (NotDetected) Parainfluenza 4 (PCR) (NotDetected) RSV (PCR) (NotDetected) Entero/Rhino (PCR) (NotDetected) 07/29/25 07/29/25 07/29/25 Range/Units 13:20 12:25 10:19 WBC 7.71 (4.8-10.8) K/ul RBC 2.33 L (4.20-5.40) M/uL Hgb 8.0 L (12.0-16.0) g/dl Hct 23.7 L (37.0-47.0) % MCV 101.7 H (80.0-100.0) fL MCH 34.3 H (25.0-34.0) pg MCHC 33.8 (32.0-36.0) g/dL RDW Std Deviation 83.8 H (36.4-46.3) fL RDW Coeff of Rolo 23.0 H (11.5-14.5) % Plt Count 21 L* (130-400) K/uL MPV (9.4-12.4) fL Immature Gran % (Auto) 1.4 % Neut % (Auto) 87.9 % Lymph % (Auto) 5.6 % Waldo % (Auto) 4.9 % Eos % (Auto) 0.1 % Baso % (Auto) 0.1 % Neut # (Auto) 6.77 H (1.40-6.50) K/uL Lymph # (Auto) 0.43 L (1.20-3.40) K/uL Waldo # (Auto) 0.38 (0.11-0.59) K/uL Eos # (Auto) 0.01 (0.00-0.50) K/uL Baso # (Auto) 0.01 (0.00-0.20) K/uL Immature Gran # (Auto) 0.11 (0.01-0.20) K/uL Absolute Nucleated RBC 0.03 (0.00-0.12) K/uL Nucleated RBC % (auto) 0.4 % Toxic Granulation Dohle Bodies Polychromasia Anisocytosis Echinocytes 1+ Acanthocytes (Spur) 1+ PT 14.9 H (9.0-12.0) Seconds INR 1.4 H (0.9-1.1) APTT 38 H (21-31) Seconds PTT Ratio 1.4 Sodium 131 L (136-145) mmol/L Potassium 5.0 (3.5-5.1) mmol/L Chloride 101 (98-107) mmol/L Carbon Dioxide 20 L (21-32) mmol/L Anion Gap 10 (3-11) BUN 94 H (6-23) mg/dl Creatinine 3.59 H (0.6-1.2) mg/dl Est Cr Clr Drug Dosing 12.1 ml/min eGFR 12.83 BUN/Creatinine Ratio 26.2 H (10-20) Glucose 72 (70-99(Fasting)) mg/dl POC Glucose (70-99) mg/dl Lactate 3.5 H* (0.4-2.0) mmol/L Calcium 8.6 (8.6-10.3) mg/dl Magnesium 2.1 (1.7-2.4) mg/dl Total Bilirubin 6.1 H (0.2-1.0) mg/dl AST 156 H (13-39) U/L ALT 64 H (7-52) U/L Alkaline Phosphatase 403 H (34-104) U/L Troponin I High Sens 77.8 H* 80.9 H* (0-14) pg/ml C-Reactive Protein (0-0.5) mg/dl B-Natriuretic Peptide 105 H (0-100) pg/ml Total Protein 5.1 L (6.0-8.3) gm/dl Albumin 2.0 L (3.4-5.0) gm/dl Globulin 3.1 (2.5-4.0) gm/dl Albumin/Globulin Ratio 0.6 L (0.9-2) Procalcitonin 3.22 H (0-0.5) ng/ml Random Cortisol 28.24 mcg/dl Urine Color Urine Appearance (Clear) Urine pH (4.5-7.5) Ur Specific [place] (1.000-1.030) Urine Protein (Negative) Urine Glucose (UA) (Negative) Urine Ketones (Negative) Urine Blood (Negative) Urine Nitrite (Negative) Urine Bilirubin (Negative) Urine Urobilinogen (Negative) Ur Leukocyte Esterase (Negative) Urine WBC (Auto) (0-5) /hpf Urine RBC (Auto) (0-2) /hpf U Hyaline Cast (Auto) (0-2) /lpf U Epithel Cells (Auto) (0-2) /hpf Urine Bacteria (Auto) (None Seen) Urine Comment Nasal Screen MRSA (PCR) (Negative) Random Vancomycin (10-20) mcg/ml Adenovirus (PCR) (NotDetected) B. pertussis DNA (PCR) (NotDetected) B.parapertussis DNA PCR (NotDetected) C. pneumoniae DNA (PCR) (NotDetected) Coronavirus OC43 (PCR) (NotDetected) Coronavirus HKU1 (PCR) (NotDetected) Coronavirus 229E (PCR) (NotDetected) SARS-CoV-2 (PCR) (NotDetected) Coronavirus NL63 (PCR) (NotDetected) Human Metapneumovir PCR (NotDetected) Influenza Type A (PCR) (NotDetected) Influenza Type B (PCR) (NotDetected) Urine Legionella Ag M. pneumoniae (PCR) (NotDetected) Parainfluenza 1 (PCR) (NotDetected) Parainfluenza 2 (PCR) (NotDetected) Parainfluenza 3 (PCR) (NotDetected) Parainfluenza 4 (PCR) (NotDetected) RSV (PCR) (NotDetected) Entero/Rhino (PCR) (NotDetected) Diagnostic Findings Chest X-Ray 07/29/25 09:59 XR chest 1V portable CLINICAL HISTORY: Dyspnea, R sided crackles; h/o ovarian/liver ca COMPARISON STUDY: 07/20/2025 FINDINGS: The cardiac and mediastinal contours remain stable. There is a left- sided PICC catheter present and right sided A-Port catheter present. There are persistent bilateral pleural effusions. There are progressive right mid and lower lung zone airspace opacities, edema versus pneumonia. There are also slight we progressive left basilar airspace opacities. Lower lung zone nodules cannot be excluded. IMPRESSION: Persistent bilateral pleural effusions with progressive right greater than left mid to lower lung zone airspace opacities. Pneumonia versus versus edema. Lower lung zone nodules not excluded. ACT 112: Negative or not required by law. Electronically signed by: Gunner Sequeira M.D. 07/29/2025 10:[address] 07/29/25 17:01 CT chest without contrast History: Chest pain Comparison: 07/19/2025 Technique: Helical CT imaging of the chest performed without IV contrast Dose reduction techniques were achieved by using automatic exposure control and/or adjustment of mA and/or kV according to patient size and/or use of iterative reconstruction technique. Findings: There is a moderate left pleural effusion which is increased, with subjacent compressive atelectasis. A small right pleural effusion is not significantly changed. Scattered solid pulmonary nodules again seen are similar to prior. New patchy consolidation throughout the right lower lobe. There are new areas of ground glass with a atoll appearance in the periphery of the left upper lung on image 25, measuring 2.1 cm, and 3.2 cm, respectively. No pneumothorax. Heart size is enlarged. Left upper extremity PICC and right chest wall port with catheter tip's in the high right atrium. The thoracic aorta is normal in size. The pulmonary artery is normal in size. No significant pericardial effusion. No suspicious lymphadenopathy in the chest. The central airway is clear. Limited visualized upper abdomen. A large mass about the liver as well as additional smaller hepatic masses are again seen. No acute bony abnormalities. Impression: New area of consolidation in the right lower lung, suspicious for pneumonia. There are also new opacities in the periphery of the left upper lung with an atypical appearance, which may be infectious, versus organizing pneumonia. Similar-appearing diffuse pulmonary nodules. Redemonstrated pleural effusions, increased. Electronically signed by Rommel Meyer 07-29-2025 6:50 PM PG Care Time/CCT Total # of Minutes Spent Total Time Spent with Patient: Total time spent is greater than 50% in coordination of care (as documented) at patient's floor/unit and/or counseling patient: I spent 130 minutes overall addressing this case: 15 min in medical data review/discussion with referring provider(s) and/or preparation for the visit 15 min in direct interaction with the patient/exam 65 min in Advance Care Planning/Goals of Care discussions as detailed above in note (must be >16min) 15 min in subsequent review and synthesis of assessment and plan 20 min communicating with other providers regarding the patient's case: Advanced Care Planning 13630 Advanced Care Planning Additional 30 [place] [address] IN/OBS CONSULT LVL 5,80M (25 - SIGNIFICANT, SEPARATELY IDENTIFIABLE ) Patient Type New Medical Decision Making High Complexity Diagnoses Weakness generalized R53.1 Advanced care planning/counseling discussion Z71.89 Palliative care by specialist Z51.5 Other specified hypotension I95.9 Hypotension type: unspecified hypotension type Failure of outpatient treatment Z78.9 Metastatic adenocarcinoma C79.9 Additional Codes Advanced Care Planning - 65034 Advanced Care Planning Additional 30 Min: 18101 Advanced Care Planning Additional 30 Min ([id number]) Comment [id number], [id number]"
--- NOTE | 2025-07-30 16:38 | Hospitalist Progress Note ---
Date of Service July 30, 2025 Assessment & Plan (1) Ovarian cancer: (2) Pneumonia: (3) Thrombocytopenia: (4) Hypotension: (5) Septic shock: (6) Fluid overload: (7) Lymphedema: (8) Moderate malnutrition: (9) Metastatic neoplastic disease: (10) Decubitus ulcer of sacral region, stage 1: (11) Cardiomyopathy: (12) Ileostomy care: (13) Diarrhea: (14) Blood clotting disorder: Plan #End of life cares #Shock #SIRS/sepsis - see subjective, continue supportive measures with antibiotics and pressor therapy to allow for a more facilitated transition to hospice and comfort cares - Bench Manager services, palliative care updated. Consult placed #Hypoxemic respiratory failure - Volume overload, once BP stabilizes she will need diuresis as below, NC for short term, RT for nebs prn but mechanically doing well at this time - Continue supportive cares as above. DNR/DNI status updated #HFpEF #Anasarca - Volume expansion support as above. Will not pursue diuresis or aggressive therapy #TRISTON #CKD #Thrombocytopenia #Metastatic adenocarcinoma/ovarian cancer - No further checks, monitoring or evaluation required see subjective aside from those for medication management/dosing #History of ileostomy with diverting colostomy # High output ostomy -wound/ostomy care consult -bowel meds per home regimen, using the diarrhea treatments at this time, continue imodium #Chronic N/V - continue olanzapine 2.5mg qHS #Chronic moderate malnutrition - RD consult - IV albumin in ED, daily PRN #GERD -PPI #CODE Status -Full Code per her wishes, reviewed with patient and family Admission and Anticipated Discharge Date Admission Date: July 29, 2025 Subjective Discussion patient with no significant changes through the night. No new sites of pain or discomfort. Symptoms generally well-managed from breathing standpoint we did discuss the CT findings some of the initial laboratory findings Which led to a discussion about pressors and ultimately a discussion about goals of care and prognosis. After a lengthy and meaningful discussion with the patient her and her son we discussed the numerous options open discussed recently in terms of medical therapy, possible [facility] referral and surgical intervention but the likelihood of meaningful progress to recovery given the current status of her physiologic reserves. Again a very lengthy and meaningful discussion involving all family members. Initially reluctant but then increasingly open and honest. We initially settled on DNR/DNI status. Ultimately with the guidance of Erica being centrally involved in guiding the discussion a family consensus arrived at that exploration of a discharge plan with the goals of comfort and hospice most closely fits with Erica's priorities. In general the plan was to continue with current medical interventions to allow for family to arrive into town, to reconnect with palliative and hospice care to facilitate transfer back to her home. And have a short window of time to establish resources necessary for the family to support current goals. Physical Exam Physical Exam: General: A&Ox3. NAD. Cooperative. HEENT: Atraumatic, normocephalic. Vision and hearing grossly intact. Pupils equal and reactive to light, sclera clear and anicteric Pulm: CTAB A&P. -wheezes, -rales, -rhonchi. No increased work of breathing. No respiratory distress. Cardiac: 2/6 DARYL at he RUSB. Radial pulses intact and symmetrical. Abdominal: Nontender, nondistended, soft. BS present. Ext: Anasarca to the level of the abdomen, #+ throughout lower extremities, Moves all extremities equally NEURO: A&O as above, no focal deficits Skin: warm, moist. Results & Data Results & Data Vital Signs (Past 12 Hours) Vital Signs Temp Pulse Pulse Resp BP BP Pulse Ox 07/30/25 14:00 85 15 99 07/30/25 14:00 90/58 L 07/30/25 13:30 85 17 97 07/30/25 13:30 94/58 L 07/30/25 13:00 81 10 L 100 07/30/25 13:00 93/56 L 07/30/25 12:30 79 14 98 07/30/25 12:00 83 19 95 07/30/25 12:00 88/58 L 07/30/25 12:00 77 14 96/58 L 100 07/30/25 11:33 26 H 93 07/30/25 11:31 83/50 L 07/30/25 11:30 90 31 H 100 07/30/25 11:00 83 17 99 07/30/25 11:00 92/55 L 07/30/25 10:30 96/57 L 07/30/25 10:30 77 16 100 07/30/25 10:00 83 18 94 07/30/25 10:00 89/57 L 07/30/25 09:30 87 21 80 L 07/30/25 09:30 95/64 L 07/30/25 09:00 74 20 97 07/30/25 09:00 90/60 L 07/30/25 08:30 72 15 98 07/30/25 08:30 94/59 L 07/30/25 08:00 36.0 C L 07/30/25 08:00 83 19 100 07/30/25 08:00 95/55 L 07/30/25 08:00 95/55 L 07/30/25 08:00 07/30/25 07:31 95/58 L 07/30/25 07:30 87 17 98 07/30/25 07:00 79 17 99 07/30/25 07:00 100/61 07/30/25 06:00 72 29 H 100 07/30/25 06:00 98/57 L 07/30/25 06:00 98/57 L 07/30/25 06:00 98/57 L 07/30/25 06:00 98/57 L 07/30/25 06:00 98/57 L 07/30/25 05:32 93/64 L 07/30/25 05:32 93/64 L 07/30/25 05:32 93/64 L 07/30/25 05:32 93/64 L 07/30/25 05:32 93/64 L 07/30/25 05:30 85 19 97 07/30/25 05:00 75 16 98 07/30/25 05:00 96/60 L 07/30/25 05:00 96/60 L 07/30/25 05:00 96/60 L 07/30/25 05:00 96/60 L 07/30/25 05:00 96/60 L 07/30/25 04:30 72 22 100 07/30/25 04:30 96/58 L 07/30/25 04:30 96/58 L 07/30/25 04:30 96/58 L 07/30/25 04:30 96/58 L 07/30/25 04:30 96/58 L O2 Del Method O2 Flow Rate 07/30/25 14:00 07/30/25 14:00 07/30/25 13:30 07/30/25 13:30 07/30/25 13:00 07/30/25 13:00 07/30/25 12:30 07/30/25 12:00 07/30/25 12:00 07/30/25 12:00 Nasal Cannula 2 07/30/25 11:33 07/30/25 11:31 07/30/25 11:30 07/30/25 11:00 07/30/25 11:00 07/30/25 10:30 07/30/25 10:30 07/30/25 10:00 07/30/25 10:00 07/30/25 09:30 07/30/25 09:30 07/30/25 09:00 07/30/25 09:00 07/30/25 08:30 07/30/25 08:30 07/30/25 08:00 07/30/25 08:00 07/30/25 08:00 07/30/25 08:00 07/30/25 08:00 Nasal Cannula 2 07/30/25 07:31 07/30/25 07:30 07/30/25 07:00 07/30/25 07:00 07/30/25 06:00 07/30/25 06:00 07/30/25 06:00 07/30/25 06:00 07/30/25 06:00 07/30/25 06:00 07/30/25 05:32 07/30/25 05:32 07/30/25 05:32 07/30/25 05:32 07/30/25 05:32 07/30/25 05:30 07/30/25 05:00 07/30/25 05:00 07/30/25 05:00 07/30/25 05:00 07/30/25 05:00 07/30/25 05:00 07/30/25 04:30 07/30/25 04:30 07/30/25 04:30 07/30/25 04:30 07/30/25 04:30 07/30/25 04:30 Laboratory Results 07/29/25 13:20 Aerobic Blood Culture - Preliminary Blood No growth in Aerobic bottle after 24 hours. Anaerobic Blood Culture - Preliminary No growth in Anaerobic bottle after 24 hours. 07/29/25 13:33 Aerobic Blood Culture - Preliminary Blood No growth in Aerobic bottle after 24 hours. Anaerobic Blood Culture - Pending 07/30/25 07/30/25 07/29/25 07:13 04:44 22:15 WBC 7.99 RBC 2.34 L Hgb 8.1 L Hct 23.5 L MCV 100.4 H MCH 34.6 H MCHC 34.5 RDW Std Deviation 82.4 H RDW Coeff of Rolo 23.0 H Plt Count 25 L* MPV 12.7 H Immature Gran % (Auto) 1.4 Neut % (Auto) 93.6 Lymph % (Auto) 2.9 Moffat % (Auto) 1.8 Eos % (Auto) 0.0 Baso % (Auto) 0.3 Neut # (Auto) 7.49 H Lymph # (Auto) 0.23 L Moffat # (Auto) 0.14 Eos # (Auto) 0.00 Baso # (Auto) 0.02 Immature Gran # (Auto) 0.11 Absolute Nucleated RBC 0.02 Nucleated RBC % (auto) 0.3 Toxic Granulation 1+ Dohle Bodies 1+ Polychromasia 1+ Anisocytosis Present Acanthocytes (Spur) 1+ Sodium 129 L Potassium 5.5 H Chloride 100 Carbon Dioxide 19 L Anion Gap 10 BUN 93 H Creatinine 3.65 H Est Cr Clr Drug Dosing 11.9 eGFR 12.58 BUN/Creatinine Ratio 25.5 H Glucose 111 H POC Glucose 118 H Calcium 8.9 Magnesium 2.1 Total Bilirubin 6.8 H AST 157 H ALT 63 H Alkaline Phosphatase 335 H Troponin I High Sens C-Reactive Protein 5.68 H Total Protein 5.7 L Albumin 2.6 L Globulin 3.1 Albumin/Globulin Ratio 0.8 L Procalcitonin 3.42 H Random Cortisol Urine Color Dark Yellow Urine Appearance Clear Urine pH 5.0 Ur Specific [place] 1.017 Urine Protein 1+ H Urine Glucose (UA) Negative Urine Ketones Negative Urine Blood 1+ H Urine Nitrite Negative Urine Bilirubin 1+ H Urine Urobilinogen Negative Ur Leukocyte Esterase Negative Urine WBC (Auto) 0-5 Urine RBC (Auto) 3-5 H U Hyaline Cast (Auto) 3-5 H U Epithel Cells (Auto) 0-2 Urine Bacteria (Auto) None Seen Urine Comment Random Vancomycin 11.1 Adenovirus (PCR) B. pertussis DNA (PCR) B.parapertussis DNA PCR C. pneumoniae DNA (PCR) Coronavirus OC43 (PCR) Coronavirus HKU1 (PCR) Coronavirus 229E (PCR) SARS-CoV-2 (PCR) Coronavirus NL63 (PCR) Human Metapneumovir PCR Influenza Type A (PCR) Influenza Type B (PCR) M. pneumoniae (PCR) Parainfluenza 1 (PCR) Parainfluenza 2 (PCR) Parainfluenza 3 (PCR) Parainfluenza 4 (PCR) RSV (PCR) Entero/Rhino (PCR) 07/29/25 07/29/25 07/29/25 22:10 16:00 10:19 WBC RBC Hgb Hct MCV MCH MCHC RDW Std Deviation RDW Coeff of Rolo Plt Count MPV Immature Gran % (Auto) Neut % (Auto) Lymph % (Auto) Moffat % (Auto) Eos % (Auto) Baso % (Auto) Neut # (Auto) Lymph # (Auto) Moffat # (Auto) Eos # (Auto) Baso # (Auto) Immature Gran # (Auto) Absolute Nucleated RBC Nucleated RBC % (auto) Toxic Granulation Dohle Bodies Polychromasia Anisocytosis Acanthocytes (Spur) Sodium 131 L Potassium 5.0 Chloride 101 Carbon Dioxide 20 L Anion Gap 10 BUN 94 H Creatinine 3.59 H Est Cr Clr Drug Dosing 12.1 eGFR 12.83 BUN/Creatinine Ratio 26.2 H Glucose 72 POC Glucose 106 H Calcium 8.6 Magnesium 2.1 Total Bilirubin 6.1 H AST 156 H ALT 64 H Alkaline Phosphatase 403 H Troponin I High Sens 80.9 H* C-Reactive Protein Total Protein 5.1 L Albumin 2.0 L Globulin 3.1 Albumin/Globulin Ratio 0.6 L Procalcitonin Random Cortisol 28.24 Urine Color Urine Appearance Urine pH Ur Specific [place] Urine Protein Urine Glucose (UA) Urine Ketones Urine Blood Urine Nitrite Urine Bilirubin Urine Urobilinogen Ur Leukocyte Esterase Urine WBC (Auto) Urine RBC (Auto) U Hyaline Cast (Auto) U Epithel Cells (Auto) Urine Bacteria (Auto) Urine Comment Random Vancomycin Adenovirus (PCR) Not Detected B. pertussis DNA (PCR) Not Detected B.parapertussis DNA PCR Not Detected C. pneumoniae DNA (PCR) Not Detected Coronavirus OC43 (PCR) Not Detected Coronavirus HKU1 (PCR) Not Detected Coronavirus 229E (PCR) Not Detected SARS-CoV-2 (PCR) Not Detected Coronavirus NL63 (PCR) Not Detected Human Metapneumovir PCR Not Detected Influenza Type A (PCR) Not Detected Influenza Type B (PCR) Not Detected M. pneumoniae (PCR) Not Detected Parainfluenza 1 (PCR) Not Detected Parainfluenza 2 (PCR) Not Detected Parainfluenza 3 (PCR) Not Detected Parainfluenza 4 (PCR) Not Detected RSV (PCR) Not Detected Entero/Rhino (PCR) Not Detected PG Care Time/CCT Total # of Minutes Spent Total Time Spent with Patient: Total time spent is greater than 50% in coordination of care (as documented) at patient's floor/unit and/or counseling patient: Prolonged Care Time 75 minutes spent at the bedside with family as outlined in subjective, also coordinating with specialty services in regards to goals of care. Coding Level of Care Code 49374 SUB INP/OBS CARE MIN Diagnoses Ovarian cancer C56.9 Pneumonia J18.9 Laterality: right Lung location: lower lobe of lung Pneumonia type: due to unspecified organism Thrombocytopenia D69.6 Other specified hypotension I95.9 Hypotension type: unspecified hypotension type Septic shock A41.9; R65.21 Fluid overload E87.70 Lymphedema I89.0 Moderate malnutrition E44.0 Metastatic neoplastic disease C79.9 Decubitus ulcer of sacral region, stage 1 L89.151 Cardiomyopathy I42.9 Ileostomy care Z43.2 Diarrhea R19.7 Blood clotting disorder D68.9 (2) Pneumonia Laterality: right Lung location: lower lobe of lung Pneumonia type: due to unspecified organism Qualified Code(s): J18.9 - Pneumonia, unspecified organism (4) Hypotension Hypotension type: unspecified hypotension type Qualified Code(s): I95.9 - Hypotension, unspecified
[2025-07-30] MEDS: ONDANSETRON INJ 2 MG/ML 2 ML VIAL IV PRN (20:27)
[2025-07-31] MEDS ORDERED: PROCHLORPERAZINE 5 MG in SYRINGE 4 ML IV PRN (08:41)
[2025-07-31] MEDS: HYDROmorphone INJ 0.5 MG/0.5 ML SYR IV PRN (08:57)
[2025-07-31] MEDS: ALUMINUM/MAGNESIUM SUSP 30 ML UDC PO PRN (10:59)
--- NOTE | 2025-07-31 13:37 | Palliative Care Progress Note ---
Date of Service July 31, 2025 Assessment & Plan (1) Cancer related pain: (2) Need for comfort care: (3) Advanced care planning/counseling discussion: Plan: Face to Face ACP x 45min at bedside with Erica and Sal, joined by Abdulaziz later in visit. Erica is declining. It is hard for her to speak but she will nod yes/no or look to Sal to asnwer. Short anticipated survival She is aware she is worsening and reaffirms desire for comfort focus She is not safe to dc home, she is not stable for transport home Her son is expected to arrive antonio Huang states he is unsure she will live that long and feels she is fading away faster. Erica admits she feels herself growing weaker but is also aware darcy is on his way. She hopes to see him but knows her strength is declining and interaction may be very minimal. GRAPHICS ARTIST plan of care No escalation of care No dietary restriction (4) Weakness generalized: (5) Hypotension: (6) Palliative care by specialist: (7) Lymphedema: (8) Metastatic adenocarcinoma: Plan ACP as above Thank you for allowing us to participate in the ongoing care of this patient. Please page with any additional concerns. Maria Elena Jacques DNP Director, Palliative Medicine Admission and Anticipated Discharge Date Admission Date: July 29, 2025 Subjective Erica is declining BP dropping even with addition of midodrine less awake, more lethargic, tired not speaking much. tells me she is having more pain belen with any movement/exertion/talking Sal and son Abdulaziz are by her side their other son, Darcy, is en route from [place], his ETA is landing time of 530pm Review of Systems Review of Systems: All systems reviewed & are unremarkable except as noted in Subjective Physical Exam Constitutional: + acute distress, + cachectic, + frail a ppearing, + lethargic and + edematous Eyes: PERRL ENMT: Ears: no hearing impairment Mouth: + muffled voice and + dry oral mucous membranes Neck: normal visual inspection and trachea midline Respiratory: + labored breathing, + cough and symmetr ic chest movement; + not able to speak in complete sentence Cardiovascular: Rate/Rhythm: + tachycardic on levo, midodrine, +hypotension Gastrointestinal (Abdomen): Inspection/Auscultation: + scaphoid Percussion/Palpation: + abdomen tender Musculoskeletal: Head/Neck/Chest: head atraumatic (bitemp wasting) Skin: + turgor decreased, + skin tightening, + dry skin and + pallor Neurologic: lethargic with periods of alertness very weak minimally interactive Results & Data Vital Signs (Past 12 Hours) Vital Signs Pulse Resp BP Pulse Ox O2 Del Method O2 Flow Rate 07/31/25 09:30 74/56 L 07/31/25 09:29 101 H 17 95 Nasal Cannula 2 07/31/25 09:02 93 H 16 97 Nasal Cannula 2 07/31/25 09:00 78/53 L 07/31/25 08:59 95 H 15 94 07/31/25 08:30 88/56 L 07/31/25 08:02 97 H 16 97 Nasal Cannula 2 07/31/25 08:00 77/55 L 07/31/25 07:30 76/48 L 07/31/25 07:29 Nasal Cannula 2 07/31/25 07:05 97 H 17 95 Nasal Cannula 2 07/31/25 07:00 83/50 L 07/31/25 06:45 94 H 13 96 Nasal Cannula 2 07/31/25 06:30 95 H 15 96 07/31/25 06:30 85/57 L 07/31/25 06:30 85/57 L 07/31/25 06:30 85/57 L 07/31/25 06:30 85/57 L 07/31/25 06:30 85/57 L 07/31/25 06:00 96 H 16 95 07/31/25 06:00 89/58 L 07/31/25 06:00 89/58 L 07/31/25 06:00 89/58 L 07/31/25 06:00 89/58 L 07/31/25 06:00 89/58 L 07/31/25 05:30 87/57 L 07/31/25 05:30 87/57 L 07/31/25 05:30 87/57 L 07/31/25 05:30 87/57 L 07/31/25 05:30 87/57 L 07/31/25 05:30 92 H 20 97 07/31/25 05:00 88/60 L 07/31/25 05:00 88 14 96 07/31/25 05:00 88/60 L 07/31/25 05:00 88/60 L 07/31/25 05:00 88/60 L 07/31/25 05:00 88/60 L 07/31/25 04:30 84/56 L 07/31/25 04:30 84/56 L 07/31/25 04:30 84/56 L 07/31/25 04:30 84/56 L 07/31/25 04:30 84/56 L 07/31/25 04:30 96 H 20 07/31/25 04:00 92 H 16 100 07/31/25 04:00 87/59 L 07/31/25 04:00 87/59 L 07/31/25 04:00 87/59 L 07/31/25 04:00 87/59 L 07/31/25 04:00 87/59 L 07/31/25 03:30 89/59 L 07/31/25 03:30 89/59 L 07/31/25 03:30 89/59 L 07/31/25 03:30 89/59 L 07/31/25 03:30 89/59 L 07/31/25 03:30 91 H 14 100 07/31/25 03:00 90 31 H 100 07/31/25 03:00 91/60 L 07/31/25 03:00 91/60 L 07/31/25 03:00 91/60 L 07/31/25 03:00 91/60 L 07/31/25 03:00 91/60 L 07/31/25 02:30 92/59 L 07/31/25 02:30 92/59 L 07/31/25 02:30 92/59 L 07/31/25 02:30 92/59 L 07/31/25 02:30 92/59 L 07/31/25 02:30 91 H 9 L 96 07/31/25 02:00 91/61 L 07/31/25 02:00 91/61 L 07/31/25 02:00 91/61 L 07/31/25 02:00 91/61 L 07/31/25 02:00 91/61 L 07/31/25 02:00 90 15 100 07/31/25 01:30 78/53 L 07/31/25 01:30 78/53 L 07/31/25 01:30 78/53 L 07/31/25 01:30 78/53 L 07/31/25 01:30 78/53 L 07/31/25 01:30 78/53 L 07/31/25 01:30 78/53 L 07/31/25 01:30 78/53 L 07/31/25 01:30 78/53 L 07/31/25 01:30 93 H 17 97 Laboratory Results 07/30/25 07/30/25 07/29/25 Range/Units 07:13 04:44 22:15 WBC 7.99 (4.8-10.8) K/ul RBC 2.34 L (4.20-5.40) M/uL Hgb 8.1 L (12.0-16.0) g/dl Hct 23.5 L (37.0-47.0) % MCV 100.4 H (80.0-100.0) fL MCH 34.6 H (25.0-34.0) pg MCHC 34.5 (32.0-36.0) g/dL RDW Std Deviation 82.4 H (36.4-46.3) fL RDW Coeff of Rolo 23.0 H (11.5-14.5) % Plt Count 25 L* (130-400) K/uL MPV 12.7 H (9.4-12.4) fL Immature Gran % (Auto) 1.4 % Neut % (Auto) 93.6 % Lymph % (Auto) 2.9 % [place] % (Auto) 1.8 % Eos % (Auto) 0.0 % Baso % (Auto) 0.3 % Neut # (Auto) 7.49 H (1.40-6.50) K/uL Lymph # (Auto) 0.23 L (1.20-3.40) K/uL [place] # (Auto) 0.14 (0.11-0.59) K/uL Eos # (Auto) 0.00 (0.00-0.50) K/uL Baso # (Auto) 0.02 (0.00-0.20) K/uL Immature Gran # (Auto) 0.11 (0.01-0.20) K/uL Absolute Nucleated RBC 0.02 (0.00-0.12) K/uL Nucleated RBC % (auto) 0.3 % Toxic Granulation 1+ Dohle Bodies 1+ Polychromasia 1+ Anisocytosis Present Echinocytes Acanthocytes (Spur) 1+ PT (9.0-12.0) Seconds INR (0.9-1.1) APTT (21-31) Seconds PTT Ratio Sodium 129 L (136-145) mmol/L Potassium 5.5 H (3.5-5.1) mmol/L Chloride 100 (98-107) mmol/L Carbon Dioxide 19 L (21-32) mmol/L Anion Gap 10 (3-11) BUN 93 H (6-23) mg/dl Creatinine 3.65 H (0.6-1.2) mg/dl Est Cr Clr Drug Dosing 11.9 ml/min eGFR 12.58 BUN/Creatinine Ratio 25.5 H (10-20) Glucose 111 H (70-99(Fasting)) mg/dl POC Glucose 118 H (70-99) mg/dl Lactate (0.4-2.0) mmol/L Calcium 8.9 (8.6-10.3) mg/dl Magnesium 2.1 (1.7-2.4) mg/dl Total Bilirubin 6.8 H (0.2-1.0) mg/dl AST 157 H (13-39) U/L ALT 63 H (7-52) U/L Alkaline Phosphatase 335 H (34-104) U/L Troponin I High Sens (0-14) pg/ml C-Reactive Protein 5.68 H (0-0.5) mg/dl B-Natriuretic Peptide (0-100) pg/ml Total Protein 5.7 L (6.0-8.3) gm/dl Albumin 2.6 L (3.4-5.0) gm/dl Globulin 3.1 (2.5-4.0) gm/dl Albumin/Globulin Ratio 0.8 L (0.9-2) Procalcitonin 3.42 H (0-0.5) ng/ml Random Cortisol mcg/dl Urine Color Dark Yellow Urine Appearance Clear (Clear) Urine pH 5.0 (4.5-7.5) Ur Specific [place] 1.017 (1.000-1.030) Urine Protein 1+ H (Negative) Urine Glucose (UA) Negative (Negative) Urine Ketones Negative (Negative) Urine Blood 1+ H (Negative) Urine Nitrite Negative (Negative) Urine Bilirubin 1+ H (Negative) Urine Urobilinogen Negative (Negative) Ur Leukocyte Esterase Negative (Negative) Urine WBC (Auto) 0-5 (0-5) /hpf Urine RBC (Auto) 3-5 H (0-2) /hpf U Hyaline Cast (Auto) 3-5 H (0-2) /lpf U Epithel Cells (Auto) 0-2 (0-2) /hpf Urine Bacteria (Auto) None Seen (None Seen) Urine Comment Nasal Screen MRSA (PCR) (Negative) Random Vancomycin 11.1 (10-20) mcg/ml Adenovirus (PCR) (NotDetected) B. pertussis DNA (PCR) (NotDetected) B.parapertussis DNA PCR (NotDetected) C. pneumoniae DNA (PCR) (NotDetected) Coronavirus OC43 (PCR) (NotDetected) Coronavirus HKU1 (PCR) (NotDetected) Coronavirus 229E (PCR) (NotDetected) SARS-CoV-2 (PCR) (NotDetected) Coronavirus NL63 (PCR) (NotDetected) Human Metapneumovir PCR (NotDetected) Influenza Type A (PCR) (NotDetected) Influenza Type B (PCR) (NotDetected) Urine Legionella Ag SEE NOTE M. pneumoniae (PCR) (NotDetected) Parainfluenza 1 (PCR) (NotDetected) Parainfluenza 2 (PCR) (NotDetected) Parainfluenza 3 (PCR) (NotDetected) Parainfluenza 4 (PCR) (NotDetected) RSV (PCR) (NotDetected) Entero/Rhino (PCR) (NotDetected) 07/29/25 07/29/25 07/29/25 Range/Units 22:10 16:03 16:00 WBC (4.8-10.8) K/ul RBC (4.20-5.40) M/uL Hgb (12.0-16.0) g/dl Hct (37.0-47.0) % MCV (80.0-100.0) fL MCH (25.0-34.0) pg MCHC (32.0-36.0) g/dL RDW Std Deviation (36.4-46.3) fL RDW Coeff of Rolo (11.5-14.5) % Plt Count (130-400) K/uL MPV (9.4-12.4) fL Immature Gran % (Auto) % Neut % (Auto) % Lymph % (Auto) % [place] % (Auto) % Eos % (Auto) % Baso % (Auto) % Neut # (Auto) (1.40-6.50) K/uL Lymph # (Auto) (1.20-3.40) K/uL [place] # (Auto) (0.11-0.59) K/uL Eos # (Auto) (0.00-0.50) K/uL Baso # (Auto) (0.00-0.20) K/uL Immature Gran # (Auto) (0.01-0.20) K/uL Absolute Nucleated RBC (0.00-0.12) K/uL Nucleated RBC % (auto) % Toxic Granulation Dohle Bodies Polychromasia Anisocytosis Echinocytes Acanthocytes (Spur) PT (9.0-12.0) Seconds INR (0.9-1.1) APTT (21-31) Seconds PTT Ratio Sodium (136-145) mmol/L Potassium (3.5-5.1) mmol/L Chloride (98-107) mmol/L Carbon Dioxide (21-32) mmol/L Anion Gap (3-11) BUN (6-23) mg/dl Creatinine (0.6-1.2) mg/dl Est Cr Clr Drug Dosing ml/min eGFR BUN/Creatinine Ratio (10-20) Glucose (70-99(Fasting)) mg/dl POC Glucose 106 H (70-99) mg/dl Lactate 2.8 H* (0.4-2.0) mmol/L Calcium (8.6-10.3) mg/dl Magnesium (1.7-2.4) mg/dl Total Bilirubin (0.2-1.0) mg/dl AST (13-39) U/L ALT (7-52) U/L Alkaline Phosphatase (34-104) U/L Troponin I High Sens (0-14) pg/ml C-Reactive Protein (0-0.5) mg/dl B-Natriuretic Peptide (0-100) pg/ml Total Protein (6.0-8.3) gm/dl Albumin (3.4-5.0) gm/dl Globulin (2.5-4.0) gm/dl Albumin/Globulin Ratio (0.9-2) Procalcitonin (0-0.5) ng/ml Random Cortisol mcg/dl Urine Color Urine Appearance (Clear) Urine pH (4.5-7.5) Ur Specific [place] (1.000-1.030) Urine Protein (Negative) Urine Glucose (UA) (Negative) Urine Ketones (Negative) Urine Blood (Negative) Urine Nitrite (Negative) Urine Bilirubin (Negative) Urine Urobilinogen (Negative) Ur Leukocyte Esterase (Negative) Urine WBC (Auto) (0-5) /hpf Urine RBC (Auto) (0-2) /hpf U Hyaline Cast (Auto) (0-2) /lpf U Epithel Cells (Auto) (0-2) /hpf Urine Bacteria (Auto) (None Seen) Urine Comment Nasal Screen MRSA (PCR) (Negative) Random Vancomycin (10-20) mcg/ml Adenovirus (PCR) Not Detected (NotDetected) B. pertussis DNA (PCR) Not Detected (NotDetected) B.parapertussis DNA PCR Not Detected (NotDetected) C. pneumoniae DNA (PCR) Not Detected (NotDetected) Coronavirus OC43 (PCR) Not Detected (NotDetected) Coronavirus HKU1 (PCR) Not Detected (NotDetected) Coronavirus 229E (PCR) Not Detected (NotDetected) SARS-CoV-2 (PCR) Not Detected (NotDetected) Coronavirus NL63 (PCR) Not Detected (NotDetected) Human Metapneumovir PCR Not Detected (NotDetected) Influenza Type A (PCR) Not Detected (NotDetected) Influenza Type B (PCR) Not Detected (NotDetected) Urine Legionella Ag M. pneumoniae (PCR) Not Detected (NotDetected) Parainfluenza 1 (PCR) Not Detected (NotDetected) Parainfluenza 2 (PCR) Not Detected (NotDetected) Parainfluenza 3 (PCR) Not Detected (NotDetected) Parainfluenza 4 (PCR) Not Detected (NotDetected) RSV (PCR) Not Detected (NotDetected) Entero/Rhino (PCR) Not Detected (NotDetected) 07/29/25 07/29/25 07/29/25 Range/Units 15:28 15:26 13:22 WBC (4.8-10.8) K/ul RBC (4.20-5.40) M/uL Hgb (12.0-16.0) g/dl Hct (37.0-47.0) % MCV (80.0-100.0) fL MCH (25.0-34.0) pg MCHC (32.0-36.0) g/dL RDW Std Deviation (36.4-46.3) fL RDW Coeff of Rolo (11.5-14.5) % Plt Count (130-400) K/uL MPV (9.4-12.4) fL Immature Gran % (Auto) % Neut % (Auto) % Lymph % (Auto) % [place] % (Auto) % Eos % (Auto) % Baso % (Auto) % Neut # (Auto) (1.40-6.50) K/uL Lymph # (Auto) (1.20-3.40) K/uL [place] # (Auto) (0.11-0.59) K/uL Eos # (Auto) (0.00-0.50) K/uL Baso # (Auto) (0.00-0.20) K/uL Immature Gran # (Auto) (0.01-0.20) K/uL Absolute Nucleated RBC (0.00-0.12) K/uL Nucleated RBC % (auto) % Toxic Granulation Dohle Bodies Polychromasia Anisocytosis Echinocytes Acanthocytes (Spur) PT (9.0-12.0) Seconds INR (0.9-1.1) APTT (21-31) Seconds PTT Ratio Sodium (136-145) mmol/L Potassium (3.5-5.1) mmol/L Chloride (98-107) mmol/L Carbon Dioxide (21-32) mmol/L Anion Gap (3-11) BUN (6-23) mg/dl Creatinine (0.6-1.2) mg/dl Est Cr Clr Drug Dosing ml/min eGFR BUN/Creatinine Ratio (10-20) Glucose (70-99(Fasting)) mg/dl POC Glucose 69 L* 67 L* (70-99) mg/dl Lactate (0.4-2.0) mmol/L Calcium (8.6-10.3) mg/dl Magnesium (1.7-2.4) mg/dl Total Bilirubin (0.2-1.0) mg/dl AST (13-39) U/L ALT (7-52) U/L Alkaline Phosphatase (34-104) U/L Troponin I High Sens (0-14) pg/ml C-Reactive Protein (0-0.5) mg/dl B-Natriuretic Peptide (0-100) pg/ml Total Protein (6.0-8.3) gm/dl Albumin (3.4-5.0) gm/dl Globulin (2.5-4.0) gm/dl Albumin/Globulin Ratio (0.9-2) Procalcitonin (0-0.5) ng/ml Random Cortisol mcg/dl Urine Color Urine Appearance (Clear) Urine pH (4.5-7.5) Ur Specific [place] (1.000-1.030) Urine Protein (Negative) Urine Glucose (UA) (Negative) Urine Ketones (Negative) Urine Blood (Negative) Urine Nitrite (Negative) Urine Bilirubin (Negative) Urine Urobilinogen (Negative) Ur Leukocyte Esterase (Negative) Urine WBC (Auto) (0-5) /hpf Urine RBC (Auto) (0-2) /hpf U Hyaline Cast (Auto) (0-2) /lpf U Epithel Cells (Auto) (0-2) /hpf Urine Bacteria (Auto) (None Seen) Urine Comment Nasal Screen MRSA (PCR) Negative (Negative) Random Vancomycin (10-20) mcg/ml Adenovirus (PCR) (NotDetected) B. pertussis DNA (PCR) (NotDetected) B.parapertussis DNA PCR (NotDetected) C. pneumoniae DNA (PCR) (NotDetected) Coronavirus OC43 (PCR) (NotDetected) Coronavirus HKU1 (PCR) (NotDetected) Coronavirus 229E (PCR) (NotDetected) SARS-CoV-2 (PCR) (NotDetected) Coronavirus NL63 (PCR) (NotDetected) Human Metapneumovir PCR (NotDetected) Influenza Type A (PCR) (NotDetected) Influenza Type B (PCR) (NotDetected) Urine Legionella Ag M. pneumoniae (PCR) (NotDetected) Parainfluenza 1 (PCR) (NotDetected) Parainfluenza 2 (PCR) (NotDetected) Parainfluenza 3 (PCR) (NotDetected) Parainfluenza 4 (PCR) (NotDetected) RSV (PCR) (NotDetected) Entero/Rhino (PCR) (NotDetected) 07/29/25 07/29/25 07/29/25 Range/Units 13:20 12:25 10:19 WBC 7.71 (4.8-10.8) K/ul RBC 2.33 L (4.20-5.40) M/uL Hgb 8.0 L (12.0-16.0) g/dl Hct 23.7 L (37.0-47.0) % MCV 101.7 H (80.0-100.0) fL MCH 34.3 H (25.0-34.0) pg MCHC 33.8 (32.0-36.0) g/dL RDW Std Deviation 83.8 H (36.4-46.3) fL RDW Coeff of Rolo 23.0 H (11.5-14.5) % Plt Count 21 L* (130-400) K/uL MPV (9.4-12.4) fL Immature Gran % (Auto) 1.4 % Neut % (Auto) 87.9 % Lymph % (Auto) 5.6 % [place] % (Auto) 4.9 % Eos % (Auto) 0.1 % Baso % (Auto) 0.1 % Neut # (Auto) 6.77 H (1.40-6.50) K/uL Lymph # (Auto) 0.43 L (1.20-3.40) K/uL [place] # (Auto) 0.38 (0.11-0.59) K/uL Eos # (Auto) 0.01 (0.00-0.50) K/uL Baso # (Auto) 0.01 (0.00-0.20) K/uL Immature Gran # (Auto) 0.11 (0.01-0.20) K/uL Absolute Nucleated RBC 0.03 (0.00-0.12) K/uL Nucleated RBC % (auto) 0.4 % Toxic Granulation Dohle Bodies Polychromasia Anisocytosis Echinocytes 1+ Acanthocytes (Spur) 1+ PT 14.9 H (9.0-12.0) Seconds INR 1.4 H (0.9-1.1) APTT 38 H (21-31) Seconds PTT Ratio 1.4 Sodium 131 L (136-145) mmol/L Potassium 5.0 (3.5-5.1) mmol/L Chloride 101 (98-107) mmol/L Carbon Dioxide 20 L (21-32) mmol/L Anion Gap 10 (3-11) BUN 94 H (6-23) mg/dl Creatinine 3.59 H (0.6-1.2) mg/dl Est Cr Clr Drug Dosing 12.1 ml/min eGFR 12.83 BUN/Creatinine Ratio 26.2 H (10-20) Glucose 72 (70-99(Fasting)) mg/dl POC Glucose (70-99) mg/dl Lactate 3.5 H* (0.4-2.0) mmol/L Calcium 8.6 (8.6-10.3) mg/dl Magnesium 2.1 (1.7-2.4) mg/dl Total Bilirubin 6.1 H (0.2-1.0) mg/dl AST 156 H (13-39) U/L ALT 64 H (7-52) U/L Alkaline Phosphatase 403 H (34-104) U/L Troponin I High Sens 77.8 H* 80.9 H* (0-14) pg/ml C-Reactive Protein (0-0.5) mg/dl B-Natriuretic Peptide 105 H (0-100) pg/ml Total Protein 5.1 L (6.0-8.3) gm/dl Albumin 2.0 L (3.4-5.0) gm/dl Globulin 3.1 (2.5-4.0) gm/dl Albumin/Globulin Ratio 0.6 L (0.9-2) Procalcitonin 3.22 H (0-0.5) ng/ml Random Cortisol 28.24 mcg/dl Urine Color Urine Appearance (Clear) Urine pH (4.5-7.5) Ur Specific [place] (1.000-1.030) Urine Protein (Negative) Urine Glucose (UA) (Negative) Urine Ketones (Negative) Urine Blood (Negative) Urine Nitrite (Negative) Urine Bilirubin (Negative) Urine Urobilinogen (Negative) Ur Leukocyte Esterase (Negative) Urine WBC (Auto) (0-5) /hpf Urine RBC (Auto) (0-2) /hpf U Hyaline Cast (Auto) (0-2) /lpf U Epithel Cells (Auto) (0-2) /hpf Urine Bacteria (Auto) (None Seen) Urine Comment Nasal Screen MRSA (PCR) (Negative) Random Vancomycin (10-20) mcg/ml Adenovirus (PCR) (NotDetected) B. pertussis DNA (PCR) (NotDetected) B.parapertussis DNA PCR (NotDetected) C. pneumoniae DNA (PCR) (NotDetected) Coronavirus OC43 (PCR) (NotDetected) Coronavirus HKU1 (PCR) (NotDetected) Coronavirus 229E (PCR) (NotDetected) SARS-CoV-2 (PCR) (NotDetected) Coronavirus NL63 (PCR) (NotDetected) Human Metapneumovir PCR (NotDetected) Influenza Type A (PCR) (NotDetected) Influenza Type B (PCR) (NotDetected) Urine Legionella Ag M. pneumoniae (PCR) (NotDetected) Parainfluenza 1 (PCR) (NotDetected) Parainfluenza 2 (PCR) (NotDetected) Parainfluenza 3 (PCR) (NotDetected) Parainfluenza 4 (PCR) (NotDetected) RSV (PCR) (NotDetected) Entero/Rhino (PCR) (NotDetected) Diagnostic Findings Chest X-Ray 07/29/25 09:59 XR chest 1V portable CLINICAL HISTORY: Dyspnea, R sided crackles; h/o ovarian/liver ca COMPARISON STUDY: 07/20/2025 FINDINGS: The cardiac and mediastinal contours remain stable. There is a left- sided PICC catheter present and right sided A-Port catheter present. There are persistent bilateral pleural effusions. There are progressive right mid and lower lung zone airspace opacities, edema versus pneumonia. There are also slight we progressive left basilar airspace opacities. Lower lung zone nodules cannot be excluded. IMPRESSION: Persistent bilateral pleural effusions with progressive right greater than left mid to lower lung zone airspace opacities. Pneumonia versus versus edema. Lower lung zone nodules not excluded. ACT 112: Negative or not required by law. Electronically signed by: Gunner Sequeira M.D. 07/29/2025 10:[address] 07/29/25 17:01 CT chest without contrast History: Chest pain Comparison: 07/19/2025 Technique: Helical CT imaging of the chest performed without IV contrast Dose reduction techniques were achieved by using automatic exposure control and/or adjustment of mA and/or kV according to patient size and/or use of iterative reconstruction technique. Findings: There is a moderate left pleural effusion which is increased, with subjacent compressive atelectasis. A small right pleural effusion is not significantly changed. Scattered solid pulmonary nodules again seen are similar to prior. New patchy consolidation throughout the right lower lobe. There are new areas of ground glass with a atoll appearance in the periphery of the left upper lung on image 25, measuring 2.1 cm, and 3.2 cm, respectively. No pneumothorax. Heart size is enlarged. Left upper extremity PICC and right chest wall port with catheter tip's in the high right atrium. The thoracic aorta is normal in size. The pulmonary artery is normal in size. No significant pericardial effusion. No suspicious lymphadenopathy in the chest. The central airway is clear. Limited visualized upper abdomen. A large mass about the liver as well as additional smaller hepatic masses are again seen. No acute bony abnormalities. Impression: New area of consolidation in the right lower lung, suspicious for pneumonia. There are also new opacities in the periphery of the left upper lung with an atypical appearance, which may be infectious, versus organizing pneumonia. Similar-appearing diffuse pulmonary nodules. Redemonstrated pleural effusions, increased. Electronically signed by Rommel Meyer 07-29-2025 6:50 PM PG Care Time/CCT Total # of Minutes Spent Total Time Spent with Patient: Total time spent is greater than 50% in coordination of care (as documented) at patient's floor/unit and/or counseling patient: I spent 105 minutes overall addressing this case: 15 min in medical data review/discussion with referring provider(s) and/or preparation for the visit 15 min in direct interaction with the patient/exam 45 min in Advance Care Planning/Goals of Care discussions as detailed above in note (must be >16min) 15 min in subsequent review and synthesis of assessment and plan 15 min communicating with other providers regarding the patient's case: nursing, primary team Advanced Care Planning 71749 Advanced Care Planning Additional 30 Min [place] [address] SUB INP/OBS CARE 3/50MIN (25 - SIGNIFICANT, SEPARATELY IDENTIFIABLE ) Patient Type Established Medical Decision Making High Complexity Diagnoses Cancer related pain G89.3 Need for comfort care Advanced care planning/counseling discussion Z71.89 Weakness generalized R53.1 Other specified hypotension I95.9 Hypotension type: unspecified hypotension type Palliative care by specialist Z51.5 Lymphedema I89.0 Metastatic adenocarcinoma C79.9 Additional Codes Advanced Care Planning - 20895 Advanced Care Planning Additional 30 Min: 63638 Advanced Care Planning Additional 30 Min ([id number]) Comment [id number] (5) Hypotension Hypotension type: unspecified hypotension type Qualified Code(s): I95.9 - Hypotension, unspecified
--- NOTE | 2025-07-31 15:00 | Hospitalist Progress Note ---
Date of Service July 31, 2025 Assessment & Plan (1) Ovarian cancer: (2) Pneumonia: (3) Thrombocytopenia: (4) Hypotension: (5) Septic shock: (6) Fluid overload: (7) Lymphedema: (8) Moderate malnutrition: (9) Metastatic neoplastic disease: (10) Decubitus ulcer of sacral region, stage 1: (11) Cardiomyopathy: (12) Ileostomy care: (13) Diarrhea: (14) Blood clotting disorder: Plan #End of life cares #Shock #SIRS/sepsis - Inpatient comfort cares. continue levophed, minimize midorine to avoid sedation, add compazine, added dilaudid for abdominal pain - [facility] services, palliative care updated. Consult placed #Hypoxemic respiratory failure - Volume overload, once BP stabilizes she will need diuresis as below, NC for short term, RT for nebs prn but mechanically doing well at this time - Continue supportive cares as above. DNR/DNI status updated #HFpEF #Anasarca - Volume expansion support as above. Will not pursue diuresis or aggressive therapy #TRISTON #CKD #Thrombocytopenia #Metastatic adenocarcinoma/ovarian cancer - No further checks, monitoring or evaluation required see subjective aside from those for medication management/dosing #History of ileostomy with diverting colostomy # High output ostomy -wound/ostomy care consult -bowel meds per home regimen, using the diarrhea treatments at this time, continue imodium #Chronic N/V - continue olanzapine 2.5mg qHS #Chronic moderate malnutrition - RD consult - IV albumin in ED, daily PRN #GERD -PPI #CODE Status - DNR/DNI, comfort cares, continue to arrange for home hospice, reviewed with patient and family Admission and Anticipated Discharge Date Admission Date: July 29, 2025 Subjective Diffuse but increasing abdominal pain this morning. Less interactive 3 in the morning. But still cognitively intact. Interacting with family members still awaiting arrival of her son in [place]. Plan for morning was to return home with home hospice. She continues to require 0.05 mL Levophed and midodrine this morning. Physical Exam Physical Exam: General: A&Ox3. NAD. Cooperative. HEENT: Atraumatic, normocephalic. Vision and hearing grossly intact. Pupils equal and reactive to light, sclera clear and anicteric Pulm: CTAB A&P. -wheezes, -rales, -rhonchi. No increased work of breathing. No respiratory distress. Cardiac: 2/6 DARYL at he RUSB. Radial pulses intact and symmetrical. Abdominal: Mild diffuse tenderness, nondistended,. BS present. Ext: Anasarca to the level of the abdomen, #+ throughout lower extremities, Moves all extremities equally NEURO: A&O as above, no focal deficits Skin: warm, moist. Results & Data Results & Data Vital Signs (Past 12 Hours) Vital Signs Pulse Resp BP Pulse Ox O2 Del Method O2 Flow Rate 07/31/25 09:30 74/56 L 07/31/25 09:29 101 H 17 95 Nasal Cannula 2 07/31/25 09:02 93 H 16 97 Nasal Cannula 2 07/31/25 09:00 78/53 L 07/31/25 08:59 95 H 15 94 07/31/25 08:30 88/56 L 07/31/25 08:02 97 H 16 97 Nasal Cannula 2 07/31/25 08:00 77/55 L 07/31/25 07:30 76/48 L 07/31/25 07:29 Nasal Cannula 2 07/31/25 07:05 97 H 17 95 Nasal Cannula 2 07/31/25 07:00 83/50 L 07/31/25 06:45 94 H 13 96 Nasal Cannula 2 07/31/25 06:30 95 H 15 96 07/31/25 06:30 85/57 L 07/31/25 06:30 85/57 L 07/31/25 06:30 85/57 L 07/31/25 06:30 85/57 L 07/31/25 06:30 85/57 L 07/31/25 06:00 96 H 16 95 07/31/25 06:00 89/58 L 07/31/25 06:00 89/58 L 07/31/25 06:00 89/58 L 07/31/25 06:00 89/58 L 07/31/25 06:00 89/58 L 07/31/25 05:30 87/57 L 07/31/25 05:30 87/57 L 07/31/25 05:30 87/57 L 07/31/25 05:30 87/57 L 07/31/25 05:30 87/57 L 07/31/25 05:30 92 H 20 97 07/31/25 05:00 88/60 L 07/31/25 05:00 88 14 96 07/31/25 05:00 88/60 L 07/31/25 05:00 88/60 L 07/31/25 05:00 88/60 L 07/31/25 05:00 88/60 L 07/31/25 04:30 84/56 L 07/31/25 04:30 84/56 L 07/31/25 04:30 84/56 L 07/31/25 04:30 84/56 L 07/31/25 04:30 84/56 L 07/31/25 04:30 96 H 20 07/31/25 04:00 92 H 16 100 07/31/25 04:00 87/59 L 07/31/25 04:00 87/59 L 07/31/25 04:00 87/59 L 07/31/25 04:00 87/59 L 07/31/25 04:00 87/59 L 07/31/25 03:30 89/59 L 07/31/25 03:30 89/59 L 07/31/25 03:30 89/59 L 07/31/25 03:30 89/59 L 07/31/25 03:30 89/59 L 07/31/25 03:30 91 H 14 100 07/31/25 03:00 90 31 H 100 07/31/25 03:00 91/60 L 07/31/25 03:00 91/60 L 07/31/25 03:00 91/60 L 07/31/25 03:00 91/60 L 07/31/25 03:00 91/60 L PG Care Time/CCT Total # of Minutes Spent Total Time Spent with Patient: Total time spent is greater than 50% in coordination of care (as documented) at patient's floor/unit and/or counseling patient: Coding Level of Care Code 49806 SUB INP/OBS CARE Diagnoses Ovarian cancer C56.9 Pneumonia J18.9 Laterality: right Lung location: lower lobe of lung Pneumonia type: due to unspecified organism Thrombocytopenia D69.6 Other specified hypotension I95.9 Hypotension type: unspecified hypotension type Septic shock A41.9; R65.21 Fluid overload E87.70 Lymphedema I89.0 Moderate malnutrition E44.0 Metastatic neoplastic disease C79.9 Decubitus ulcer of sacral region, stage 1 L89.151 Cardiomyopathy I42.9 Ileostomy care Z43.2 Diarrhea R19.7 Blood clotting disorder D68.9 (2) Pneumonia Laterality: right Lung location: lower lobe of lung Pneumonia type: due to unspecified organism Qualified Code(s): J18.9 - Pneumonia, unspecified organism (4) Hypotension Hypotension type: unspecified hypotension type Qualified Code(s): I95.9 - Hypotension, unspecified
--- NOTE | 2025-07-31 18:03 | Critical Care Progress Note ---
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 Sanchez, the patient and family opted to forfeit further treatment and go with palliative care. Admission and Anticipated Discharge Date Admission Date: July 29, 2025 Subjective The patient is a very pleasant 74-year-old female who presented to the ED due to worsening shortness of breath and hypoxemia, which was noted during a transitional care visit at home when her oxygen saturation was found to be 88% on room air, prompting initiation of 2 L nasal cannula and subsequent transfer for further evaluation. She reported increased lower extremity swelling and dyspnea on exertion, but denied chest pain, cough, fever, chills, orthopnea, or other generalized symptoms. On arrival, she appeared mildly ill but nontoxic, with vital signs notable for hypotension (BP 90/59), HR 83, RR 14, and oxygen saturation of 95% on 3 L nasal cannula. Physical exam revealed scleral icterus, moist mucous membranes, right- sided crackles, significant bilateral lower extremity pitting edema (3-4+), and no abdominal tenderness or calf pain. She was alert and oriented, with no focal neurological deficits. Laboratory evaluation demonstrated a normal WBC, chronic anemia (Hb 8), severe thrombocytopenia (platelets 21,000), acute on chronic kidney injury (Cr 3.59), elevated bilirubin (6), elevated lactate (3.5), and elevated procalcitonin (3.22). Cardiac markers showed an initial troponin of 80.9, and BNP was 105. Imaging with chest x-ray revealed bilateral pleural effusions and new right lower lobe opacities. ECG showed sinus rhythm with PVCs and left axis deviation, but no evidence of STEMI. The patient was managed in the ED with IV access, blood work, 500 cc IV fluids (with further volume expansion with held due to anasarca and concern for fluid overload), empiric antibiotics (vancomycin and cefepime), and supportive care. Her recent history includes a hospitalization from 07/18 to 07/25 for hypotension requiring pressors and suspected pneumonia with right lower lobe consolidation, during which she completed a 5-day course of antibiotics. She has a complex oncologic history with stage IV ovarian cancer (diagnosed 2021) with hepatic and pulmonary metastases, prior chemotherapy (carboplatin, liposomal doxorubicin, mirvetuximab), and a plan to restart cytotoxic therapy. Additional comorbidities include HFpEF/diastolic dysfunction, CKD, chronic lymphedema, pancytopenia, malignant pleural effusions, history of PE and DVT (previously on Eliquis stopped during last admission due to thrombocytopenia), bladder cancer s/p surgery (2012), ileostomy, malnutrition, GERD, chronic nausea/vomiting, and a stage 1 sacral decubitus ulcer. She also has a port and PICC line in place for access. Note from 07/29/2025: Patient presented due to hypoxemia and dyspnea when she stands up. She denies dizziness or near-fainting. CXR with new left pleural effusion and worsening consolidation/effusion at right hemithorax. Borderline hypotension with hyponatremia, upper-normal Potassium, and mild hypoglycemia. I have low suspicion for sepsis. Possible Adrenal insufficiency. Patient given IV fluid boluses in ED and by Dr. Sanchez. I will add Solumedrol and Fludrocortisone at least until Cortisol level is drawn. Continue vasopressors and antibiotics. Long and detailed discussion with the patient and family regarding prognosis. Note from 07/30/2025: No significant events overnight. Patient remained on Levophed. Renal function continued worsening. Chest CT showed new/worsening RLL infiltrates and increased left pleural effusion. After a long and detailed discussion with the patient and her family conducted by Dr. Sanchez, the patient and family opted to forfeit further treatment and go with palliative care. Note from 07/30/2025: No changes. Still awaiting patient's son before stopping IV Levophed for discharge. Review of Systems Review of Systems: All systems reviewed & are unremarkable except as noted in HPI & below Physical Exam Physical Exam: General: In no acute distress, using Oxygen via nasal cannula. Emaciated. Venous port at Right upper chest. Stage 1 sacral decubitus ulcer. Neck: No palpable masses or adenopathy. Respiratory: Decreased breath sounds with dullness over both bases, no wheezing or crackles. No use of accessory muscles and no prolonged exhalation. Cardiac: Regular rhythm, no murmurs, no gallops, no rubs; could not appreciate JV pulse elevation. GI: Soft, nontender. Ileostomy at RLQ. Extremities No clubbing,no cyanosis,3+ edema over the lower extremities. Positive Stemmer sign bilaterally. Neuro: No gross motor deficits. Seems appropriate. No facial-droop. Speech is clear. Results & Data Results & Data Vital Signs (Past 12 Hours) Vital Signs Pulse Resp BP Pulse Ox O2 Del Method O2 Del Method O2 Flow Rate 07/31/25 17:20 Nasal Cannula 07/31/25 17:20 103 H 07/31/25 09:30 74/56 L 07/31/25 09:29 101 H 17 95 Nasal Cannula 2 07/31/25 09:02 93 H 16 97 Nasal Cannula 2 07/31/25 09:00 78/53 L 07/31/25 08:59 95 H 15 94 07/31/25 08:30 88/56 L 07/31/25 08:02 97 H 16 97 Nasal Cannula 2 07/31/25 08:00 77/55 L 07/31/25 07:30 76/48 L 07/31/25 07:29 Nasal Cannula 2 07/31/25 07:05 97 H 17 95 Nasal Cannula 2 07/31/25 07:00 83/50 L 07/31/25 06:45 94 H 13 96 Nasal Cannula 2 07/31/25 06:30 95 H 15 96 07/31/25 06:30 85/57 L 07/31/25 06:30 85/57 L 07/31/25 06:30 85/57 L 07/31/25 06:30 85/57 L 07/31/25 06:30 85/57 L O2 Flow Rate 07/31/25 17:20 2 07/31/25 17:20 07/31/25 09:30 07/31/25 09:29 07/31/25 09:02 07/31/25 09:00 07/31/25 08:59 07/31/25 08:30 07/31/25 08:02 07/31/25 08:00 07/31/25 07:30 07/31/25 07:29 07/31/25 07:05 07/31/25 07:00 07/31/25 06:45 07/31/25 06:30 07/31/25 06:30 07/31/25 06:30 07/31/25 06:30 07/31/25 06:30 07/31/25 06:30 Coding Level of Care Code 21857 SUB INP/OBS CARE 2/35MIN Diagnoses Hypoxic respiratory failure J96.01 Chronicity: acute Ovarian cancer C56.9 Thrombocytopenia D69.6 Other specified hypotension I95.9 Hypotension type: unspecified hypotension type Edema, peripheral R60.0 Lymphedema I89.0 Moderate malnutrition E44.0 Metastatic neoplastic disease C79.9 Decubitus ulcer of sacral region, stage 1 L89.151 Platypnea-orthodeoxia syndrome R06.09 Time Spent (min) 40 (1) Hypoxic respiratory failure Chronicity: acute Qualified Code(s): J96.01 - Acute respiratory failure with hypoxia (4) Hypotension Hypotension type: unspecified hypotension type Qualified Code(s): I95.9 - Hypotension, unspecified
[2025-07-31 18:46] VITALS: O2SAT 63
[2025-07-31 20:31] VITALS: BP 52/41
[2025-07-31] MEDS ORDERED: GLYCOPYRROLATE 0.2 MG/ML VIAL IV PRN (22:35)
[2025-07-31] MEDS ORDERED: ATROPINE SULFATE 1% OP SOLN 5 ML BTL SL PRN (22:35)
--- NOTE | 2025-07-31 22:39 | Communication Note ---
<Statement entered by William Camara MD - 08/01/25 08:49> I, William Camara MD, reviewed the physical exam, assessment, plan, and management as documented by the Advanced Care Provider JOEL York, for this patient encounter. I discussed the case with them, confirmed the findings, and I concur with the proposed plan of care. I was available for consultation throughout the encounter and provided guidance as needed. Date of Service: July 31, 2025 Son arrived from [place]. After visiting with Erica for period of time, request that vasoactive medications be stopped and full focus on comfort measures at this time. I have also discontinued other therapies as chronic medications, steroids, and antibiotics at family request as well. We will add atropine and glycopyrrolate for as needed secretion management. Abdiel MALDONADO ([facility]-)
[2025-07-31] MEDS ORDERED: Nursing to Pharmacy Communication SCH (22:45)
[2025-07-31] MEDS: LORazepam Inj 0.5 MG in SYRINGE 0.25 ML IV PRN (23:01)
[2025-08-01 02:02] VITALS: PULSE 90; RESP 20
--- NOTE | 2025-08-01 03:33 | Death Pronouncement Note ---
<Statement entered by William Camara MD - 08/01/25 08:49> I, William Camara MD, reviewed the physical exam, assessment, plan, and management as documented by the Advanced Care Provider JOEL York, for this patient encounter. I discussed the case with them, confirmed the findings, and I concur with the proposed plan of care. I was available for consultation throughout the encounter and provided guidance as needed. Date of Service August 01, 2025 Pronouncement Note Admission Date July 29, 2025 Date and Time of Date of : 08/01/25 Time of : 03:18 Preliminary Cause of (1) Sepsis: Acute respiratory failure type: with hypoxia Severe sepsis shock status: with septic shock Sepsis acute organ dysfunction status: with acute organ dysfunction Severe sepsis acute organ dysfunction type: acute respiratory failure Sepsis type: sepsis due to unspecified organism Qualified Code(s): A41.9 - Sepsis, unspecified organism; R65.21 - Severe sepsis with septic shock; J96.01 - Acute respiratory failure with hypoxia (2) Pneumonia: Laterality: right Lung location: lower lobe of lung Pneumonia type: due to unspecified organism Qualified Code(s): J18.9 - Pneumonia, unspecified organism (3) Ovarian cancer: Laterality: unspecified laterality Qualified Code(s): C56.9 - Malignant neoplasm of unspecified ovary Contributing Factors HFpEF, CKD, bladder cancer, malnutrition. Summary PRONOUNCEMENT NOTE - Date: [id number] Time: 217 In short, 74-year-old female who presented to the ED due to worsening shortness of breath and hypoxemia. Imaging with chest x-ray revealed bilateral pleural effusions and new right lower lobe opacities. recent history includes a hospitalization from 07/18 to 07/25 for hypotension requiring pressors and suspected pneumonia with right lower lobe consolidation, during which she completed a 5-day course of antibiotics. She has a complex oncologic history with stage IV ovarian cancer (diagnosed 2021) with hepatic and pulmonary metastases, prior chemotherapy (carboplatin, liposomal doxorubicin, mirvetuximab). This hospital course, she required vasopressor therapy as well as mineralocorticoid and adrenal corticoid support. Despite therapies, patient had progression of her infiltrates and effusions and worsening of her organ dysfunction. With her progression of her cancer and worsening organ dysfunction, palliative care was engaged and patient was transitioned to comfort/palliative care when all family members were present. She was DNR/DNI. Vasoactive medications were discontinued on 07/31/13 @ 2230, with goal of care transitioned to full comfort measures at that time. Patient ceased to breath or have a pulse at 0318 08/01/2025. Assessment: I presented to the patients room for evaluation. Upon assessment, the patient was found to be in a terminal state. Eyes were open, Pupils were fixed and dilated without response to light. No central palpable pulses appreciated and telemetry was noted with asystole in 2 leads for 3 min prior. Heart sounds were absent. No spontaneous breaths auscultated or palpated. No response to painful stimuli or name. Time of : 317 as pronounced by myself. Family ( was present at bedside) for pronouncement, other family stepped outside. Appropriate response to grief appreciated. Condolences provided. Questions were addressed and emotional support was provided. Patients primary service- Dr Means was contacted and made aware of patient demise. Cause of : Primary - Septic shock Secondary - Pneumonia Contributing Causes of - Ovarian cancer, CKD, Malnutrition, HFpEF Please feel free to contact me with any questions regarding the above-mentioned course. Additional Data Attending physician: Chadwick Sanchez MD
--- NOTE | 2025-08-01 16:22 | Electrocardiogram Report ---
Test Reason : Blood Pressure : */* mmHG Vent. Rate : 90 BPM Atrial Rate : 83 BPM P-R Int : 166 ms QRS Dur : 86 ms QT Int : 346 ms P-R-T Axes : 59 -67 48 degrees QTcB Int : 423 ms Poor data quality, interpretation may be adversely affected Sinus rhythm Left axis deviation Low voltage QRS Inferior infarct (cited on or before 18-Jul-2025) Possible Anterolateral infarct (cited on or before 07-Aug-2024) Abnormal ECG When compared with ECG of 18-Jul-2025 15:31, No significant change Confirmed by Alex Everett ([id number]) on 08/01/2025 4:22:15 PM Referred By: Confirmed By: Alex Everett
[2025-08-02] MEDS ORDERED: ERGOCALCIFEROL 1250 MCG (50,000 UNITS) CAP PO SCH (09:00)
--- NOTE | 2025-08-02 11:25 | Coding Query ---
CODING QUERY To promote full compliance with coding requirements relating to patient care, provider participation is requested in all cases of bacon skinner uncertainty. Please assist us with the question(s) below: Coding Question(s): Septic Shock is documented starting on H&P and in the Progress Notes and Severe Sepsis Shock Status is documented on the 08/01 Note. Please specify below, in your clinical opinion, the most likely cause/source of the Sepsis: ( X) Pneumonia ( ) Other: Please Specify ( ) Unknown Physician's Response(s): Thank you Cynthia Reina Principal Diagnosis: "that condition established after study, to be chiefly responsible for occasioning the admission of the patient to the hospital for care." Co-Existing Principal Diagnosis: "when two or more diagnoses equally meet the criteria for principal diagnosis as determined by the circumstances of admission, diagnostic work up, and/or therapy provided, and the Alphabetic Index, Tabular List, or another coding guideline does not provide sequencing direction, any one of the diagnoses may be sequenced first." "When the physician has documented what appears to be a current diagnosis in the body of the record, but has not included the diagnosis in the final diagnostic statement, the physician should be asked whether the diagnosis should be added." (Source Coding [facility] 2 QTR90. p3-4) TYREL
== END 2025-08-01 04:15 | disposition expired | DRG 871 ==
LOC: ED 09:46 → 1E 13:29
DX: I89.0 Lymphedema, not elsewhere classified; J18.9 Pneumonia, unspecified organism; J96.01 Acute respiratory failure with hypoxia; R65.21 Severe sepsis with septic shock; Z51.5 Encounter for palliative care; Z66 Do not resuscitate; Z87.891 Personal history of nicotine dependence; Z79.899 Other long term (current) drug therapy; E87.1 Hypo-osmolality and hyponatremia; C78.00 Secondary malignant neoplasm of unspecified lung; C78.7 Secondary malignant neoplasm of liver and intrahepatic bile duct; C56.9 Malignant neoplasm of unspecified ovary; D69.6 Thrombocytopenia, unspecified; Z93.3 Colostomy status; Z93.2 Ileostomy status; E44.0 Moderate protein-calorie malnutrition; N17.9 Acute kidney failure, unspecified; L89.151 Pressure ulcer of sacral region, stage 1; R11.2 Nausea with vomiting, unspecified; K21.9 Gastro-esophageal reflux disease without esophagitis; N18.9 Chronic kidney disease, unspecified; E27.40 Unspecified adrenocortical insufficiency; M81.0 Age-related osteoporosis without current pathological fracture; I50.30 Unspecified diastolic (congestive) heart failure; A41.9 Sepsis, unspecified organism